=== PATIENT | male | born 1970 | race Caucasian/White ===

== ENCOUNTER → 2025-06-10 | Outpatient (CLI) | payer BC, SELFPAY ==
--- OUTSIDE RECORDS SUMMARY | 2025-06-10 07:02 | XMS RPT_ITS | CCD ---
Author Organization [facility] ion [facility] Care Team Providers Care Seeing Eye Dog Teacher Name Role Phone Haley Ulloa Attending Unavailab le Longsdorf, Haley Hernandes Primary Care Unavailab le Longsdorf, Haley A Admitting Unavailab le Longsdorf, Haley A Admitting Unavailab le Longsdorf, Haley A Attending Unavailab le Longsdorf, Haley A Primary Care Unavailab le Longsdorf, Haley A Admitting Unavailab le Longsdorf, Haley A Attending Unavailab le Longsdorf, Haley A Primary Care Unavailab le Longsdorf, Haley A Admitting Unavailab le Longsdorf, Haley A Attending Unavailab le Longsdorf, Haley A Primary Care Unavailab le Longsdorf, Haley Unavailable Unavailable Laila, Haley A Unavailable Unavailab le Haley Ulloa Primary Care Provider Haley Ulloa Primary Care Provider Haley Ulloa MD Unavailable Unavaila ble Haley Ulloa Unavailable Unavailab Haley Lira MD Primary Care Provid er Haley Ulloa Unavailable [phone] Unavailable Unavailable Haley Ulloa Primary Care Provider Haley Ulloa MD Primary Care Provid er Haley Ulloa Unavailable Dat Garcia I Unavailable Unavailable Haley Ulloa MD Primary Care Provid er [place], Mr. Dat Lisa Attending Unavailable Dr. Haley Ulloa Primary Care Un available Haley Ulloa MD Primary Care Provider DANIA PRESSLEY Referring Unavailable DANIA PRESSLEY Attending Unavailable HALEY ULLOA Primary Care Haley English MD Unavailable Haley Ulloa MD Primary Care [facility] er Lizandro Bruce OD Unavailable [phone] HALEY ULLOA Primary Care SAMANTHA De Jesus Attending Unavailable LIZANDRO BRUCE Referring Unavailable SYSTEM, PROVIDER NOT IN Attending Unavaila ble SYSTEM, PROVIDER NOT IN Referring Unavaila HALEY Brody Primary Care Zahraavai labalycia SYSTEM, PROVIDER NOT IN Referring Unavaila ble LAILA, HALEY COLEY Primary Care Unavai labalycia SYSTEM, PROVIDER NOT IN Attending Unavaila ble Janette Marino LPN Unavailable Unavailable [facility] Consulting ARTHUR Aguayo Attending Unavailable MOSES BOWEN Admitting Unavailab le HALEY ULLOA Primary Care YESSENIA Martinez Consulting Unavaila HALEY Brody Primary Care DANIA Cage Referring Unavailable DANIA PRESSLEY Attending Unavailable NONA WORTHINGTON Referring Unavailable NONA WORTHINGTON Attending Unavailable HALEY ULLOA Primary Care Haley English MD Unavailable Haley Ulloa MD Primary Care Provider Haley Ulloa MD Unavailable Haley Ulloa MD Primary Care Provider HALEY ULLOA Primary Care HALEY English Primary Care RICARDO Underwood Attending Unav ailable LONGIDORF, HALEY COLEY Primary Care Unavai robert PALOMINOEY, DANIA CARSON Referring Unavailable WENDIE, DANIA CARSON Attending Unavailable LONGSDORF, HALEY A Attending Unavailab le LONGSDORF, HALEY A Primary Care Unavailab le LONGSDORF, HALEY A Attending Unavailab le LONGSDORF, HALEY A Referring Unavailab le LONGSDORF, HALEY A Primary Care Unavailab le LONGSDORF, HALEY A Attending Unavailab le LONGSDORF, HALEY A Referring Unavailab le LONGSDORF, HALEY A Primary Care Unavailab le LONGSDORF, HALEY A Attending Unavailab le LONGSDORF, HALEY A Primary Care Unavailab le LONGSDORF, HALEY A Primary Care Unavailab DOUGLAS Lauren Attending Unavailable MARYJANE ALEXIS S Referring Unavailable LONGSDORF, HALEY A Primary Care Unavailab GINA Manuel Attending Unavailable LONGSDORF, HALEY A Referring Unavailab le LONGSDORF, HALEY A Primary Care Unavailab GINA Manuel Referring Unavailable LONGSDORF, HALEY A Primary Care Unavailab GINA Manuel Referring Unavailable LONGSDORF, HALEY A Primary Care Unavailab IRAIS Escalante Attending Unavailable LONGSDORF, HALEY A Primary Care Unavailab le LONGSDORF, HALEY A Referring Unavailab le LONGSDORF, HALEY A Primary Care Unavailab le MARYJANE ALEXIS S Attending Unavailable LONGSDORF, HALEY A Referring Unavailab le LONGSDORF, HALEY A Primary Care Unavailab le LONGSDORF, HALEY A Primary Care Unavailab DON Izaguirre Attending Unavailable LONGSDORF, HALEY A Referring Unavailab le LONGSDORF, HALEY A Primary Care Unavailab le MARJORIET, MARYJANE S Referring Unavailable LONGSDORF, HALEY A Primary Care Unavailab le MARJORIET, MARYJANE S Referring Unavailable LONGSDORF, HALEY A Primary Care Unavailab le REUBEN, MARYJANE S Referring Unavailable LONGSDORF, HALEY A Primary Care Unavailab le REUBEN, MARYJANE S Referring Unavailable LONGSDORF, HALEY A Primary Care Unavailab le LONGSDORF, HALEY A Primary Care Unavailab Maryjane Felix NP Referring Maryjane Suero NP Attending [facility] Care Physician, No Primary Primary Care Unava ilable Medications Current Medications Medication Drug Class(es) Dates Sig (Normalized) Sig (Original) acetaminophen 325 mg / oxyCODONE hydrochloride 5 mg oral tablet (1 source) Opioid Agonist Start: 01-04-2024 End: 01-07-2024 take 1 tablet by mouth four times daily oxyCODONE-acetamin ophen (Percocet) 5-325 mg tablet Indications: Pleural effusion on right , Right-sided chest pain , Pneumonitis Take 1 tablet by mouth 4 times a day for 3 days. 12 tablet 01/04/2024 01/07/2024 Active amoxicillin 875 mg oral tablet (1 source) Penicillin-class Antibacterial Start: 05-27-2024 End: 06-06-2024 take 1 tablet by mouth twice daily amoxicillin (Amoxil) 875 mg tablet Indications: Right ear pain Take 1 tablet (875 mg) by mouth 2 times a day for 10 days. 20 tablet 05/27/2024 06/06/2024 Active amoxicillin 875 mg / clavulanate 125 mg oral tablet (6 sources) Penicillin-class Antibacterial Start: 06-22-2024 End: 07-04-2024 take 1 tablet by mouth every twelve hours amoxicillin-pot clavulanate (Augmentin) 875-125 mg tablet Indications: Pain in upper jaw , Right ear pain Take 1 tablet by mouth every 12 hours for 7 days. 14 tablet 06/22/2024 07/04/2024 Discontinued (Therapy completed) Start: 01-14-2024 End: 02-04-2024 take 1 tablet by mouth twice daily amoxicillin-pot clavulanate (Augmentin) 875-125 mg tablet Take 1 tablet by mouth twice a day. 01/14/2024 02/04/2024 Active atorvastatin 40 mg oral tablet (20 sources) HMG-CoA Reductase Inhibitor Start: 11-20-2024 take 1 tablet by mouth once daily atorvastatin (Lipitor) 40 mg tablet Indications: Elevated serum cholesterol TAKE 1 TABLET BY MOUTH EVERY DAY 90 tablet 1 11/20/2024 Active Start: 05-27-2024 take 1 tablet by be once daily atorvastatin (Lipitor) 40 mg tablet Indications: Elevated serum cholesterol Take 1 tablet (40 mg) by mouth once daily. 90 tablet 1 05/27/2024 Active Start: 02-19-2024 take 1 tablet by be th once daily atorvastatin (Lipitor) 40 mg tablet Indications: Elevated serum cholesterol Take 1 tablet (40 mg) by mouth once daily. 90 tablet 1 02/19/2024 Active Start: 11-12-2023 End: 01-14-2024 take 40 mg by mouth once daily 40 mg, Oral, Nightly, F irst dose on Taylor 01/10/24 at 0030 Start: 05-08-2023 take 1 tablet by be th once daily atorvastatin (Lipitor) 40 mg tablet Indications: Elevated serum cholesterol Take 1 tablet (40 mg) by mouth once daily. 90 tablet 1 05/08/2023 Active Start: 02-02-2023 take 1 tablet by be th once daily atorvastatin (Lipitor) 40 mg tablet Indications: Elevated serum cholesterol Take 1 tablet (40 mg) by mouth once daily. 90 tablet 1 02/02/2023 Active Start: 08-08-2022 End: 02-02-2023 take 1 tablet by mouth every twenty-four hours atorvastatin (LIPITOR) 40 MG tablet Take 1 Unspecified by mouth daily . 08/08/2022 Active Comment on above: Source=[facility], Medication=ATORVASTATIN 40MG TAB, OriginatingSource=[facility], Duration=90, Date Last Modified/Filled=08-Aug-2022 Take 1 tablet by be th every afternoon. calcium chloride 0.0014 meq/ml / potassium chloride 0.004 meq/ml / sodium chloride 0.103 meq/ml / sodium lactate 0.028 meq/ml injectable solution (2 sources) Start : 10-02 lactated Ringer's infusion HYDROmorphone (1 source) Opioid Agonist Start : 10-02 HYDROmorphone (Dilaudid) injection 0.5 mg levoFLOXacin 500 mg oral tablet (3 sources) Quinolone Antimicrobial Start : 01-03 End: 01-13 take 1 tablet by mouth once daily levoFLOXacin (Levaquin) 500 mg tablet Indications: Pleural effusion on right , Right-sided chest pain , Pneumonitis Take 1 tablet (500 mg) by mouth once daily for 10 days. 10 tablet 01/04/2024 01/14/2024 Active naproxen 500 mg oral tablet (2 sources) Nonsteroidal Anti-inflammatory Drug Start : 06-22 End: 07-07 take 1 tablet by mouth twice daily naproxen (Naprosyn) 500 mg tablet Indications: Pain in upper jaw , Right ear pain Take 1 tablet (500 mg) by mouth 2 times daily (morning and late afternoon) for 15 days. 30 tablet 06/22/2024 07/07/2024 Active oxyCODONE hydrochloride 5 mg oral tablet (3 sources) Opioid Agonist Start : 10-02 take 1 tablet by mouth every four hours as needed oxyCODONE (Roxicodone) immediate release tablet 10 mg Start: 10-30-2016 End: 01-16-2022 take 5-15 mg by mouth every four hours as needed oxyCODONE immediate release (ROXICODONE) 5 mg immediate release tablet Take 1-3 tablets by mouth every 4 hours as needed for Pain. 60 tablet 0 10/30/2016 01/16/2022 Discontinued (Discontinued by another Health Care Provider) Comment on above: Take 5 mg by mouth e very 4 hours as needed. Take 1-3 tablets by mouth every 4 hours as needed for Pain. oxygen (O2) therapy (1 source) Start: 10-02-2023 oxygen (O2) therapy predniSONE 20 mg oral tablet (1 source) Start: 05-27-2024 End: 06-01-2024 take 1 tablet by mouth once daily predniSONE (Deltasone) 20 mg tablet Indications: Right ear pain Take 1 tablet (20 mg) by mouth once daily for 5 days. 5 tablet 05/27/2024 06/01/2024 Active rOPINIRole 0.5 mg oral tablet (20 sources) Nonergot Dopamine Agonist Start: 11-20-2024 take 1 tablet by mouth once daily at bedtime rOPINIRole (Requip) 0.5 mg tablet Indications: restless leg syndrome TAKE 1 TABLET (0.5 MG) BY MOUTH ONCE DAILY AT BEDTIME. TAKE WITH 2 MG FOR A TOTAL OF 2.5 MG NIGHTLY 90 tablet 1 11/20/2024 Active Start: 11-20-2024 take 1 tablet by be once daily at bedtime rOPINIRole (Requip) 2 mg tablet Indications: restless leg syndrome TAKE 1 TABLET (2 MG) BY MOUTH ONCE DAILY AT BEDTIME. 90 tablet 1 11/20/2024 Active Start: 05-27-2024 take 1 tablet by be th once daily at bedtime rOPINIRole (Requip) 0.5 mg tablet Indications: restless leg syndrome Take 1 tablet (0.5 mg) by mouth once daily at bedtime. Take with 2 mg for a total of 2.5 mg nightly 90 tablet 1 05/27/2024 Active Start: 05-27-2024 take 1 tablet by be th once daily at bedtime rOPINIRole (Requip) 2 mg tablet Indications: restless leg syndrome Take 1 tablet (2 mg) by mouth once daily at bedtime. 90 tablet 1 05/27/2024 Active Start: 02-19-2024 take 1 tablet by be once daily at bedtime rOPINIRole (Requip) 2 mg tablet Indications: Restless legs syndrome Take 1 tablet (2 mg) by mouth once daily at bedtime. 90 tablet 1 02/19/2024 Active Start: 01-10-2024 End: 01-14-2024 take 2 mg by mouth at bedtime 2 mg, Oral, At bedtime, First dose on Taylor 01/10/24 at 0030 Start: 02-20-2023 take 1 tablet by be once daily at bedtime rOPINIRole (Requip) 2 mg tablet Indications: Restless legs syndrome TAKE 1 TABLET BY MOUTH EVERYDAY AT BEDTIME 90 tablet 1 02/20/2023 Active Start: 01-30-2020 take 4 tablets by mo [facility] at bedtime, then take 1 tablet by mouth once daily at bedtime rOPINIRole (REQUIP) 0.5 MG tablet Take 4 (four) tablets (2 mg total) by mouth at bedtime TAKE 1 TABLET BY MOUTH EVERYDAY AT BEDTIME . 01/30/2020 Active Start: 10-31-2019 rOPINIRole (RE QUIP) 0.5 mg tablet Take by mouth. 0 10/31/2019 Active Start: 10-31-2019 take 1 tablet by be th at bedtime rOPINIRole HCl - 2 MG Oral Tablet TAKE 1 TABLET AT BEDTIME. Quantity: 90 Refills: 1 Ordered: 04-Aug-2022 Haley Ulloa MD Start : 31-Oct-2019 Active Start: 10-31-2019 take 1 tablet by be th at bedtime rOPINIRole HCl - 1 MG Oral Tablet TAKE 1 TABLET AT BEDTIME Quantity: 90 Refills: 1 Haley Ulloa MD Start : 31-Oct-2019 Active Comment on above: Take by mouth. Source=Surescripts, Medication=ROPINIROLE 2MG TAB, OriginatingSource=[facility], Duration=90, Date Last Modified/Filled=04-Aug-2022 sertraline 100 mg oral tablet (20 sources) Serotonin Reuptake Inhibitor Start: 01-10-2024 End: 01-14-2024 take 150 mg by mouth once daily 150 mg, Oral, Daily, First dose on [place] 01/10/24 at 0900 Start: 07-22-2018 take 1.5 tablets by mouth once daily sertraline (Zoloft) 100 mg tablet Indications: Depression, unspecified Take 1.5 tablets (150 mg) by mouth once daily. 135 tablet 1 11/20/2024 Active Start: 07-22-2018 End: 08-24-2023 sertraline (Zoloft) 100 mg t ablet Indications: Depression, unspecified TAKE 1 & 1/2 TABLET BY MOUTH EVERY DAY 135 tablet 1 02/20/2023 08/24/2023 Discontinued (Reorder) take 2 tablets by mo ndh once daily sertraline (ZOLOFT) 50 mg tablet Take 100 mg by mouth once daily. 0 Active Comment on above: Take 100 mg by mouth once daily. Completed/Discontinued Medications Medication Drug Class(es) Dates Sig (Normalized) Sig (Original) acetaminophen 325 mg oral tablet (20 sources) Start: 08-01-2024 End: 08-01-2024 take 1 tablet by mouth once as needed for pain 650 mg, oral, Once, On 08/01/24 at 1045, For 1 dose, Phase II/On Unit, Administer tablet or oral liquid per patient preference., If ordered PRN for pain, nurse is permitted to administer this medication for higher pain scores based on patient preference? Yes Start: 01-09-2024 End: 01-14-2024 take 1 tablet by mouth every four hours as needed for pain and headache 650 mg, Oral, Every 4 hours PRN, mild pain, fever 100.4 F or greater, headaches, Starting on Sun01/09/24 at 2341 Start: 10-02-2023 End: 10-02-2023 acetaminophen (Tylenol) tabl et 975 mg acetaminophen (T ylenol) 325 mg tablet Take by mouth every 6 hours if needed for mild pain (1 - 3). Active End: 01-16-2022 take 2 tablets by mouth every six hours as needed acetaminophen (TYLENOL) 325 MG tablet Take 2 (two) tablets (650 mg total) by mouth every 6 (six) hours as needed Per pt . Active Comment on above: Take 650 mg by mouth every 6 hours as needed. alteplase (INTRAPLEURAL) 10 mg/30 mL injection (4 sources) Start: 01-13-2024 End: 01-13-2024 alteplase (INTRAPLEURAL) 10 mg/30 mL injection Start: 01-12-2024 End: 01-12-2024 alteplase (INTRAPLEURAL) 10 mg/30 mL injection Start: 01-11-2024 End: 01-11-2024 alteplase (INTRAPLEURAL) 10 mg/30 mL injection Start: 01-10-2024 End: 01-10-2024 alteplase (INTRAPLEURAL) 10 mg/30 mL injection aluminum hydroxide 40 mg/ml / magnesium hydroxide 40 mg/ml / simethicone 4 mg/ml oral suspension (1 source) Start: 01-09-2024 End: 01-14-2024 take 30 mL by mouth every four hours as needed 30 mL, Oral, Every 4 hours PRN, indigestion, Starting on Sun01/09/24 at 2341 benoxinate hydrochloride 4 mg/ml / fluorescein sodium 3 mg/ml ophthalmic solution (2 sources) Diagnostic Dye Start: 01-02-2024 End: 01-02-2024 fluorescein-benoxin ate 0.3-0.4 % 1 Drop (FLURESS) Start: 01-16-2022 End: 01-17-2022 fluorescein-benoxinate 0.25- 0.4 % 1 Drop (FLURESS) bisacodyl 10 mg rectal suppository (2 sources) Stimulant Laxative Start: 01-09-2024 End: 01-14-2024 take 10 mg rectal route once daily as needed for constipation 10 mg, Rectal, Daily PRN, constipation, Starting on Sun01/09/24 at 2341, Try oral medications first for constipation. Try rectal medication if oral meds are ineffective, not tolerated, or not ordered. End: 01-16-2022 take 10 mg rectal route once daily as needed bisacodyl (DULCOLAX) 10 mg supp 10 mg by RECTAL route once daily as needed. 0 01/16/2022 Discontinued (Discontinued by another Health Care Provider) Comment on above: 10 mg by RECTAL rout e once daily as needed. ceFAZolin 2000 mg injection (1 source) Cephalosporin Antibacterial Start: End: ceFAZolin in dextrose (iso-os) (Ancef) IVPB 2 g cefTRIAXone 2000 mg injection (2 sources) Cephalosporin Antibacterial Start: End: take 2000 mg intravenously every twenty-four hours cefTRIAXone (ROCEPHIN) IVPB 2 g (premix) Start: 01-04-2024 End: 01-04-2024 2 g, intravenous, at 100 mL/ hr, Administer over 30 Minutes, Once, On Sun01/04/24 at 1935, For 1 dose, premix bag, Suspected Indication (Select all that apply): Pneumonia, Type of Therapy: Empiric celecoxib 200 mg oral capsule (1 source) Nonsteroidal Anti-inflammatory Drug Start: 10-02-2023 End: 10-02-2023 celecoxib (CeleBREX) capsule 400 mg docusate sodium 50 mg / sennosides, intermediate 8.6 mg oral tablet (1 source) Start: 01-10-2024 End: 01-14-2024 senna-docusate (SENNA-S) 8.6-50 mg per tablet 1 tablet dornase (PULMOZYME) 5 mg/30 ml intrapleural injection (4 sources) Start: 01-13-2024 End: 01-13-2024 dornase (PULMOZYME) 5 mg/30 ml intrapleural injection Start: 01-12-2024 End: 01-12-2024 dornase (PULMOZYME) 5 mg/30 ml intrapleural injection Start: 01-11-2024 End: 01-11-2024 dornase (PULMOZYME) 5 mg/30 ml intrapleural injection Start: 01-10-2024 End: 01-10-2024 dornase (PULMOZYME) 5 mg/30 ml intrapleural injection 0.4 ml enoxaparin sodium 100 mg/ml prefilled syringe (2 sources) Low Molecular Weight Heparin Start: 01-10-2024 End: 01-14-2024 inject 40 mg by subcutaneous injection once daily 40 mg, Subcutaneous, Daily, First dose on Taylor 01/10/24 at 0900, Administer in abdomen unless otherwise directed by prescriber. Notify physician if patient refuses., Indication: VTE Prophylaxis Start: 10-20-2016 End: 01-16-2022 inject 0.3 mL by subcutaneous injection every twelve hours enoxaparin (LOVENOX) 30 mg/0.3 mL injection Inject 0.3 mL subcutaneously every 12 hours. 30 Syringe 2 10/20/2016 01/16/2022 Discontinued (Discontinued by another Health Care Provider) Comment on above: Inject 0.3 mL subcut aneously every 12 hours. gabapentin 300 mg oral capsule (20 sources) Anti-epileptic Agent Start: 10-02-2023 End: 10-02-2023 gabapentin (Neurontin) capsule 600 mg Start: 06-03-2021 Gabapentin 300 MG Oral Capsule Quantity: 90 Refills: 0 Ordered: 03-Jun-2021 DO Start : 03-Jun-2021 Active Start: 05-06-2021 End: 09-26-2023 take 1 capsule by mouth once daily at bedtime gabapentin (NEURONTIN) 300 MG capsule Indications: Diabetic polyneuropathy associated with type 2 diabetes mellitus (HCC) Take 1 (one) capsule (300 mg total) by mouth at bedtime (Days supply per fill: 90) . 90 capsule 3 06/02/2022 06/02/2023 Active Comment on above: Take 300 mg by mouth once daily. Source=[place], Medication=GABAPENTIN 300 MG CAPSULE, OriginatingSource=[facility] OriginatingProvider=NIMA BURR, Duration=90, Refills=3, Date Last Modified/Filled=02-Jun-2022 gadoterate meglumine (Dotarem) 0.5 mmol/mL contrast injection 20 mL (1 source) Start: 2024 End: 2024 inject 20 mL intravenously once 20 mL, intravenous, Once in imaging, Starting on Sun02/06/25 at 0746, For 1 dose, Administer undiluted as rapid I.V. bolus injection gadoterate meglumine (Dotarem) 0.5 mmol/mL contrast injection 24 mL (1 source) Start: 2024 End: 2024 inject 24 mL intravenously once 24 mL, intravenous, Once in imaging, Starting on Sun05/08/25 at 1438, For 1 dose, Administer undiluted as rapid I.V. bolus injection glucagon (rdna) 1 mg injection (1 source) Antihypoglycemic Agent Start: 2023 End: 2023 intravenous, As needed, Starting on Sun08/01/24 at 0838, Intraprocedure ibuprofen 600 mg oral tablet (16 sources) Nonsteroidal Anti-inflammatory Drug Start: 2023 End: 2023 take 1 tablet by mouth every six hours as needed for headache and pain 600 mg, Oral, Every 6 hours PRN, fever 100.4 F or greater, headaches, mild pain, Starting on Sun01/09/24 at 2341, Give with Food Do Not Crush or Chew if administering orally due to bitter taste. May be crushed if given via tube. take 2 tablets by mo ut every six hours as needed ibuprofen (ADVIL,MOTRIN) 200 MG tablet T christina 2 (two) tablets (400 mg total) by mouth every 6 (six) hours as needed Per pt - as needed . Active iohexol (OMNIPaque) 350 mg iodine/mL solution 69 mL (1 source) Start: 01-04-2024 End: 01-04-2024 69 mL, intravenous, Once in imaging, Starting on Sun01/04/24 at 1827, For 1 dose iopamidoL (ISOVUE-370) 370 mg iodine /mL (76 %) injection 75 mL (1 source) Start: 01-09-2024 End: 01-09-2024 iopamidoL (ISOVUE-370) 370 mg iodine /mL (76 %) injection 75 mL 1 ml ketorolac tromethamine 30 mg/ml injection (1 source) Nonsteroidal Anti-inflammatory Drug, Cyclooxygenase Inhibitor Start: 01-04-2024 End: 01-04-2024 30 mg, intravenous, Once, On Sun01/04/24 at 1935, For 1 dose LORazepam 0.5 mg oral tablet (2 sources) Benzodiazepine End: 01-16-2022 LORazepam (ATIVAN) 0.5 mg tab Take by mouth three times daily as needed. 0 01/16/2022 Discontinued (Discontinued by another Health Care Provider) End: 01-16-2022 LORAZEPAM (ATIVAN ORAL) Awilda cations: Hangman's fracture, closed, initial encounter ([facility]) Take by mouth. 0 01/16/2022 Discontinued (Discontinued by another Health Care Provider) Comment on above: Take by mouth three times daily as needed. Take by mouth. magnesium hydroxide 80 mg/ml oral suspension (1 source) Start: 01-09-2024 End: 01-14-2024 2,400 mg (30 mL), Oral, Daily PRN, constipation, Starting on Sun01/09/24 at 2341, If no bowel movement in 24 hours after Sennosides (SENNA) administration. melatonin 5 mg oral tablet (1 source) Start: 01-09-2024 End: 01-14-2024 5 mg, Oral, Nightly PRN, Sleep, Starting on Sun01/09/24 at 2341, If still awake in 1 hour proceed to trazodone (Desyrel) metroNIDAZOLE 250 mg oral tablet (2 sources) Nitroimidazole Antimicrobial Start: 01-11-2024 End: 01-14-2024 metroNIDAZOLE (FLAGYL) tablet 500 mg Start: 01-10-2024 End: 01-10-2024 take 500 mg intravenously every eight hours metroNIDAZOLE (FLAGYL) IVPB 500 mg morphine sulfate 15 mg oral tablet (4 sources) Opioid Agonist Start: 01-09-2024 End: 01-14-2024 take 7.5-15 mg by mouth every four hours as needed morphine (MSIR) tablet 7.5-15 mg Start: 01-09-2024 End: 01-14-2024 take 2-4 mg intravenously every three hours as needed morphine injection 2-4 mg Start: 01-04-2024 End: 01-04-2024 4 mg, intravenous, Once, On Sun01/04/24 at 1935, For 1 dose naloxone (NARCAN) injection 0.1 mg (1 source) Start: 01-09-2024 End: 04-22-2024 naloxone (NARCAN) injection 0.1 mg 24 hr nicotine 0.583 mg/hr transdermal system (1 source) Cholinergic Nicotinic Agonist Start: 01-09-2024 End: 01-14-2024 nicotine (NICODERM CQ) 14 mg/24 hr 1 patch 2 ml ondansetron 2 mg/ml injection (2 sources) Serotonin-3 Receptor Antagonist Start: 01-04-2024 End: 01-04-2024 4 mg, intravenous, Once, On Sun01/04/24 at 1715, For 1 dose, When administering via IV Push, administer over 3-5 minutes. Start: 10-02-2023 ondansetron (Z ofran) injection 4 mg ondansetron (ZOFRAN-ODT) disintegrating tablet 4 mg (1 source) Start: 01-09-2024 End: 01-14-2024 take 1 tablet by mouth every six hours as needed for nausea and vomiting ondansetron (ZOFRAN-ODT) disintegrating tablet 4 mg perflutren lipid microspheres (DEFINFotoIN Mobile) 0.143 mg/mL solution 0-10 mL of mixture (1 source) Start: 01-10-2024 End: 01-12-2024 perflutren lipid microspheres (DEFINITY) 0.143 mg/mL solution 0-10 mL of mixture phenylephrine hydrochloride 25 mg/ml ophthalmic solution (2 sources) alpha-1 Adrenergic Agonist Start: 01-02-2024 End: 01-02-2024 PHENYLephrine 2.5 % 1 Drop (AK-DILATE, MERISSA-SYNEPHRINE) Start: 01-16-2022 End: 01-17-2022 PHENYLephrine 2.5 % 1 Drop ( AK-DILATE, MERISSA-SYNEPHRINE) proparacaine hydrochloride 5 mg/ml ophthalmic solution (2 sources) Local Anesthetic Start: 01-02-2024 End: 01-02-2024 proparacaine 0.5 % 1 Drop (ALCAINE) Start: 01-16-2022 End: 01-17-2022 proparacaine 0.5 % 1 Drop (A LCAINE) sennosides, intermediate 8.6 mg oral tablet (1 source) Start: 01-09-2024 End: 01-14-2024 take 1 tablet by mouth twice daily as needed for constipation 8.6 mg (1 tablet), Oral, 2 times daily PRN, constipation, Starting on Sun01/09/24 at 2341 Sodium Chloride (3 sources) Start: 01-09-2024 End: 01-14-2024 sodium chloride (PF) (NS) flush 5 mL Start: 01-04-2024 End: 01-04-2024 take 125 mL intravenously every hour 125 mL/hr, intravenous, Continuous, Starting on Sun01/04/24 at 1715 traZODone hydrochloride 50 mg oral tablet (1 source) Serotonin Reuptake Inhibitor Start: 01-09-2024 End: 01-14-2024 50 mg, Oral, Nightly PRN, sleep, Starting on Sun01/09/24 at 2341, To be administered 1 hour after melatonin if still awake. May repeat x 1 dose in 30 minutes if still awake. tropicamide 10 mg/ml ophthalmic solution (2 sources) Anticholinergic Start: 01-02-2024 End: 01-02-2024 tropicamide 1 % 1 Drop (MYDRIACYL) Start: 01-16-2022 End: 01-17-2022 tropicamide 1 % 1 Drop (MYDR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 [facility] [place] [address] Distributor Of Directories: Parveen Cantrell MD Hematocrit (Bld) [Volume fraction] 46.7 % Normal 38.5-50.0 [facility] Comment on above: Performed By: #### 5 363, 28109, 927, 6399, 69699, 40522, 7600 #### [facility] [place] [address] Distributor Of Directories: Parveen Cantrell MD Hemoglobin (Bld) [Mass/Vol] 15.1 g/dL Normal 13.2-17.1 [facility] Comment on above: Performed By: #### 5 363, 15151, 927, 6399, 25764, 70122, 7600 #### [facility] [place] [address] Distributor Of Directories: Parveen Cantrell MD Lymphocytes (Bld) [#/Vol] 2.996 10*3/uL Normal 850-3900 [facility] Comment on above: Performed By: #### 5 363, 28747, 927, 6399, 20320, 08265, 7600 #### [facility] [place] [address] Distributor Of Directories: Parveen Cantrell MD Lymphocytes/100 WBC (Bld) 28.0 % Normal [facility] Comment on above: Performed By: #### 5 363, 13169, 927, 6399, 93402, 01942, 7600 #### [facility] [place] [address] Distributor Of Directories: Parveen Cantrell MD MCH (RBC) [Entitic mass] 30.1 pg Normal 27.0-33.0 [facility] Comment on above: Performed By: #### 5 363, 91204, 927, 6399, 01922, 48553, 7600 #### [facility] [place] [address] Distributor Of Directories: Parveen Cantrell MD MCHC (RBC) [Mass/Vol] 32.3 g/dL Normal 32.0-36.0 [facility] Comment on above: Result Comment: For adults, a slight decrease in the calculated MCHC value (in the range of 30 to 32 g/dL) is most likely not clinically significant; however, it should be interpreted with caution in correlation with other red cell parameters and the patient's clinical condition. Performed By: #### 5 363, 45554, 927, 6399, 26883, 61790, 7600 #### [facility] [place] [address] Distributor Of Directories: Parveen Cantrell MD MCV (RBC) [Entitic vol] 93.2 fL Normal 80.0-100.0 [facility] Comment on above: Performed By: #### 5 363, 93696, 927, 6399, 15185, 34783, 7600 #### [facility] of [address], [address] [place] [address] Distributor Of Directories: Parveen Cantrell MD Monocytes (Bld) [#/Vol] 0.471 10*3/uL Normal 200-950 [facility] Comment on above: Performed By: #### 5 363, 09672, 927, 6399, 85619, 06403, 7600 #### [facility] of [address], [address] [place], [place] [address] Distributor Of Directories: Parveen Cantrell MD Monocytes/100 WBC (Bld) 4.4 % Normal [facility] Comment on above: Performed By: #### 5 363, 78326, 927, 6399, 16461, 62640, 7600 #### [facility] of [address], [address] [place] [address] Distributor Of Directories: Parveen Cantrell MD Neutrophils (Bld) [#/Vol] 6.848 10*3/uL Normal 7630-4256 [facility] Comment on above: Performed By: #### 5 363, 91778, 927, 6399, 43217, 40746, 7600 #### [facility] of [address], [address] [place] [address] Distributor Of Directories: Parveen Cantrell MD Neutrophils/100 WBC (Bld) 64 % Normal [facility] Comment on above: Performed By: #### 5 363, 73033, 927, 6399, 31426, 28488, 7600 #### [facility] of [address], [address] [place], [place] [address] Distributor Of Directories: Parveen Cantrell MD Platelet mean volume (Bld) [Entitic vol] 9.1 fL Normal 7.5-12.5 [facility] Comment on above: Performed By: #### 5 363, 89717, 927, 6399, 39817, 70622, 7600 #### [facility] of [address], [address] [place] [address] Distributor Of Directories: Parveen Cantrell MD Platelets (Bld) [#/Vol] 291 10*3/uL Normal 140-400 [facility] Comment on above: Performed By: #### 5 363, 32850, 927, 6399, 11862, 86078, 7600 #### [facility] of [address], [address] [place] [address] Distributor Of Directories: Parveen Cantrell MD RBC (Bld) [#/Vol] 5.01 10*6/uL Normal 4.20-5.80 [facility] Comment on above: Performed By: #### 5 363, 47992, 927, 6399, 72787, 20802, 7600 #### [facility] [place] [address] Distributor Of Directories: Parveen Cantrell MD WBC (Bld) [#/Vol] 10.7 10*3/uL Normal 3.8-10.8 [facility] Comment on above: Performed By: #### 5 363, 15675, 927, 6399, 59366, 82943, 7600 #### [facility] [place] [address] Distributor Of Directories: Parveen Cantrell MD COMPREHENSIVE METABOLIC PANE L W/ANION GAPon 04-28-2025 Albumin [Mass/Vol] 4.7 g/dL Normal 3.6-5.1 [facility] Comment on above: Performed By: #### 5 363, 64959, 927, 6399, 30884, 47103, 7600 #### [facility] of [address], [address] [place] [address] Distributor Of Directories: Parveen Cantrell MD ALP [Catalytic activity/Vol] 70 U/L Normal 35-144 [facility] Comment on above: Performed By: #### 5 363, 68853, 927, 6399, 36805, 41874, 7600 #### [facility] of [address], [address] [place] [address] Distributor Of Directories: Parveen Cantrell MD ALT [Catalytic activity/Vol] 26 U/L Normal 9-46 [facility] Comment on above: Performed By: #### 5 363, 55256, 927, 6399, 31004, 83005, 7600 #### [facility] of [address], [address] [place] [address] Distributor Of Directories: Parveen Cantrell MD AST [Catalytic activity/Vol] 22 U/L Normal 10-35 [facility] Comment on above: Performed By: #### 5 363, 42211, 927, 6399, 39405, 88857, 7600 #### [facility] [place] [address] Distributor Of Directories: Parveen Cantrell MD Bilirubin [Mass/Vol] 0.4 mg/dL Normal 0.2-1.2 [facility] Comment on above: Performed By: #### 5 363, 85398, 927, 6399, 71134, 03488, 7600 #### [facility] of [address], [address] [place] [address] Distributor Of Directories: Parveen Cantrell MD Calcium [Mass/Vol] 9.1 mg/dL Normal 8.6-10.3 [facility] Comment on above: Performed By: #### 5 363, 53201, 927, 6399, 82018, 58234, 7600 #### [facility] [place] [address] Distributor Of Directories: Parveen Cantrell MD Chloride [Moles/Vol] 106 mmol/L Normal 98-110 [facility] Comment on above: Performed By: #### 5 363, 59698, 927, 6399, 93216, 43869, 7600 #### [facility] [place] [address] Distributor Of Directories: Parveen Cantrell MD CO2 [Moles/Vol] 22 mmol/L Normal 20-32 [facility] Comment on above: Performed By: #### 5 363, 62605, 927, 6399, 00098, 66680, 7600 #### [facility] of [address], [address] [place] [address] Distributor Of Directories: Parveen Cantrell MD Creatinine [Mass/Vol] 0.83 mg/dL Normal 0.70-1.30 [facility] Comment on above: Performed By: #### 5 363, 39612, 927, 6399, 56167, 90770, 7600 #### [facility] [address], [address] [place] [address] Distributor Of Directories: Parveen Cantrell MD ELECTROLYTE BALANCE 10 mmol/L (calc) Normal 7-17 [facility] Comment on above: Performed By: #### 5 363, 62881, 927, 6399, 72804, 96694, 7600 #### [facility] [place] [address] Distributor Of Directories: Parveen Cantrell MD GFR/1.73 sq M.predicted among non-blacks MDRD (S/P/Bld) [Vol rate/Area] 105 mL/min/{1.73_m2} Normal > OR = 60 [facility] Comment on above: Performed By: #### 5 363, 01148, 927, 6399, 00315, 52569, 7600 #### [facility] [place] [address] Distributor Of Directories: Parveen Cantrell MD Glucose [Mass/Vol] 95 mg/dL Normal 65-99 [facility] Comment on above: Result Comment: Fasting reference interval Performed By: #### 5 363, 00009, 927, 6399, 42656, 55525, 7600 #### [facility] [place] [address] Distributor Of Directories: Parveen Cantrell MD Potassium [Moles/Vol] 4.5 mmol/L Normal 3.5-5.3 [facility] Comment on above: Performed By: #### 5 363, 05957, 927, 6399, 15786, 10706, 7600 #### [facility] [place] [address] Distributor Of Directories: Parveen Cantrell MD Protein [Mass/Vol] 7.3 g/dL Normal 6.1-8.1 [facility] Comment on above: Performed By: #### 5 363, 60289, 927, 6399, 44398, 76905, 7600 #### [facility] [address], [address] [place] [address] Distributor Of Directories: Parveen Cantrell MD Sodium [Moles/Vol] 138 mmol/L Normal 135-146 [facility] Comment on above: Performed By: #### 5 363, 00418, 927, 6399, 60190, 31553, 7600 #### [facility] [place] [address] Distributor Of Directories: Parveen Cantrell MD Urea nitrogen [Mass/Vol] 19 mg/dL Normal 7-25 [facility] Comment on above: Performed By: #### 5 363, 26332, 927, 6399, 90481, 02760, 7600 #### [facility] [address], [address] [place] [address] Distributor Of Directories: Pavreen Cantrell MD HEMOGLOBIN A1c WITH eAGon eAG (mmol/L) 6.6 mmol/L Normal [facility] Comment on above: Performed By: #### 5 363, 19445, 927, 6399, 46508, 16633, 7600 #### [facility] [place] [address] Distributor Of Directories: Parveen Cantrell MD HbA1c (Bld) [Mass fraction] 5.8 % High <5.7 [facility] Comment on above: Result Comment: For someone without known diabetes, a hemoglobin A1c value between 5.7% and 6.4% is consistent with prediabetes and should be confirmed with a follow-up test. For someone with known diabetes, a value <7% indicates that their diabetes is well controlled. A1c targets should be individualized based on duration of diabetes, age, comorbid conditions, and other considerations. This assay result is consistent with an increased risk of diabetes. Currently, no consensus exists regarding use of hemoglobin A1c for diagnosis of diabetes for children. Performed By: #### 5 363, 10746, 927, 6399, 97135, 57043, 7600 #### [facility] [address], [address] [place] [address] Distributor Of Directories: Parveen Cantrell MD Magnesium [Mass/Vol] 120 mg/dL Normal [facility] Comment on above: Performed By: #### 5 363, 95979, 927, 6399, 71036, 76571, 7600 #### [facility] [address], [address] [place] [address] Distributor Of Directories: Parveen Cantrell MD LIPID PANEL, [facility] Cholesterol [Mass/Vol] 154 mg/dL Normal <200 [facility] Comment on above: Order Comment: FASTI NG:YES FASTING: YES Performed By: #### 5 363, 28877, 927, 6399, 94118, 44384, 7600 #### [facility] [address], [address] [place] [address] Distributor Of Directories: Parveen Cantrell MD Cholesterol in HDL [Mass/Vol] 30 mg/dL Low > OR = 40 [facility] Comment on above: Order Comment: FASTI NG:YES FASTING: YES Performed By: #### 5 363, 94888, 927, 6399, 46307, 54338, 7600 #### [facility] [address], [address] [place] [address] Distributor Of Directories: Parveen Cantrell MD Cholesterol in LDL [Mass/Vol] 90 mg/dL Normal [facility] Comment on above: Order Comment: FASTI NG:YES FASTING: YES Result Comment: Refe rence range: <100 Desirable range <100 mg/dL for primary prevention; <70 mg/dL for patients with CHD or diabetic patients with > or = 2 CHD risk factors. LDL-C is now calculated using the Keisha calculation, which is a validated novel method providing better accuracy than the Friedewald equation in the estimation of LDL-C. Fermin SS et al. SANCHEZ. 2013;310(19): 4214-7529 (http://education.[facility].com/faq/XYO711) Performed By: #### 5 363, 90949, 927, 6399, 23926, 13572, 7600 #### [facility] [address], [address] [place] [address] Distributor Of Directories: Parveen Cantrell MD Cholesterol.total/Ch olesterol in HDL [Mass ratio] 5.1 {ratio} High <5.0 [facility] Comment on above: Order Comment: FASTI NG:YES FASTING: YES Performed By: #### 5 363, 90922, 927, 6399, 29290, 40929, 7600 #### [facility] [address], [address] [place] [address] Distributor Of Directories: Parveen Cantrell MD NON HDL CHOLESTEROL 124 mg/dL (calc) Normal <130 [facility] Comment on above: Order Comment: FASTI NG:YES FASTING: YES Result Comment: For patients with diabetes plus 1 major ASCVD risk factor, treating to a non-HDL-C goal of <100 mg/dL (LDL-C of <70 mg/dL) is considered a therapeutic option. Performed By: #### 5 363, 78483, 927, 6399, 66221, 57120, 7600 #### [facility] [address], [address] [place] [address] Distributor Of Directories: Parveen Cantrell MD Triglyceride [Mass/Vol] 255 mg/dL High <150 [facility] Comment on above: Order Comment: FASTI NG:YES FASTING: YES Result Comment: If a non-fasting specimen was collected, consider repeat triglyceride testing on a fasting specimen if clinically indicated. Agnes et al. J. of Clin. Lipidol. 2015;9:129-169. Performed By: #### 5 363, 09076, 927, 6399, 36745, 37159, 7600 #### [facility] [address], [address] [place] [address] Distributor Of Directories: Parveen Cantrell MD PSA, TOTALon 04-28-2025 PSA, TOTAL 0.35 ng/mL Normal < OR = 4.00 [facility] Comment on above: Result Comment: The total PSA value from this assay system is standardized against the WHO standard. The test result will be approximately 20% lower when compared to the equimolar-standardized total PSA (Arturo Rafael). Comparison of serial PSA results should be interpreted with this fact in mind. This test was performed using the Siemens chemiluminescent method. Values obtained from different assay methods cannot be used interchangeably. PSA levels, regardless of value, should not be interpreted as absolute evidence of the presence or absence of disease. Performed By: #### 5 363, 93483, 927, 6399, 22901, 54523, 7600 #### [facility] [address], [address] [place] [address] Distributor Of Directories: Parveen Cantrell MD TSH W/REFLEX TO FT4on 2024 TSH W/REFLEX TO FT4 2.58 mIU/L Normal 0.40-4.50 [facility] Comment on above: Performed By: #### 5 363, 39833, 927, 6399, 66326, 14503, 7600 #### [facility] [address], [address] [place] [address] Distributor Of Directories: Parveen Cantrell MD VITAMIN B12on 04-28-2025 Cobalamin (Vitamin B12) [Mass/Vol] 486 pg/mL Normal 200-1100 [facility] Comment on above: Performed By: #### 5 363, 53871, 927, 6399, 89632, 02517, 7600 #### [facility] [address], [address] [place] [address] Distributor Of Directories: Parveen Cantrell MD CT CHEST WITHOUT CONTRASTon 02-26-2025 CT CHEST WITHOUT CONTRAST EXAMINATION: CT CHEST WITHOUT CONTRAST, 02/26/2025 HISTORY: ORDERING SYSTEM PROVIDED HISTORY: lung cancer surv, TECHNOLOGIST PROVIDED HISTORY: Illness/Other Reason for exam: lung cancer surv, Lung nodule Encounter Type: Initial Additional signs and symptoms: lung cancer surv, Lung nodule ORDERING SYSTEM PROVIDED DIAGNOSIS CODES: R91.1 Lung nodule COMPARISON: CT chest, 03/12/2024. TECHNIQUE: CT examination of the chest was performed without IV contrast. Coronal and sagittal reformations are provided. Dose reduction techniques were achieved by using automated exposure control and/or adjustment of mA and/or kV according to patient size and/or use of iterative reconstruction technique. FINDINGS: The exam is limited by the lack of IV contrast. There is a borderline enlarged precarinal node measuring 1.5 x 1 cm on image 28 of series 301, unchanged. Borderline enlarged right hilar node on image 31 is likewise unchanged. No new or enlarging thoracic lymph nodes are seen. Cardiac size is normal. There is no coronary arterial calcification or pericardial effusion. The nonenhanced aorta and arch vessels are grossly unremarkable. Thyroid gland and esophagus appear normal. A noncalcified 6 mm nodule is seen in the medial inferior right upper lobe on image 30 of series 302, unchanged from image 39 of series 3 on the prior exam. 2 tiny 2 mm nodular lesions in the superior anterior right middle lobe on image 33 are unchanged from image 40 of the prior study. A 7 mm noncalcified nodule in the lateral left lower lobe on image 38 is unchanged from image 61 of the prior study. No new or enlarging pulmonary nodules are seen. There is linear fibrotic scarring in the right lower lobe. The imaged upper abdomen appears unremarkable. No focal bony lesions are identified. IMPRESSION: 1. Noncalcified bilateral pulmonary nodules as above, nonspecific but unchanged. Follow-up as clinically indicated. 2. Borderline enlarged precarinal and right hilar lymph nodes, nonspecific but unchanged. No new or enlarging thoracic nodes. 3. No acute findings. Workstation ID: [id number] Dictated by: ERICK MCMAHON on SunMar 03, 2025 9:40:30 PM EDT Transcribed by: ERICK MCMAHON on SunMar 03, 2025 9:40:30 PM EDT Finalized by: ERICK MCMAHON on SunMar 03, 2025 9:40:30 PM EDT Normal [facility] Comment on above: Order Comment: Injur y/Trauma or Illness?:Illness/Other How long have you had these symptoms (acute/chronic)?:Chronic Reason for exam?:lung cancer surv, Lung nodule Type of Exam?:Initial Additional signs and symptoms?:lung cancer surv, Lung nodule MR BRAIN W AND WO IV CONTRAS Ton 02-06-2025 MR BRAIN W AND WO IV CONTRAST Interpreted By: Rin Mcleod, STUDY: MR BRAIN W AND WO IV CONTRAST; 02/06/2025 7:45 am INDICATION: Signs/Symptoms:abnormal mri. ,R90.89 Other abnormal findings on diagnostic imaging of central nervous system COMPARISON: None. ACCESSION NUMBER(S): [id number] ORDERING CLINICIAN: HALEY ULLOA TECHNIQUE: Axial T2, FLAIR, DWI, gradient echo T2 and sagittal and coronal T1 weighted images of brain were acquired. Post contrast T1 weighted images were acquired after administration of 20 ML Dotarem gadolinium based intravenous contrast. FINDINGS: CSF Spaces: The ventricles, sulci and basal cisterns are within normal limits. There is no extra-axial fluid collection. Parenchyma: There is no diffusion restriction abnormality to suggest acute infarct. Mild patchy subcortical and periventricular T2 and FLAIR hyperintense signal as well as signal within the nicolas is compatible with microangiopathy. Tiny old lacunar infarct within the right cerebellum. There is no mass effect or midline shift. Cerebellar tonsils are above the foramen magnum. Pituitary and sella are not enlarged. No abnormal susceptibility artifact. No abnormal parenchymal enhancement. Paranasal Sinuses and Mastoids: Moderate mucosal thickening within the ethmoid air cells. Mild mucosal thickening within the frontal sinus and sphenoid sinus. Mastoid air cells are clear. Evidence of bilateral lens surgery. Major intracranial flow voids at the skull base are unremarkable. IMPRESSION: No evidence of acute infarct, intracranial mass effect or midline shift. Nonspecific white matter changes compatible with microangiopathy. MACRO: None Signed by: Rin Mcleod 02/09/2025 11:22 AM Dictation workstation: [id number] [facility] MR CERVICAL SPINE WO IV CONT [facility] 01-15-2025 MR CERVICAL SPINE WO IV CONTRAST Interpreted By: Jose Powell, STUDY: MR CERVICAL SPINE WO IV CONTRAST; 01/15/2025 7:01 pm INDICATION: Signs/Symptoms:neck and right arm pain and left ahnd weakness. H/o fusion. ,M54.2 Cervicalgia,M54.12 Radiculopathy, cervical region,Z98.1 Arthrodesis status ACCESSION NUMBER(S): [id number] ORDERING CLINICIAN: GINA ROGERS TECHNIQUE: Sagittal T1, T2, STIR, axial T1 and axial T2 weighted images were acquired through the cervical spine. FINDINGS: The spine is kyphotic centered at C5-6. C5-6 has minimal anterolisthesis as does C4-5. The C5-6 through C7 disc heights are decreased with patchy areas of marrow edema in the vertebral bodies adjacent to these disc levels as well. No intrinsic abnormalities of the spinal cord are noted. Craniocervical junction: No mass of the foramen magnum is noted. C2-3: No stenosis is noted. C3-4: The neural foramina and lateral recesses are moderately stenosed more so on the left by disc bulge and uncovertebral spurring with mild central left stenosis. C4-5: The neural foramina are moderately stenosed bilaterally more so on the right by disc bulge and uncovertebral spurring. C5-6: The spinal canal is moderately stenosed with moderate to severe right and moderate left lateral recess and foraminal stenoses secondary to disc protrusion and uncovertebral spurring. C6-7: Neural foramina are moderately stenosed bilaterally by disc bulge and uncovertebral spurring with mild to moderate central stenosis as well. C7-T1: The spinal canal is mildly stenosed more so on the right by disc protrusion with moderate to severe foraminal stenoses bilaterally. Disc protrusion abuts the cord on the right. T1-2: No stenosis is noted on the sagittal images. T2-3: The right lateral recess is mildly to moderately stenosed by disc protrusion on the sagittal images. No paraspinous masses or inflammatory changes are noted. The nicolas and midbrain have focal to confluent areas of FLAIR/T2 hyperintensity. IMPRESSION: 1. Multilevel degenerative changes are present most prominent at C5-6. 2. The nicolas and midbrain have focal hyperintensities which may be secondary to chronic microvascular ischemic changes among others. Formal brain MR may be helpful for further evaluation. MACRO: None Signed by: Jose Powell 01/16/2025 1:49 PM Dictation workstation: [id number] [facility] XR CERVICAL SPINE 2-3 VIEWSo n 01-08-2025 XR CERVICAL SPINE 2-3 VIEWS Interpreted By: Luis M Velez, STUDY: XR CERVICAL SPINE 2-3 VIEWS; ; 01/08/2025 3:12 pm INDICATION: Signs/Symptoms:neck and arm pain. H/O fusion. ,M54.2 Cervicalgia,M54.12 Radiculopathy, cervical region,Z98.1 Arthrodesis status COMPARISON: None. ACCESSION NUMBER(S): [id number] ORDERING CLINICIAN: GINA ROGERS FINDINGS: There is previous posterior fusion of the C1 through C3 levels with pedicle screws transfixed by rods. Intact hardware with no failure or fracture or loosening. The normal lordotic curve is somewhat strain but the sagittal alignment is otherwise maintained. The vertebra are normal in height. The prevertebral soft tissues are not thickened. There is moderate to severe degenerative narrowing of the C5-C6 and C6-C7 disc with more mild narrowing at the C7-T1 disc. There is no acute fracture or subluxation. IMPRESSION: See discussion above. No acute findings. MACRO: None Signed by: Luis M Velez 01/10/2025 12:04 PM Dictation workstation: [id number] Normal [facility] Comment on above: Order Comment: AP an d lateral cervical XR CBC W Auto Differential pane l (Bld)on 08-07-2024 Basophils (Bld) [#/Vol] 0.08 x10*3/uL Normal 0.00-0.10 [facility] Comment on above: Performed By: #### 5 7021-8 #### ORI MUNIZ ([id number]) [facility] [facility]) [address] [place] [address] 85526 Basophils/100 WBC (Bld) 0.7 % Normal 0.0-2.0 [facility] Comment on above: Performed By: #### 5 7021-8 #### ORI MUNIZ ([id number]) [facility] ([facility]) [address] [place] [address] 42918 Eosinophils (Bld) [#/Vol] 0.38 x10*3/uL Normal 0.00-0.70 [facility] Comment on above: Performed By: #### 5 7021-8 #### ORI MUNIZ ([id number]) [facility] ([facility]) [address] [place] [address] 13876 Eosinophils/100 WBC (Bld) 3.3 % Normal 0.0-6.0 [facility] Comment on above: Performed By: #### 5 7021-8 #### ORI MUNIZ ([id number]) [facility] ([facility]) [address] [place] [address] 56662 Erythrocyte distribution width (RBC) [Ratio] 13.0 % Normal 11.5-14.5 [facility] Comment on above: Performed By: #### 5 7021-8 #### ORI MUNIZ ([id number]) [facility] ([facility]) [address] [place] [address] Hematocrit (Bld) [Volume fraction] 45.2 % Normal 41.0-52.0 [facility] Comment on above: Performed By: #### 5 7021-8 #### ORI MUNIZ ([id number]) [facility] ([facility]) [address] [place] [address] Hemoglobin (Bld) [Mass/Vol] 15.0 g/dL Normal 13.5-17.5 [facility] Comment on above: Performed By: #### 5 7021-8 #### ORI MUNIZ ([id number]) [facility] ([facility]) [address] [place] [address] Immature granulocytes (Bld) [#/Vol] 0.07 x10*3/uL Normal 0.00-0.70 [facility] Comment on above: Performed By: #### 5 7021-8 #### ORI MUNIZ ([id number]) [facility] ([facility]) [address] [place] [address] Immature granulocytes/100 WBC (Bld) 0.6 % Normal 0.0-0.9 [facility] Comment on above: Result Comment: Rachel ture Granulocyte Count (IG) includes promyelocytes, myelocytes and metamyelocytes but does not include bands. Percent differential counts (%) should be interpreted in the context of the absolute cell counts (cells/UL). Performed By: #### 5 7021-8 #### ORI MUNIZ ([id number]) [facility] ([facility]) [address] [place], [place] [id number] Lymphocytes (Bld) [#/Vol] 3.39 x10*3/uL Normal 1.20-4.80 [facility] Comment on above: Performed By: #### 5 7021-8 #### ROI MUNIZ ([id number]) [facility] ([facility]) [address] [place] [address] 85320 Lymphocytes/100 WBC (Bld) 29.5 % Normal 13.0-44.0 [facility] Comment on above: Performed By: #### 5 7021-8 #### ORI MUNIZ ([id number]) [facility] ([facility]) [address] [place] [address] 53772 MCH (RBC) [Entitic mass] 29.6 pg Normal 26.0-34.0 [facility] Comment on above: Performed By: #### 5 7021-8 #### ORI MUNIZ ([id number]) [facility] ([facility]) [address] [place] [address] 94969 MCHC (RBC) [Mass/Vol] 33.2 g/dL Normal 32.0-36.0 [facility] Comment on above: Performed By: #### 5 7021-8 #### ORI MUNIZ ([id number]) [facility] ([facility]) [address] [place] [address] 39160 MCV (RBC) [Entitic vol] 89 fL Normal 80-100 [facility] Comment on above: Performed By: #### 5 7021-8 #### ORI MUNIZ ([id number]) [facility] ([facility]) [address] [place] [address] 11001 Monocytes (Bld) [#/Vol] 0.53 x10*3/uL Normal 0.10-1.00 [facility] Comment on above: Performed By: #### 5 7021-8 #### ORI MUNIZ ([id number]) [facility] ([facility]) [address] [place] [address] 42569 Monocytes/100 WBC (Bld) 4.6 % Normal 2.0-10.0 [facility] Comment on above: Performed By: #### 5 7021-8 #### ORI MUNIZ ([id number]) [facility] ([facility]) [address] [place] [address] 27207 Neutrophils (Bld) [#/Vol] 7.04 x10*3/uL Normal 1.20-7.70 [facility] Comment on above: Result Comment: Perc ent differential counts (%) should be interpreted in the context of the absolute cell counts (cells/uL). Performed By: #### 5 7021-8 #### ORI MUNIZ ([id number]) [facility] ([facility]) [address] [place] [address] 24957 Neutrophils/100 WBC (Bld) 61.3 % Normal 40.0-80.0 [facility] Comment on above: Performed By: #### 5 7021-8 #### ORI MUNIZ ([id number]) [facility] ([facility]) [address] [place] [address] 83960 Nucleated RBC/100 WBC (Bld) [Ratio] 0.0 /100 WBCs Normal 0.0-0.0 [facility] Comment on above: Performed By: #### 5 7021-8 #### ORI MUNIZ ([id number]) [facility] ([facility]) [address] [place] [address] 80209 Platelets (Bld) [#/Vol] 319 x10*3/uL Normal 150-450 [facility] Comment on above: Performed By: #### 5 7021-8 #### ORI MUNIZ ([id number]) [facility] ([facility]) [address] [place] [address] 06949 RBC (Bld) [#/Vol] 5.07 x10*6/uL Normal 4.50-5.90 [facility] Comment on above: Performed By: #### 5 7021-8 #### ORI MUNIZ ([id number]) [facility] ([facility]) [address] [place] [address] 74497 WBC (Bld) [#/Vol] 11.5 x10*3/uL High 4.4-11.3 [facility] Comment on above: Performed By: #### 5 7021-8 #### ORI MUNIZ ([id number]) [facility] ([facility]) [address] [place] [address] 45528 Cobalaminson 08-07-2024 Cobalamin (Vitamin B12) [Mass/Vol] 409 pg/mL Normal 211-911 [facility] Comment on above: Performed By: #### 2 132-9 #### HARMONY Bravo ([id number]) [facility] ([facility]) [id number] [place] [address] Comprehensive metabolic 2000 panelon 08-07-2024 Albumin BCP dye [Mass/Vol] 4.4 g/dL Normal 3.4-5.0 [facility] Comment on above: Performed By: #### 2 4323-8 #### ORI MUNIZ ([id number]) [facility] ([facility]) [address] [place] [address] 61541 ALP [Catalytic activity/Vol] 78 U/L Normal 33-120 [facility] Comment on above: Performed By: #### 2 4323-8 #### ORI MUNIZ ([id number]) [facility] ([facility]) [address] [place] [address] 23772 ALT With P-5'-P [Catalytic activity/Vol] 23 U/L Normal 10-52 [facility] Comment on above: Result Comment: [place] ents treated with Sulfasalazine may generate falsely decreased results for ALT. Performed By: #### 2 4323-8 #### ORI MUNIZ ([id number]) [facility] ([facility]) [address] [place] [address] 85935 Anion gap [Moles/Vol] 12 mmol/L Normal 10-20 [facility] Comment on above: Performed By: #### 2 4323-8 #### ORI MUNIZ ([id number]) [facility] ([facility]) [address] [place] [address] 49834 AST With P-5'-P [Catalytic activity/Vol] 18 U/L Normal 9-39 [facility] Comment on above: Performed By: #### 2 4323-8 #### ORI MUNIZ ([id number]) [facility] ([facility]) [address] [place] [address] 58009 Bilirubin [Mass/Vol] 0.4 mg/dL Normal 0.0-1.2 [facility] Comment on above: Performed By: #### 2 4323-8 #### ORI MUNIZ ([id number]) [facility] ([facility]) [facility] [place] [address] Calcium [Mass/Vol] 9.7 mg/dL Normal 8.6-10.[address] [facility] Comment on above: Performed By: #### 2 4323-8 #### ORI MUNIZ ([id number]) [facility] ([facility]) [address] [place] [address] 98641 Chloride [Moles/Vol] 103 mmol/L Normal 98-107 [facility] Comment on above: Performed By: #### 2 4323-8 #### ORI MUNIZ ([id number]) [facility] ([facility]) [address] [place] [address] 71368 CO2 [Moles/Vol] 28 mmol/L Normal 21-32 [facility] Comment on above: Performed By: #### 2 4323-8 #### ORI MUNIZ ([id number]) [facility] ([facility]) [address] [place] [address] 40934 Creatinine [Mass/Vol] 0.85 mg/dL Normal 0.50-1.30 [facility] Comment on above: Performed By: #### 2 4323-8 #### ORI MUNIZ ([id number]) [facility] ([facility]) [address] [place] [address] 23356 GFR/1.73 sq M.predicted MDRD (S/P/Bld) [Vol rate/Area] mL/min/{1.73_m2} Normal >60 [facility] Comment on above: Result Comment: Calc ulations of estimated GFR are performed using the 2020 CKD-EPI Study Refit equation without the race variable for the IDMS-Traceable creatinine methods. https://jasn.asnjournals.org/content//ASN.3573253 988 Performed By: #### 2 4323-8 #### ORI MUNIZ ([id number]) [facility] ([facility]) [address] [place] [address] 72751 Glucose [Mass/Vol] 92 mg/dL Normal 74-[address] [facility] Comment on above: Performed By: #### 2 4323-8 #### ORI MUNIZ ([id number]) [facility] ([facility]) [address] [place] [address] 05548 Potassium [Moles/Vol] 4.8 mmol/L Normal 3.5-5.3 [facility] Comment on above: Performed By: #### 2 4323-8 #### ORI MUNIZ ([id number]) [facility] ([facility]) [address] [place] [address] 04705 Protein [Mass/Vol] 6.9 g/dL Normal 6.4-8.[address] [facility] Comment on above: Performed By: #### 2 4323-8 #### ORI MUNIZ ([id number]) [facility] ([facility]) [address] [place] [address] 98761 Sodium [Moles/Vol] 138 mmol/L Normal 136-[address] [facility] Comment on above: Performed By: #### 2 4323-8 #### ORI MUNIZ ([id number]) [facility] ([facility]) [address] [place] [address] 19012 Urea nitrogen [Mass/Vol] 16 mg/dL Normal 6-23 [facility] Comment on above: Performed By: #### 2 4323-8 #### ORI MUNIZ ([id number]) [facility] ([facility]) [address] [place] [address] 55046 HbA1c (Bld) [Mass fraction]o n 08-07-2024 Average glucose Estimated from glycated hemoglobin (Bld) [Mass/Vol] 114 mg/dL Normal Not Established [facility] Comment on above: Order Comment: Diagn osis of Diabetes-Adults Non-Diabetic: < or = 5.6% Increased risk for developing diabetes: 5.7-6.4% Diagnostic of diabetes: > or = 6.5% Performed By: #### 4 548-4 #### HARMONY Bravo ([id number]) [facility] ([facility]) [address] [place] [address] Hemoglobin A1c/Hemoglobin.to hung 08-07-2024 HbA1c (Bld) [Mass fraction] 5.6 % Normal See comment [facility] Comment on above: Order Comment: Diagn osis of Diabetes-Adults Non-Diabetic: < or = 5.6% Increased risk for developing diabetes: 5.7-6.4% Diagnostic of diabetes: > or = 6.5% Performed By: #### 4 548-4 #### HARMONY Bravo ([id number]) [facility] ([facility]) [id number] [place] [address] Lipid 1996 panelon Cholesterol [Mass/Vol] 143 mg/dL Normal 0-199 [facility] Comment on above: Result Comment: Age Desirable Borderline High High 0-19 Y 0 - 169 170 - 199 >/= 200 20-24 Y 0 - 189 190 - 224 >/= 225 >24 Y 0 - 199 200 - 239 >/= 240 All ranges are based on fasting samples. Specific therapeutic targets will vary based on patient-specific cardiac risk. Pediatric guidelines reference:Pediatrics 2011, 128(S5).Adult guidelines reference: NCEP ATPIII Guidelines,SANCHEZ 2001, 258:2486-97 Venipuncture immediately after or during the administration of Metamizole may lead to falsely low results. Testing should be performed immediately prior to Metamizole dosing. Performed By: #### 2 4331-1 #### ORI MUNIZ ([id number]) [facility] ([facility]) [facility] [place] [address] Cholesterol in HDL [Mass/Vol] 32.0 mg/dL Normal [facility] Comment on above: Result Comment: Age Very Low Low Normal High 0-19 Y < 35 < 40 40-45 ---- 20-24 Y ---- < 40 >45 ---- >24 Y ---- < 40 40-60 >60 Performed By: #### 2 4331-1 #### ORI MUNIZ ([id number]) [facility] ([facility]) [facility] [place] [address] Cholesterol in LDL [Mass/Vol] 57 mg/dL Normal <=99 [facility] Comment on above: Result Comment: Near Borderline AGE Desirable Optimal High High Very High 0-19 Y 0 - 109 --- 110-129 >/= 130 ---- 20-24 Y 0 - 119 --- 120-159 >/= 160 ---- >24 Y 0 - 99 100-129 130-159 160-189 >/=190 Performed By: #### 2 4331-1 #### ORI MUNIZ ([id number]) [facility] ([facility]) [address] [place] [address] 19937 Cholesterol in VLDL [Mass/Vol] 54 mg/dL High 0-40 [facility] Comment on above: Performed By: #### 2 4331-1 #### ORI MUNIZ ([id number]) [facility] ([facility]) [address] [place] [address] 64049 CHOLESTEROL/HDL RATIO 4.5 Normal [facility] Comment on above: Result Comment: Ref Values Desirable < 3.4 High Risk > 5.0 Performed By: #### 2 4331-1 #### ORI MUNIZ ([id number]) [facility] ([facility]) [address] [place] [address] 51614 NON HDL CHOLESTEROL 111 mg/dL Normal 0-149 [facility] Comment on above: Result Comment: Age Desirable Borderline High High Very High 0-19 Y 0 - 119 120 - 144 >/= 145 >/= 160 20-24 Y 0 - 149 150 - 189 >/= 190 ---- >24 Y 30 mg/dL above LDL Cholesterol goal Performed By: #### 2 4331-1 #### ORI MUNIZ ([id number]) [facility] ([facility]) [address] [place] [address] 69244 Triglyceride [Mass/Vol] 271 mg/dL High 0-149 [facility] Comment on above: Result Comment: Age Desirable Borderline High Very High SEX:B mg/dL mg/dL mg/dL mg/dL <=14D 86-277 ---- ---- ---- 15D-365D 55-277 ---- ---- ---- 1Y-9Y 0-74 75-99 >=100 ---- 10Y-19Y 0-89 90-129 >=130 ---- 20Y-24Y 0-114 115-149 >=150 ---- >= 25Y 0-149 150-199 200-499 >=500 Venipuncture immediately after or during the administration of Metamizole may lead to falsely low results. Testing should be performed immediately prior to Metamizole dosing. Performed By: #### 2 4331-1 #### REHMAN FLAVIO ([id number]) [facility] ([facility]) [address] [place] [address] TSH WITH REFLEX TO FREE T4 I F ABNORMALon 08-07-2024 TSH Qn 2.08 m[IU]/L Normal 0.44-3.98 [facility] Comment on above: Order Comment: TSH t esting is performed using different testing methodology at [facility] than at other [facility]. Direct result comparisons should only be made within the same method. Performed By: #### T CHANCES #### HARMONY Bravo ([id number]) [facility] ([facility]) [address] [place] [address] 94031 COLONOSCOPYon 08-01-2024 Colonoscopy Table formatting fro m the original result was not included. Impression Diverticulosis in the distal ascending colon Subcentimeter polyp in the descending colon was removed with hot snare 12 mm polyp; performed hot snare removal 10 mm polyp in the distal sigmoid colon; performed hot snare removal Medium hemorrhoids Findings Few small diverticula in the distal ascending colon Sessile polyp measuring 5-9 mm in the descending colon; performed hot snare with complete en bloc removal and retrieved specimen 12 mm pedunculated polyp; performed hot snare with complete en bloc removal and retrieved specimen 10 mm pedunculated polyp in the distal sigmoid colon; performed hot snare with complete en bloc removal and retrieved specimen Internal medium hemorrhoids observed during retroflexion Recommendation Await pathology results Repeat colonoscopy in 3 years, due: 08/01/2027 Indication Screening for colon cancer Medications See Anesthesia Record. Preprocedure A history and physical has been performed, and patient medication allergies have been reviewed. The patient's tolerance of previous anesthesia has been reviewed. The risks and benefits of the procedure and the sedation options and risks were discussed with the patient. All questions were answered and informed consent obtained. Details of the Procedure The patient underwent monitored anesthesia care, which was administered by an anesthesia professional. The patient's blood pressure, ECG, ETCO2, heart rate, level of consciousness, oxygen and respirations were monitored throughout the procedure. A digital rectal exam was performed. The scope was introduced through the anus and advanced to the cecum. Retroflexion was performed in the rectum. The quality of bowel preparation was evaluated using the [place] Bowel Preparation Scale with scores of: right colon = 2, transverse colon = 2, left colon = 2. The total BBPS score was 6. Bowel prep was adequate. The patient's estimated blood loss was minimal (<5 mL). The procedure was moderately difficult due to Patient had significant motion changes with breathing. Has sleep apnea and significant snoring throughout procedure.. The patient tolerated the procedure well. There were no apparent adverse events. Events Procedure Events Event Event Time ENDO SCOPE IN TIME 08/01/2024 8:41 AM ENDO CECUM REACHED 08/01/2024 8:48 AM ENDO SCOPE OUT TIME 08/01/2024 9:13 AM Specimens ID Type Source Tests Collected by Time 1 : COLON - DISTAL DESCENDING POLYP Tissue COLON - DESCENDING POLYP SURGICAL PATHOLOGY EXAM Ratna Hussein RN 08/01/2024 0858 2 : COLON - SIGMOID POLYP Tissue COLON - SIGMOID POLYP SURGICAL PATHOLOGY EXAM Ratna Hussein RN 08/01/2024 0902 3 : COLON -DISTAL SIGMOID POLYP Tissue COLON - SIGMOID POLYP SURGICAL PATHOLOGY EXAM Ratna Hussein RN 08/01/2024 0906 Procedure Location [facility] OR [address] [place] [id number] Referring Provider Haley Ulloa MD Procedure Provider Don Stringer MD [facility] Comment on above: Order Comment: Oa needed Sunday with Anesthesia Colonoscopy studyon 08-01-20 24 Table formatting fro m the original result was not included. Impression Diverticulosis in the distal ascending colon Subcentimeter polyp in the descending colon was removed with hot snare 12 mm polyp; performed hot snare removal 10 mm polyp in the distal sigmoid colon; performed hot snare removal Medium hemorrhoids Findings Few small diverticula in the distal ascending colon Sessile polyp measuring 5-9 mm in the descending colon; performed hot snare with complete en bloc removal and retrieved specimen 12 mm pedunculated polyp; performed hot snare with complete en bloc removal and retrieved specimen 10 mm pedunculated polyp in the distal sigmoid colon; performed hot snare with complete en bloc removal and retrieved specimen Internal medium hemorrhoids observed during retroflexion Recommendation Await pathology results Repeat colonoscopy in 3 years, due: 08/01/2027 Indication Screening for colon cancer Medications See Anesthesia Record. Preprocedure A history and physical has been performed, and patient medication allergies have been reviewed. The patient's tolerance of previous anesthesia has been reviewed. The risks and benefits of the procedure and the sedation options and risks were discussed with the patient. All questions were answered and informed consent obtained. Details of the Procedure The patient underwent monitored anesthesia care, which was administered by an anesthesia professional. The patient's blood pressure, ECG, ETCO2, heart rate, level of consciousness, oxygen and respirations were monitored throughout the procedure. A digital rectal exam was performed. The scope was introduced through the anus and advanced to the cecum. Retroflexion was performed in the rectum. The quality of bowel preparation was evaluated using the [place] Bowel Preparation Scale with scores of: right colon = 2, transverse colon = 2, left colon = 2. The total BBPS score was 6. Bowel prep was adequate. The patient's estimated blood loss was minimal (<5 mL). The procedure was moderately difficult due to Patient had significant motion changes with breathing. Has sleep apnea and significant snoring throughout procedure.. The patient tolerated the procedure well. There were no apparent adverse events. Events Procedure Events Event Event Time ENDO SCOPE IN TIME 08/01/2024 8:41 AM ENDO CECUM REACHED 08/01/2024 8:48 AM ENDO SCOPE OUT TIME 08/01/2024 9:13 AM Specimens ID Type Source Tests Collected by Time 1 : COLON - DISTAL DESCENDING POLYP Tissue COLON - DESCENDING POLYP SURGICAL PATHOLOGY EXAM Ratna Hussein RN 08/01/2024 0858 2 : COLON - SIGMOID POLYP Tissue COLON - SIGMOID POLYP SURGICAL PATHOLOGY EXAM Ratna Hussein RN 08/01/2024 0902 3 : COLON -DISTAL SIGMOID POLYP Tissue COLON - SIGMOID POLYP SURGICAL PATHOLOGY EXAM Ratna Hussein RN 08/01/2024 0906 Procedure Location [facility] OR [address] [place] [phone] Referring Provider Haley Ulloa MD Procedure Provider Don Stringer MD [facility] Work Phone: [facility] Work Phone: Radiology Study observation (narrative) [facility] Work Phone: Surgical pathology studyon 1 10-01-2023 Surgical pathology study Pathology report.total SEE COMMENT Surgical Pathology Case: [id number] Authorizing Provider: Don Stringer MD Collected: 08/01/2024 0873 Ordering Location: [facility] Received: 08/01/2024 1626 [facility] [place] Pathologist: Gabino Ely MD PhD Specimens: A) - COLON - DESCENDING POLYP, COLON - DISTAL DESCENDING POLYP B) - COLON - SIGMOID POLYP C) - COLON - SIGMOID POLYP, COLON -DISTAL SIGMOID POLYP Path report.final diagnosis SEE COMMENT A. Colon, Descending, Distal, Polyp, Biopsy: -- Tubular adenoma. B. Colon, Sigmoid, Polyp, Biopsy: -- Hyperplastic polyp with prolapse associated changes. C. Colon, Sigmoid, Distal, Polyp, Biopsy: -- Tubular adenoma. Cauterized tissue edges, free of lesional tissue. Laboratory comment By the signature on this report, the individual or group listed as making the Final Interpretation/Diagnosis certifies that they have reviewed this case. Path report.relevant Hx Z12.11 - Screening for colon cancer [ICD-10-CM] Path report.gross observation SEE COMMENT A: Received in formalin, labeled with the patient's name and hospital number and colon-distal ascending polyp, is one fragment of spaulding, soft tissue measuring 0.4 x 0.4 x 0.3 cm. The specimen is submitted in toto in one cassette. BMG B: Received in formalin, labeled with the patient's name and hospital number and sigmoid polyp, is a polypoid segment of spaulding, soft tissue measuring 1.3 x 0.7 x 0.7 cm. The line of resection is inked and the polyp is trisected. The specimen is entirely submitted in two cassettes. BMG/SBS Summary of Cassettes: Specimen Label Site B 1 polyp line of resection 2 polyp sides C: Received in formalin, labeled with the patient's name and hospital number and distal sigmoid polyp, is a polypoid segment of spaulding, soft tissue measuring 1.3 x 1.1 x 0.7 cm. The line of resection is inked and the polyp is trisected. The specimen is entirely submitted in two cassettes. [facility] [place]ettes: Specimen Label Site C 1 polyp line of resection 2 polyp sides [facility] CT CHEST WITH CONTRASTon CT CHEST WITH CONTRAST EXAMINATION: CT CHEST WITH CONTRAST HISTORY: ORDERING SYSTEM PROVIDED HISTORY: hx of lung nodule, recent right pleural effusion, evaluate for resolution and monitoring of nodule, TECHNOLOGIST PROVIDED HISTORY: Illness/Other Reason for exam: hx lung nodule, recent rt pleural effusion Encounter Type: Subsequent/Follow-up Additional signs and symptoms: . ORDERING SYSTEM PROVIDED DIAGNOSIS CODES: R91.1 Lung nodule J90 Pleural effusion COMPARISON: CT chest: 01/14/2024, 01/09/2024 TECHNIQUE: Axial CT images were obtained of the chest following IV contrast. Sagittal and coronal reformatted images were also obtained. Dose reduction techniques were achieved by using automated exposure control and/or adjustment of mA and/or kV according to patient size and/or use of iterative reconstruction technique. FINDINGS: LOWER NECK AND AXILLA: A few mildly prominent left axillary lymph nodes measuring up to 9 mm in short axis are stable. There is substernal extension of the thyroid.. MEDIASTINAL/HILAR LYMPH NODES: A precarinal lymph node measures 10 mm in short axis. A right hilar node measures 11 mm in short axis. There are additional subcentimeter mediastinal and hilar nodes. The esophagus appears normal. HEART/PERICARDIUM: The heart is normal size. There is no pericardial effusion. There are no coronary artery calcifications. The thoracic aorta is well enhanced and is normal in caliber. The central pulmonary arteries enhance normally. LUNGS/AIRWAYS: Trachea and central bronchi are clear.There is a stable 4 x 6 mm noncalcified nodule in the left lower lobe. Additional scattered subpleural nodules measuring less than 5 mm are also unchanged. There is no new nodule. There is minimal scarring in the right lower hemithorax. There is no focal infiltrate. PLEURAL CAVITY: No pleural effusion or pneumothorax. There is mild right pleural thickening. The right hydropneumothorax seen previously has resolved. VISUALIZED UPPER ABDOMEN: No acute findings. CHEST WALL: No acute abnormality. IMPRESSION: 1. There has been interval resolution of the right hydropneumothorax seen on 01/14/2024. 2. A few very small scattered pulmonary nodules are stable and are likely benign. 3. A few small mediastinal and hilar lymph nodes are unchanged. 4. Otherwise, negative for acute cardiopulmonary process. Workstation ID: [id number] Dictated by: DAKOTA MOLINA on SunMar 17, 2024 9:11:11 AM EDT Transcribed by: DAKOTA MOLINA on SunMar 17, 2024 9:11:11 AM EDT Finalized by: DAKOTA MOLINA on SunMar 17, 2024 9:11:11 AM EDT Normal [facility] Comment on above: Order Comment: Injur y/Trauma or Illness?:Illness/Other How long have you had these symptoms (acute/chronic)?:Acute Reason for exam?:hx lung nodule, recent rt pleural effusion Type of Exam?:Subsequent/Follow-up Additional signs and symptoms?:. CT CHEST WITHOUT CONTRASTon 01-14-2024 CT CHEST WITHOUT CONTRAST EXAMINATION: CT CHEST WITHOUT CONTRAST HISTORY: ORDERING SYSTEM PROVIDED HISTORY: persistent right efusion, new left effusion, TECHNOLOGIST PROVIDED HISTORY: Illness/Other Reason for exam: persistent right efusion, new left effusion Encounter Type: Initial Additional signs and symptoms: chest tube ORDERING SYSTEM PROVIDED DIAGNOSIS CODES: J96.01 Acute respiratory failure with hypoxia (HCC) J90 Loculated pleural effusion COMPARISON: 01/09/2024 CT pulmonary arteries. TECHNIQUE: CT chest without contrast. Dose reduction techniques were achieved by using automated exposure control and/or adjustment of mA and/or kV according to patient size and/or use of iterative reconstruction technique. FINDINGS: MEDIASTINUM: Trachea and central airways are patent. Thoracic aorta is normal caliber. Heart is normal in size without pericardial effusion. Mildly enlarged mediastinal and hilar lymph nodes with short axis dimensions measurin mm right upper paratracheal, 7 mm right mid paratracheal, 12 mm right lower paratracheal, 11 mm subcarinal, 13 mm right rito. PLEURAL CAVITY: No pneumothorax. Elevated right hemidiaphragm. Pleural catheter terminates near the posterior right lower lung zone. Cooet-bo-uaiyfzqu right pleural effusion with small foci of gas. Pleural separation measures up to 1.3 cm. Moderate loculated fluid within the proximal aspect of the right major fissure, measures 6.2 x 3.1 cm in the sagittal plane. LUNGS: Subsegmental right basilar consolidation with air bronchograms. 3 mm right middle lobe pulmonary nodule (series 3, image 56) not seen on prior imaging. Right minor fissure subpleural nodule measures 5 mm. Likely represents intrapulmonary lymph node. Left lower lobe 6 mm pulmonary nodule, benign given stability dating back to 02/06/2020. CHEST WALL/AXILLA: No axillary lymphadenopathy. VISUALIZED UPPER ABDOMEN: No acute findings. OSSEOUS STRUCTURES: No destructive lesions. IMPRESSION: Small to moderate right hydropneumothorax with chest tube in place. Moderate loculated fluid within the right major fissure. No left pleural effusion. Subsegmental right lower lobe basilar consolidation. Mildly enlarged mediastinal and right hilar lymph nodes. Likely reactive. 3 mm right middle lobe pulmonary nodule. Not seen on prior imaging. Recommend attention on follow-up. [employer] Workstation ID: [id number] Dictated by: ALBERTO FITZGERALD on SunJan 14, 2024 3:05:25 PM EDT Transcribed by: FLAVIO TUCKER on SunJan 14, 2024 3:56:19 PM EDT Finalized by: ALBERTO FITZGERALD on SunJan 14, 2024 10:24:30 PM EDT Normal [facility] Comment on above: Order Comment: Injur y/Trauma or Illness?:Illness/Other How long have you had these symptoms (acute/chronic)?:Acute Reason for exam?:persistent right efusion, new left effusion Type of Exam?:Initial Additional signs and symptoms?:chest tube CT Chest WO contraston 01-13 Small to moderate right hydropneumothorax with chest tube in place. Moderate loculated fluid within the right major fissure. No left pleural effusion. Subsegmental right lower lobe basilar consolidation. Mildly enlarged mediastinal and right hilar lymph nodes. Likely reactive. 3 mm right middle lobe pulmonary nodule. Not seen on prior imaging. Recommend attention on follow-up. [employer] Workstation ID: [id number] [facility] EXAMINATION: CT CHEST WITHOUT CONTRAST HISTORY: ORDERING SYSTEM PROVIDED HISTORY: persistent right efusion, new left effusion, TECHNOLOGIST PROVIDED HISTORY: Illness/Other Reason for exam: persistent right efusion, new left effusion Encounter Type: Initial Additional signs and symptoms: chest tube ORDERING SYSTEM PROVIDED DIAGNOSIS CODES: J96.01 Acute respiratory failure with hypoxia (HCC) J90 Loculated pleural effusion COMPARISON: 01/09/2024 CT pulmonary arteries. TECHNIQUE: CT chest without contrast. Dose reduction techniques were achieved by using automated exposure control and/or adjustment of mA and/or kV according to patient size and/or use of iterative reconstruction technique. FINDINGS: MEDIASTINUM: Trachea and central airways are patent. Thoracic aorta is normal caliber. Heart is normal in size without pericardial effusion. Mildly enlarged mediastinal and hilar lymph nodes with short axis dimensions measurin mm right upper paratracheal, 7 mm right mid paratracheal, 12 mm right lower paratracheal, 11 mm subcarinal, 13 mm right rito. PLEURAL CAVITY: No pneumothorax. Elevated right hemidiaphragm. Pleural catheter terminates near the posterior right lower lung zone. Xdxtf-rt-lkdaexpt right pleural effusion with small foci of gas. Pleural separation measures up to 1.3 cm. Moderate loculated fluid within the proximal aspect of the right major fissure, measures 6.2 x 3.1 cm in the sagittal plane. LUNGS: Subsegmental right basilar consolidation with air bronchograms. 3 mm right middle lobe pulmonary nodule (series 3, image 56) not seen on prior imaging. Right minor fissure subpleural nodule measures 5 mm. Likely represents intrapulmonary lymph node. Left lower lobe 6 mm pulmonary nodule, benign given stability dating back to 02/06/2020. CHEST WALL/AXILLA: No axillary lymphadenopathy. VISUALIZED UPPER ABDOMEN: No acute findings. OSSEOUS STRUCTURES: No destructive lesions. Quettra Alberto Stevensonfaheem villarreal DO - 01/14/2024 EXAMINATION: CT CHEST WITHOUT CONTRAST HISTORY: ORDERING SYSTEM PROVIDED HISTORY: persistent right efusion, new left effusion, TECHNOLOGIST PROVIDED HISTORY: Illness/Other Reason for exam: persistent right efusion, new left effusion Encounter Type: Initial Additional signs and symptoms: chest tube ORDERING SYSTEM PROVIDED DIAGNOSIS CODES: J96.01 Acute respiratory failure with hypoxia (HCC) J90 Loculated pleural effusion COMPARISON: 01/09/2024 CT pulmonary arteries. TECHNIQUE: CT chest without contrast. Dose reduction techniques were achieved by using automated exposure control and/or adjustment of mA and/or kV according to patient size and/or use of iterative reconstruction technique. FINDINGS: MEDIASTINUM: Trachea and central airways are patent. Thoracic aorta is normal caliber. Heart is normal in size without pericardial effusion. Mildly enlarged mediastinal and hilar lymph nodes with short axis dimensions measurin mm right upper paratracheal, 7 mm right mid paratracheal, 12 mm right lower paratracheal, 11 mm subcarinal, 13 mm right rito. PLEURAL CAVITY: No pneumothorax. Elevated right hemidiaphragm. Pleural catheter terminates near the posterior right lower lung zone. Xqbbq-me-zjrzsrky right pleural effusion with small foci of gas. Pleural separation measures up to 1.3 cm. Moderate loculated fluid within the proximal aspect of the right major fissure, measures 6.2 x 3.1 cm in the sagittal plane. LUNGS: Subsegmental right basilar consolidation with air bronchograms. 3 mm right middle lobe pulmonary nodule (series 3, image 56) not seen on prior imaging. Right minor fissure subpleural nodule measures 5 mm. Likely represents intrapulmonary lymph node. Left lower lobe 6 mm pulmonary nodule, benign given stability dating back to 02/06/2020. CHEST WALL/AXILLA: No axillary lymphadenopathy. VISUALIZED UPPER ABDOMEN: No acute findings. OSSEOUS STRUCTURES: No destructive lesions. IMPRESSION: Small to moderate right hydropneumothorax with chest tube in place. Moderate loculated fluid within the right major fissure. No left pleural effusion. Subsegmental right lower lobe basilar consolidation. Mildly enlarged mediastinal and right hilar lymph nodes. Likely reactive. 3 mm right middle lobe pulmonary nodule. Not seen on prior imaging. Recommend attention on follow-up. ST/mjr Workstation ID: [id number] [facility] Radiology Study observation (narrative) [facility] XR CHEST PA/APon 01-14-2024 XR CHEST PA/AP EXAMINATION: XR CHEST PA/AP HISTORY: ORDERING SYSTEM PROVIDED HISTORY: post pull evaluation, TECHNOLOGIST PROVIDED HISTORY: Illness/Other Reason for exam: Post pull evaluation Cancer History: u Surgery, RadiationHistory: u Encounter Type: Initial Additional signs and symptoms: SOB ORDERING SYSTEM PROVIDED DIAGNOSIS CODES: J96.01 Acute respiratory failure with hypoxia (HCC) J90 Loculated pleural effusion COMPARISON: 01/13/2024. FINDINGS: One-view chest x-ray. Interval removal of right chest tube. No visible pneumothorax. Hmlfs-ia-wwynofpi right pleural effusion with extension into the right minor fissure. Bibasilar atelectasis, right greater than left. Chronic elevation of the right hemidiaphragm. Normal heart size. IMPRESSION: Right chest tube is been removed. No pneumothorax. Uralb-fx-ygyqhnxz right pleural effusion. [employer] Workstation ID: [id number] Dictated by: ALBERTO FITZGERALD on SunJan 14, 2024 2:49:48 PM EDT Transcribed by: FLAVIO TUCKER on SunJan 14, 2024 3:44:15 PM EDT Finalized by: ALBERTO FITZGERALD on SunJan 14, 2024 4:26:52 PM EDT [facility] Comment on above: Order Comment: Injur y/Trauma or Illness?:Illness/Other How long have you had these symptoms (acute/chronic)?:Acute Reason for exam?:Post pull evaluation History of cancer?:u Surgeries, chemotherapy, or radiation?:u Type of Exam?:Initial Additional signs and symptoms?:SOB XR Chest PA and Abdomen APon 01-14-2024 Right chest tube is been removed. No pneumothorax. Koqxw-jn-hnpgffzn right pleural effusion. [employer] Workstation ID: [id number] [facility] EXAMINATION: XR CHEST PA/AP HISTORY: ORDERING SYSTEM PROVIDED HISTORY: post pull evaluation, TECHNOLOGIST PROVIDED HISTORY: Illness/Other Reason for exam: Post pull evaluation Cancer History: u Surgery, RadiationHistory: u Encounter Type: Initial Additional signs and symptoms: SOB ORDERING SYSTEM PROVIDED DIAGNOSIS CODES: J96.01 Acute respiratory failure with hypoxia (HCC) J90 Loculated pleural effusion COMPARISON: 01/13/2024. FINDINGS: One-view chest x-ray. Interval removal of right chest tube. No visible pneumothorax. Eppvs-jh-kdlwxbux right pleural effusion with extension into the right minor fissure. Bibasilar atelectasis, right greater than left. Chronic elevation of the right hemidiaphragm. Normal heart size. Quettra RIS Alberto Fitzgerald DO - 01/14/2024 EXAMINATION: XR CHEST PA/AP HISTORY: ORDERING SYSTEM PROVIDED HISTORY: post pull evaluation, TECHNOLOGIST PROVIDED HISTORY: Illness/Other Reason for exam: Post pull evaluation Cancer History: u Surgery, RadiationHistory: u Encounter Type: Initial Additional signs and symptoms: SOB ORDERING SYSTEM PROVIDED DIAGNOSIS CODES: J96.01 Acute respiratory failure with hypoxia (HCC) J90 Loculated pleural effusion COMPARISON: 01/13/2024. FINDINGS: One-view chest x-ray. Interval removal of right chest tube. No visible pneumothorax. Xejku-sf-jfurztir right pleural effusion with extension into the right minor fissure. Bibasilar atelectasis, right greater than left. Chronic elevation of the right hemidiaphragm. Normal heart size. IMPRESSION: Right chest tube is been removed. No pneumothorax. Uogpo-rh-dzysigju right pleural effusion. ST/mjr Workstation ID: [id number] [facility] Radiology Study observation (narrative) [facility] CBC Auto Differentialon 12-24 Erythrocyte distribution width (RBC) [Entitic vol] 14.1 % 11.6 - 14.8 % [facility] Hematocrit (Bld) [Volume fraction] 37.8 % Low 41.0 - 53.0 % [facility] Hemoglobin (Bld) [Mass/Vol] 12.2 g/dL Low 13.5 - 17.5 g/dL [facility] MCH (RBC) [Entitic mass] 28.7 pg 26.0 - 34.0 pg [facility] MCHC (RBC) [Mass/Vol] 32.3 g/dL 31.0 - 37.0 g/dL [facility] MCV (RBC) [Entitic vol] 88.9 fL 80.0 - 100.0 fL [facility] Nucleated RBC (Bld) [#/Vol] 0.00 10*3/uL [facility] Nucleated RBC/100 WBC (Bld) [Ratio] 0.0 % [facility] Platelet mean volume (Bld) [Entitic vol] 8.3 fL Low 9.4 - 12.4 fL [facility] Platelets (Bld) [#/Vol] 617 10*3/uL High [facility] RBC (Bld) [#/Vol] 4.25 10*6/uL Low [facility] ealt WBC (Bld) [#/Vol] 15.64 10*3/uL [facility] CBC and Diff Morphologyon RBC morphology finding Nom (Bld) Normal [facility] Comment on above: RBC Indices confirme d with manual peripheral smear review. CRP [Mass/Vol]on 01-13-2024 Interpretation and review of laboratory results Abnormal [facility] CRP, Inflammationon 01-13-20 CRP [Mass/Vol] 66.0 mg/L High 0.0 - 10.0 mg/L [facility] Comprehensive metabolic 2000 panelOrdered By: Jose Carlos Pascual on 01-13-2024 Albumin [Mass/Vol] 2.7 g/dL Low 3.2 - 5.2 g/dL [facility] ALP [Catalytic activity/Vol] 123 U/L 40 - 150 U/L [facility] ALT [Catalytic activity/Vol] 62 U/L High 0-50 U/L [facility] Anion gap [Moles/Vol] 13 mmol/L 10 - 20 mmol/L [facility] AST [Catalytic activity/Vol] 65 U/L High 0-50 U/L [facility] Bilirubin [Mass/Vol] mg/dL 0.0 - 1 .3 mg/dL [facility] Calcium [Mass/Vol] 8.0 mg/dL Low 8.4 - 10. 2 mg/dL [facility] Chloride [Moles/Vol] 104 mmol/L 98 - 10 8 mmol/L [facility] Creatinine [Mass/Vol] 0.60 mg/dL 0.50 - 1.30 mg/dL [facility] GFR/1.73 sq M.predicted CKD-EPI (S/P/Bld) [Vol rate/Area] 117 - PINF [facility] Comment on above: Estimated GFR was ca lculated using the 2020 CKD-EPI creatinine equation. Glucose [Mass/Vol] 111 mg/dL High 65 - 99 mg/dL [facility] HCO3 [Moles/Vol] 23 mmol/L 21 - 32 mmol/L [facility] Interpretation and review of laboratory results Abnormal [facility] Potassium [Moles/Vol] 4.3 mmol/L 3.5 - 5.1 mmol/L [facility] Protein [Mass/Vol] 6.2 g/dL 6.0 - 8.0 g/dL [facility] Sodium [Moles/Vol] 136 mmol/L 135 - 145 mmol/L [facility] Urea nitrogen [Mass/Vol] 13 mg/dL 8 - 25 mg/dL [facility] Urea nitrogen/Creatinine [Mass ratio] 21.7 mg/mg High 10.0 - 20.0 [facility] has implemented the eGFR calculation approach that does not have a coefficient for race that conforms to the NKF-ASN Task Force Recommendations. [facility] Manual Differential panel (B ld)on 01-13-2024 Basophils (Bld) [#/Vol] 0.41 10*3/uL High [facility] Basophils/100 WBC (Bld) 2.6 % [facility] Eosinophils (Bld) [#/Vol] 0.00 10*3/uL [facility] Eosinophils/100 WBC (Bld) 0.0 % [facility] Lymphocytes (Bld) [#/Vol] 2.16 10*3/uL [facility] Lymphocytes/100 WBC (Bld) 9.5 % [facility] Metamyelocytes/100 WBC (Bld) 2.6 % [facility] Monocytes (Bld) [#/Vol] 0.27 10*3/uL Low [facility] Monocytes/100 WBC (Bld) 1.7 % [facility] Myelocytes/100 WBC (Bld) 0.9 % [facility] Neutrophils (Bld) [#/Vol] 12.81 10*3/uL High [facility] Neutrophils/100 WBC (Bld) 78.4 % [facility] Variant lymphocytes/100 WBC (Bld) 4.3 % [facility] No Panel Informationon 01-12 Interpretation and review of laboratory results Abnormal [facility] XR CHEST PA/APon 01-13-2024 XR CHEST PA/AP EXAMINATION: XR CHEST PA/AP 01/13/2024 HISTORY: ORDERING SYSTEM PROVIDED HISTORY: Follow-up empyema, TECHNOLOGIST PROVIDED HISTORY: Illness/Other Reason for exam: F/U empyema Cancer History: u Surgery, RadiationHistory: u Encounter Type: Subsequent/Follow-up Additional signs and symptoms: / ORDERING SYSTEM PROVIDED DIAGNOSIS CODES: J96.01 Acute respiratory failure with hypoxia (HCC) J90 Loculated pleural effusion COMPARISON: Chest x-ray from 01/12/2024, chest CT from 01/09/2024 TECHNIQUE: Portable AP upright view of the thorax is provided for interpretation. FINDINGS: There is a small to moderate right pleural effusion which appears stable. There is a scant left pleural effusion which is new in the interval. There is airspace opacity in the lung bases which likely represents atelectasis although small infiltrates cannot be excluded. Additionally, there is ground-glass opacity in the right perihilar region which was present on the prior study and corresponds to an area of loculated effusion on CT. There is no pneumothorax. The cardiomediastinal configuration is within normal limits. No acute bony abnormalities. IMPRESSION: Persistent right-sided pleural effusion that appears stable in the interval. Interval development of a scant left effusion. Airspace opacity in the lung bases likely representing atelectasis secondary to the effusions. Small infiltrates cannot be excluded. Overall aeration of the lungs is unchanged. Workstation ID: [id number] Dictated by: AMINA CERRATO on SunJan 13, 2024 9:13:33 AM EDT Transcribed by: AMINA CERRATO on SunJan 13, 2024 9:13:33 AM EDT Finalized by: AMINA CERRATO on SunJan 13, 2024 9:13:33 AM EDT [facility] Comment on above: Order Comment: Injur y/Trauma or Illness?:Illness/Other How long have you had these symptoms (acute/chronic)?:Acute Reason for exam?:F/U empyema History of cancer?:u Surgeries, chemotherapy, or radiation?:u Type of Exam?:Subsequent/Follow-up Additional signs and symptoms?:/ XR Chest PA and Abdomen APon 01-13-2024 Persistent right-sided pleural effusion that appears stable in the interval. Interval development of a scant left effusion. Airspace opacity in the lung bases likely representing atelectasis secondary to the effusions. Small infiltrates cannot be excluded. Overall aeration of the lungs is unchanged. Workstation ID: [id number] [facility] EXAMINATION: XR CHEST PA/AP 01/13/2024 HISTORY: ORDERING SYSTEM PROVIDED HISTORY: Follow-up empyema, TECHNOLOGIST PROVIDED HISTORY: Illness/Other Reason for exam: F/U empyema Cancer History: u Surgery, RadiationHistory: u Encounter Type: Subsequent/Follow-up Additional signs and symptoms: / ORDERING SYSTEM PROVIDED DIAGNOSIS CODES: J96.01 Acute respiratory failure with hypoxia (HCC) J90 Loculated pleural effusion COMPARISON: Chest x-ray from 01/12/2024, chest CT from 01/09/2024 TECHNIQUE: Portable AP upright view of the thorax is provided for interpretation. FINDINGS: There is a small to moderate right pleural effusion which appears stable. There is a scant left pleural effusion which is new in the interval. There is airspace opacity in the lung bases which likely represents atelectasis although small infiltrates cannot be excluded. Additionally, there is ground-glass opacity in the right perihilar region which was present on the prior study and corresponds to an area of loculated effusion on CT. There is no pneumothorax. The cardiomediastinal configuration is within normal limits. No acute bony abnormalities. Amina Finch MD - 01/13/2024 EXAMINATION: XR CHEST PA/AP 01/13/2024 HISTORY: ORDERING SYSTEM PROVIDED HISTORY: Follow-up empyema, TECHNOLOGIST PROVIDED HISTORY: Illness/Other Reason for exam: F/U empyema Cancer History: u Surgery, RadiationHistory: u Encounter Type: Subsequent/Follow-up Additional signs and symptoms: / ORDERING SYSTEM PROVIDED DIAGNOSIS CODES: J96.01 Acute respiratory failure with hypoxia (HCC) J90 Loculated pleural effusion COMPARISON: Chest x-ray from 01/12/2024, chest CT from 01/09/2024 TECHNIQUE: Portable AP upright view of the thorax is provided for interpretation. FINDINGS: There is a small to moderate right pleural effusion which appears stable. There is a scant left pleural effusion which is new in the interval. There is airspace opacity in the lung bases which likely represents atelectasis although small infiltrates cannot be excluded. Additionally, there is ground-glass opacity in the right perihilar region which was present on the prior study and corresponds to an area of loculated effusion on CT. There is no pneumothorax. The cardiomediastinal configuration is within normal limits. No acute bony abnormalities. IMPRESSION: Persistent right-sided pleural effusion that appears stable in the interval. Interval development of a scant left effusion. Airspace opacity in the lung bases likely representing atelectasis secondary to the effusions. Small infiltrates cannot be excluded. Overall aeration of the lungs is unchanged. Workstation ID: [id number] [facility] Radiology Study observation (narrative) [facility] XR CHEST PA/APon 01-12-2024 XR CHEST PA/AP EXAMINATION: XR CHEST PA/AP 01/12/2024 6:30 pm HISTORY: ORDERING SYSTEM PROVIDED HISTORY: fu empyema, TECHNOLOGIST PROVIDED HISTORY: Illness/Other Reason for exam: fu empyema Cancer History: u Surgery, RadiationHistory: u Encounter Type: Initial Additional signs and symptoms: . ORDERING SYSTEM PROVIDED DIAGNOSIS CODES: J96.01 Acute respiratory failure with hypoxia (HCC) J90 Loculated pleural effusion COMPARISON: PA chest from 01/12/2024. FINDINGS: Trachea is midline. Mediastinum is not widened. Heart size, diaphragm and bony elements are intact. There is a moderate effusion in the right lung base which fluid depth partially travels up the right lateral chest wall. There is a moderate amount of consolidation off the right hilar region again noted. IMPRESSION: 1. Moderate effusion in the right lung base slightly increased from the prior study. 2. Moderate ill-defined stable consolidation off the right hilar region. Workstation ID: [id number] Dictated by: ENDER QUINONES on [facility] Jan 12, 2024 10:44:24 PM EDT Transcribed by: ENDER QUINONES on [facility] Jan 12, 2024 10:44:24 PM EDT Finalized by: ENDER QUINONES on [facility] Jan 12, 2024 10:44:24 PM EDT [facility] Comment on above: Order Comment: Injur y/Trauma or Illness?:Illness/OtherHow long have you had these symptoms (acute/chronic)?:AcuteReason for exam?:fu empyemaHistory of cancer?:uSurgeries, chemotherapy, or radiation?:uType of Exam?:InitialAdditional signs and symptoms?:. XR CHEST PA/AP EXAMINATION: XR CHEST PA/AP 01/12/2024 1:51 pm HISTORY: ORDERING SYSTEM PROVIDED HISTORY: loculated efussion s/p lytics, TECHNOLOGIST PROVIDED HISTORY: Illness/Other Reason for exam: loculated efussion s/p lytics Cancer History: u Surgery, RadiationHistory: u Encounter Type: Initial Additional signs and symptoms: . ORDERING SYSTEM PROVIDED DIAGNOSIS CODES: J96.01 Acute respiratory failure with hypoxia (HCC) J90 Loculated pleural effusion COMPARISON: PA chest from 01/11/2024. FINDINGS: Trachea, mediastinum and heart size are unremarkable. No pneumothorax is noted. The left lung is clear with slight left basilar atelectasis. Yadv-pr-yehuyjhw ill-defined fluid and atelectasis or infiltrate is noted in the middle lower right lung field decreased from the prior study. IMPRESSION: 1. Moderate improvement on the right. 2. Trace amount of atelectasis in the left lung base. Workstation ID: [id number] Dictated by: ENDER QUINONES on [facility] Jan 12, 2024 10:05:36 PM EDT Transcribed by: ENDER QUINONES on [facility] Jan 12, 2024 10:05:36 PM EDT Finalized by: ENDER QUINONES on [facility] Jan 12, 2024 10:05:36 PM EDT Normal [facility] Comment on above: Order Comment: Injur y/Trauma or Illness?:Illness/Other How long have you had these symptoms (acute/chronic)?:Acute Reason for exam?:loculated efussion s/p lytics History of cancer?:u Surgeries, chemotherapy, or radiation?:u Type of Exam?:Initial Additional signs and symptoms?:. XR Chest PA and Abdomen APon 01-12-2024 1. Moderate effusion in the right lung base slightly increased from the prior study. 2. Moderate ill-defined stable consolidation off the right hilar region. Workstation ID: [id number] [id number] EXAMINATION: XR CHEST PA/AP 01/12/2024 6:30 pm HISTORY: ORDERING SYSTEM PROVIDED HISTORY: fu empyema, TECHNOLOGIST PROVIDED HISTORY: Illness/Other Reason for exam: fu empyema Cancer History: u Surgery, RadiationHistory: u Encounter Type: Initial Additional signs and symptoms: . ORDERING SYSTEM PROVIDED DIAGNOSIS CODES: J96.01 Acute respiratory failure with hypoxia (HCC) J90 Loculated pleural effusion COMPARISON: PA chest from 01/12/2024. FINDINGS: Trachea is midline. Mediastinum is not widened. Heart size, diaphragm and bony elements are intact. There is a moderate effusion in the right lung base which fluid depth partially travels up the right lateral chest wall. There is a moderate amount of consolidation off the right hilar region again noted. Quettra RIS Ender Quinones, DO - 01/12/2024 EXAMINATION: XR CHEST PA/AP 01/12/2024 6:30 pm HISTORY: ORDERING SYSTEM PROVIDED HISTORY: fu empyema, TECHNOLOGIST PROVIDED HISTORY: Illness/Other Reason for exam: fu empyema Cancer History: u Surgery, RadiationHistory: u Encounter Type: Initial Additional signs and symptoms: . ORDERING SYSTEM PROVIDED DIAGNOSIS CODES: J96.01 Acute respiratory failure with hypoxia (HCC) J90 Loculated pleural effusion COMPARISON: PA chest from 01/12/2024. FINDINGS: Trachea is midline. Mediastinum is not widened. Heart size, diaphragm and bony elements are intact. There is a moderate effusion in the right lung base which fluid depth partially travels up the right lateral chest wall. There is a moderate amount of consolidation off the right hilar region again noted. IMPRESSION: 1. Moderate effusion in the right lung base slightly increased from the prior study. 2. Moderate ill-defined stable consolidation off the right hilar region. Workstation ID: [id number] [facility] 1. Moderate improvement on the right. 2. Trace amount of atelectasis in the left lung base. Workstation ID: [id number] GE RIS EXAMINATION: XR CHEST PA/AP 01/12/2024 1:51 pm HISTORY: ORDERING SYSTEM PROVIDED HISTORY: loculated efussion s/p lytics, TECHNOLOGIST PROVIDED HISTORY: Illness/Other Reason for exam: loculated efussion s/p lytics Cancer History: u Surgery, RadiationHistory: u Encounter Type: Initial Additional signs and symptoms: . ORDERING SYSTEM PROVIDED DIAGNOSIS CODES: J96.01 Acute respiratory failure with hypoxia (HCC) J90 Loculated pleural effusion COMPARISON: PA chest from 01/11/2024. FINDINGS: Trachea, mediastinum and heart size are unremarkable. No pneumothorax is noted. The left lung is clear with slight left basilar atelectasis. Uzjs-nz-rmbvalze ill-defined fluid and atelectasis or infiltrate is noted in the middle lower right lung field decreased from the prior study. RIS Ender Quinones, DO - 01/12/2024 EXAMINATION: XR CHEST PA/AP 01/12/2024 1:51 pm HISTORY: ORDERING SYSTEM PROVIDED HISTORY: loculated efussion s/p lytics, TECHNOLOGIST PROVIDED HISTORY: Illness/Other Reason for exam: loculated efussion s/p lytics Cancer History: u Surgery, RadiationHistory: u Encounter Type: Initial Additional signs and symptoms: . ORDERING SYSTEM PROVIDED DIAGNOSIS CODES: J96.01 Acute respiratory failure with hypoxia (HCC) J90 Loculated pleural effusion COMPARISON: PA chest from 01/11/2024. FINDINGS: Trachea, mediastinum and heart size are unremarkable. No pneumothorax is noted. The left lung is clear with slight left basilar atelectasis. Lrpf-xy-ixdkgabf ill-defined fluid and atelectasis or infiltrate is noted in the middle lower right lung field decreased from the prior study. IMPRESSION: 1. Moderate improvement on the right. 2. Trace amount of atelectasis in the left lung base. Workstation ID: [id number] [facility] Radiology Study observation (narrative) [facility] Radiology Study observation (narrative) [facility] MRSA DNA Amplified ProbeOrde red By: Jenny Gifford on 01-11-2024 MRSA DNA NELSY+probe Ql (Unsp spec) Negative Not Detected, MRSA NEGATIVE [facility] MRSA DNA NELSY+probe Ql (Unsp spec)Ordered By: Jenny Gifford on 01-11-2024 Interpretation and review of laboratory results Normal [facility] Nongyn CytologyOrdered By: Mary Ross on 01-11-2024 Case Report Medical Cytology Rep ort Case: [id number] Authorizing Provider: Moses Bowen MD Collected: 01/10/2024 11:44 AM Ordering Location: [facility] Received: 01/10/2024 12:54 PM Interventional Radiology Pathologist: Reji Ross IV, MD Specimen: Pleural, Right [facility] Work Phone: Clinical information [id number] mbGFu RoNvClFbVsRiGzb1GEAdzwE0 Qir4QQOeKVaduY5vGEBtOOmq M7gdxgRjcUFnWULqCCz7tL6i cJsoiO1dDrXlWuIrCZAxbCJ7 poXyKZTpNeBwzR7gJPAbcoC2 [facility] Work Phone: Interpretation Specimen A Negative for malignant cells Acute inflammation [facility] Work Phone: Pathology report gross observation Narrative n4mwdVFoIPBmbBZaRICqNRft aiVsASXkvDHeZ5ZxmesrVWfd BH9mPF9orYknpOBanVXuDPFf HlSju3zff361fKBwa5olJNZX njywiAb6tZpcV03pp2Y8Nxmo H83dzGHgZVT4JIJbWGAfvEDp EKApBJW0LJDkcBEcX1pvAQLt ZT7tkqqgWOggBDugSTAgrQE5 HDTlgJUaA6XtTYOeWDxeLMCu zxy7ReKuJf3azPZxjMykYBfr YXJkXHBsYWluXGZzMjBccHJv hXHoiFmrTtiosOG8MAqgQibo tB8grDYQTXIMZuvVMtagglLe BW4HXKGXClAXPJ86QCjhZlH7 MXwxfXtcZmxkcnNsdCBcJzFj aP4Uu0obqBMiESjiPmuzmNBi wfY3KYxVTDRXAEgDSoBqIX4j VRoAG9IJIwA6FVeqGtV8IWbj kBuyPmfavsGanTUnMxLifK0y jOepoR6gTsDnCVRtQPAxS5Pz bxWlYRolqy55TOR9s7yoiMSw RTtmBojrzIZfayQ0ZRcUSJRF NPuKOxCyTR8cVAkQJ5LQCMiX QemeTEX6YBbrhOM0f4qynCUc l6l3NMuiCHY8hXVcFBNmj9bw qDSgCMztHiipqENafyK5ZZpE JITFJUpIMhJbUG1cGKfLB8SS ImP3IiSnWNR3DjgyfCjbXbhw muKslUEwKpAfvG3onVncbW3j EfQeJNBaLREee7jvowG9OEAw ZhCjZRKrFSgrAg9Mx5J0YFHn qNhpLlluHOHbFLXitLjus7Na uAIhkE35DHDjcYecBTJwv0Re Y5I7UNLtDYqci5liYZUsAShq m0LsJDrBSPLMQG6GXR2adTD2 ZOzJVOLXQ8wRaRJ8BCA1dTU0 K905UDLvRPFtcJHnVUpmB847 JydwUuqqlRP9OOtjDsamoW8x wZVYWOVGUmfBMmlipzJdWE3B XTVIDR3YgUC3OIP7zAH1Y417 VHCyOKClaFTjVEtdC239WKQa YWluXGZzMjAgICBccHJvdGVj lOiuKbqllFX5DCooUlzxkE0s oXHFWUKNPlyHSuaanyInZI8Z TLHAOlAWJW22KqX8GMT5IFp4 oUnqEdhjkbSsgFBsNuQmxD0w ORChM6VFEBLmALerju33BMB5 FErlSphvrPU7FWjiUpuyrZ9l fZXHWLKWMnoSNfvtscImPO9X MJgNMhNSBO56KW42FLJlRAMr tMKvZGzcF281YNvcFcrqlTE3 JZlcAyyijE9spLTJOXVWXioR GykthbZdBA4FVPpCJX9OqJU9 m0aaoPDvv4o7SDgrPSN4oDfj gMAiboeesx28CSA9YUWhGaOa MMOogw5ylmcbIDSFjBPzl9Pj biBzbGlkZShzKSBEaWZmLVF1 kXzgy9ZajV8oUIbrFIZor2Wt P0Bea2gwkFMsPRtfIlzsjWIj sxG7AXhNCYODUXrOOtKjDX5a WFeZTDQLFHaGSzc3tZgqXlnf fcSzzBOaIgBnyQ8hv3sznCVd XEksCxwdfQEzlbV9MYmMMIBG FYhLDiUsBO3cNUoRIEVZMrW7 Sp45BCTxRRCmwUQbLWgpW740 MDIkKWshNCUme1MkZ5JlMnTr KWMvJHwfXGZofAYlGUV1pF7v cGluIHNsaWRlKHMpIFBhcCBz dGFpbmVkLCBccHJvdGVjdDB7 HSTxTJevm0nkAZEvMBvpk9Ko KPwSUMXPSK7FCV1wwJC8A5kU QXTRQ9aWwXb3w6zbiRAzp4o1 BAcuJJL1sHJ3AELiQWjij8pu EJYbIRzej9UcKAvZEFLBUY4Q DV4iwST7A1kFHMAPELx4bNlo LqrdvfGhaLAtMaPvbR9zkGlz lT1csHUtrSCtsCtzhgSnALKn YBikUIAbp6ItZWOfj4ircHRu FKiwLwyjsDNfzaR7LTkYMIOJ HNiTWkGvQI6oKNkDH4VWIgX3 KgC8MLW1RPs1tWktVnymxfIp sESnWgGymD5ogPapqG1uLiAn MCAgcHJlcGFyZWQuXHBhclxw XCKgXRRoKGYfilr0aIPvV2Rj O6unFI6pY06zgQFscBdgzuH5 tW3gFbHvUHE5KnCaKZCev8Tx G4V3PYUeLFars9sgYUYuOCnb e7IeXZkSUMWWQK8HUA9caPT5 CIiIMPYZO8tRbAV0DUEytXv7 AB68UXVfSDYzfISzKEljY633 KE66AZIjAPyqn0ffQUIhQHpy o8MhBHsFOXNQCE3CQG4mvXZ9 XVhBXDWTGDygCOOiT3s9dTd3 i9fbiRZxw9l2ARmuFKG8nTvu tLRvfvrnikSmVXvdAQ0tKX9k ZDD3IOZsjbXUxA9tCQVbpUvf ZzlbK4jjaWdkR8DlTHvuPJYz IFSnNZO9yjNpPDR5GwZjfoYz YAZngr8ifHcyFqMkLMc3LFHb kHRpjOUtsUqnZwttyKT9TNip UydqcD0hcTIYHJBRRkzAWzfj uzKkCM0RPXGUUuHFDU23WyOw KeX3VKx6kRehNpxscdRbqCGa HgGewM8yhRdoGnfriZR5WOxn CxnqwC0pjZXUBNPWJaqDAiau ogApNZ4AVGSSML5KkTT5UGTw rZa9CR76AWWyZXQzpJXuZMdf W768FSLgZXrgRSQgWdNaFKM8 SaJ2MqUrMxNhgAItKNYfnQNq G6WghTJqwQ1gkoRlPW3bqcBk DXHdl87nCx6hePDjfH28BGIj eXNbqVGneBjhMponfEV5BQab AmctlG7llMZIHIOXTubQFdce mhXtHU8JJAQLXlNFMC33POT9 ISG4AMS7CRQ9c4pbkOUmb7f7 HDnxWJE5dRE7YoKlPGZtAKan c17gOHG1jqy1XOWsJQpvt9tk CUCtZNvsn4NiAQtQSRNUWA0H ME9lbYE6TLlRIGFFCOt5KWC4 GMcaLNylOV19HJTeKNVllEHd GRfnL025CJXbRDfyWFWmBaNi XQJ7JbD7BiXgRjPwaNLcJUXo cmRccGFyIENXXHBhciBDeXRv eU3yxUGizcAhRTGggLsgjdOo iRXmD4Vau6GrFDY4HcUMSE1g KsetpLXcPS8kzCw6CQjwVHVg RiWnW1eps5ReEODzIFTsykXy SV1aghJwnIWeWSjbQ3npBHD0 NRYrXZFlubb2VZJMAZOMVMrH NS4TKBAZUHSPNH7YMSxPTfU0 TIUiIjmlTHHoYxGcWQH5Ln4w HrC6DMV9gPO3WR1yNIM2MIb9 RAZ8RhTjPeb8Wa26Yao1RrG0 IYObnTw3GP0hEPPcB6b5ZZHy HYB3HZX7BUC0YEVUJCOCITbB M9VfSOFCBULWJVZpTA6WGWrZ ZHZHVSDEV26LRRPVZQNIO2FN G9zDJMDkpkWlbMKxasMzpBys qcVPBVbUE5JJTN8ZDQRKTMGR XX9CIuTqNGvOD2JYS0oABNHj IZRBUTOZOADtHaVALY7vXEn3 HIHoaHs0OXXoNzh9Ywi0IBYo vSJrhqFlFBt8VUX7XiIzFISg qNBjd4EII8m3g2IfQSZmvne3 OQFpCVg5DNr1TTVmsPWepAKc WsxjJFL8ZHh4ONm0PR2wj4Da sH93SaOjEgStuGihf3CtYT2b MJZgRuW4SJDbZS1aXRh6TlLb DIO1gZuqNII5LFK6HHGspXVW LSKQUKjHJKACXh9EWPHWEHTN HR1CHyGtS6UVLN0BIm3BUECY VWVIXL9SVUaCSmXmH1UMRL2P Ke7IKXCOEPHURA1QFvIbOXSY Z3BXWpNUH3trVWPYCNYOQWTk WfLLXY0mYFKMQA4YSSDWJMSH P16HXQKXLOZXE3LAVG0= [facility] Work Phone: [facility] Work Phone: XR CHEST PA/APon 01-11-2024 XR CHEST PA/AP EXAMINATION: XR CHEST PA/AP HISTORY: ORDERING SYSTEM PROVIDED HISTORY: empyema evaluation, TECHNOLOGIST PROVIDED HISTORY: Illness/Other Reason for exam: empyema evaluation Cancer History: u Surgery, RadiationHistory: u Encounter Type: Unknown Additional signs and symptoms: n ORDERING SYSTEM PROVIDED DIAGNOSIS CODES: J96.01 Acute respiratory failure with hypoxia (HCC) J90 Loculated pleural effusion COMPARISON: 01/09/2024. FINDINGS: One-view chest x-ray. Right basilar chest tube in place. Moderate loculated right pleural effusion with extension into the right minor fissure. No pneumothorax. Right basilar consolidation/atelectasi s. Chronic elevation of the right hemidiaphragm. Normal heart size. IMPRESSION: Interval right basilar chest tube placement. Moderate loculated right pleural effusion, mildly improved compared to 01/09/2024. No pneumothorax. [employer]Mar Workstation ID: [id number] Dictated by: ALBERTO FITZGERALD on SunJan 11, 2024 10:19:49 AM EDT Transcribed by: STEVEN OHARA on SunJan 11, 2024 10:23:20 AM EDT Finalized by: ALBERTO FITZGERALD on SunJan 11, 2024 5:05:52 PM EDT Normal [facility] Comment on above: Order Comment: Injur y/Trauma or Illness?:Illness/OtherHow long have you had these symptoms (acute/chronic)?:AcuteReason for exam?:empyema evaluationHistory of cancer?:uSurgeries, chemotherapy, or radiation?:uType of Exam?:UnknownAdditional signs and symptoms?:n XR Chest PA and Abdomen APon 01-11-2024 Interval right basilar chest tube placement. Moderate loculated right pleural effusion, mildly improved compared to 01/09/2024. No pneumothorax. [employer]Mar Workstation ID: [id number] Quettra RIS EXAMINATION: XR CHEST PA/AP HISTORY: ORDERING SYSTEM PROVIDED HISTORY: empyema evaluation, TECHNOLOGIST PROVIDED HISTORY: Illness/Other Reason for exam: empyema evaluation Cancer History: u Surgery, RadiationHistory: u Encounter Type: Unknown Additional signs and symptoms: n ORDERING SYSTEM PROVIDED DIAGNOSIS CODES: J96.01 Acute respiratory failure with hypoxia (HCC) J90 Loculated pleural effusion COMPARISON: 01/09/2024. FINDINGS: One-view chest x-ray. Right basilar chest tube in place. Moderate loculated right pleural effusion with extension into the right minor fissure. No pneumothorax. Right basilar consolidation/atelectasi s. Chronic elevation of the right hemidiaphragm. Normal heart size. Quettra RIS Alberto Fitzgerald DO - 01/11/2024 EXAMINATION: XR CHEST PA/AP HISTORY: ORDERING SYSTEM PROVIDED HISTORY: empyema evaluation, TECHNOLOGIST PROVIDED HISTORY: Illness/Other Reason for exam: empyema evaluation Cancer History: u Surgery, RadiationHistory: u Encounter Type: Unknown Additional signs and symptoms: n ORDERING SYSTEM PROVIDED DIAGNOSIS CODES: J96.01 Acute respiratory failure with hypoxia (HCC) J90 Loculated pleural effusion COMPARISON: 01/09/2024. FINDINGS: One-view chest x-ray. Right basilar chest tube in place. Moderate loculated right pleural effusion with extension into the right minor fissure. No pneumothorax. Right basilar consolidation/atelectasi s. Chronic elevation of the right hemidiaphragm. Normal heart size. IMPRESSION: Interval right basilar chest tube placement. Moderate loculated right pleural effusion, mildly improved compared to 01/09/2024. No pneumothorax. ST/f Workstation ID: [id number] [facility] Radiology Study observation (narrative) [facility] XR Chest PA and Abdomen APOr dered By: Alberto Fitzgerald on 01-11-2024 [facility] Work Phone: Basic metabolic 2000 panelon 01-10-2024 Anion gap [Moles/Vol] 17 mmol/L 10 - 20 mmol/L [facility] Calcium [Mass/Vol] 8.5 mg/dL 8.4 - 10. 2 mg/dL [facility] Chloride [Moles/Vol] 99 mmol/L 98 - 10 8 mmol/L [facility] Creatinine [Mass/Vol] 0.68 mg/dL 0.50 - 1.30 mg/dL [facility] GFR/1.73 sq M.predicted CKD-EPI (S/P/Bld) [Vol rate/Area] 113 - PINF [facility] Comment on above: Estimated GFR was ca lculated using the 2020 CKD-EPI creatinine equation. Glucose [Mass/Vol] 109 mg/dL High 65 - 99 mg/dL [facility] HCO3 [Moles/Vol] 21 mmol/L 21 - 32 mmol/L [facility] Potassium [Moles/Vol] 3.5 mmol/L 3.5 - 5.1 mmol/L [facility] Sodium [Moles/Vol] 133 mmol/L Low 135 - 145 mmol/L [facility] Urea nitrogen [Mass/Vol] 13 mg/dL 8 - 25 mg/dL [facility] Urea nitrogen/Creatinine [Mass ratio] 19.1 mg/mg 10.0 - 20.0 [facility] has implemented the eGFR calculation approach that does not have a coefficient for race that conforms to the NKF-ASN Task Force Recommendations. [facility] Body Fluid Cell Count with D ifferentialOrdered By: Matty Casanova on 01-10-2024 Appearance (Body fld) Cloudy [facility] Color (Body fld) Yellow [facility] Interpretation and review of laboratory results Abnormal [facility] Lymphocytes/100 WBC (Body fld) 1 % High 0 - 0 % [facility] Monocytes/100 WBC (Body fld) 1 % High 0 - 0 % [facility] Neutrophils/100 WBC (Body fld) 98 % High 0 - 25 % [facility] Nucleated cells Auto (Body fld) [#/Vol] 5904 [facility] Comment on above: WBC/Nuc cell count i ncludes mesothelial and other non-WBC nucleated cells as reflected in the differential. RBC Auto (Body fld) [#/Vol] 206 [facility] CBC Auto Differentialon 12-23 Erythrocyte distribution width (RBC) [Entitic vol] 14.0 % 11.6 - 14.8 % [facility] Hematocrit (Bld) [Volume fraction] 33.4 % Low 41.0 - 53.0 % [facility] Hemoglobin (Bld) [Mass/Vol] 11.2 g/dL Low 13.5 - 17.5 g/dL [facility] Interpretation and review of laboratory results Abnormal [facility] MCH (RBC) [Entitic mass] 29.0 pg 26.0 - 34.0 pg [facility] MCHC (RBC) [Mass/Vol] 33.5 g/dL 31.0 - 37.0 g/dL [facility] MCV (RBC) [Entitic vol] 86.5 fL 80.0 - 100.0 fL [facility] Nucleated RBC (Bld) [#/Vol] 0.00 10*3/uL [facility] Nucleated RBC/100 WBC (Bld) [Ratio] 0.0 % [facility] Platelet mean volume (Bld) [Entitic vol] 8.3 fL Low 9.4 - 12.4 fL [facility] Platelets (Bld) [#/Vol] 445 10*3/uL [facility] RBC (Bld) [#/Vol] 3.86 10*6/uL Low [facility] ealth WBC (Bld) [#/Vol] 21.49 10*3/uL [facility] CBC and Diff Morphologyon RBC morphology finding Nom (Bld) See Comment [facility] Comment on above: RBC Indices confirme d with manual peripheral smear review. ECHOCARDIOGRAM COMPLETE W CO NTRASTon 01-10-2024 ECHOCARDIOGRAM COMPLETE W CONTRAST Patient Info Name: LALITHA CARTWRIGHT Age: 53 years : 1970 Gender: Male Ht: 183 cm Wt: 115 kg BSA: 2.45 m2 HR: 102 bpm BP: 114 / 73 mmHg Heart Rhythm: Sinus Rhythm Technical Quality: Technically difficult Exam Date: 01/10/2024 9:36 AM Patient Status: Inpatient Evaporator Helper: Babs Gee [facility] [[email or web address] Exam Type: ECHOCARDIOGRAM COMPLETE W CONTRAST Study Info Indications I50.20 - Unspecified systolic (congestive) heart failure Referring Physician: ARTHUR HOWE; [id number] BMI: 34.31 kg/m2 Summary 1. Left ventricular chamber dimension is normal. 2. Left ventricular systolic function is normal with an ejection fraction by Biplane Method of Discs of 60 %. 3. The left ventricular diastolic function is normal. 4. Right ventricular size and systolic function are normal. 5. Mobile atrial septum, positive agitated saline contrast study for interatrial shunt with normal breathing and Valsalva maneuver, likely patent foramen ovale... History/Risk Factors Dyslipidemia: Yes Tobacco Use: Current - Every Day Family History: Coronary Artery Disease History/Risk Factors Acute hypoxemic respiratory failure, Pleural effusion. Procedure(s): Complete two-dimensional, color flow and Doppler transthoracic echocardiogram is performed with contrast. Definity explained to patient. Patient verbalizes understanding and agrees to proceed. Definity 1.3ml/8.7ml normal sterile saline 2 ml total given IV over 30-60 seconds. Saline contrast injection was performed. Left Ventricle Left ventricular chamber dimension is normal. Left ventricular systolic function is normal with an ejection fraction by Biplane Method of Discs of 60 %. Normal left ventricular mass. Left ventricular segmental wall motion is normal. The left ventricular diastolic function is normal. Right Ventricle Right ventricular size and systolic function are normal. Left Atria Left atrial chamber is normal with a left atrial volume index of 17 ml/m2 by BP MOD. Right Atria Right atrial chamber dimension is normal. Atrial Septum Mobile atrial septum, positive agitated saline contrast study for interatrial shunt with normal breathing and Valsalva maneuver, likely patent foramen ovale... Aortic Valve The aortic valve is trileaflet. There is no aortic valve sclerosis. There is no aortic valve stenosis. There is no aortic valve regurgitation. Pulmonic Valve The pulmonic valve is normal. There is no pulmonic valve stenosis. There is trace pulmonic regurgitation. Mitral Valve The mitral valve has normal leaflets. There is no mitral valve stenosis. There is trace mitral valve regurgitation. Normal systolic pulmonary venous forward flow. Tricuspid Valve The tricuspid valve leaflets are normal. There is no significant tricuspid valve stenosis. There is trace tricuspid valve regurgitation. There is no pulmonary hypertension, estimated right ventricle systolic pressure is 28 mmHg. Pericardium/Pleural There is a trivial pericardial effusion. Pericardial fat. Inferior Vena Cava Normal inferior vena cava with <50% collapse upon inspiration consistent with elevated right atrial pressure. Aorta The aortic measurements are indexed to age and body surface area. The aortic root is dilated measuring 3.8 cm with an index of 1.5 cm/m2. The proximal ascending aorta is normal measuring 3.8 cm with an index of 1.6 cm/m2. Left Ventricular Outflow Tract Name Value Normal LVOT 2D LVOT Diameter 2.4 cm LVOT Doppler LVOT Peak Velocity 1.5 m/s LVOT Peak Gradient 9 mmHg LVOT Mean Gradient 6 mmHg LVOT VTI 25 cm LVOT VTI/AV VTI Ratio 0.9 LVOT Stroke Volume 115 ml LVOT Stroke Index 46.77 ml/m2 Pulmonic Valve Name Value Normal RVOT Doppler RVOT Peak Velocity 115 cm/s RVOT Peak Gradient 5 mmHg RVOT Mean Gradient 4 mmHg RVOT VTI 20 cm PV Doppler PV Peak Velocity 1.23 m/s PV Peak Gradient 6 mmHg PV Mean Gradient 4 mmHg PV VTI 21 cm Mitral Valve Name Value Normal MV Doppler MV Peak Velocity 0.94 m/s MV Peak Gradient 4 mmHg MV Mean Gradient 2 mmH (more content not included)... Normal [facility] EKGon 01-10-2024 [facility] Echocardiogram complete w co ntrastOrdered By: Dania Sepulveda on 01-10-2024 Aortic valve area 3.9998 cm [facility] Work Phone: AV mean gradient 7.88665 mmHg [facility] Work Phone: AV peak gradient 12.2947 mmHg [facility] Work Phone: EF 59.677 % [facility] Work Phone: [facility] Work Phone: Echocardiogram complete w co ntraston 01-10-2024 Patient Info Name: LALITHA CARTWRIGHT Age: 53 years : 1970 Gender: Male Ht: 183 cm Wt: 115 kg BSA: 2.45 m2 HR: 102 bpm BP: 114 / 73 mmHg Heart Rhythm: Sinus Rhythm Technical Quality: Technically difficult Exam Date: 01/10/2024 9:36 AM Patient Status: Inpatient Evaporator Helper: Babs Gee [facility] [[email or web address] Exam Type: ECHOCARDIOGRAM COMPLETE W CONTRAST Study Info Indications I50.20 - Unspecified systolic (congestive) heart failure Referring Physician: ARTHUR HOWE; [id number] BMI: 34.31 kg/m2 Summary 1. Left ventricular chamber dimension is normal. 2. Left ventricular systolic function is normal with an ejection fraction by Biplane Method of Discs of 60 %. 3. The left ventricular diastolic function is normal. 4. Right ventricular size and systolic function are normal. 5. Mobile atrial septum, positive agitated saline contrast study for interatrial shunt with normal breathing and Valsalva maneuver, likely patent foramen ovale... History/Risk Factors Dyslipidemia: Yes Tobacco Use: Current - Every Day Family History: Coronary Artery Disease History/Risk Factors Acute hypoxemic respiratory failure, Pleural effusion. Procedure(s): Complete two-dimensional, color flow and Doppler transthoracic echocardiogram is performed with contrast. Definity explained to patient. Patient verbalizes understanding and agrees to proceed. Definity 1.3ml/8.7ml normal sterile saline 2 ml total given IV over 30-60 seconds. Saline contrast injection was performed. Left Ventricle Left ventricular chamber dimension is normal. Left ventricular systolic function is normal with an ejection fraction by Biplane Method of Discs of 60 %. Normal left ventricular mass. Left ventricular segmental wall motion is normal. The left ventricular diastolic function is normal. Right Ventricle Right ventricular size and systolic function are normal. Left Atria Left atrial chamber is normal with a left atrial volume index of 17 ml/m2 by BP MOD. Right Atria Right atrial chamber dimension is normal. Atrial Septum Mobile atrial septum, positive agitated saline contrast study for interatrial shunt with normal breathing and Valsalva maneuver, likely patent foramen ovale... Aortic Valve The aortic valve is trileaflet. There is no aortic valve sclerosis. There is no aortic valve stenosis. There is no aortic valve regurgitation. Pulmonic Valve The pulmonic valve is normal. There is no pulmonic valve stenosis. There is trace pulmonic regurgitation. Mitral Valve The mitral valve has normal leaflets. There is no mitral valve stenosis. There is trace mitral valve regurgitation. Normal systolic pulmonary venous forward flow. Tricuspid Valve The tricuspid valve leaflets are normal. There is no significant tricuspid valve stenosis. There is trace tricuspid valve regurgitation. There is no pulmonary hypertension, estimated right ventricle systolic pressure is 28 mmHg. Pericardium/Pleural There is a trivial pericardial effusion. Pericardial fat. Inferior Vena Cava Normal inferior vena cava with <50% collapse upon inspiration consistent with elevated right atrial pressure. Aorta The aortic measurements are indexed to age and body surface area. The aortic root is dilated measuring 3.8 cm with an index of 1.5 cm/m2. The proximal ascending aorta is normal measuring 3.8 cm with an index of 1.6 cm/m2. Left Ventricular Outflow Tract Name Value Normal LVOT 2D LVOT Diameter 2.4 cm LVOT Doppler LVOT Peak Velocity 1.5 m/s LVOT Peak Gradient 9 mmHg LVOT Mean Gradient 6 mmHg LVOT VTI 25 cm LVOT VTI/AV VTI Ratio 0.9 LVOT Stroke Volume 115 ml LVOT Stroke Index 46.77 ml/m2 Pulmonic Valve Name Value Normal RVOT Doppler RVOT Peak Velocity 115 cm/s RVOT Peak Gradient 5 mmHg RVOT Mean Gradient (more content not included)... FUJI SYNAPSE CV Dania Sepulveda MD - 01/10/2024 Patient Info Name: LALITHA CARTWRIGHT Age: 53 years : 1970 Gender: Male Ht: 183 cm Wt: 115 kg BSA: 2.45 m2 HR: 102 bpm BP: 114 / 73 mmHg Heart Rhythm: Sinus Rhythm Technical Quality: Technically difficult Exam Date: 01/10/2024 9:36 AM Patient Status: Inpatient Evaporator Helper: Babs Gee RDCs Exam Type: ECHOCARDIOGRAM COMPLETE W CONTRAST Study Info Indications I50.20 - Unspecified systolic (congestive) heart failure Referring Physician: ARTHUR HOWE; [id number] BMI: 34.31 kg/m2 Summary 1. Left ventricular chamber dimension is normal. 2. Left ventricular systolic function is normal with an ejection fraction by Biplane Method of Discs of 60 %. 3. The left ventricular diastolic function is normal. 4. Right ventricular size and systolic function are normal. 5. Mobile atrial septum, positive agitated saline contrast study for interatrial shunt with normal breathing and Valsalva maneuver, likely patent foramen ovale... History/Risk Factors Dyslipidemia: Yes Tobacco Use: Current - Every Day Family History: Coronary Artery Disease History/Risk Factors Acute hypoxemic respiratory failure, Pleural effusion. Procedure(s): Complete two-dimensional, color flow and Doppler transthoracic echocardiogram is performed with contrast. Definity explained to patient. Patient verbalizes understanding and agrees to proceed. Definity 1.3ml/8.7ml normal sterile saline 2 ml total given IV over 30-60 seconds. Saline contrast injection was performed. Left Ventricle Left ventricular chamber dimension is normal. Left ventricular systolic function is normal with an ejection fraction by Biplane Method of Discs of 60 %. Normal left ventricular mass. Left ventricular segmental wall motion is normal. The left ventricular diastolic function is normal. Right Ventricle Right ventricular size and systolic function are normal. Left Atria Left atrial chamber is normal with a left atrial volume index of 17 ml/m2 by BP MOD. Right Atria Right atrial chamber dimension is normal. Atrial Septum Mobile atrial septum, positive agitated saline contrast study for interatrial shunt with normal breathing and Valsalva maneuver, likely patent foramen ovale... Aortic Valve The aortic valve is trileaflet. There is no aortic valve sclerosis. There is no aortic valve stenosis. There is no aortic valve regurgitation. Pulmonic Valve The pulmonic valve is normal. There is no pulmonic valve stenosis. There is trace pulmonic regurgitation. Mitral Valve The mitral valve has normal leaflets. There is no mitral valve stenosis. There is trace mitral valve regurgitation. Normal systolic pulmonary venous forward flow. Tricuspid Valve The tricuspid valve leaflets are normal. There is no significant tricuspid valve stenosis. There is trace tricuspid valve regurgitation. There is no pulmonary hypertension, estimated right ventricle systolic pressure is 28 mmHg. Pericardium/Pleural There is a trivial pericardial effusion. Pericardial fat. Inferior Vena Cava Normal inferior vena cava with <50% collapse upon inspiration consistent with elevated right atrial pressure. Aorta The aortic measurements are indexed to age and body surface area. The aortic root is dilated measuring 3.8 cm with an index of 1.5 cm/m2. The proximal ascending aorta is normal measuring 3.8 cm with an index of 1.6 cm/m2. Left Ventricular Outflow Tract Name Value Normal LVOT 2D LVOT Diameter 2.4 cm LVOT Doppler LVOT Peak Velocity 1.5 m/s LVOT Peak Gradient 9 mmHg LVOT Mean Gradient 6 mmHg LVOT VTI 25 cm LVOT VTI/AV VTI Ratio 0.9 LVOT Stroke Volume 115 ml LVOT Stroke Index 46.77 ml/m2 Pulmonic Valve Name Value Normal RVOT Doppler RVOT Peak Velocity 115 cm/s RVOT Peak Gradient 5 mmHg RVOT Mean Gradient 4 mmHg RVOT VTI 20 cm PV Doppler PV Peak Velocity 1.23 m/s PV Peak Gradient 6 mmHg PV Mean Gradient 4 mmHg PV VTI 21 cm Mitral Valve Name Value Normal MV Doppler --------- (more content not included)... [facility] HbA1c (Bld) [Mass fraction]o n 01-10-2024 Average glucose Estimated from glycated hemoglobin (Bld) [Mass/Vol] 128 mg/dL High 74 - 114 mg/dL [facility] Interpretation and review of laboratory results Abnormal [facility] Hemoglobin A1con 01-10-2024 HbA1c (Bld) [Mass fraction] 6.1 % High 4.2 - 5.6 % [facility] Hepatic function 2000 panelo n 01-10-2024 Albumin [Mass/Vol] 2.9 g/dL Low 3.2 - 5.2 g/dL [facility] ALP [Catalytic activity/Vol] 131 U/L 40 - 150 U/L [facility] ALT [Catalytic activity/Vol] 61 U/L High 0-50 U/L [facility] AST [Catalytic activity/Vol] 69 U/L High 0-50 U/L [facility] Bilirubin [Mass/Vol] 0.5 mg/dL 0.0 - 1 .3 mg/dL [facility] Bilirubin.conjugated [Mass/Vol] 0.2 mg/dL 0.0 - 0.4 mg/dL [facility] Protein [Mass/Vol] 6.2 g/dL 6.0 - 8.0 g/dL [facility] LDHon 01-10-2024 LDH Lactate to pyruvate reaction [Catalytic activity/Vol] 207 U/L 100 - 250 U/L [facility] LDH Body FluidOrdered By: Nargis Fernández on 01-10-2024 LDH Pyruvate to lactate reaction (Pleur fld) [Catalytic activity/Vol] 1982 U/L [facility] LDH Pyruvate to lactate reac tion (Pleur fld) [Catalytic activity/Vol]Ordered By: Luzmaria Fernández on 01-10-2024 No established refer ence range. [facility] Lactic Acid, Plasmaon 2023 Lactate [Moles/Vol] 0.8 mmol/L 0.6 - 2. 0 mmol/L [facility] Manual Differential panel (B ld)on 01-10-2024 Basophils (Bld) [#/Vol] 0.00 10*3/uL [facility] Basophils/100 WBC (Bld) 0.0 % [facility] Eosinophils (Bld) [#/Vol] 0.37 10*3/uL [facility] Eosinophils/100 WBC (Bld) 1.7 % [facility] Interpretation and review of laboratory results Abnormal [facility] Lymphocytes (Bld) [#/Vol] 1.63 10*3/uL [facility] Lymphocytes/100 WBC (Bld) 5.9 % [facility] Monocytes (Bld) [#/Vol] 1.27 10*3/uL High [facility] Monocytes/100 WBC (Bld) 5.9 % [facility] Neutrophils (Bld) [#/Vol] 18.22 10*3/uL High [facility] Neutrophils/100 WBC (Bld) 84.8 % [facility] Variant lymphocytes/100 WBC (Bld) 1.7 % [facility] No Panel Informationon 01-09 [facility] Interpretation and review of laboratory results Normal [facility] Interpretation and review of laboratory results Abnormal [facility] Obtain venous blood gases an d performon 01-10-2024 [facility] POC Venous Blood Gas Panel-P ulmon 01-10-2024 Base excess Calc (BldV) [Moles/Vol] 0.4 mmol/L -2.0 - 2.0 [facility] CO2 (BldV) [Partial pressure] 37.0 mm[Hg] Low [facility] HCO3 (Bld) [Moles/Vol] 24.5 mmol/L 24.0 - 28.0 mmol/L [facility] Hematocrit (BldA) [Volume fraction] 36.8 % Low 41.0 - 53.0 % [facility] Hemoglobin (Bld) [Mass/Vol] 12.0 g/dL Low 13.5 - 17.5 g/dL [facility] Inhaled oxygen concentration 21 % [facility] Interpretation and review of laboratory results Abnormal [facility] Oxygen (BldV) [Partial pressure] 44 mm[Hg] High [facility] Oxygen saturation in Venous blood 78.6 % High 40.0 - 70.0 % [facility] pH (BldV) 7.43 [pH] High 7.32 - 7.42 [facility] Specimen source Nom (Unsp spec) Not specified [facility] Protein (Body fld) [Mass/Vol ]on 01-10-2024 No established refer ence range. [facility] Protein, Body Fluidon 2023 Protein (Body fld) [Mass/Vol] 4.7 g/dL [facility] VR Chest Tube Righton 2023 Successful ultrasound-guided placement of a right sided 14 Fr. chest tube. Workstation ID: [id number] Amina Finch MD - 01/10/2024 PROCEDURE: 1. ULTRASOUND-GUIDED right SIDED CHEST TUBE PLACEMENT. 2. MODERATE SEDATION. HISTORY: Loculated pleural effusion ROD POINTER(S): Yanet Jackson PA-C and Amina Cerrato M.D. MEDICATIONS: Intravenous moderate sedation with continuous cardiorespiratory monitoring for 0 minutes utilizing 0 mg of Versed IV and 75 mcg fentanyl IV was provided general supervision by the interventional radiologist. TECHNICAL REPORT: The procedure with its recognized benefits and risks were explained to the patient and/or family and written consent was obtained. The patient was brought to the Interventional Radiology suite and placed in the supine position. A time-out/pause and confirm was performed. The right lateral thorax was prepped and draped in a sterile fashion. Following cutaneous anesthesia with 1% Lidocaine and with ultrasound guidance, the pleural fluid was accessed with an 18 gauge Chiba needle. Fluid was aspirated. A wire was then advanced into the pleural space and following fascial dilatation, a 14 Russian 41 cm chest tube Thal-Quick was placed. The catheter was secured to the skin with 2 -0 Ethilon suture. A sample of fluid was submitted for microbiology and other requested analysis. The drain was connected to a pleural vac drainage. The patient tolerated the procedure well without evidence of any complications. Hand hygiene was performed and all elements of maximal sterile barrier technique were followed, including the sterile ultrasound probe cover and sterile ultrasound gel, when utilized. FINDINGS: Ultrasound confirms the presence of a 14 sided pleural effusion. IMPRESSION: Successful ultrasound-guided placement of a right sided 14 Fr. chest tube. Workstation ID: [id number] [facility] Radiology Study observation (narrative) [facility] VR Chest Tube RightOrdered B y: Amina Cerrato on 01-10-2024 [facility] Work Phone: Basic metabolic 2000 panelOr dered By: Sneha Wayne on 01-09-2024 Anion gap [Moles/Vol] 19 mmol/L 10 - 20 mmol/L [facility] Calcium [Mass/Vol] 9.0 mg/dL 8.4 - 10. 2 mg/dL [facility] Chloride [Moles/Vol] 96 mmol/L Low 98 - 10 8 mmol/L [facility] Creatinine [Mass/Vol] 0.75 mg/dL 0.50 - 1.30 mg/dL [facility] GFR/1.73 sq M.predicted CKD-EPI (S/P/Bld) [Vol rate/Area] 109 - PINF [facility] Comment on above: Estimated GFR was ca lculated using the 2020 CKD-EPI creatinine equation. Glucose [Mass/Vol] 128 mg/dL High 65 - 99 mg/dL [facility] HCO3 [Moles/Vol] 20 mmol/L Low 21 - 32 mmol/L [facility] Interpretation and review of laboratory results Abnormal [facility] Potassium [Moles/Vol] 3.8 mmol/L 3.5 - 5.1 mmol/L [facility] Comment on above: Slightly Hemolyzed Sodium [Moles/Vol] 131 mmol/L Low 135 - 145 mmol/L [facility] Urea nitrogen [Mass/Vol] 16 mg/dL 8 - 25 mg/dL [facility] Urea nitrogen/Creatinine [Mass ratio] 21.3 mg/mg High 10.0 - 20.0 [facility] has implemented the eGFR calculation approach that does not have a coefficient for race that conforms to the NKF-ASN Task Force Recommendations. [facility] CBC Auto Differentialon 12-23 Basophils (Bld) [#/Vol] 0.12 10*3/uL [facility] Basophils/100 WBC (Bld) 0.4 % [facility] Eosinophils (Bld) [#/Vol] 0.23 10*3/uL [facility] Eosinophils/100 WBC (Bld) 0.8 % [facility] Erythrocyte distribution width (RBC) [Entitic vol] 13.9 % 11.6 - 14.8 % [facility] Hematocrit (Bld) [Volume fraction] 35.5 % Low 41.0 - 53.0 % [facility] Hemoglobin (Bld) [Mass/Vol] 12.0 g/dL Low 13.5 - 17.5 g/dL [facility] Immature granulocytes (Bld) [#/Vol] 1.07 10*3/uL High [facility] Immature granulocytes/100 WBC (Bld) 3.90 % [facility] Comment on above: The IG parameter is the percentage of metamyelocytes, myelocytes and promyelocytes. An immature granulocyte count (IG) of 1% or more suggests the possibility of infection, an IG count of 3% is very likely related to an infection. Interpretation and review of laboratory results Abnormal [facility] Lymphocytes (Bld) [#/Vol] 1.99 10*3/uL [facility] Lymphocytes/100 WBC (Bld) 7.3 % [facility] MCH (RBC) [Entitic mass] 29.1 pg 26.0 - 34.0 pg [facility] MCHC (RBC) [Mass/Vol] 33.8 g/dL 31.0 - 37.0 g/dL [facility] MCV (RBC) [Entitic vol] 86.0 fL 80.0 - 100.0 fL [facility] Monocytes (Bld) [#/Vol] 1.13 10*3/uL High [facility] Monocytes/100 WBC (Bld) 4.2 % [facility] Neutrophils (Bld) [#/Vol] 22.56 10*3/uL High [facility] Neutrophils/100 WBC (Bld) 83.4 % [facility] Nucleated RBC (Bld) [#/Vol] 0.00 10*3/uL [facility] Nucleated RBC/100 WBC (Bld) [Ratio] 0.0 % [facility] Platelet mean volume (Bld) [Entitic vol] 8.4 fL Low 9.4 - 12.4 fL [facility] Platelets (Bld) [#/Vol] 514 10*3/uL High [facility] RBC (Bld) [#/Vol] 4.13 10*6/uL Low [facility] WBC (Bld) [#/Vol] 27.10 10*3/uL [facility] COVID-19/INFLUENZA A,B MOLEC Sarah 01-09-2024 SARS-CoV-2 (COVID-19) Ab IA Ql SARS-COV-2 (IMTIAZ): Not Detected INFLUENZA A (IMTIAZ): Not Detected INFLUENZA B (IMTIAZ): Not Detected Normal Not Detected [facility] Comment on above: Performed By: #### L [id number] #### [facility] [address] [place], [place] [address] Braulio Skelton M.D. [id number] CT PULMONARY ARTERIESon 12-23 CT PULMONARY ARTERIES EXAMINATION: CT PULMONARY ARTERIES HISTORY: ORDERING SYSTEM PROVIDED HISTORY: Pulmonary embolism (PE) suspected, low to intermediate prob, positive D-dimer, TECHNOLOGIST PROVIDED HISTORY: Illness/Other Reason for exam: sob, elevated d-dimer Encounter Type: Initial Additional signs and symptoms: Patient inhaled a larger breath on the helical scan than compared to the cardiac cath lab manager images. Additional images were obtained to include the bottom portion of the costrophrenic angles of the lungs. ORDERING SYSTEM PROVIDED DIAGNOSIS CODES: COMPARISON: CT chest from 10/26/2023 and two-view chest from 01/09/2024. CT chest from an outside source with however report from 01/04/2024. TECHNIQUE: CT angiography of the pulmonary arteries following the administration of intravenous contrast. Coronal and sagittal MIP images were performed. Dose reduction techniques were achieved by using automated exposure control and/or adjustment of mA and/or kV according to patient size and/or use of iterative reconstruction technique. CONTRAST: IOPAMIDOL 370 MG IODINE/ML (76 %) INTRAVENOUS SOLUTION - 75 mL, FINDINGS: The left lung is clear of infiltrate or effusion. There is a small but stable nodule in the lateral aspect of the left lower lobe measuring roughly 5-6 mm. No pneumothorax is noted bilaterally. Prominent effusion is noted on the right with moderate atelectasis. Fluid travels along the major fissure and along the lateral aspect of the chest progressing anteriorly with mild sparing at the middle and superior aspects. Soft tissues at the base of the neck and supraclavicular regions are unremarkable. Limited views of the thyroid gland are unremarkable. Trachea and esophagus are unremarkable. The gastroesophageal junction and limited views of the upper abdomen are unremarkable. The liver shows mild enlargement. Heart size is not enlarged. No pericardial effusion is noted. The great vessels are unremarkable. No obvious filling defect is noted to suggest pulmonary embolism bilaterally. No axillary lymphadenopathy is noted. No obvious left hilar enlarged lymph node is noted. There [id number] prominent lymph nodes throughout the right hilar region and throughout the right paratracheal region and subcarinal region. Subcutaneous tissues are unremarkable. No bony lesions are noted. IMPRESSION: 1. No obvious acute mediastinal process or pulmonary embolism. 2. Mild mediastinal and right hilar lymphadenopathy. 3. Moderate to prominent effusion on the right with areas of loculation along the lateral aspect and major fissure. 4. Small stable nodule in the lateral aspect of the left lower lobe. Workstation ID: [id number] Dictated by: ENDER QUINONES on SunJan 09, 2024 10:35:37 PM EDT Transcribed by: ENDER QUINONES on SunJan 09, 2024 10:35:37 PM EDT Finalized by: ENDER QUINONES on SunJan 09, 2024 10:35:37 PM EDT [facility] Comment on above: Order Comment: Injur y/Trauma or Illness?:Illness/Other How long have you had these symptoms (acute/chronic)?:Acute Reason for exam?:sob, elevated d-dimer Type of Exam?:Initial Additional signs and symptoms?:Patient inhaled a larger breath on the helical scan than compared to the cardiac cath lab manager images. Additional images were obtained to include the bottom portion of the costrophrenic angles of the lungs. CT Pulmonary arteries for pu lmonary emboluson 01-09-2024 1. No obvious acute mediastinal process or pulmonary embolism. 2. Mild mediastinal and right hilar lymphadenopathy. 3. Moderate to prominent effusion on the right with areas of loculation along the lateral aspect and major fissure. 4. Small stable nodule in the lateral aspect of the left lower lobe. Workstation ID: [id number] [facility] EXAMINATION: CT PULMONARY ARTERIES HISTORY: ORDERING SYSTEM PROVIDED HISTORY: Pulmonary embolism (PE) suspected, low to intermediate prob, positive D-dimer, TECHNOLOGIST PROVIDED HISTORY: Illness/Other Reason for exam: sob, elevated d-dimer Encounter Type: Initial Additional signs and symptoms: Patient inhaled a larger breath on the helical scan than compared to the cardiac cath lab manager images. Additional images were obtained to include the bottom portion of the costrophrenic angles of the lungs. ORDERING SYSTEM PROVIDED DIAGNOSIS CODES: COMPARISON: CT chest from 10/26/2023 and two-view chest from 01/09/2024. CT chest from an outside source with however report from 01/04/2024. TECHNIQUE: CT angiography of the pulmonary arteries following the administration of intravenous contrast. Coronal and sagittal MIP images were performed. Dose reduction techniques were achieved by using automated exposure control and/or adjustment of mA and/or kV according to patient size and/or use of iterative reconstruction technique. CONTRAST: IOPAMIDOL 370 MG IODINE/ML (76 %) INTRAVENOUS SOLUTION - 75 mL, FINDINGS: The left lung is clear of infiltrate or effusion. There is a small but stable nodule in the lateral aspect of the left lower lobe measuring roughly 5-6 mm. No pneumothorax is noted bilaterally. Prominent effusion is noted on the right with moderate atelectasis. Fluid travels along the major fissure and along the lateral aspect of the chest progressing anteriorly with mild sparing at the middle and superior aspects. Soft tissues at the base of the neck and supraclavicular regions are unremarkable. Limited views of the thyroid gland are unremarkable. Trachea and esophagus are unremarkable. The gastroesophageal junction and limited views of the upper abdomen are unremarkable. The liver shows mild enlargement. Heart size is not enlarged. No pericardial effusion is noted. The great vessels are unremarkable. No obvious filling defect is noted to suggest pulmonary embolism bilaterally. No axillary lymphadenopathy is noted. No obvious left hilar enlarged lymph node is noted. There [id number] prominent lymph nodes throughout the right hilar region and throughout the right paratracheal region and subcarinal region. Subcutaneous tissues are unremarkable. No bony lesions are noted. Quettra Ender Kwon DO - 01/09/2024 EXAMINATION: CT PULMONARY ARTERIES HISTORY: ORDERING SYSTEM PROVIDED HISTORY: Pulmonary embolism (PE) suspected, low to intermediate prob, positive D-dimer, TECHNOLOGIST PROVIDED HISTORY: Illness/Other Reason for exam: sob, elevated d-dimer Encounter Type: Initial Additional signs and symptoms: Patient inhaled a larger breath on the helical scan than compared to the cardiac cath lab manager images. Additional images were obtained to include the bottom portion of the costrophrenic angles of the lungs. ORDERING SYSTEM PROVIDED DIAGNOSIS CODES: COMPARISON: CT chest from 10/26/2023 and two-view chest from 01/09/2024. CT chest from an outside source with however report from 01/04/2024. TECHNIQUE: CT angiography of the pulmonary arteries following the administration of intravenous contrast. Coronal and sagittal MIP images were performed. Dose reduction techniques were achieved by using automated exposure control and/or adjustment of mA and/or kV according to patient size and/or use of iterative reconstruction technique. CONTRAST: IOPAMIDOL 370 MG IODINE/ML (76 %) INTRAVENOUS SOLUTION - 75 mL, FINDINGS: The left lung is clear of infiltrate or effusion. There is a small but stable nodule in the lateral aspect of the left lower lobe measuring roughly 5-6 mm. No pneumothorax is noted bilaterally. Prominent effusion is noted on the right with moderate atelectasis. Fluid travels along the major fissure and along the lateral aspect of the chest progressing anteriorly with mild sparing at the middle and superior aspects. Soft tissues at the base of the neck and supraclavicular regions are unremarkable. Limited views of the thyroid gland are unremarkable. Trachea and esophagus are unremarkable. The gastroesophageal junction and limited views of the upper abdomen are unremarkable. The liver shows mild enlargement. Heart size is not enlarged. No pericardial effusion is noted. The great vessels are unremarkable. No obvious filling defect is noted to suggest pulmonary embolism bilaterally. No axillary lymphadenopathy is noted. No obvious left hilar enlarged lymph node is noted. There [id number] prominent lymph nodes throughout the right hilar region and throughout the right paratracheal region and subcarinal region. Subcutaneous tissues are unremarkable. No bony lesions are noted. IMPRESSION: 1. No obvious acute mediastinal process or pulmonary embolism. 2. Mild mediastinal and right hilar lymphadenopathy. 3. Moderate to prominent effusion on the right with areas of loculation along the lateral aspect and major fissure. 4. Small stable nodule in the lateral aspect of the left lower lobe. Workstation ID: [id number] [facility] Radiology Study observation (narrative) [facility] Critical Careon 01-09-2024 Renato Carlos MD 01/09/2024 11:35 PM Critical Care Performed by: Renato Carlos MD Authorized by: Renato Carlos MD Total critical care time: 35 minutes Critical care time was exclusive of separately billable procedures and treating other patients. Critical care was necessary to treat or prevent imminent or life-threatening deterioration of the following conditions: respiratory failure. Critical care was time spent personally by me on the following activities: development of treatment plan with patient or surrogate, discussions with consultants, evaluation of patient's response to treatment, examination of patient, obtaining history from patient or surrogate, ordering and performing treatments and interventions, ordering and review of laboratory studies, ordering and review of radiographic studies, pulse oximetry, re-evaluation of patient's condition and review of old charts. [facility] D-Dimer, Quantitativeon 12-23 Fibrin D-dimer FEU (PPP) [Mass/Vol] 8.66 [facility] Interpretation and review of laboratory results Abnormal [facility] A D-dimer concentrat ion of <0.5 micrograms per milliliter FEU is considered a low probability for pulmonary embolus (PE) and deep venous thrombosis (DVT). Results of this test should always be interpreted in conjunction with the patient's medical history,clinical presentation, and other findings. Clinical diagnosis should not be based on the results of the D-dimer alone. [facility] ECG 12 Leadon 01-09-2024 Atrial Rate 112 BPM [facility] Interpretation and review of laboratory results Abnormal [facility] P [place] 19 degrees [facility] P-R Interval 134 ms [facility] Q-T Interval 306 ms [facility] QRS Duration 74 ms [facility] QTC Calculation (Bezet) 417 ms [facility] R [place] 49 degrees [facility] T [place] 50 degrees [facility] Ventricular Rate 112 BPM [facility] Renato Carlos MD 01/09/2024 11:35 PM ECG 12 Lead Date/Time: 01/09/2024 7:47 PM Performed by: Renato Carlos MD Authorized by: Renato Carlos MD Interpreted by ED attending physician Rhythm: sinus rhythm and sinus tachycardia BPM: 112 ST Segments: ST segments normal Clinical impression: abnormal ECG and sinus tachycardia MUSE [facility] INR Coag (PPP) [Relative dat e]Ordered By: Leatha Espinoza on 01-09-2024 Interpretation and review of laboratory results Abnormal [facility] PT Coag (PPP) [Time] 14.6 s [facility] During the induction phase of oral anticoagulation, the INR may not reflect the anticoagulation status of the patient. Therapeutic ranges for INR's are: Most clinical situations: INR 2.0-3.0 Mechanical Prosthetic Valve: INR 2.5-3.5 Critical: INR >5.0 [facility] Influenza virus A and B RNA and SARS-CoV-2 (COVID-19) N gene panel NELSY+probe (Resp)Ordered By: Hazel Cobb on 01-09-2024 FLUAV RNA NELSY+probe Ql (Unsp spec) Not detected Not Detected [facility] FLUBV RNA NELSY+probe Ql (Unsp spec) Not detected Not Detected [facility] Interpretation and review of laboratory results Normal [facility] SARS-CoV-2 (COVID-19) RNA NELSY+probe Ql (Resp) Not detected Not Detected [facility] Light Blue Topon 01-09-2024 Extra Tube Hold for add-ons. [facility] Comment on above: Auto resulted. [facility] NT Pro BNPon 01-09-2024 Natriuretic peptide.B prohormone N-Terminal [Mass/Vol] 107 pg/mL 0 - 300 pg/mL [facility] Natriuretic peptide.B prohor dali N-Terminal [Mass/Vol]on 01-09-2024 Interpretation and review of laboratory results Normal [facility] Pride Study Cut-offs Rule In: < /= 50 Years >450 pg/mL 51 Years - 75 Years >900 pg/mL 76 Years - 99 Years >1800 pg/mL Rule Out: All patients <300 pg/mL [facility] No Panel Informationon 01-08 [facility] PT/INROrdered By: Leatha Simmons ed on 01-09-2024 INR Coag (PPP) [Relative time] 1.1 {INR} 0.8 - 1.1 [facility] Troponin x 2 (Now and Repeat in 3 hours)on 01-09-2024 Delta Difference Troponin T 0 ng/L < = -/+ 7 change [facility] Interp Troponin T Delta Change No biomarker evidence of cardiac injury. [facility] Troponin T 8 ng/L NINF - 22 ng/L [facility] Troponin T 8 ng/L NINF - 22 ng/L [facility] Troponin T Interpretation Normal [facility] XR CHEST AP/PA AND LATon XR CHEST AP/PA AND LAT EXAMINATION: XR CHEST AP/PA AND LAT 01/09/2024 7:46 pm HISTORY: ORDERING SYSTEM PROVIDED HISTORY: SOB x few weeks, TECHNOLOGIST PROVIDED HISTORY: Illness/Other Reason for exam: sob x 2 weeks Cancer History: u Surgery, RadiationHistory: u Encounter Type: Initial Additional signs and symptoms: hx smoking ORDERING SYSTEM PROVIDED DIAGNOSIS CODES: COMPARISON: CT chest from 01/04/2024. FINDINGS: There is a large effusion throughout the majority of the right lung field with what may be loculated fluid along the major fissure. No pneumothorax is noted. The left lung is clear. Trachea, mediastinum and heart size are unremarkable. IMPRESSION: 1. Prominent effusion as discussed on the right. Recommend follow-up to resolution. 2. The left lung is clear. Workstation ID: [id number] Dictated by: ENDER QUINONES on SunJan 09, 2024 8:22:18 PM EDT Transcribed by: ENDER QUINONES on SunJan 09, 2024 8:22:18 PM EDT Finalized by: ENDER QUINONES on SunJan 09, 2024 8:22:18 PM EDT Normal [facility] Comment on above: Order Comment: Injur y/Trauma or Illness?:Illness/OtherHow long have you had these symptoms (acute/chronic)?:AcuteReason for exam?:sob x 2 weeksHistory of cancer?:uSurgeries, chemotherapy, or radiation?:uType of Exam?:InitialAdditional signs and symptoms?:hx smoking XR Chest PA and Lateral and AP lateral-decubituson 01-09-2024 1. Prominent effusion as discussed on the right. Recommend follow-up to resolution. 2. The left lung is clear. Workstation ID: [id number] [employer] EXAMINATION: XR CHEST AP/PA AND LAT 01/09/2024 7:46 pm HISTORY: ORDERING SYSTEM PROVIDED HISTORY: SOB x few weeks, TECHNOLOGIST PROVIDED HISTORY: Illness/Other Reason for exam: sob x 2 weeks Cancer History: u Surgery, RadiationHistory: u Encounter Type: Initial Additional signs and symptoms: hx smoking ORDERING SYSTEM PROVIDED DIAGNOSIS CODES: COMPARISON: CT chest from 01/04/2024. FINDINGS: There is a large effusion throughout the majority of the right lung field with what may be loculated fluid along the major fissure. No pneumothorax is noted. The left lung is clear. Trachea, mediastinum and heart size are unremarkable. [employer] Ender Quinones, DO - 01/09/2024 EXAMINATION: XR CHEST AP/PA AND LAT 01/09/2024 7:46 pm HISTORY: ORDERING SYSTEM PROVIDED HISTORY: SOB x few weeks, TECHNOLOGIST PROVIDED HISTORY: Illness/Other Reason for exam: sob x 2 weeks Cancer History: u Surgery, RadiationHistory: u Encounter Type: Initial Additional signs and symptoms: hx smoking ORDERING SYSTEM PROVIDED DIAGNOSIS CODES: COMPARISON: CT chest from 01/04/2024. FINDINGS: There is a large effusion throughout the majority of the right lung field with what may be loculated fluid along the major fissure. No pneumothorax is noted. The left lung is clear. Trachea, mediastinum and heart size are unremarkable. IMPRESSION: 1. Prominent effusion as discussed on the right. Recommend follow-up to resolution. 2. The left lung is clear. Workstation ID: [id number] [facility] Radiology Study observation (narrative) [facility] XR Chest PA and Lateral and AP lateral-decubitusOrdered By: Ender Quinones on 01-09-2024 [facility] Work Phone: No Panel InformationOrdered By: Haley Alejandro on 01-07-2024 Atrial Rate 114 BPM [facility] Work Phone: P [place] 5 degrees [facility] Work Phone: P Offset 208 [facility] Work Phone: P Onset 154 [facility] Work Phone: [place] Interval 148 [facility] Work Phone: Q Onset 228 [facility] Work Phone: QRS Count 19 beats [facility] Work Phone: QRS Duration 70 ms [facility] Work Phone: QT Interval 292 ms [facility] Work Phone: QTC Calculation(Bazett) 402 [facility] Work Phone: QTC Fredericia 361 [facility] Work Phone: R [place] 25 degrees [facility] Work Phone: T [place] 41 degrees [facility] Work Phone: T Offset 374 [facility] Work Phone: Ventricular Rate 114 BPM [facility] Work Phone: [facility] Work Phone: No Panel Informationon 01-06 Sinus tachycardia Otherwise normal ECG No previous ECGs available See ED provider note for full interpretation and clinical correlation Confirmed by Haley Alejandro ([id number]) on 01/07/2024 3:03:52 PM Haley Seay PA-C - 01/07/2024 Sinus tachycardia Otherwise normal ECG No previous ECGs available See ED provider note for full interpretation and clinical correlation Confirmed by Haley Alejandro ([id number]) on 01/07/2024 3:03:52 PM [facility] Work Phone: APTTon 01-04-2024 aPTT Coag (PPP) [Time] 31 s [facility] Basic metabolic 2000 panelon 01-04-2024 Anion gap [Moles/Vol] 15 mmol/L 10 - 20 mmol/L [facility] Calcium [Mass/Vol] 8.8 mg/dL 8.6 - 10. 3 mg/dL [facility] Chloride [Moles/Vol] 101 mmol/L 98 - 10 7 mmol/L [facility] CO2 [Moles/Vol] 22 mmol/L 21 - 32 mmol/L [facility] Creatinine [Mass/Vol] 0.76 mg/dL 0.50 - 1.30 mg/dL [facility] eGFR - PINF [facility] Comment on above: Calculations of tucker mated GFR are performed using the 2020 CKD-EPI Study Refit equation without the race variable for the IDMS-Traceable creatinine methods. https://jasn.asnjournals.org/content///ASN.1648086 988 Glucose [Mass/Vol] 139 mg/dL High 74 - 99 mg/dL [facility] Interpretation and review of laboratory results Abnormal [facility] Potassium [Moles/Vol] 3.9 mmol/L 3.5 - 5.3 mmol/L [facility] Sodium [Moles/Vol] 134 mmol/L Low 136 - 145 mmol/L [facility] Urea nitrogen [Mass/Vol] 19 mg/dL 6 - 23 mg/dL [facility] CBC W Auto Differential pane l (Bld)on 01-04-2024 Basophils (Bld) [#/Vol] 0.06 10*3/uL [facility] Basophils/100 WBC (Bld) 0.4 % 0.0 - 2.0 % [facility] Eosinophils (Bld) [#/Vol] 0.30 10*3/uL [facility] Eosinophils/100 WBC (Bld) 1.8 % 0.0 - 6.0 % [facility] Erythrocyte distribution width (RBC) [Ratio] 13.5 % 11.5 - 14.5 % [facility] Hematocrit (Bld) [Volume fraction] 38.9 % Low 41.0 - 52.0 % [facility] Hemoglobin (Bld) [Mass/Vol] 13.0 g/dL Low 13.5 - 17.5 g/dL [facility] Immature granulocytes (Bld) [#/Vol] 0.12 10*3/uL [facility] Immature granulocytes/100 WBC (Bld) 0.7 % 0.0 - 0.9 % [facility] Comment on above: Immature Granulocyte Count (IG) includes promyelocytes, myelocytes and metamyelocytes but does not include bands. Percent differential counts (%) should be interpreted in the context of the absolute cell counts (cells/UL). Interpretation and review of laboratory results Abnormal [facility] Lymphocytes (Bld) [#/Vol] 1.56 10*3/uL [facility] Lymphocytes/100 WBC (Bld) 9.3 % 13.0 - 44.0 % [facility] MCH (RBC) [Entitic mass] 29.4 pg 26.0 - 34.0 pg [facility] MCHC (RBC) [Mass/Vol] 33.4 g/dL 32.0 - 36.0 g/dL [facility] MCV (RBC) [Entitic vol] 88 fL 80 - 100 fL [facility] Monocytes (Bld) [#/Vol] 1.09 10*3/uL High [facility] Monocytes/100 WBC (Bld) 6.5 % 2.0 - 10.0 % [facility] Neutrophils (Bld) [#/Vol] 13.61 10*3/uL High [facility] Comment on above: Percent differential counts (%) should be interpreted in the context of the absolute cell counts (cells/uL). Neutrophils/100 WBC (Bld) 81.3 % 40.0 - 80.0 % [facility] Nucleated RBC/100 WBC (Bld) [Ratio] 0.0 % [facility] Platelets (Bld) [#/Vol] 358 10*3/uL [facility] RBC (Bld) [#/Vol] 4.42 10*6/uL Low Unive [facility] WBC (Bld) [#/Vol] 16.7 10*3/uL [facility] CT Chest W contrast IV and C T angiogram Pulmonary arteries for pulmonary embolus W contrast Celio 01-04-2024 1. Small to moderate right pleural effusion, with suggestion of subtle right pleural thickening. 2. Adjacent focal atelectasis in the right lower lobe. 3. Mediastinal lymphadenopathy, including at the right hilum. 4. No detectable pulmonary emboli. 5. Consider diagnostic thoracentesis, and advis follow-up to exclude underlying malignancy. Signed by Bruno France MD TELERADIOLOGY STUDY: CT Angiogram of the Chest; 01/04/2024 at 6:26 PM INDICATION: Right-sided chest pain. Positive D-dimer. Evaluate for pulmonary embolism. COMPARISON: CT chest 02/13/20. ACCESSION NUMBER(S): [id number] ORDERING CLINICIAN: ISIS ONEILL TECHNIQUE: CTA of the chest was performed with intravenous contrast. Images are reviewed and processed at a workstation according to the CT angiogram protocol with 3-D and/or MIP post processing imaging generated. Omnipaque-350 69 mL was administered intravenously. Automated mA/kV exposure control was utilized and patient examination was performed in strict accordance with principles of ALARA. FINDINGS: There is a small to moderate layering right pleural effusion. There is suggestion of subtle right pleural thickening. Adjacent focal atelectasis is seen in the right lower lobe. The left lung demonstrates minimal focal atelectasis in the left lower lobe. A small 5 mm nodule in the mid left lower lobe is similar to 2020. Within the mediastinum, there is abnormal lymphadenopathy especially at the right hilum, where several adjacent enlarged lymph nodes are present with largest individual at 1.5 to 2.0 cm. Additional minimally enlarged lymph nodes are seen in the paratracheal region and anterior mediastinum, largest here at 1.5 cm. The pulmonary arteries are normal caliber. There are no detectable pulmonary emboli. The heart is normal size with no appreciable coronary artery calcifications. Thoracic aorta is normal caliber without aneurysm or dissection. There is no pericardial effusion. Bony thorax is intact. Upper abdomen is unremarkable. TELERADIOLOGY Bruno France MD - 01/04/2024 STUDY: CT Angiogram of the Chest; 01/04/2024 at 6:26 PM INDICATION: Right-sided chest pain. Positive D-dimer. Evaluate for pulmonary embolism. COMPARISON: CT chest 02/13/20. ACCESSION NUMBER(S): [id number] ORDERING CLINICIAN: ISSI ONEILL TECHNIQUE: CTA of the chest was performed with intravenous contrast. Images are reviewed and processed at a workstation according to the CT angiogram protocol with 3-D and/or MIP post processing imaging generated. Omnipaque-350 69 mL was administered intravenously. Automated mA/kV exposure control was utilized and patient examination was performed in strict accordance with principles of ALARA. FINDINGS: There is a small to moderate layering right pleural effusion. There is suggestion of subtle right pleural thickening. Adjacent focal atelectasis is seen in the right lower lobe. The left lung demonstrates minimal focal atelectasis in the left lower lobe. A small 5 mm nodule in the mid left lower lobe is similar to 2020. Within the mediastinum, there is abnormal lymphadenopathy especially at the right hilum, where several adjacent enlarged lymph nodes are present with largest individual at 1.5 to 2.0 cm. Additional minimally enlarged lymph nodes are seen in the paratracheal region and anterior mediastinum, largest here at 1.5 cm. The pulmonary arteries are normal caliber. There are no detectable pulmonary emboli. The heart is normal size with no appreciable coronary artery calcifications. Thoracic aorta is normal caliber without aneurysm or dissection. There is no pericardial effusion. Bony thorax is intact. Upper abdomen is unremarkable. IMPRESSION: 1. Small to moderate right pleural effusion, with suggestion of subtle right pleural thickening. 2. Adjacent focal atelectasis in the right lower lobe. 3. Mediastinal lymphadenopathy, including at the right hilum. 4. No detectable pulmonary emboli. 5. Consider diagnostic thoracentesis, and advis follow-up to exclude underlying malignancy. Signed by Bruno France MD [facility] Work Phone: Radiology Study observation (narrative) [facility] Work Phone: CT Chest W contrast IV and C T angiogram Pulmonary arteries for pulmonary embolus W contrast IVOrdered By: Bruno France on 01-04-2024 [facility] Work Phone: D-Dimer, VTE Exclusionon Fibrin D-dimer FEU (PPP) [Mass/Vol] [facility] 01-04-2024 ECG 12-LEAD Ventricular Rate 114 Atrial Rate 114 P-R Interval 148 QRS Duration 70 Q-T Interval 292 QTC Calculation(Bazett) 402 P [place] 5 R [place] 25 T [place] 41 QRS Count 19 Q Onset 228 P Onset 154 P Offset 208 T Offset 374 QTC Fredericia 361 Diagnosis Sinus tachycardia Otherwise normal ECG No previous ECGs available See ED provider note for full interpretation and clinical correlation Confirmed by Haley Alejandro ([id number]) on 01/07/2024 3:03:52 PM Normal [facility] Fibrin D-dimer FEU (PPP) [Ma ss/Vol]on 01-04-2024 The VTE Exclusion D-Dimer assay is reported in ng/mL Fibrinogen Equivalent Units (FEU). Per model maker plastic's instructions for use, a value of less than 500 ng/mL (FEU) may help to exclude DVT or PE in outpatients when the assay is used with a clinical pretest probability assessment.([facility]EM[facility] must utilize and document eCalc 'Wells Score Deep Vein Thrombosis Risk' for DVT exclusion only. Emergency Department should utilize Guidelines for Emergency Department Use of the VTE Exclusion D-Dimer and Clinical Pretest probability assessment model for DVT or PE exclusion.) [facility] Hepatic function 2000 panelo n 01-04-2024 Albumin BCP dye [Mass/Vol] 3.8 g/dL 3.4 - 5.0 g/dL [facility] ALP [Catalytic activity/Vol] 77 U/L 33 - 120 U/L [facility] ALT With P-5'-P [Catalytic activity/Vol] 40 U/L 10 - 52 U/L [facility] Comment on above: Patients treated wit h Sulfasalazine may generate falsely decreased results for ALT. AST With P-5'-P [Catalytic activity/Vol] 26 U/L 9 - 39 U/L [facility] Bilirubin [Mass/Vol] 0.8 mg/dL 0.0 - 1 .2 mg/dL [facility] Bilirubin.direct [Mass/Vol] 0.3 mg/dL 0.0 - 0.3 mg/dL [facility] Protein [Mass/Vol] 7.0 g/dL 6.4 - 8.2 g/dL [facility] Lipaseon 01-04-2024 Lipase [Catalytic activity/Vol] 12 U/L 9 - 82 U/L [facility] Lipase [Catalytic activity/V ol]on 01-04-2024 Venipuncture immedia tely after or during the administration of Metamizole may lead to falsely low results. Testing should be performed immediately prior to Metamizole dosing. [facility] Natriuretic peptide B [Mass/ Vol]on 01-04-2024 Interpretation and review of laboratory results Normal [facility] Natriuretic peptide B (Bld) [Mass/Vol] 12 pg/mL 0 - 99 pg/mL [facility] <100 pg/mL - Heart failure unlikely 100-299 pg/mL - Intermediate probability of acute heart failure exacerbation. Correlate with clinical context and patient history. >=300 pg/mL - Heart Failure likely. Correlate with clinical context and patient history. BNP testing is performed using different testing methodology at [facility] than at other [facility]. Direct result comparisons should only be made within the same method. [facility] No Panel Informationon 01-03 Interpretation and review of laboratory results Normal [facility] Interpretation and review of laboratory results Abnormal [facility] PT Coag (PPP) [Time]on 01-03 INR Coag (PPP) [Relative time] 1.3 {INR} High 0.9 - 1.1 [facility] Protime-INRon 01-04-2024 PT Coag (PPP) [Time] 14.5 s [facility] Tropinin I.cardiac panel Hig h sensitivity methodon 01-04-2024 Interpretation and review of laboratory results Normal [facility] Less than 99th percentile of normal range cutoff- Female and children under 18 years old <14 ng/L; Male <21 ng/L: Negative Repeat testing should be performed if clinically indicated. Female and children under 18 years old 14-50 ng/L; Male 21-50 ng/L: Consistent with possible cardiac damage and possible increased clinical risk. Serial measurements may help to assess extent of myocardial damage. >50 ng/L: Consistent with cardiac damage, increased clinical risk and myocardial infarction. Serial measurements may help assess extent of myocardial damage. NOTE: Children less than 1 year old may have higher baseline troponin levels and results should be interpreted in conjunction with the overall clinical context. NOTE: Troponin I testing is performed using a different testing methodology at [facility] than at other [facility]. Direct result comparisons should only be made within the same method. [facility] Troponin I, High Sensitivity on 01-04-2024 Tropinin I.cardiac panel High sensitivity method 3 ng/L 0 - 20 ng/L [facility] XR Ribs - right 2 Viewson Small right pleural effusion and right basilar atelectasis. No detectable acute abnormality of the right ribs. Signed by Nicola Brizuela MD TELERADIOLOGY STUDY: Right Rib and Chest Radiographs; 01/04/2024 5:32PM INDICATION: Right rib pain. COMPARISON: None Available. ACCESSION NUMBER(S): [id number] ORDERING CLINICIAN: ISIS ONEILL TECHNIQUE: Frontal chest and two view(s) (four images) of the right ribs. FINDINGS: CARDIOMEDIASTINAL SILHOUETTE: Cardiomediastinal silhouette is normal in size and configuration. LUNGS: Small right pleural effusion and mild right basilar atelectasis. ABDOMEN: No remarkable upper abdominal findings. RIGHT RIBS: There is no acute rib fracture. OTHER VISUALIZED BONES: No acute osseous changes. TELERADIOLOGY Nicola Birzuela MD - 01/04/2024 STUDY: Right Rib and Chest Radiographs; 01/04/2024 5:32PM INDICATION: Right rib pain. COMPARISON: None Available. ACCESSION NUMBER(S): [id number] ORDERING CLINICIAN: ISIS ONEILL TECHNIQUE: Frontal chest and two view(s) (four images) of the right ribs. FINDINGS: CARDIOMEDIASTINAL SILHOUETTE: Cardiomediastinal silhouette is normal in size and configuration. LUNGS: Small right pleural effusion and mild right basilar atelectasis. ABDOMEN: No remarkable upper abdominal findings. RIGHT RIBS: There is no acute rib fracture. OTHER VISUALIZED BONES: No acute osseous changes. IMPRESSION: Small right pleural effusion and right basilar atelectasis. No detectable acute abnormality of the right ribs. Signed by Nicola Brizuela MD [facility] Work Phone: Radiology Study observation (narrative) [facility] Work Phone: XR Ribs - right 2 ViewsOrder ed By: Nicola Brizuela on 01-04-2024 [facility] Work Phone: aPTT Coag (PPP) [Time]on Interpretation and review of laboratory results Normal [facility] The APTT is no longe r used for monitoring Unfractionated Heparin Therapy. For monitoring Heparin Therapy, use the Heparin Assay. [facility] CT CHEST WITHOUT CONTRASTon 10-26-2023 CT CHEST WITHOUT CONTRAST EXAMINATION: CT CHEST WITHOUT CONTRAST HISTORY: ORDERING SYSTEM PROVIDED HISTORY: Lung nodules, multiple; lung nodule surveillance, TECHNOLOGIST PROVIDED HISTORY: Illness/Other Reason for exam: multiple lung nodule surveillance Encounter Type: Ongoing Additional signs and symptoms: . ORDERING SYSTEM PROVIDED DIAGNOSIS CODES: R91.1 Lung nodule COMPARISON: CT chest without intravenous contrast dated 03/30/2023. TECHNIQUE: Routine CT chest without intravenous contrast. Dose reduction techniques were achieved by using automated exposure control and/or adjustment of mA and/or kV according to patient size and/or use of iterative reconstruction technique. FINDINGS: Cardiovascular: Unremarkable. Lungs: Mild linear atelectasis or parenchymal scar right posterior costophrenic angle. Nodules: Stable 0.6 cm noncalcified nodule anteromedial right mid chest (series 301, image 36). Stable 0.3 cm noncalcified nodule anterior right mid chest (series 301, image 42). Stable 0.5 cm noncalcified nodule posterolateral left mid chest (series 301, image 43). Lymphadenopathy: There are no pathologically enlarged axillary, mediastinal or hilar lymph nodes. Other: The trachea, esophagus and thyroid gland are unremarkable. Upper abdomen: Stable mild bilateral adrenal hypertrophy and stable 1.1 cm left adrenal nodule measuring -3 Hounsfield units consistent with an adrenal adenoma. Musculoskeletal: No acute findings. IMPRESSION: Stable noncalcified nodules within the chest ranging in size from 0.3 cm to 0.6 cm. There are no pathologically enlarged lymph nodes. Based on the Fleischner Society criteria, a low-dose CT examination of the chest in 12 months is recommended. Stable mild bilateral adrenal hypertrophy and stable 1.1 cm left adrenal adenoma. Workstation ID: [id number] Addended: SunMar 18, 2024 3:19 PM by Jennifer Trevizo MD ADDENDUM: Clinical content is unchanged. Coronary Arteries: Coronary calcifications are absent. Workstation ID: [id number] Dictated by: JENNIFER TREVIZO on SunOct 26, 2023 8:11:19 AM EST Transcribed by: JENNIFER TREVIZO on SunOct 26, 2023 8:11:19 AM EST Finalized by: JENNIFER TREVIZO on SunOct 26, 2023 8:11:19 AM EST Normal [facility] Comment on above: Order Comment: Injur y/Trauma or Illness?:Illness/Other How long have you had these symptoms (acute/chronic)?:Chronic Reason for exam?:multiple lung nodule surveillance Type of Exam?:Ongoing Additional signs and symptoms?:. CT CHEST WITHOUT CONTRASTon 03-30-2023 CT CHEST WITHOUT CONTRAST EXAMINATION: CT CHEST WITHOUT CONTRAST HISTORY: ORDERING SYSTEM PROVIDED HISTORY: Surveillance RUL nodule, TECHNOLOGIST PROVIDED HISTORY: Illness/Other Reason for exam: FU lung nodule Encounter Type: Initial Additional signs and symptoms: na ORDERING SYSTEM PROVIDED DIAGNOSIS CODES: R91.1 Lung nodule COMPARISON: CT of the chest September 29, 2022. CT of chest Feb 13 2020 TECHNIQUE: CT of the chest without intravenous contrast. Multiplanar reformats were generated at a separate workstation and submitted for review.. Dose reduction techniques were achieved by using automated exposure control and/or adjustment of mA and/or kV according to patient size and/or use of iterative reconstruction technique. FINDINGS: Soft tissue window: Thyroid: The visualized gland is of normal size and density on limited CT evaluation. Mediastinum: Midline in position. Lymph nodes: Stable mild prominence of axillary lymph nodes measuring up to 0.9 cm in the left axilla and 0.7 cm in the right axilla. Precarinal lymph node has is stable in size short axis diameter of 1.1 cm compared to the most recent prior. Thoracic aorta: Normal caliber. Pulmonary Artery: Main pulmonary artery is of normal caliber. Heart: Normal size and shape without evidence of pericardial effusion. Pleura: No evidence of pleural effusion. Esophagus: Unremarkable. Upper abdomen: Hepatic steatosis. Stable left adrenal nodule measuring 0.9 cm. Right adrenal gland and upper abdomen is unchanged. Chest wall: Soft tissues of the chest wall are unremarkable. Lung windows: Trachea: Trachea and bilateral major pulmonary bronchi are patent without evidence of endobronchial lesions. Lungs: Stable linear opacity of the right lung base favoring scarring or subsegmental atelectasis. Stable pulmonary nodule in the right upper lobe image 35 series 4 measuring 0.7 cm. Stable nodule of the right minor fissure image 40 series 4 measuring 0.4 cm favors an intrapulmonary lymph node. Stable left lower lobe nodule image 44 series 4 measuring 0.[address] in 2020 favors benign etiology. No new pulmonary nodules. No evidence of pneumothorax. Bone windows: No evidence of acute fracture or suspicious osseous lesions. IMPRESSION: 1. Stable 0.7 cm pulmonary nodule of the right upper lobe. Consider follow-up in 6 months. 2. Additional stable pulmonary nodules. Stable prominence of mediastinal and axillary lymph nodes. Workstation ID: [id number] Dictated by: DESTINY PANDA on SunMar 30, 2023 3:43:45 PM EDT Transcribed by: DESTINY PANDA on SunMar 30, 2023 3:43:45 PM EDT Finalized by: DESTINY PANDA on SunMar 30, 2023 3:43:45 PM EDT [facility] Comment on above: Order Comment: Injur y/Trauma or Illness?:Illness/Other How long have you had these symptoms (acute/chronic)?:Acute Reason for exam?:FU lung nodule Type of Exam?:Initial Additional signs and symptoms?:na CBC AND DIFFERENTIALon 02-02 % AUTOMATED IMMATURE GRAN 0.4 % Normal 0.0 - 0.9 [facility] Comment on above: Result Comment: Rachel ture Granulocyte Count (IG) includes promyelocytes, myelocytes and metamyelocytes but does not include bands. Percent differential counts (%) should be interpreted in the context of the absolute cell counts (cells/L). Performed By: #### C BCDF #### [address] [address] Basophils (Bld) [#/Vol] 0.09 10*3/uL Normal 0.00 - 0.10 [facility] Comment on above: Performed By: #### C BCDF #### [address] [address] Basophils/100 WBC (Bld) 0.7 % Normal 0.0 - 2.0 [facility] Comment on above: Performed By: #### C BCDF #### [address] [address] Eosinophils (Bld) [#/Vol] 0.36 10*3/uL Normal 0.00 - 0.70 [facility] Comment on above: Performed By: #### C BCDF #### [address] [address] Eosinophils/100 WBC (Bld) 2.9 % Normal 0.0 - 6.0 [facility] Comment on above: Performed By: #### C BCDF #### [address] [address] Erythrocyte distribution width (RBC) [Ratio] 13.3 % Normal 11.5 - 14.5 [facility] Comment on above: Performed By: #### C BCDF #### [address] [address] Hematocrit (Bld) [Volume fraction] 47.2 % Normal 41.0 - 52.0 [facility] Comment on above: Performed By: #### C BCDF #### [address] [address] Hemoglobin (Bld) [Mass/Vol] 15.1 g/dL Normal 13.5 - 17.5 [facility] Comment on above: Performed By: #### C BCDF #### [address] [address] Lymphocytes (Bld) [#/Vol] 3.52 10*3/uL Normal 1.20 - 4.80 [facility] Comment on above: Performed By: #### C BCDF #### [address] [address] Lymphocytes/100 WBC (Bld) 28.3 % Normal 13.0 - 44.0 [facility] Comment on above: Performed By: #### C BCDF #### [address] [address] MCHC (RBC) [Mass/Vol] 32.0 g/dL Normal 32.0 - 36.0 [facility] Comment on above: Performed By: #### C BCDF #### [address] [address] MCV (RBC) [Entitic vol] 92 fL Normal 80 - 100 [facility] Comment on above: Performed By: #### C BCDF #### [address] [address] Monocytes (Bld) [#/Vol] 0.60 10*3/uL Normal 0.10 - 1.00 [facility] Comment on above: Performed By: #### C BCDF #### [address] [address] Monocytes/100 WBC (Bld) 4.8 % Normal 2.0 - 10.0 [facility] Comment on above: Performed By: #### C BCDF #### [address] [address] Neutrophils (Bld) [#/Vol] 7.82 10*3/uL High 1.20 - 7.70 [facility] Comment on above: Result Comment: Perc ent differential counts (%) should be interpreted in the context of the absolute cell counts (cells/L). Performed By: #### C BCDF #### [address] [address] Neutrophils/100 WBC (Bld) 62.9 % Normal 40.0 - 80.0 [facility] Comment on above: Performed By: #### C BCDF #### [address] [address] Platelets (Bld) [#/Vol] 354 10*3/uL Normal 150 - 450 [facility] Comment on above: Performed By: #### C BCDF #### [address] [address] RBC 5.14 x10E12/L Normal 4.50 - 5.90 [facility] [place] Comment on above: Performed By: #### C BCDF #### [address] [address] WBC (Bld) [#/Vol] 12.4 10*3/uL High 4.4 - 11.3 [facility] Comment on above: Performed By: #### C BCDF #### [address] [address] COMPREHENSIVE PANELon 2022 Albumin [Mass/Vol] 4.4 g/dL Normal 3.4 - 5.0 [facility] Comment on above: Performed By: #### C MP #### [address] [address] ALP [Catalytic activity/Vol] 79 U/L Normal 33 - 120 [facility] Comment on above: Performed By: #### C MP #### [address] [address] ALT [Catalytic activity/Vol] 26 U/L Normal 10 - 52 [facility] Comment on above: Result Comment: [place] ents treated with Sulfasalazine may generate falsely decreased results for ALT. Performed By: #### C MP #### [address] [address] Anion gap [Moles/Vol] 12 mmol/L Normal 10 - 20 [facility] Comment on above: Performed By: #### C MP #### [address] [address] AST [Catalytic activity/Vol] 21 U/L Normal 9 - 39 [facility] Comment on above: Performed By: #### C MP #### [address] [address] Bilirubin [Mass/Vol] 0.4 mg/dL Normal 0.0 - 1.2 [facility] Comment on above: Performed By: #### C MP #### [address] [address] Calcium [Mass/Vol] 9.7 mg/dL Normal 8.6 - 10.3 [facility] Comment on above: Performed By: #### C MP #### [address] [address] Chloride [Moles/Vol] 104 mmol/L Normal 98 - 107 [facility] Comment on above: Performed By: #### C MP #### [address] [address] Creatinine [Mass/Vol] 0.87 mg/dL Normal 0.50 - 1.30 [facility] Comment on above: Performed By: #### C MP #### [address] [address] eGFR MALE >90 Normal >90 [facility] Comment on above: Result Comment: CALC ULATIONS OF ESTIMATED GFR ARE PERFORMED USING THE 2020 CKD-EPI STUDY REFIT EQUATION WITHOUT THE RACE VARIABLE FOR THE IDMS-TRACEABLE CREATININE METHODS. https://jasn.asnjournals.org/content/early/ASN.7982351 988 Performed By: #### C MP #### [address] [address] Glucose [Mass/Vol] 100 mg/dL High 74 - 99 [facility] Comment on above: Performed By: #### C MP #### [address] [address] HCO3 (Bld) [Moles/Vol] 26 mmol/L Normal 21 - 32 [facility] Comment on above: Performed By: #### C MP #### [address] [address] Potassium [Moles/Vol] 4.9 mmol/L Normal 3.5 - 5.3 [facility] Comment on above: Performed By: #### C MP #### [address] [address] Protein [Mass/Vol] 7.4 g/dL Normal 6.4 - 8.2 [facility] Comment on above: Performed By: #### C MP #### [address] [address] Sodium [Moles/Vol] 137 mmol/L Normal 136 - 145 [facility] Comment on above: Performed By: #### C MP #### [address] [address] Urea nitrogen [Mass/Vol] 19 mg/dL Normal 6 - 23 [facility] Comment on above: Performed By: #### C MP #### [address] [address] HEMOGLOBIN A1Con 02-02-2023 Glucose [Mass/Vol] 126 mg/dL Normal [facility] Comment on above: Performed By: #### H BA1E #### [address] [address] HbA1c (Bld) [Mass fraction] 6.0 % Abnormal [facility] Comment on above: Result Comment: Diag nosis of Diabetes-Adults Non-Diabetic: < or = 5.6% Increased risk for developing diabetes: 5.7-6.4% Diagnostic of diabetes: > or = 6.5% . Monitoring of Diabetes Age (y) Therapeutic Goal (%) Adults: >18 <7.0 Pediatrics: 13-18 <7.5 7-12 <8.0 0- 6 7.5-8.5 [place] [employer]. Diabetes Care 33(S1), Sep 2009. Performed By: #### H BA1E #### [address] [address] LIPID PANEL (CORONARY RISK 2 )on 02-02-2023 Cholesterol [Mass/Vol] 151 mg/dL Normal 0 - 199 [facility] Comment on above: Result Comment: . AGE DESIRABLE BORDERLINE HIGH HIGH 0-19 Y 0 - 169 170 - 199 >/= 200 20-24 Y 0 - 189 190 - 224 >/= 225 >24 Y 0 - 199 200 - 239 >/= 240 All ranges are based on fasting samples. Specific therapeutic targets will vary based on patient-specific cardiac risk. . Pediatric guidelines reference:Pediatrics 2011, 128(S5). Adult guidelines reference: NCEP ATPIII Guidelines, SANCHEZ 2001, 258:2486-97 . Venipuncture immediately after or during the administration of Metamizole may lead to falsely low results. Testing should be performed immediately prior to Metamizole dosing. Performed By: #### L IPID #### [address] [address] Cholesterol in HDL [Mass/Vol] 36.0 mg/dL Abnormal [facility] Comment on above: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 nodules, TECHNOLOGIST PROVIDED HISTORY: Illness/Other Reason for exam: follow up for lung nodule Encounter Type: Subsequent/Follow-up Additional signs and symptoms: . ORDERING SYSTEM PROVIDED DIAGNOSIS CODES: R91.1 Lung nodule COMPARISON: Outside exam labeled [place] [address] dated 02/13/2020 TECHNIQUE: Multiplanar CT images were created without IV contrast. Dose reduction techniques were achieved by using automated exposure control and/or adjustment of mA and/or kV according to patient size and/or use of iterative reconstruction technique. FINDINGS: LUNGS: Scattered punctate subcentimeter pulmonary nodules in both lungs, the largest lesion is in the left lower lobe measuring 6.7 x 4.3 mm on axial image 61. No new parenchymal nodule or mass. Minimal opacity identified in the basilar segments of the right lower lobe, stable, scar favored PLEURA: No mass, effusion, or pneumothorax. RITO: No mass or adenopathy. MEDIASTINUM: Stable prevascular pretracheal lymph nodes, borderline size CARDIAC: No enlargement, pericardial thickening, or significant calcification. AORTA: No aneurysm or dissection. CHEST WALL: No mass or axillary adenopathy. BONES: No bone lesion or fracture. LIMITED ABDOMEN: No suspicious findings. Limited images of the upper abdomen. OTHER: Negative. IMPRESSION: Stable scattered punctate pulmonary nodules. Consider 1 year follow-up to document stability Workstation ID: [id number] [facility] Auto Diffon 08-30-2018 Basophils #/vol (Bld) 0.1 E3/mcL Normal 0.0-0.2 [facility] Comment on above: Order Comment: Order Added by Discern Expert. Performed By: #### 2 [id number] #### LENY RemHemo [address] [place] [address] Basophils/100 WBC (Bld) 0.8 % Normal 0.0-2.0 [facility] Comment on above: Order Comment: Order Added by Discern Expert. Performed By: #### 2 [id number] #### LENY RemHemo [address] [place] [address] Eos Absolute 0.4 E3/mcL Normal 0.0-0.7 [facility] Comment on above: Order Comment: Order Added by Discern Expert. Performed By: #### 2 [id number] #### LENY RemHemo [address] [place] [address] Eosinophils/100 WBC (Bld) 4.4 % Normal 0.0-11.0 [facility] Comment on above: Order Comment: Order Added by Discern Expert. Performed By: #### 2 [id number] #### LENY RemHemo [address] [place] [address] Lymphocytes #/vol (Bld) 2.7 E3/mcL Normal 1.2-3.4 [facility] Comment on above: Order Comment: Order Added by Discern Expert. Performed By: #### 2 [id number] #### LENY RemHemo [address] [place] [address] Lymphocytes/100 WBC (Bld) 28.8 % Normal 20.0-55.0 [facility] Comment on above: Order Comment: Order Added by Discern Expert. Performed By: #### 2 [id number] #### LENY RemHemo [address] [place] [address] Pine Absolute 0.4 E3/mcL Normal 0.0-0.7 [facility] Comment on above: Order Comment: Order Added by Discern Expert. Performed By: #### 2 [id number] #### LENY RemHemo [address] [place] [address] Monocytes/100 WBC (Bld) 4.7 % Normal 0.0-10.0 [facility] Comment on above: Order Comment: Order Added by Discern Expert. Performed By: #### 2 [id number] #### LENY RemHemo [address] [place] [address] Neutro Absolute 5.7 E3/mcL Normal 1.4-6.5 [facility] Comment on above: Order Comment: Order Added by Discern Expert. Performed By: #### 2 [id number] #### LENY RemHemo [address] [place] [address] Neutro Auto 61.3 % Normal 37.0-75.0 [facility] Comment on above: Order Comment: Order Added by Discern Expert. Performed By: #### 2 [id number] #### LENY RemHemo [address] [place] [address] CBC w/ Auto Diffon 8 Erythrocyte distribution width Ratio (RBC) 13.9 % Normal 11.5-14.5 [facility] Comment on above: Performed By: #### 2 [id number] #### LENY RemHemo [address] [place] [address] Hematocrit Volume Fraction (Bld) 42.8 % Normal 42.0-52.0 [facility] Comment on above: Performed By: #### 2 [id number] #### LENY RemHemo [address] [place] [address] Hemoglobin mass conc (Bld) 14.5 g/dL Normal 13.5-18.0 [facility] Comment on above: Performed By: #### 2 [id number] #### LENY RemHemo [address] [place] [address] MCH Entitic mass (RBC) 30.4 pg Normal 27.0-31.0 [facility] Comment on above: Performed By: #### 2 [id number] #### LENY RemHemo [address] [place] [address] MCHC mass conc (RBC) 34.0 g/dL Normal 33.0-37.0 [facility] Comment on above: Performed By: #### 2 [id number] #### LENY VegaHemo [address] [place] [address] MCV Entitic volume (RBC) 89.4 fL Normal 78.0-100.0 [facility] Comment on above: Performed By: #### 2 [id number] #### LENY VegaHemo [address] [place] [address] Platelet mean volume Entitic volume (Bld) 6.9 fL Low 7.4-11.0 [facility] Comment on above: Performed By: #### 2 [id number] #### LENY VegaHemo [address] [place] [address] Platelets #/vol (Bld) 350 E3/mcL Normal 130-400 [facility] Comment on above: Performed By: #### 2 [id number] #### LENY RemHemo [facility] [place] [address] RBC #/vol (Bld) 4.78 E6/mcL Normal 3.90-6.10 [facility] Comment on above: Performed By: #### 2 [id number] #### LENY VegaHemo [address] [place] [address] WBC #/vol (Bld) 9.3 E3/mcL Normal 3.6-11.0 [facility] Comment on above: Performed By: #### 2 [id number] #### LENY RemHemo [address] [place] [address] CMPon 08-30-2018 Albumin mass conc 4.3 g/dL Normal 3.4-5.0 [facility] Comment on above: Performed By: #### 2 [id number] #### LENY RemHemo [address] [place] [address] Albumin/Globulin mass ratio 1.5 {ratio} Normal 1.1-1.9 [facility] Comment on above: Performed By: #### 2 [id number] #### LENY VegaHemo [address] [place] [address] Alk Phos 70 Int._Unit/L Normal 33-120 [facility] Comment on above: Performed By: #### 2 [id number] #### LENYGreta VegaHemo [address] [place] [address] ALT enzyme act/vol 23 Int._Unit/L Normal 10-52 [facility] Comment on above: Performed By: #### 2 [id number] #### LENY VegaHemo [address] [place] [address] Anion gap molar conc 10 mmol/L Normal 10-20 [facility] Comment on above: Performed By: #### 2 [id number] #### LENYGreta VegaHemo [address] [place] [address] AST enzyme act/vol 23 Int._Unit/L Normal 9-39 [facility] Comment on above: Performed By: #### 2 035354 #### LENYGreta VegaHemo [address] [place] [address] Bili Total 0.42 mg/dL Normal 0.00-1.20 [facility] Comment on above: Performed By: #### 2 995882 #### LENYGreta VegaHemo [address] [place] [address] Calcium mass conc 9.3 mg/dL Normal 8.6-10.3 [facility] Comment on above: Performed By: #### 2 [id number] #### LENY VegaHemo [address] [place] [address] Chloride molar conc 104 mmol/L Normal 98-107 [facility] Comment on above: Performed By: #### 2 926664 #### LENY VegaHemo [address] [place] [address] CO2 molar conc 26.0 mmol/L Normal 21.0-32.0 [facility] Comment on above: Performed By: #### 2 512784 #### LENYGreta VegaHemo [address] [place] [address] Creatinine mass conc 0.8 mg/dL Normal 0.5-1.3 [facility] Comment on above: Performed By: #### 2 898370 #### LENY RemHemo [address] [place] [address] Globulin mass conc (S) 3.0 g/dL Normal 2.0-4.0 [facility] Comment on above: Performed By: #### 2 [id number] #### LENY Heardo [address] [place] [address] Glucose mass conc 109 mg/dL High 70-99 [facility] Comment on above: Performed By: #### 2 356033 #### LENY VegaHemo [address] [place] [address] Potassium molar conc 4.5 mmol/L Normal 3.5-5.3 [facility] Comment on above: Performed By: #### 2 724780 #### LENY Heardo [address] [place] [address] Protein mass conc 7.2 g/dL Normal 6.4-8.2 [facility] Comment on above: Performed By: #### 2 384617 #### LENY VegaHemo [address] [place] [address] Sodium molar conc 136 mmol/L Normal 136-145 [facility] Comment on above: Performed By: #### 2 169138 #### LENY VegaHemo [address] [place] [address] Urea nitrogen mass conc 15 mg/dL Normal 6-23 [facility] Comment on above: Performed By: #### 2 793098 #### LENY VegaHemo [address] [place] [address] Urea nitrogen/Creatinine mass ratio 18.8 ratio Normal 5.4-30.0 [facility] Comment on above: Performed By: #### 2 469919 #### LENY VegaHemo [address] [place] [address] [id number] 08-30-2018 Hemoglobin A1c/Hemoglobin.total mass fraction (Bld) 5.7 % Normal 4.0-6.3 [facility] Comment on above: Performed By: #### 2 978295 #### LENY VegaHemo [address] [place] [address] Lipid Profileon 08-30-2018 Cholesterol in HDL mass conc 30 mg/dL Low 40-60 [facility] Comment on above: Performed By: #### 2 423092 #### LENY RemHemo [address] [place] [address] Cholesterol in LDL mass conc 150 mg/dL High 0-130 [facility] Comment on above: Performed By: #### 2 [id number] #### LENY RemHemo [address] [place] [address] Cholesterol in VLDL mass conc 32 mg/dL Normal 0-40 [facility] Comment on above: Performed By: #### 2 774006 #### LENY RemHemo [address] [place] [address] Cholesterol mass conc 212 mg/dL High 0-199 [facility] Comment on above: Performed By: #### 2 376054 #### LENY RemHemo [address] [place] [address] Triglyceride mass conc 162 mg/dL High 0-149 [facility] Comment on above: Result Comment: AGE DESIRABLE BORDERLINE HIGH 91 D - 9 Y 0 - 74 75 - 99 > 100 10 - 19 Y 0 - 89 90 - 129 > 130 20 - 24 Y 0 - 114 115 - 149 > 150 > 25 0 - 149 150 - 199 200 - 499 Performed By: #### 2 [id number] #### LENY RemHemo [facility] [place] [address] TSHon 08-30-2018 Thyrotropin Qn 2.40 mcIU/mL Normal 0.30-5.60 [facility] Comment on above: Performed By: #### 2 468503 #### LENY [employer] [address] [place] [address] Vit B12on 08-30-2018 Cobalamin (Vitamin B12) mass conc 605 pg/mL Normal 180-914 [facility] Comment on above: Performed By: #### 2 056136 #### LENY [employer] [address] [place] [address] eGFRon 08-30-2018 GFR/1.73 sq M predicted among non-blacks MDRD vol rate/area (S/P/Bld) mL/min/{1.73_m2} Normal [facility] Comment on above: Order Comment: Order Added by Discern Expert. Performed By: #### 2 [id number] #### LENY Nicole [address] [place] [address] CNOVon 07-01-2018 CNOV Office Visit (AGPOB1 ) -------- LALITHA CARTWRIGHT ([id number]) 1970 M [facility] Date Time Provider Department 07/01/18 9:15 AM DAKOTA DAVID AGPOB1 During your visit today, we recorded the following information about you: Respiration Weight Height 16/minute 104.3 kg 1.829 m Liset Neal CMA 07/01/2018 9:30 AM Signed REVIEW OF SYSTEMS: GENERAL: Well developed, well nourished. No acute distress PAIN: Negative for pain, history of chronic pain or current treatment for chronic pain conditions CARDIOVASCULAR: Negative for chest pain, leg swelling and palpations. MSK: Negative for joint pain, swelling, back pain, muscle pain. SKIN: Negative for lesions, rash, itching, metal sensitivity NEURO: Negative for seizure, trauma, numbness/tingling of extremities. ENDOCRINE: Negative for Diabetes Type 1 and Type 2 HEMATOLOGY: Negative for excessive bleeding, clots, bleeding disorders. Dakota David MD 07/01/2018 9:30 AM Signed 07/01/2018 RE: Lalitha Bravo Jose Antoniocecile DATE OF : 1970 Vitals: Resp 16 Ht 6' 0 (1.83m) Wt 230 lb (104.3kg) BMI 31.19 kg/(m2). FOLLOW UP VISIT: Post fracture right distal tibia and fibula HPI: he noted an area of redness over the posterior aspect of his right ankle this past week. The redness began spontaneously. A subsequent since resolved. He is not having any discomfort. 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 Disp: Rfl: acetaminophen (TYLENOL) 325 mg tablet Take 650 mg by mouth every 6 hours as needed. Disp: Rfl: LORAZEPAM (ATIVAN ORAL) Take by mouth. Disp: Rfl: oxyCODONE immediate release (ROXICODONE) 5 mg immediate release tablet Take 1-3 tablets by mouth every 4 hours as needed for Pain. Disp: 60 tablet Rfl: 0 gabapentin (NEURONTIN) 300 mg capsule Take 300 mg by mouth three times daily. Disp: Rfl: enoxaparin (LOVENOX) 30 mg/0.3 mL injection Inject 0.3 mL subcutaneously every 12 hours. Disp: 30 Syringe Rfl: 2 LORazepam (ATIVAN) 0.5 mg tab Take by mouth three times daily as needed. Disp: Rfl: bisacodyl (DULCOLAX) 10 mg supp 10 mg by RECTAL route once daily as needed. Disp: Rfl: oxyCODONE immediate release (PERCOLONE) 5 mg immediate release tablet Take 5 mg by mouth every 4 hours as needed. Disp: Rfl: No current facility-administered medications for this visit. PHYSICAL EXAMINATION: he has good range of motion of his right ankle. There is no redness today. Is no instability on anterior posterior varus valgus stress. RADIOGRAPHIC EXAMINATION: see note IMPRESSION: post fracture right distal tibia and fibula PLAN: he should continue with normal activities as tolerated. I'm leaving her return open to his discretion. Dakota David MD Referring Provider: SELF [200] Allergies As of Date: 07/01/2018 (No Known Allergies) Date Reviewed: 07/01/2018 Reviewed by: Dakota David - Fully Assessed Reason for Visit: Follow Up [171] Cmt: Rt leg Primary Visit Diagnosis:Fracture of distal end of right tibia and fibula with routine healing [S82.301D, S82.831D] Order(s):XR ANKLE 2V AP/LAT RT [[id number]] Order #: [id number] Prescriptions as of 07/01/2018 Sig: SERTRALINE 50 MG TABLET Take 100 mg by mouth once cirilo* ACETAMINOPHEN 325 MG TABLET Take 650 mg by mouth every 6 * ATIVAN ORAL Take by mouth. OXYCODONE 5 MG TABLET Take 1-3 tablets by mouth ekta* GABAPENTIN 300 MG CAPSULE Take 300 mg by mouth three ti* ENOXAPARIN 30 MG/0.3 ML SUBCU* Inject 0.3 mL subcutaneously * LORAZEPAM 0.5 MG TABLET Take by mouth three times da* BISACODYL 10 MG RECTAL SUPPOS* 10 mg by RECTAL route once da* OXYCODONE 5 MG TABLET Take 5 mg by mouth every 4 ho* Problem List As Of Date 07/01/2018 Noted Resolved Deprivation amblyopia - Right Eye [H53.019] INVALID FOR* Growth of eyelid - Right Eye [D49.2] INVALID FOR* Other vitreous opacities - Both Eyes [H43.399] INVALID FOR* PSC (posterior subcapsular cataract), right [IM*INVALID FOR* Astigmatism of both eyes [H52.203] INVALID FOR* Hangman's fracture (HCC) [S12.100A] INVALID FOR* Fracture of distal end of right tibia and fibul*INVALID FOR* Level of Service: EST PATIENT VISIT LEVEL 2 [06632] Disposition: Return if symptoms worsen or fail to improve. Follow-up and Disposition History Recorded Encounter Status:Closed by DAKOTA DAVID MD on 07/01/18 [facility] PROGRESSon 07-01-2018 PROGRESS HNO ID: [id number] Author: Dakota David Service: (none) Author Type: Physician Type: Progress Notes Filed: 07/01/2018 9:30 AM Note Text: 07/01/2018 RE: Lalitha Cartwright DATE OF : 1970 Vitals: Resp 16 Ht 6' 0 (1.83m) Wt 230 lb (104.3kg) BMI 31.19 kg/(m2). FOLLOW UP VISIT: Post fracture right distal tibia and fibula HPI: he noted an area of redness over the posterior aspect of his right ankle this past week. The redness began spontaneously. A subsequent since resolved. He is not having any discomfort. 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 Disp: Rfl: acetaminophen (TYLENOL) 325 mg tablet Take 650 mg by mouth every 6 hours as needed. Disp: Rfl: LORAZEPAM (ATIVAN ORAL) Take by mouth. Disp: Rfl: oxyCODONE immediate release (ROXICODONE) 5 mg immediate release tablet Take 1-3 tablets by mouth every 4 hours as needed for Pain. Disp: 60 tablet Rfl: 0 gabapentin (NEURONTIN) 300 mg capsule Take 300 mg by mouth three times daily. Disp: Rfl: enoxaparin (LOVENOX) 30 mg/0.3 mL injection Inject 0.3 mL subcutaneously every 12 hours. Disp: 30 Syringe Rfl: 2 LORazepam (ATIVAN) 0.5 mg tab Take by mouth three times daily as needed. Disp: Rfl: bisacodyl (DULCOLAX) 10 mg supp 10 mg by RECTAL route once daily as needed. Disp: Rfl: oxyCODONE immediate release (PERCOLONE) 5 mg immediate release tablet Take 5 mg by mouth every 4 hours as needed. Disp: Rfl: No current facility-administered medications for this visit. PHYSICAL EXAMINATION: he has good range of motion of his right ankle. There is no redness today. Is no instability on anterior posterior varus valgus stress. RADIOGRAPHIC EXAMINATION: see note IMPRESSION: post fracture right distal tibia and fibula PLAN: he should continue with normal activities as tolerated. I'm leaving her return open to his discretion. Dakota David MD [facility] PROGRESS HNO ID: [id number] Author: Liset Neal Service: (none) Author Type: [employer] Type: Progress Notes Filed: 07/01/2018 9:30 AM Note Text: REVIEW OF SYSTEMS: GENERAL: Well developed, well nourished. No acute distress PAIN: Negative for pain, history of chronic pain or current treatment for chronic pain conditions CARDIOVASCULAR: Negative for chest pain, leg swelling and palpations. MSK: Negative for joint pain, swelling, back pain, muscle pain. SKIN: Negative for lesions, rash, itching, metal sensitivity NEURO: Negative for seizure, trauma, numbness/tingling of extremities. ENDOCRINE: Negative for Diabetes Type 1 and Type 2 HEMATOLOGY: Negative for excessive bleeding, clots, bleeding disorders. Normal [facility] Auto Diffon 02-15-2018 Basophils #/vol (Bld) 0.1 E3/mcL Normal 0.0-0.2 [facility] Comment on above: Order Comment: Order Added by Discern Expert. Performed By: #### 2 [id number] #### LENY RemHemo [address] [place] [address] Basophils/100 WBC (Bld) 1.0 % Normal 0.0-2.0 [facility] Comment on above: Order Comment: Order Added by Discern Expert. Performed By: #### 2 [id number] #### LENY RemHemo [address] [place] [address] Eos Absolute 0.5 E3/mcL Normal 0.0-0.7 [facility] Comment on above: Order Comment: Order Added by Discern Expert. Performed By: #### 2 700184 #### LENY RemHemo [address] [place] [address] Eosinophils/100 WBC (Bld) 4.4 % Normal 0.0-11.0 [facility] Comment on above: Order Comment: Order Added by Discern Expert. Performed By: #### 2 681482 #### LENY RemHemo [address] [place] [address] Lymphocytes #/vol (Bld) 3.3 E3/mcL Normal 1.2-3.4 [facility] Comment on above: Order Comment: Order Added by Discern Expert. Performed By: #### 2 [id number] #### LENY VegaHemo [address] [place] [address] Lymphocytes/100 WBC (Bld) 29.0 % Normal 20.0-55.0 [facility] Comment on above: Order Comment: Order Added by Discern Expert. Performed By: #### 2 230555 #### LENY VegaHemo [address] [place], [place] [address] Pine Absolute 0.5 E3/mcL Normal 0.0-0.7 [facility] Comment on above: Order Comment: Order Added by Anton Expert. Performed By: #### 2 876968 #### LENY VegaHemo [address] [place] [address] Monocytes/100 WBC (Bld) 4.7 % Normal 0.0-10.0 [facility] Comment on above: Order Comment: Order Added by Discern Expert. Performed By: #### 2 217846 #### LENY VegaHemo [address] [place], [place] [address] Neutro Absolute 6.9 E3/mcL High 1.4-6.5 [facility] Comment on above: Order Comment: Order Added by Anton Expert. Performed By: #### 2 067665 #### LENY Herado [address] [place], [place] [address] Neutro Auto 60.9 % Normal 37.0-75.0 [facility] Comment on above: Order Comment: Order Added by Anton Expert. Performed By: #### 2 171492 #### LENY VegaHemo [address] [place] [address] CBC w/ Auto Diffon 8 Erythrocyte distribution width Ratio (RBC) 14.0 % Normal 11.5-14.5 [facility] Comment on above: Performed By: #### 2 820720 #### LENY Heardo [address] [place], [place] [address] Hematocrit Volume Fraction (Bld) 42.3 % Normal 42.0-52.0 [facility] Comment on above: Performed By: #### 2 729094 #### LENY SilviaHemo [address] [place] [address] Hemoglobin mass conc (Bld) 14.6 g/dL Normal 13.5-18.0 [facility] Comment on above: Performed By: #### 2 944930 #### LENY Heardo [facility] [place] [id number] MCH Entitic mass (RBC) 30.5 pg Normal 27.0-31.0 [facility] Comment on above: Performed By: #### 2 [id number] #### LENY VegaHemo [address] [place] [address] MCHC mass conc (RBC) 34.5 g/dL Normal 33.0-37.0 [facility] Comment on above: Performed By: #### 2 149418 #### LENYGreta VegaHemo [address] [place], [place] [address] MCV Entitic volume (RBC) 88.3 fL Normal 78.0-100.0 [facility] Comment on above: Performed By: #### 2 521790 #### LENYGreta VegaHemo [address] [place] [address] Platelet mean volume Entitic volume (Bld) 7.0 fL Low 7.4-11.0 [facility] Comment on above: Performed By: #### 2 665258 #### LENYGreta VegaHemo [address] [place] [address] Platelets #/vol (Bld) 375 E3/mcL Normal 130-400 [facility] Comment on above: Performed By: #### 2 447903 #### LENYGreta VegaHemo [address] [place] [address] RBC #/vol (Bld) 4.79 E6/mcL Normal 3.90-6.10 [facility] Comment on above: Performed By: #### 2 979329 #### LENYGreta VegaHemo [facility] [place] [id number] WBC #/vol (Bld) 11.3 E3/mcL High 3.6-11.0 [facility] Comment on above: Performed By: #### 2 175629 #### LENYGreta VegaHemo [address] [place] [id number] CMPon 02-15-2018 Albumin mass conc 4.3 g/dL Normal 3.2-5.0 [facility] Comment on above: Performed By: #### 2 [id number] #### [facility] [address] [place] [address] Albumin/Globulin mass ratio 1.4 {ratio} Normal 1.1-1.9 [facility] Comment on above: Performed By: #### 2 [id number] #### LENY [employer] [address] [place] [address] Alk Phos 74 Int._Unit/L Normal 42-121 [facility] Comment on above: Performed By: #### 2 154658 #### LENYGreta [employer] [address] [place] [address] ALT enzyme act/vol 28 Int._Unit/L Normal 10-40 [facility] Comment on above: Performed By: #### 2 [id number] #### [facility] [address] [place] [address] AST enzyme act/vol 27 Int._Unit/L Normal 10-42 [facility] Comment on above: Performed By: #### 2 548371 #### LENY [employer] [address] [place] [address] Bili Total 0.7 mg/dL Normal 0.2-1.0 [facility] Comment on above: Performed By: #### 2 288219 #### LENY [employer] [address] [place] [address] Creatinine mass conc 0.8 mg/dL Normal 0.6-1.3 [facility] Comment on above: Performed By: #### 2 [id number] #### LENY [employer] [address] [place] [address] Globulin mass conc (S) 3.1 g/dL Normal 2.0-4.0 [facility] Comment on above: Performed By: #### 2 650613 #### LENY [employer] [address] [place] [address] Protein mass conc 7.4 g/dL Normal 6.4-8.3 [facility] Comment on above: Performed By: #### 2 659535 #### LENY [employer] [address] [place] [address] Urea nitrogen mass conc 16 mg/dL Normal 7-18 [facility] Comment on above: Performed By: #### 2 852677 #### LENY [employer] [address] [place] [address] Urea nitrogen/Creatinine mass ratio 20.0 ratio Normal 5.4-30.0 [facility] Comment on above: Performed By: #### 2 317448 #### LENY [employer] [address] [place] [address] Calcium mass conc 9.2 mg/dL Normal 8.4-10.2 [facility] Comment on above: Performed By: #### 2 454688 #### LENY [employer] [address] [place] [address] Chloride molar conc 102 mmol/L Normal 98-107 [facility] Comment on above: Performed By: #### 2 798561 #### LENY [employer] [address] [place] [address] CO2 molar conc 22.0 mmol/L Low 24.0-30.0 [facility] Comment on above: Performed By: #### 2 681070 #### LENY [employer] [address] [place] [address] Glucose mass conc 104 mg/dL High 70-99 [facility] Comment on above: Performed By: #### 2 311125 #### LENY [employer] [address] [place] [address] Potassium molar conc 4.3 mmol/L Normal 3.5-5.1 [facility] Comment on above: Performed By: #### 2 774910 #### LENY [employer] [address] [place] [address] Sodium molar conc 135 mmol/L Low 136-145 [facility] Comment on above: Performed By: #### 2 827164 #### LENY [employer] [address] [place] [address] Lipid Profileon 02-15-2018 Cholesterol in HDL mass conc 33 mg/dL Low >=41 [facility] Comment on above: Performed By: #### 3 [id number] #### LENY [employer] [address] [place] [address] Cholesterol in LDL mass conc 168 mg/dL High 0-130 [facility] Comment on above: Result Comment: <100 OPTIMAL 100-129 NEAR / ABOVE OPTIMAL 130-159 BORDERLINE HIGH 160-189 HIGH >190 VERY HIGH CALC LDL NOT VALID WHEN TRIGLYCERIDE IS >400 MG/DL Performed By: #### 3 [id number] #### LENY [employer] [address] [place] [address] Cholesterol in VLDL mass conc 43 mg/dL Normal [facility] Comment on above: Performed By: #### 3 [id number] #### LENY [employer] [address] [place] [address] Cholesterol mass conc 244 mg/dL High 50-200 [facility] Comment on above: Result Comment: TOTA L CHOLEESTEROL: <200 NORMAL 200 - 239 BORDERLINE HIGH >240 HIGH Performed By: #### 3 [id number] #### LENY [employer] [address] [place] [address] Triglyceride mass conc 213 mg/dL High 35-150 [facility] Comment on above: Result Comment: <150 NORMAL 150-199 BORDERLINE HIGH 200-499 HIGH >500 VERY HIGH Performed By: #### 3 [id number] #### LENY [employer] [address] [place] [address] TSHon 02-15-2018 Thyrotropin Qn 2.26 mIU/m Normal 0.30-5.60 [facility] Comment on above: Performed By: #### 2 [id number] #### LENY [employer] [address] [place] [address] eGFRon 02-15-2018 GFR/1.73 sq M predicted among non-blacks MDRD vol rate/area (S/P/Bld) mL/min/{1.73_m2} Normal [facility] Comment on above: Order Comment: Order added by Discern Expert. Performed By: #### 1 [id number] #### LENY [employer] [address] [place] [address] No Panel Information [facility] Vital Signs Date Time Vital Sign Value Performing Clinician Facility 04-27-2025 07:34-0400 Body height 182.9 cm Maryjane Alexis APRN-SOLUTION ENGINEER Work Phone: [facility] 04-27-2025 07:34-0400 Body mass index (BMI) [Ratio] 35.83 kg/m2 Maryjane Plummert GERIATRICIAN-SOLUTION ENGINEER Work Phone: [facility] 04-27-2025 07:34-0400 Body temperature 97.7 [degF] Maryjane Dottieandt GERIATRICIAN-SOLUTION ENGINEER Work Phone: [facility] 04-27-2025 07:34-0400 Body weight 119.84 kg Maryjane Dottieandt GERIATRICIAN-SOLUTION ENGINEER Work Phone: [facility] 04-27-2025 07:34-0400 Diastolic blood pressure 75 mm[Hg] Maryjane Kwabenaygandt GERIATRICIAN-SOLUTION ENGINEER Work Phone: [facility] 04-27-2025 07:34-0400 Heart rate 76 /min Maryjane Kwabenaygandt GERIATRICIAN-SOLUTION ENGINEER Work Phone: [facility] 04-27-2025 07:34-0400 Respiratory rate 16 /min Maryjane Sinclairandt GERIATRICIAN-SOLUTION ENGINEER Work Phone: [facility] 04-27-2025 07:34-0400 Systolic blood pressure 119 mm[Hg] Maryjane Sinclairandt GERIATRICIAN-SOLUTION ENGINEER Work Phone: [facility] 02-27-2025 10:10-0400 Body height 182.9 cm Ryan Ladow PA-C Work Phone: [facility] 02-27-2025 10:10-0400 Body mass index (BMI) [Ratio] 35.15 kg/m2 Ryan Ladow PA-C Work Phone: [facility] 02-27-2025 10:10-0400 Body temperature 98.29 [degF] Ryan Ladow PA-C Work Phone: [facility] 02-27-2025 10:10-0400 Body weight 117.57 kg Ryan Ladow PA-C Work Phone: [facility] 02-27-2025 10:10-0400 Diastolic blood pressure 71 mm[Hg] Ryan Ladow PA-C Work Phone: [facility] 02-27-2025 10:10-0400 Heart rate 92 /min Ryan Ladow PA-C Work Phone: [facility] 02-27-2025 10:10-0400 SaO2% (BldA) [Mass fraction] 95 % Ryan Ladow PA-C Work Phone: [facility] 02-27-2025 10:10-0400 Systolic blood pressure 106 mm[Hg] Ryan Ladow PA-C Work Phone: [facility] 01-26-2025 13:30-0400 Body mass index (BMI) [Ratio] 34.86 kg/m2 Iraiscaitlin Arrietaley GERIATRICIAN-SOLUTION ENGINEER Work Phone: [facility] 01-26-2025 13:30-0400 Body weight 116.57 kg Iraiscaitlin Arrietaley GERIATRICIAN-SOLUTION ENGINEER Work Phone: [facility] 01-26-2025 13:30-0400 Diastolic blood pressure 81 mm[Hg] Iraiscaitlin Arrietaley GERIATRICIAN-SOLUTION ENGINEER Work Phone: [facility] 01-26-2025 13:30-0400 Heart rate 98 /min Iraiscaitlin Arrietaley GERIATRICIAN-SOLUTION ENGINEER Work Phone: [facility] 01-26-2025 13:30-0400 Respiratory rate 16 /min Iraiscaitlin Arrietaley GERIATRICIAN-SOLUTION ENGINEER Work Phone: [facility] 01-26-2025 13:30-0400 Systolic blood pressure 145 mm[Hg] Irais Del Castillo GERIATRICIAN-SOLUTION ENGINEER Work Phone: [facility] 01-08-2025 14:34-0400 Body height 182.9 cm [email or web address] [email or web address] PA-C Work Phone: [facility] 01-08-2025 14:34-0400 Body mass index (BMI) [Ratio] 34.99 kg/m2 Gina Rogers PA-C Work Phone: [facility] 01-08-2025 14:34-0400 Body weight 117.03 kg Gina Rogers PA-C Work Phone: [facility] 01-08-2025 14:34-0400 Diastolic blood pressure 73 mm[Hg] Gina Rogers PA-C Work Phone: [facility] 01-08-2025 14:34-0400 Heart rate 102 /min Gina Rogers PA-C Work Phone: [facility] 01-08-2025 14:34-0400 Respiratory rate 16 /min Gina Rogers PA-C Work Phone: [facility] 01-08-2025 14:34-0400 Systolic blood pressure 113 mm[Hg] Gina Rogers PA-C Work Phone: [facility] 01-02-2025 08:15-0400 Body height 182.9 cm Haley Ulloa MD Work Phone: [facility] 01-02-2025 08:15-0400 Body mass index (BMI) [Ratio] 34.31 kg/m2 Haley Ulloa MD Work Phone: [facility] 01-02-2025 08:15-0400 Body weight 114.76 kg Haley Ulloa MD Work Phone: [facility] 01-02-2025 08:15-0400 Diastolic blood pressure 82 mm[Hg] Haley Ulloa MD Work Phone: [facility] 01-02-2025 08:15-0400 Heart rate 86 /min Haley Ulloa MD Work Phone: [facility] 01-02-2025 08:15-0400 SaO2% (BldA) [Mass fraction] 94 % Haley Ulloa MD Work Phone: [facility] 01-02-2025 08:15-0400 Systolic blood pressure 128 mm[Hg] Haley Ulloa MD Work Phone: [facility] 08-01-2024 10:23-0500 Diastolic blood pressure 87 mm[Hg] [address] 08-01-2024 10:23-0500 Heart rate 77 /min [address] 08-01-2024 10:23-0500 Respiratory rate 16 /min [address] 08-01-2024 10:23-0500 SaO2% (BldA) [Mass fraction] 99 % [address] 08-01-2024 10:23-0500 Systolic blood pressure 127 mm[Hg] [address] 08-01-2024 09:22-0500 Body temperature 97 [degF] [address] 08-01-2024 08:10-0500 Body height [address] 08-01-2024 08:10-0500 Body mass index (BMI) [Ratio] 34.36 kg/m2 [address] 08-01-2024 08:10-0500 Body weight 113.[address] 07-04-2024 08:53-0400 Body height 182.9 cm Haley Ulloa MD Work Phone: [facility] 07-04-2024 08:53-0400 Body mass index (BMI) [Ratio] 35.22 kg/m2 Haley Ulloa MD Work Phone: [facility] 07-04-2024 08:53-0400 Body weight 117.8 kg Haley Ulloa MD Work Phone: [facility] 07-04-2024 08:53-0400 Diastolic blood pressure 74 mm[Hg] Haley Ulloa MD Work Phone: [facility] 07-04-2024 08:53-0400 Heart rate 77 /min Haley Ulloa MD Work Phone: [facility] 07-04-2024 08:53-0400 SaO2% (BldA) [Mass fraction] 97 % Haley Ulloa MD Work Phone: [facility] 07-04-2024 08:53-0400 Systolic blood pressure 136 mm[Hg] Haley Ulloa MD Work Phone: [facility] 06-22-2024 09:47-0400 Body height 182.9 cm Haley Ulloa MD Work Phone: [facility] 06-22-2024 09:47-0400 Body mass index (BMI) [Ratio] 33.23 kg/m2 Haley Ulloa MD Work Phone: [facility] 06-22-2024 09:47-0400 Body temperature 98.4 [degF] Haley Ulloa MD Work Phone: [facility] 06-22-2024 09:47-0400 Body weight 111.13 kg Haley Ulloa MD Work Phone: [facility] 06-22-2024 09:47-0400 Diastolic blood pressure 77 mm[Hg] Haley Ulloa MD Work Phone: [facility] 06-22-2024 09:47-0400 Heart rate 91 /min Haley Ulloa MD Work Phone: [facility] 06-22-2024 09:47-0400 Respiratory rate 18 /min Haley Ulloa MD Work Phone: [facility] 06-22-2024 09:47-0400 SaO2% (BldA) [Mass fraction] 95 % Haley Ulloa MD Work Phone: [facility] 06-22-2024 09:47-0400 Systolic blood pressure 108 mm[Hg] Haley Ulloa MD Work Phone: [facility] 05-27-2024 16:30-0400 Body height 182.9 cm Haley Ulloa MD Work Phone: [facility] 05-27-2024 16:30-0400 Body mass index (BMI) [Ratio] 35.31 kg/m2 Haley Ulloa MD Work Phone: [facility] 05-27-2024 16:30-0400 Body weight 118.11 kg Haley Ulloa MD Work Phone: [facility] 05-27-2024 16:30-0400 Diastolic blood pressure 80 mm[Hg] Haley Ulloa MD Work Phone: [facility] 05-27-2024 16:30-0400 Heart rate 80 /min Haley Ulloa MD Work Phone: [facility] 05-27-2024 16:30-0400 Systolic blood pressure 130 mm[Hg] Haley Ulloa MD Work Phone: [facility] 03-19-2024 13:16-0400 Body height 182.9 cm Ricardo Bone MD Work Phone: [facility] 03-19-2024 13:16-0400 Body mass index (BMI) [Ratio] 34.9 kg/m2 Ricardo Bone MD Work Phone: [facility] 03-19-2024 13:16-0400 Body temperature 97.9 [degF] Ricardo Bone MD Work Phone: [facility] 03-19-2024 13:16-0400 Body weight 116.71 kg Ricardo Bone MD Work Phone: [facility] 03-19-2024 13:16-0400 Diastolic blood pressure 75 mm[Hg] Ricardo Bone MD Work Phone: [facility] 03-19-2024 13:16-0400 Heart rate 82 /min Ricardo Bone MD Work Phone: [facility] 03-19-2024 13:16-0400 SaO2% (BldA) [Mass fraction] 95 % Ricardo Bone MD Work Phone: [facility] 03-19-2024 13:16-0400 Systolic blood pressure 123 mm[Hg] Ricardo Bone MD Work Phone: [facility] 02-29-2024 08:16-0400 Body height 182.9 cm Haley Ulloa MD Work Phone: [facility] 02-29-2024 08:16-0400 Body mass index (BMI) [Ratio] 34.29 kg/m2 Haley Ulloa MD Work Phone: [facility] 02-29-2024 08:16-0400 Body weight 114.67 kg Haley Ulloa MD Work Phone: [facility] 02-29-2024 08:16-0400 Diastolic blood pressure 80 mm[Hg] Haley Ulloa MD Work Phone: [facility] 02-29-2024 08:16-0400 Heart rate 68 /min Haley Ulloa MD Work Phone: [facility] 02-29-2024 08:16-0400 SaO2% (BldA) [Mass fraction] 96 % Haley Ulloa MD Work Phone: [facility] 02-29-2024 08:16-0400 Systolic blood pressure 126 mm[Hg] Haley Ulloa MD Work Phone: [facility] 01-25-2024 10:58-0400 Body height 182.9 cm Haley Ulloa MD Work Phone: [facility] 01-25-2024 10:58-0400 Body mass index (BMI) [Ratio] 33.07 kg/m2 Haley Ulloa MD Work Phone: [facility] 01-25-2024 10:58-0400 Body weight 110.59 kg Haley Ulloa MD Work Phone: [facility] 01-25-2024 10:58-0400 Diastolic blood pressure 68 mm[Hg] Haley Ulloa MD Work Phone: [facility] 01-25-2024 10:58-0400 Heart rate 95 /min Haley Ulloa MD Work Phone: [facility] 01-25-2024 10:58-0400 SaO2% (BldA) [Mass fraction] 96 % Haley Ulloa MD Work Phone: [facility] 01-25-2024 10:58-0400 Systolic blood pressure 112 mm[Hg] Haley Ulloa MD Work Phone: [facility] 01-14-2024 14:38-0400 Body temperature 97.5 [degF] Arthur Howe MD Work Phone: [facility] 01-14-2024 14:38-0400 Diastolic blood pressure 68 mm[Hg] Arthur Howe MD Work Phone: [facility] 01-14-2024 14:38-0400 Heart rate 76 /min Arthur Howe MD Work Phone: [facility] 01-14-2024 14:38-0400 Respiratory rate 16 /min Arthur Howe MD Work Phone: [facility] 01-14-2024 14:38-0400 SaO2% (BldA) [Mass fraction] 94 % Arthur Howe MD Work Phone: [facility] 01-14-2024 14:38-0400 Systolic blood pressure 110 mm[Hg] Arthur Howe MD Work Phone: [facility] 01-10-2024 00:52-0400 Body height 182.9 cm Arthur Howe MD Work Phone: [facility] 01-10-2024 00:52-0400 Body mass index (BMI) [Ratio] 34.31 kg/m2 Arthur Howe MD Work Phone: [facility] 01-10-2024 00:52-0400 Body weight 114.76 kg Arthur Howe MD Work Phone: [facility] 01-04-2024 20:30-0400 Diastolic blood pressure 61 mm[Hg] Isis Oneill MD Work Phone: [facility] 01-04-2024 20:30-0400 Heart rate 102 /min Isis Oneill MD Work Phone: [facility] 01-04-2024 20:30-0400 Respiratory rate 24 /min Isis Oneill MD Work Phone: [facility] 01-04-2024 20:30-0400 SaO2% (BldA) [Mass fraction] 93 % Isis Oneill MD Work Phone: [facility] 01-04-2024 20:30-0400 Systolic blood pressure 115 mm[Hg] Isis Oneill MD Work Phone: [facility] 01-04-2024 16:25-0400 Body height 182.9 cm Isis Oneill MD Work Phone: [facility] 01-04-2024 16:25-0400 Body mass index (BMI) [Ratio] 35.94 kg/m2 Isis Oneill MD Work Phone: [facility] 01-04-2024 16:25-0400 Body temperature 99.9 [degF] Isis Oneill MD Work Phone: [facility] 01-04-2024 16:25-0400 Body weight 120.2 kg Isis Oneill MD Work Phone: [facility] 11-07-2023 13:22-0500 Body mass index (BMI) [Ratio] 34.67 kg/m2 Ricardo Bone MD Work Phone: [facility] 11-07-2023 13:22-0500 Body temperature 98.1 [degF] Ricardo Bone MD Work Phone: [facility] 11-07-2023 13:22-0500 Body weight 115.94 kg Ricardo Bone MD Work Phone: [facility] 11-07-2023 13:22-0500 Diastolic blood pressure 73 mm[Hg] Ricardo Bone MD Work Phone: [facility] 11-07-2023 13:22-0500 Heart rate 109 /min Ricardo Bone MD Work Phone: [facility] 11-07-2023 13:22-0500 SaO2% (BldA) [Mass fraction] 92 % Ricardo Bone MD Work Phone: [facility] 11-07-2023 13:22-0500 Systolic blood pressure 110 mm[Hg] Ricardo Bone MD Work Phone: [facility] 10-02-2023 12:48-0500 Diastolic blood pressure 50 mm[Hg] Don Stringer MD Work Phone: [facility] 10-02-2023 12:48-0500 Heart rate 84 /min Don Stringer MD Work Phone: [facility] 10-02-2023 12:48-0500 Respiratory rate 16 /min Don Stringer MD Work Phone: [facility] 10-02-2023 12:48-0500 SaO2% (BldA) [Mass fraction] 95 % Don Stringer MD Work Phone: [facility] 10-02-2023 12:48-0500 Systolic blood pressure 102 mm[Hg] Don Stringer MD Work Phone: [facility] 10-02-2023 12:02-0500 Body temperature 96.69 [degF] Don Stringer MD Work Phone: [facility] 10-02-2023 09:56-0500 Body height 182.9 cm Don Stringer MD Work Phone: [facility] 10-02-2023 09:56-0500 Body mass index (BMI) [Ratio] 34.21 kg/m2 Don Stringre MD Work Phone: [facility] 10-02-2023 09:56-0500 Body weight 114.4 kg Don Stringer MD Work Phone: [facility] 08-30-2023 12:56-0500 Body height 182.9 cm Don Stringer MD Work Phone: [facility] 08-30-2023 12:56-0500 Body mass index (BMI) [Ratio] 35.91 kg/m2 Don Stringer MD Work Phone: [facility] 08-30-2023 12:56-0500 Body weight 120.11 kg Don Stringer MD Work Phone: [facility] 08-30-2023 12:56-0500 Diastolic blood pressure 80 mm[Hg] Don Stringer MD Work Phone: [facility] 08-30-2023 12:56-0500 Heart rate 84 /min Don Stringer MD Work Phone: [facility] 08-30-2023 12:56-0500 Systolic blood pressure 126 mm[Hg] Don Stringer MD Work Phone: [facility] 08-24-2023 10:30-0500 Body height 182.9 cm Haley Ulloa MD Work Phone: [facility] 08-24-2023 10:30-0500 Body mass index (BMI) [Ratio] 35.87 kg/m2 Haley Ulloa MD Work Phone: [facility] 08-24-2023 10:30-0500 Body weight 119.98 kg Haley Ulloa MD Work Phone: [facility] 08-24-2023 10:30-0500 Diastolic blood pressure 86 mm[Hg] Haley Ulloa MD Work Phone: [facility] 08-24-2023 10:30-0500 Heart rate 102 /min Haley Ulloa MD Work Phone: [facility] 08-24-2023 10:30-0500 SaO2% (BldA) [Mass fraction] 95 % Haley Ulloa MD Work Phone: [facility] 08-24-2023 10:30-0500 Systolic blood pressure 112 mm[Hg] Haley Ulloa MD Work Phone: [facility] 08-10-2023 08:41-0500 Body height 182.9 cm Don Stringer MD Work Phone: [facility] 08-10-2023 08:41-0500 Body mass index (BMI) [Ratio] 35.8 kg/m2 Don Stringer MD Work Phone: [facility] 08-10-2023 08:41-0500 Body weight 119.75 kg Don Stringer MD Work Phone: [facility] 08-10-2023 08:41-0500 Diastolic blood pressure 88 mm[Hg] Don Stringer MD Work Phone: [facility] 08-10-2023 08:41-0500 Heart rate 98 /min Don Stringer MD Work Phone: [facility] 08-10-2023 08:41-0500 Systolic blood pressure 116 mm[Hg] Don Stringer MD Work Phone: [facility] 02-02-2023 07:56-0400 Body height 182.9 cm Haley Ulloa MD Work Phone: [facility] 02-02-2023 07:56-0400 Body mass index (BMI) [Ratio] 34.69 kg/m2 Haley lUloa MD Work Phone: [facility] 02-02-2023 07:56-0400 Body weight 116.03 kg Haley Ulloa MD Work Phone: [facility] 02-02-2023 07:56-0400 Diastolic blood pressure 86 mm[Hg] Haely Ulloa MD Work Phone: [facility] 02-02-2023 07:56-0400 Heart rate 72 /min Haley Ulloa MD Work Phone: [facility] 02-02-2023 07:56-0400 SaO2% (BldA) [Mass fraction] 98 % Haley Ulloa MD Work Phone: [facility] 02-02-2023 07:56-0400 Systolic blood pressure 124 mm[Hg] Haley Ulloa MD Work Phone: [facility] 10-18-2022 14:29-0500 Body height 182.9 cm Ricardo Bone MD Work Phone: [facility] 10-18-2022 14:29-0500 Body mass index (BMI) [Ratio] 34.44 kg/m2 Ricardo Bone MD Work Phone: [facility] 10-18-2022 14:29-0500 Body temperature 98.01 [degF] Ricardo Bone MD Work Phone: [facility] 10-18-2022 14:29-0500 Body weight 115.17 kg Ricardo Bone MD Work Phone: [facility] 10-18-2022 14:29-0500 Diastolic blood pressure 71 mm[Hg] Ricardo Bone MD Work Phone: [facility] 10-18-2022 14:29-0500 Heart rate 87 /min Ricardo Bone MD Work Phone: [facility] 10-18-2022 14:29-0500 SaO2% (BldA) [Mass fraction] 93 % Ricardo Bone MD Work Phone: [facility] 10-18-2022 14:29-0500 Systolic blood pressure 108 mm[Hg] Ricardo Bone MD Work Phone: [facility] 09-01-2022 19:45-0500 Diastolic blood pressure 82 mm[Hg] Haley Ulloa Other Phone: [facility] 09-01-2022 19:45-0500 Heart rate 88 /min Haley Ulloa Other Phone: [facility] 09-01-2022 19:45-0500 Respiratory rate 19 /min Haley Ulloa Other Phone: [facility] 09-01-2022 19:45-0500 SaO2% (BldA) [Mass fraction] 100 % Haley Ulloa Other Phone: [facility] 09-01-2022 19:45-0500 Systolic blood pressure 137 mm[Hg] Haley Ulloa Other Phone: [facility] 09-01-2022 18:41-0500 Body temperature 96.8 [degF] Haley Ulloa Other Phone: [facility] 08-04-2022 08:08-0500 Body height 182.88 cm Haley Ulloa Work Phone: [facility] 205 DO Work Phone: 08-04-2022 08:08-0500 Body mass index (BMI) [Ratio] 34.62 kg/m2 Haley Ulloa Work Phone: [facility] 205 DO Work Phone: 08-04-2022 08:08-0500 Body surface area Derived from formula 2.36 m2 Haley Ulloa Work Phone: [facility] 205 DO Work Phone: 08-04-2022 08:08-0500 Body weight 115.78 kg Haley Ulloa Work Phone: [facility] 205 DO Work Phone: 08-04-2022 08:08-0500 Diastolic blood pressure 70 mm[Hg] Haley Hernandes Laila Work Phone: [facility] 205 DO Work Phone: 08-04-2022 08:08-0500 Heart rate 84 /min Haley Hernandes Laila Work Phone: [facility] 205 DO Work Phone: 08-04-2022 08:08-0500 Systolic blood pressure 104 mm[Hg] Haley Hernandes Laila Work Phone: [facility] 205 DO Work Phone: 06-02-2022 07:58-0400 Body temperature 98.49 [degF] Nima Burr Jr., DPM Work Phone: [facility] 06-02-2022 07:58-0400 Diastolic blood pressure 74 mm[Hg] Nima Burr Jr., DPM Work Phone: [facility] 06-02-2022 07:58-0400 Heart rate 87 /min Nima Burr Jr., DPM Work Phone: [facility] 06-02-2022 07:58-0400 Systolic blood pressure 123 mm[Hg] Nima Burr Jr., DPM Work Phone: [facility] 02-03-2022 10:05-0400 Body height 182.88 cm Haley Hernandes Laila Work Phone: [facility] 205 DO Work Phone: 02-03-2022 10:05-0400 Body mass index (BMI) [Ratio] 35.45 kg/m2 Haley Greta Laila Work Phone: [facility] 205 DO Work Phone: 02-03-2022 10:05-0400 Body surface area Derived from formula 2.39 m2 Haley Ulloa Work Phone: [facility] 205 DO Work Phone: 02-03-2022 10:05-0400 Body weight 118.56 kg Haley Ulloa Work Phone: [facility] 205 DO Work Phone: 02-03-2022 10:05-0400 Diastolic blood pressure 58 mm[Hg] Haley Ulloa Work Phone: [facility] 205 DO Work Phone: 02-03-2022 10:05-0400 Heart rate 98 /min Haley Ulloa Work Phone: [facility] 205 DO Work Phone: 02-03-2022 10:05-0400 SaO2% (BldA) [Mass fraction] 95 % Haley Ulloa Work Phone: [facility] 205 DO Work Phone: 02-03-2022 10:05-0400 Systolic blood pressure 118 mm[Hg] Haley Ulloa Work Phone: [facility] 205 DO Work Phone: 10-19-2021 13:47-0500 Body height 182.9 cm Ricardo Bone MD Work Phone: [facility] 10-19-2021 13:47-0500 Body mass index (BMI) [Ratio] 32.7 kg/m2 Ricardo Bone MD Work Phone: [facility] 10-19-2021 13:47-0500 Body temperature 97.81 [degF] Ricardo Bone MD Work Phone: [facility] 10-19-2021 13:47-0500 Body weight 109.36 kg Ricardo Bone MD Work Phone: [facility] 10-19-2021 13:47-0500 Diastolic blood pressure 85 mm[Hg] Ricardo Bone MD Work Phone: [facility] 10-19-2021 13:47-0500 Heart rate 90 /min Ricardo Bone MD Work Phone: [facility] 10-19-2021 13:47-0500 SaO2% (BldA) [Mass fraction] 95 % Ricardo Bone MD Work Phone: [facility] 10-19-2021 13:47-0500 Systolic blood pressure 131 mm[Hg] Ricardo Bone MD Work Phone: [facility] 09-02-2021 08:04-0500 Body temperature 97.7 [degF] Nima Burr Jr., DPM Work Phone: [facility] 09-02-2021 08:04-0500 Diastolic blood pressure 82 mm[Hg] Nima Burr Jr., DPM Work Phone: [facility] 09-02-2021 08:04-0500 Heart rate 90 /min Nima Burr Jr., DPM Work Phone: [facility] 09-02-2021 08:04-0500 Systolic blood pressure 136 mm[Hg] Nmia Burr Jr., DPM Work Phone: [facility] 08-05-2021 10:30-0500 Diastolic blood pressure 82 mm[Hg] Haley Ulloa Work Phone: [facility] Work Phone: 08-05-2021 10:30-0500 Systolic blood pressure 132 mm[Hg] Haley Ulloa Work Phone: [facility] [employer] [facility] Work Phone: 08-05-2021 09:59-0500 Body height 182.88 cm Haley Ulloa Work Phone: [facility] Work Phone: 08-05-2021 09:59-0500 Body mass index (BMI) [Ratio] 34.92 kg/m2 Haley Ulloa Work Phone: [facility] Work Phone: 08-05-2021 09:59-0500 Body surface area Derived from formula 2.37 m2 Haley Ulloa Work Phone: [facility] Work Phone: 08-05-2021 09:59-0500 Body temperature 97.5 [degF] Haley Ulloa Work Phone: [facility] Work Phone: 08-05-2021 09:59-0500 Body weight 116.8 kg Haley Ulloa Work Phone: [facility] Work Phone: 08-05-2021 09:59-0500 Diastolic blood pressure 82 mm[Hg] Haley Ulloa Work Phone: [facility] [employer] [facility] Work Phone: 08-05-2021 09:59-0500 Heart rate 112 /min Haley Ulloa Work Phone: [facility] Work Phone: 08-05-2021 09:59-0500 SaO2% (BldA) [Mass fraction] 98 % Haley Ulloa Work Phone: [facility] Work Phone: 08-05-2021 09:59-0500 Systolic blood pressure 140 mm[Hg] Haley Ulloa Work Phone: [facility] Work Phone: 06-03-2021 08:03-0400 Body height 182.9 cm Nima Burr Jr., DPM Work Phone: [facility] 06-03-2021 08:03-0400 Body mass index (BMI) [Ratio] 33.91 kg/m2 Nima Burr Jr., DPM Work Phone: [facility] 06-03-2021 08:03-0400 Body temperature 98.2 [degF] Nima Burr Jr., DPM Work Phone: [facility] 06-03-2021 08:03-0400 Body weight 113.4 kg Nima Burr Jr., DPM Work Phone: [facility] 06-03-2021 08:03-0400 Diastolic blood pressure 82 mm[Hg] Niam Merrill Jr., DPM Work Phone: [facility] 06-03-2021 08:03-0400 Heart rate 87 /min Nima Burr Jr., DPM Work Phone: [facility] 06-03-2021 08:03-0400 Systolic blood pressure 124 mm[Hg] Nima Merrill Jr., DPM Work Phone: [facility] 05-06-2021 08:56-0400 Body temperature 97.7 [degF] Nima Merrill Jr., DPM Work Phone: [facility] 05-06-2021 08:56-0400 Diastolic blood pressure 75 mm[Hg] Nima Merrill ., DPM Work Phone: [facility] 05-06-2021 08:56-0400 Heart rate 96 /min Nima Merrill Breen, DPM Work Phone: [facility] 05-06-2021 08:56-0400 Systolic blood pressure 133 mm[Hg] Nima Burr ., DPM Work Phone: [facility] 02-04-2021 12:06-0400 Body height 182.88 cm Haley Ulloa MD [facility] 205 DO Work Phone: 02-04-2021 12:06-0400 Body mass index (BMI) [Ratio] 35.69 kg/m2 Haley Ulloa MD [facility] 205 DO Work Phone: 02-04-2021 12:06-0400 Body surface area Derived from formula 2.39 m2 Haley Ulloa MD [facility] 205 DO Work Phone: 02-04-2021 12:06-0400 Body temperature 97.1 [degF] Haley Ulloa MD [facility] 205 DO Work Phone: 02-04-2021 12:06-0400 Body weight 119.35 kg Haley Ulloa MD [facility] 205 DO Work Phone: 02-04-2021 12:06-0400 Diastolic blood pressure 84 mm[Hg] Haley Ulloa MD [facility] 205 DO Work Phone: 02-04-2021 12:06-0400 Heart rate 90 /min Haley Ulloa MD [facility] 205 DO Work Phone: 02-04-2021 12:06-0400 Systolic blood pressure 142 mm[Hg] Haley Ulloa MD [facility] 205 DO Work Phone: 01-07-2021 12:24-0400 Body height 182.88 cm Haley Ulloa MD [facility] [employer] Phone: 01-07-2021 12:24-0400 Body mass index (BMI) [Ratio] 35.18 kg/m2 Haley Ulloa MD [facility] Work Phone: 01-07-2021 12:24-0400 Body surface area Derived from formula 2.38 m2 Haley Ulloa MD [facility] Work Phone: 01-07-2021 12:24-0400 Body weight 117.65 kg Haley Ulloa MD [facility] [employer] Phone: 01-07-2021 12:24-0400 Diastolic blood pressure 82 mm[Hg] Haley Ulloa MD [facility] Work Phone: 01-07-2021 12:24-0400 Heart rate 87 /min Haley Ulloa MD [facility] [employer] Phone: 01-07-2021 12:24-0400 Systolic blood pressure 138 mm[Hg] Haley Ulloa MD [facility] [employer] Phone: 10-06-2020 15:11-0500 BMI (Body Mass Index) 34.01 kg/m2 Ricardo Bone [facility] 10-06-2020 15:11-0500 Body Temperature 98.29 [degF] Ricardo Boen [facility] 10-06-2020 15:11-0500 Body weight 113.76 kg Ricardo Bone [facility] 10-06-2020 15:11-0500 BP Diastolic 74 mm[Hg] Ricardo Bone [facility] 10-06-2020 15:11-0500 BP Systolic 110 mm[Hg] Ricardo Bone [facility] 10-06-2020 15:11-0500 Height 182.9 cm Ricardo Bone [facility] 10-06-2020 15:11-0500 Pulse (Heart Rate) 85 /min Ricardo Bone [facility] 10-06-2020 15:11-0500 Pulse Oximetry 95 % Ricardo Bone [facility] 03-31-2020 13:01-0400 BMI (Body Mass Index) 33.46 kg/m2 Ricardo Bone [facility] 03-31-2020 13:01-0400 Body Temperature 98.2 [degF] Ricardo Bone [facility] 03-31-2020 13:01-0400 Body weight 111.9 kg Ricardo Bone [facility] 03-31-2020 13:01-0400 BP Diastolic 75 mm[Hg] Ricardo Bone [facility] 03-31-2020 13:01-0400 BP Systolic 121 mm[Hg] Ricardo Bone [facility] 03-31-2020 13:01-0400 Height 182.9 cm Ricardo Bone [facility] 03-31-2020 13:01-0400 Pulse (Heart Rate) 89 /min Ricardo Bone [facility] 03-31-2020 13:01-0400 Pulse Oximetry 95 % Ricardo Bone [facility] 01-30-2020 10:54-0400 BMI (Body Mass Index) 34.25 kg/m2 Haley Ulloa [facility] Work Phone: 01-30-2020 10:54-0400 Body weight 114.53 kg Haley Ulloa [facility] Work Phone: 01-30-2020 10:54-0400 BP Diastolic 80 mm[Hg] Haley Ulloa [facility] Work Phone: 01-30-2020 10:54-0400 BP Systolic 128 mm[Hg] Haley Ulloa [facility] Work Phone: 01-30-2020 10:54-0400 BSA (Body Surface Area) 2.35 m2 Haley Ulloa [facility] Work Phone: 01-30-2020 10:54-0400 Height 182.88 cm Haley Ulloa [facility] Work Phone: 01-30-2020 10:54-0400 Pulse (Heart Rate) 64 /min [facility] Work Phone: Encounters Encounter Date Encounter Type Care Provider Facility Start: 06-10-2025 ambulatory Maryjane Alexis CASE HARDENER F acility:[facility] Start: 05-22-2025 End: 05-22-2025 ambulatory HALEY ULLOA [facility] Start: 05-18-2025 End: 05-18-2025 Office consultation new/estab patient 40 min Douglas Flores MD Work Phone: [facility] Comment on above: Neck pain (Primary D x); Cervical radiculitis Start: 05-18-2025 End: 05-18-2025 ambulatory DOUGLAS FLORES [facility] Start: 05-08-2025 End: 05-08-2025 Subsequent hospital visit by physician Jon Castillo 1 [facility] Comment on above: Lacunar infarction ( Multi) Lacunar infarction ( Multi); Atrial fibrillation, unspecified type (Multi) Start: 05-08-2025 End: 05-08-2025 [facility] Start: 04-27-2025 End: 04-27-2025 Office outpatient new 60 minutes Maryjane Alexis GERIATRICIAN-SOLUTION ENGINEER Work Phone: [facility] Comment on above: Lacunar infarction ( Multi) (Primary Dx); CAM (obstructive sleep apnea); Atrial fibrillation, unspecified type (Multi); Neuropathy; Paresthesia; Cervical stenosis of spine Start: 04-27-2025 End: 04-27-20[facility] Start: 02-27-2025 End: 02-27-2025 Office outpatient visit 15 minutes Ryan Sy PA-C Work Phone: [facility] Comment on above: Lung nodule (Primary Dx); Screening for lung cancer Start: 02-27-2025 End: 02-27-2025 ambulatory HALEY ULLOA [facility] Start: 02-26-2025 End: 02-26-[address] [facility] Start: 02-13-2025 End: 02-13-2025 ambulatory HAELY Hernandes [facility] Ambulatory Start: 02-06-2025 End: 02-06-2025 Subsequent hospital visit by physician Jon Arteaga [facility] Comment on above: Abnormal finding on MRI of brain Start: 02-06-2025 End: 02-06-2025 ambulatory HALEY Hernandes [facility] Start: 01-26-2025 End: 01-26-2025 Office outpatient visit 25 minutes Irais Del Castillo APRN-SOLUTION ENGINEER Work Phone: [facility] Comment on above: Cervical radiculitis (Primary Dx) Start: 01-26-2025 End: 01-26-2025 ambulatory IRAIS DEL CASTILLO [facility] Start: 01-15-2025 End: 01-15-2025 Subsequent hospital visit by physician Jon Arteaga [facility] Comment on above: Neck pain; Cervical radiculitis; Arthrodesis status Start: 01-15-2025 End: 01-15-2025 ambulatory GINA ROGERS [facility] Start: 01-08-2025 End: 01-08-2025 Subsequent hospital visit by physician Jon Randle-Tone Fluoro 1 [facility] Comment on above: Neck pain; Cervical radiculitis; Arthrodesis status Start: 01-08-2025 End: 01-08-2025 Office outpatient new 30 minutes Gina Rogers PA-C Work Phone: [facility] Comment on above: Cervical radiculitis (Primary Dx); Neck pain; Arthrodesis status Start: 01-08-2025 End: 01-08-2025 ambulatory GINA ROGERS [facility] Start: 01-02-2025 End: 01-02-2025 Office outpatient visit 25 minutes Haley Ulloa MD Work Phone: [facility] Comment on above: Screening PSA (prost ate specific antigen) (Primary Dx); Prediabetes; Hyperlipidemia, unspecified hyperlipidemia type; Obstructive sleep apnea; Persistent depressive disorder; Neck pain Start: 01-02-2025 End: 01-02-2025 ambulatory HALEY Hernandes [facility] Ambulatory Start: 08-07-2024 End: 08-07-2024 ambulatory HALEY Greta [facility] Start: 08-01-2024 End: 08-01-2024 Subsequent hospital visit by physician Don Stringer MD Work Phone: [facility] [place] Comment on above: Screening for colon cancer Start: 08-01-2024 End: 08-01-2024 ambulatory DON STRINGER [facility] Start: 07-04-2024 End: 07-04-2024 Office outpatient visit 25 minutes Haley Ulloa MD Work Phone: [facility] Comment on above: Screening for colon cancer (Primary Dx); Obstructive sleep apnea; Prediabetes; Hyperlipidemia, unspecified hyperlipidemia type; Class 1 obesity with serious comorbidity and body mass index (BMI) of 34.0 to 34.9 in adult, unspecified obesity type; Restless leg syndrome; Persistent depressive disorder; Immunization due Start: 07-04-2024 End: 07-04-2024 ambulatory HALEY Greta [facility] Ambulatory Start: 06-22-2024 End: 06-22-2024 Emergency department patient visit HALEY Hernandes [facility] Comment on above: Pain in upper jaw (P rimary Dx); Right ear pain Start: 05-27-2024 End: 05-27-2024 Office outpatient visit 15 minutes Haley Ulloa MD Work Phone: [facility] Comment on above: Right ear pain (Prim juju Dx) Start: 05-27-2024 End: 05-27-2024 ambulatory HALEY Hernandes [facility] Ambulatory Start: 03-19-2024 End: 03-19-2024 Office outpatient visit 10 minutes Ricardo Bone MD Work Phone: [facility] Comment on above: Lung nodule (Primary Dx) Start: 03-19-2024 End: 03-19-2024 ambulatory HALEY ULLOA [facility] Ambulatory Start: 03-12-2024 End: 03-12-2024 ambulatory NONA WORTHINGTON [facility] Start: 02-29-2024 End: 02-29-2024 Office outpatient visit 25 minutes Haley Ulloa MD Work Phone: [facility] Comment on above: Hyperlipidemia, unsp ecified hyperlipidemia type (Primary Dx); Elevated serum cholesterol; Obstructive sleep apnea; Prediabetes; Class 1 obesity with serious comorbidity and body mass index (BMI) of 34.0 to 34.9 in adult, unspecified obesity type; Restless leg syndrome; Persistent depressive disorder Start: 01-25-2024 End: 01-25-2024 Transitional care manage srvc 14 day discharge Haley Ulloa MD Work Phone: [facility] Comment on above: Pleural effusion (Pr imary Dx); Lung nodule Start: 01-14-2024 Orders Only Ender Manning CASE HARDENER Work Phone: [facility] Comment on above: Empyema lung (HCC) ( Primary Dx) Start: 01-09-2024 Critical care ill/injured patient init 30-74 min Renato Carlos MD Work Phone: [facility] Start: 01-09-2024 End: 01-14-2024 Evaluation and management of inpatient Renato Carlos MD Work Phone: [facility] Med Surg Start: 01-07-2024 End: 01-08-2024 ambulatory PROVIDER NOT IN SYSTEM [facility] Start: 01-04-2024 End: 01-04-2024 Subsequent hospital visit by physician Jon Nevarezv1 [employer] [facility] Comment on above: Arrived Start: 01-04-2024 End: 01-04-2024 Emergency department patient visit Isis Oneill MD Work Phone: [facility] Emergency Medicine Comment on above: Pleural effusion on right (Primary Dx); Right-sided chest pain; Pneumonitis Start: 01-02-2024 End: 01-02-2024 ambulatory HALEY ULLOA Facility:[facility] Start: 01-02-2024 End: 01-02-2024 Patient encounter procedure Samantha Aguilar MD Work Phone: Ophthalmology Comment on above: After-cataract obscu ring vision, left (Primary Dx); Pseudophakia of both eyes; Anxiety; Hypercholesteremia Start: 11-07-2023 End: 11-07-2023 Office outpatient visit 10 minutes Ricardo Bone MD Work Phone: [facility] Comment on above: Lung nodule (Primary Dx) Start: 10-26-2023 End: 10-26-2023 ambulatory HALEY VARELAIDSHAHRAM [facility] Start: 10-02-2023 End: 10-02-2023 Subsequent hospital visit by physician Don Stringer MD Work Phone: [facility] [place] Comment on above: Soft tissue mass Start: 08-30-2023 End: 08-30-2023 Office outpatient visit 15 minutes Don Stringer MD Work Phone: [facility] Comment on above: Soft tissue mass [M7 9.89] (Primary Dx) Start: 08-24-2023 End: 08-24-2023 Office outpatient visit 25 minutes Haley Ulloa MD Work Phone: [facility] Comment on above: Elevated serum dayron sterol; Persistent depressive disorder; Obstructive sleep apnea; Prediabetes; Restless leg syndrome; Lung nodule; Depression, unspecified Start: 08-10-2023 End: 08-10-2023 Office outpatient visit 10 minutes Don Stringer MD Work Phone: [facility] Comment on above: Soft tissue mass (Pr imary Dx) Start: 03-30-2023 End: 03-31-[address] [facility] Start: 02-02-2023 End: 02-02-2023 Office outpatient visit 25 minutes Haley Ulloa MD Work Phone: [facility] Comment on above: Elevated serum dayron sterol (Primary Dx); Persistent depressive disorder; Obstructive sleep apnea; Prediabetes; Restless leg syndrome; Lung nodule; Screening for colon cancer Start: 10-18-2022 End: 10-18-2022 Office outpatient visit 10 minutes Ricardo Bone MD Work Phone: [facility] Comment on above: Lung nodule (Primary Dx) Start: 09-01-2022 End: 09-01-2022 Emergency department patient visit Dat Garcia [facility] Emergency 07 Start: 08-08-2022 [address] Haley [address] Work Phone: [facility] Work Phone: Start: 08-04-2022 Office outpatient vi sit 25 minutes Haley Ulloa Work Phone: 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 205 DO Work Phone: Start: 01-16-2022 End: 01-16-2022 Patient encounter procedure Samantha Aguilar MD Work Phone: Ophthalmology Comment on above: After-cataract obscu ring vision, right (Primary Dx); Pseudophakia of both eyes Start: 10-19-2021 End: 10-19-2021 Office outpatient visit 10 minutes Ricardo Bone MD Work Phone: [facility] Comment on above: Lung nodule (Primary Dx) Start: 09-02-2021 End: 09-02-2021 Office outpatient visit 15 minutes Nima Merrill DPM Work Phone: [facility] Comment on above: Diabetic polyneuropa thy associated with type 2 diabetes mellitus (HCC) (Primary Dx) Start: 08-05-2021 Office outpatient vi sit 25 minutes Haley Ulloa Work Phone: [facility] Work Phone: Start: 06-03-2021 End: 06-03-2021 Office outpatient visit 15 minutes Nima Merrill DPM Work Phone: [facility] Comment on above: Diabetic polyneuropa thy associated with type 2 diabetes mellitus (HCC) (Primary Dx) Start: 05-06-2021 End: 05-06-2021 Office outpatient new 30 minutes Nima Merrill DPM Work Phone: [facility] Comment on above: Diabetic polyneuropa thy associated with type 2 diabetes mellitus (HCC) (Primary Dx) Start: 02-04-2021 Patient encounter procedure Haley Ulloa MD [facility] 205 DO Work Phone: Start: 01-07-2021 Patient encounter procedure Haley Ulloa MD [facility] Work Phone: Start: 10-06-2020 End: 10-06-2020 Office outpatient visit 10 minutes Ricardo Bone Work Phone: [facility] Comment on above: Lung nodule (Primary Dx) Start: 10-01-2020 End: 10-01-2020 Subsequent hospital visit by physician Ryan Sy Work Phone: [facility] CT Scan Comment on above: Lung nodule Start: 06-11-2020 Patient encounter procedure Haley Ulloa MD [facility] Work Phone: Start: 03-31-2020 End: 03-31-2020 Office outpatient new 45 minutes Ricardo Bone Work Phone: [facility] Comment on above: Lung nodule Start: 01-30-2020 Patient encounter procedure Haley Ulloa -[facility] Work Phone: Start: 10-31-2019 Patient encounter procedure Haley Ulloa -[facility] Work Phone: Start: 08-01-2019 Patient encounter procedure Haley Ulloa -[facility] Work Phone: Start: 01-24-2019 End: 01-25-2019 Patient encounter procedure Haley Ulloa Facility:[facility] Start: 10-03-2018 Patient encounter procedure Haley Ulloa [facility] Work Phone: Start: 08-30-2018 End: 08-31-2018 Patient encounter procedure Haley Ulloa Facility:[facility] Start: 07-26-2018 End: 07-27-2018 Patient encounter procedure Haley Ulloa Facility:[facility] Start: 07-25-2018 Patient encounter procedure Haley Ulloa [facility] Work Phone: Start: 02-15-2018 End: 02-16-2018 Patient encounter procedure Haley Ulloa Facility:[facility] Procedures Date Procedure Procedure Detail Performing Clinician Start: 04-27-2025 Lipid 1996 panel - S kiley or Plasma Jon 1 Start: 08-07-2024 Lipid 1996 panel - S kiley or Plasma Haley Ulloa MD Work Phone: Start: 08-01-2024 Colsc flx w/rmvl of tumor polyp lesion snare tq Don Stringer MD Work Phone: Start: 08-01-2024 Colonoscopy Jon 04 Start: 01-14-2024 Radiologic exam ches t single view Ender Cramer CNP Work Phone: Start: 01-14-2024 Ct thorax w/o contra st scott Howe MD Work Phone: Start: 01-13-2024 Red blood cell morphology Francisco Vega MD Work Phone: Start: 01-13-2024 C-reactive protein Francisco Vega MD Work Phone: Start: 01-13-2024 End: 01-13-2024 Comprehensive metabolic panel Francisco Vega MD Work Phone: Start: 01-13-2024 Radiologic exam ches t single view Francisco Vega MD Work Phone: Start: 01-12-2024 Radiologic exam ches t single view Francisco Vega MD Work Phone: Start: 01-12-2024 Radiologic exam ches t single view Arthur Howe MD Work Phone: Start: 01-11-2024 Radiologic exam ches t single view Ender Cramer SOLUTION ENGINEER Work Phone: Start: 01-11-2024 Iadna s aureus methi cillin resist amp probe tq Moses Bowen MD Work Phone: Start: 01-10-2024 Level iv surg pathol ogy gross&microscopic exam Moses Bowen MD Work Phone: Start: 01-10-2024 Cell count misc body fluids w/differential count Moses Bowen MD Work Phone: Start: 01-10-2024 Cul bact xcpt urine blood/stool aerobic isol Moses Bowen MD Work Phone: Start: 01-10-2024 Lactate dehydrogenase ldh Moses Bowen MD Work Phone: Start: 01-10-2024 Tube thoracostomy in cludes water seal Yanet RAMIREZC Work Phone: Start: 01-10-2024 TTE w or wo fol wcon,Doppler Arthur Triplettel MD Work Phone: Start: 01-10-2024 Electrocardiogram Juan Carlos MD Work Phone: Start: 01-10-2024 End: 01-10-2024 Comprehensive metabolic panel Moses Bowen MD Work Phone: Start: 01-10-2024 Culture bacterial bl ood aerobic w/id isolates Moses Bowen MD Work Phone: Start: 01-10-2024 Hepatic function panel Moses Bowen MD Work Phone: Start: 01-10-2024 OBTAIN VENOUS BLOOD GASES AND PERFORM Moses Bowen MD Work Phone: Start: 01-10-2024 Red blood cell morphology Moses Bowen MD Work Phone: Start: 01-09-2024 Assay of troponin quantitative Renato Carlos MD Work Phone: Start: 01-09-2024 Ct angiography chest w/contrast/noncontrast Renato Carlos MD Work Phone: Start: 01-09-2024 Radiologic exam chest 2 views Renato Carlos MD Work Phone: Start: 01-09-2024 Influenza virus A an d B RNA and SARS-CoV-2 (COVID-19) N gene panel - Respiratory specimen by NELSY with probe detection Renato Carlos MD Work Phone: Start: 01-09-2024 Ecg routine ecg w/le ast 12 lds w/i&r Renato Carlos MD Work Phone: Start: 01-09-2024 Basic metabolic pane l calcium total Renato Carlos MD Work Phone: Start: 01-09-2024 LIGHT BLUE TOP Renato Carlos MD Work Phone: Start: 01-09-2024 RAINBOW DRAW Renato Carlos MD Work Phone: Start: 01-04-2024 Ct angiography chest w/contrast/noncontrast Isis Oneill MD Work Phone: Start: 01-04-2024 Radex ribs uni w/pos teroant ch minimum 3 views Isis Oneill MD Work Phone: Start: 01-04-2024 Comprehensive metabolic panel Isis Oneill MD Work Phone: Start: 01-04-2024 Ecg routine ecg w/le ast 12 lds trcg only w/o i&r Isis Oneill MD Work Phone: Start: 01-02-2024 Post-cataract laser surgery Samantha Aguilar MD Work Phone: Start: 10-02-2023 PULSE OXIMETRY, SPOT Me bienvenido Stringer MD Work Phone: Start: 08-24-2023 Lipid 1995 panel - S kiley or Plasma Haley Ulloa MD Work Phone: Start: 02-02-2023 Lipid 1996 panel - S kiley or Plasma Don Stringer MD Work Phone: Start: 08-04-2022 Lipid 1996 panel - S kiley or Plasma Haley Ulloa MD Work Phone: Start: 01-16-2022 Post-cataract laser surgery Samantha Aguilar MD Work Phone: Start: 01-16-2022 Computerized ophthal juan manuel imaging retina Samantha Aguilar MD Work Phone: Start: 01-16-2022 Ophthalmic examinati on and evaluation Nima Burr Jr., DPM Work Phone: Start: 11-27-2020 Ophthalmic examinati on and evaluation Nima Burr Jr., DPM Work Phone: Start: 10-01-2020 CT of chest without contrast Ryanluis angel Sy Work Phone: Start: 01-30-2020 Blood count complete auto&auto difrntl wbc Haley Ulloa Start: 01-30-2020 Comprehensive metabo lic 2000 panel Haley Ulloa Start: 01-30-2020 CT Cardiac Scoring Tamica lela Ulloa Start: 01-30-2020 Cyanocobalamin vitamin b-12 Haley Ulloa Start: 01-30-2020 Hemoglobin glycosylated a1c Haley Ulloa Start: 01-30-2020 Lipid panel Haley Ulloa Start: 01-30-2020 TSH WITH REFLEX TO F REE T4 IF ABNORMAL Haley Varelaalcira History of ENT Surgi william Result - Neck Haley Varelaalcira History of Treatment Of The Right Leg Haleymarc Ulloa Laser assisted in si tu keratomileusis Haley Ulloa Work Phone: Plan of Treatment Date Care Activity Detail Author Start: 08-01-2034 Screening for malign ant neoplasm of colon [facility] Start: 2032 RSV patient s and/or patients aged 60+ years (1 - 1-dose 60+ series) RSV patients and/or patients aged 60+ years (1 - 1-dose 60+ series) [facility] Start: 09-01-2032 DTaP/Tdap/Td Vaccine s (2 - Td or Tdap) DTaP/Tdap/Td Vaccines (2 - Td or Tdap) [facility] Start: 09-01-2032 Tetanus vaccination Tetanus: Every 1 0yrs [facility] Start: 09-01-2032 Urine microalbumin profile DTaP,Tdap,Td Vaccine (2 - Td or Tdap) [facility] Start: 04-27-2030 Lipid panel Lipid Panel [facility] Start: 08-07-2029 Lipid panel Lipid Panel [facility] Start: 08-24-2028 Lipid panel [facility] Start: 04-27-2028 Diabetes mellitus screening Diabetes Screening [facility] Start: 02-03-2028 Lipid panel Lipid Panel [facility] Start: 08-07-2027 Diabetes mellitus screening Diabetes Screening [facility] Start: 08-04-2027 Lipid panel Lipid Panel [facility] Start: 08-01-2027 Screening for malign ant neoplasm of colon [facility] Start: 01-08-2027 Diabetes mellitus screening Diabetes Screening [facility] Start: 08-24-2026 Diabetes mellitus screening Diabetes Screening [facility] Start: 08-24-2026 [facility] Start: 04-27-2026 Hemoglobin A1c measurement Diabetes: Hemoglobin A1C [facility] Start: 04-27-2026 Prostate specific antigen measurement PSA Prostate Cancer Screening [facility] Start: 02-02-2026 Diabetes mellitus screening Diabetes Screening [facility] Start: 08-07-2025 Hemoglobin A1c measurement Diabetes: Hemoglobin A1C [facility] Start: 07-24-2025 End: 07-24-2025 Patient encounter procedure 07/24/2025 10:15 AM EDT Appointment [facility] [address] [place] [address] [facility] Start: 07-10-2025 End: 07-10-2025 Patient encounter procedure 07/10/2025 9:40 AM EDT Office Visit [place] [id number] [facility] [address] [place] [address] Haley Ulloa MD [address] [facility] [address] [place] [address] [facility] Start: 06-23-2025 End: 06-23-2025 Patient encounter procedure 06/23/2025 8:00 AM EDT Office Visit [facility] Medical Office Building [address] [place] [address] Maryjane Alexis, GERIATRICIAN-SOLUTION ENGINEER [address] [facility] [address] [place] [address] [facility] Start: 05-27-2025 End: 05-27-2025 Clinical Support 05/27/2025 8:00 PM EDT Clinical Support [facility] [address] [facility] [address] [place] [id number] [facility] Start: 05-25-2025 Influenza vaccination [facility] Start: 05-18-2025 End: 05-18-2025 Patient encounter procedure 05/18/2025 10:45 AM EDT Office Visit [facility] [address] [place] [phone] [place] [address] [address]ado [place] [address] [facility] Start: 05-08-2025 End: 05-08-2025 Patient encounter procedure [facility] Start: 05-08-2025 End: 05-08-2025 Patient encounter procedure 05/08/2025 11:30 AM EDT Appointment [facility] [address] [phone] [facility] Start: 04-27-2025 End: 04-27-2026 C reactive protein [Mass/volume] in Serum or Plasma C-Reactive Protein Lab Routine Neuropathy Expected: 04/27/2025 (Approximate), Expires: 04/27/2026 [facility] Work Phone: Comment on above: Expected: 04/27/2025 (Approximate), Expires: 04/27/2026 Start: 04-27-2025 End: 04-27-2026 EMG & nerve conduction EMG & nerve conduction Neurology Routine Neuropathy Expected: 04/27/2025 (Approximate), Expires: 04/27/2026 [facility] Work Phone: Comment on above: Expected: 04/27/2025 (Approximate), Expires: 04/27/2026 Start: 04-27-2025 End: 04-27-2026 Erythrocyte sedimentation rate Sedimentation Rate Lab Routine Neuropathy Expected: 04/27/2025 (Approximate), Expires: 04/27/2026 [facility] Work Phone: Comment on above: Expected: 04/27/2025 (Approximate), Expires: 04/27/2026 Start: 04-27-2025 End: 04-27-2026 Heavy Metals, Whole Blood Heavy Metals, Whole Blood Lab Routine Neuropathy Expected: 04/27/2025 (Approximate), Expires: 04/27/2026 [facility] Work Phone: Comment on above: Expected: 04/27/2025 (Approximate), Expires: 04/27/2026 Start: 04-27-2025 End: 04-27-2026 Holter monitor study Holter or Event [employer] [facility] Routine Lacunar infarction (Multi) Atrial fibrillation, unspecified type (Multi) Expected: 04/27/2025, Expires: 04/27/2026 [facility] Work Phone: Comment on above: Expected: 04/27/2025 , Expires: 04/27/2026 Start: 04-27-2025 End: 04-27-2026 In-Center Sleep Study In-Center Sleep Study Sleep Center Routine Lacunar infarction (Multi) CAM (obstructive sleep apnea) Expected: 04/27/2025 (Approximate), Expires: 04/27/2026 [facility] Work Phone: Comment on above: Expected: 04/27/2025 (Approximate), Expires: 04/27/2026 Start: 04-27-2025 End: 04-27-2026 MRA Head vessels WO contrast MR angio head wo IV contrast Imaging Routine Lacunar infarction (Multi) Expected: 04/27/2025, Expires: 04/27/2026 [facility] Work Phone: Comment on above: Expected: 04/27/2025 , Expires: 04/27/2026 Start: 04-27-2025 End: 04-27-2026 MRA Neck vessels WO and W contrast IV MR angio neck w and wo IV contrast Imaging Routine Lacunar infarction (Multi) Expected: 04/27/2025, Expires: 04/27/2026 [facility] Work Phone: Comment on above: Expected: 04/27/2025 , Expires: 04/27/2026 Start: 04-27-2025 End: 04-27-2026 Serum Protein Electrophoresis + Immunofixation Serum Protein Electrophoresis + Immunofixation Lab Routine Neuropathy Expected: 04/27/2025 (Approximate), Expires: 04/27/2026 [facility] Work Phone: Comment on above: Expected: 04/27/2025 (Approximate), Expires: 04/27/2026 Start: 04-27-2025 End: 04-27-2027 US Heart Transthoracic Transthoracic Echo Complete Echocardiography Routine Lacunar infarction (Multi) Expected: 04/27/2025 (Approximate), Expires: 04/27/2027 [facility] Service Area Work Phone: Comment on above: Expected: 04/27/2025 (Approximate), Expires: 04/27/2027 Start: 03-12-2025 Screening for malign ant neoplasm of lung Low-dose CT Lung Cancer Screen [facility] Start: 02-13-2025 End: 02-13-2025 Patient encounter procedure 02/13/2025 3:00 PM EDT Office Visit [address] [phone] Haley Ulloa MD [address] [place] [address] [facility] Start: 01-13-2025 Screening for malign ant neoplasm of lung Low-dose CT Lung Cancer Screen [facility] Start: 01-08-2025 Hemoglobin A1c measurement Diabetes: Hemoglobin A1C [facility] Start: 01-08-2025 End: 01-08-2026 MR Cervical spine WO contrast MR cervical spine wo IV contrast Imaging Routine Neck pain Cervical radiculitis Arthrodesis status Expected: 01/08/2025, Expires: 01/08/2026 [facility] Work Phone: Comment on above: Expected: 01/08/2025 , Expires: 01/08/2026 Start: 01-08-2025 End: 01-08-2026 XR Cervical spine [address] [facility] Work Phone: Comment on above: Expected: 01/08/2025 (Approximate), Expires: 01/08/2026 Once for 1 Occurrenc es starting 01/08/2025 until 01/08/2025 Start: 01-02-2025 End: 01-02-2026 CBC W Auto Differential panel - Blood CBC and Auto Differential Lab Routine Prediabetes Hyperlipidemia, unspecified hyperlipidemia type Obstructive sleep apnea Expected: 01/02/2025 (Approximate), Expires: 01/02/2026 [facility] Service Area Work Phone: Comment on above: Expected: 01/02/2025 (Approximate), Expires: 01/02/2026 Start: 01-02-2025 End: 01-02-2026 Cobalamin (Vitamin B12) [Mass/volume] in Serum or Plasma Vitamin B12 Lab Routine Prediabetes Hyperlipidemia, unspecified hyperlipidemia type Obstructive sleep apnea Expected: 01/02/2025 (Approximate), Expires: 01/02/2026 [facility] Work Phone: Comment on above: Expected: 01/02/2025 (Approximate), Expires: 01/02/2026 Start: 01-02-2025 End: 01-02-2026 Comprehensive metabolic 2000 panel - Serum or Plasma Comprehensive Metabolic Panel Lab Routine Prediabetes Hyperlipidemia, unspecified hyperlipidemia type Obstructive sleep apnea Expected: 01/02/2025 (Approximate), Expires: 01/02/2026 [facility] Work Phone: Comment on above: Expected: 01/02/2025 (Approximate), Expires: 01/02/2026 Start: 01-02-2025 End: 01-02-2026 Hemoglobin A1c/Hemoglobin.total in Blood Hemoglobin A1C Lab Routine Prediabetes Hyperlipidemia, unspecified hyperlipidemia type Obstructive sleep apnea Expected: 01/02/2025 (Approximate), Expires: 01/02/2026 [facility] Work Phone: Comment on above: Expected: 01/02/2025 (Approximate), Expires: 01/02/2026 Start: 01-02-2025 End: 01-02-2026 Lipid 1996 panel - Serum or Plasma Lipid Panel Lab Routine Prediabetes Hyperlipidemia, unspecified hyperlipidemia type Obstructive sleep apnea Expected: 01/02/2025 (Approximate), Expires: 01/02/2026 [facility] Work Phone: Comment on above: Expected: 01/02/2025 (Approximate), Expires: 01/02/2026 Start: 01-02-2025 End: 01-02-2026 Prostate specific Ag [Mass/volume] in Serum or Plasma Prostate Specific Antigen Lab Routine Screening PSA (prostate specific antigen) Prediabetes Hyperlipidemia, unspecified hyperlipidemia type Obstructive sleep apnea Expected: 01/02/2025 (Approximate), Expires: 01/02/2026 [facility] Work Phone: Comment on above: Expected: 01/02/2025 (Approximate), Expires: 01/02/2026 Start: 01-02-2025 End: 01-02-2026 TSH with reflex to Free T4 if abnormal TSH with reflex to Free T4 if abnormal Lab Routine Prediabetes Hyperlipidemia, unspecified hyperlipidemia type Obstructive sleep apnea Expected: 01/02/2025 (Approximate), Expires: 01/02/2026 [facility] Work Phone: Comment on above: Expected: 01/02/2025 (Approximate), Expires: 01/02/2026 Start: 01-02-2025 End: 01-02-2025 Patient encounter procedure 01/02/2025 8:20 AM EDT Office Visit [address] [phone] Haley Ulloa MD [address] [place] [address] [facility] Start: 10-26-2024 Screening for malign ant neoplasm of lung [facility] Start: 08-24-2024 Hemoglobin A1c measurement Diabetes: Hemoglobin A1C [facility] Start: 07-04-2024 End: 07-04-2025 Colonoscopy study Colonoscopy Screening; Average Risk Patient Endoscopy Routine Screening for colon cancer Expected: 07/04/2024, Expires: 07/04/2025 [facility] Service Area Work Phone: Comment on above: Expected: 07/04/2024 , Expires: 07/04/2025 Start: 07-04-2024 End: 07-04-2024 Patient encounter procedure [facility] Start: 05-25-2024 COVID-19 Vaccine ( season) COVID-19 Vaccine ( season) [facility] Start: 05-25-2024 COVID-19 Vaccine ( season) COVID-19 Vaccine ( season) [facility] Start: 05-25-2024 Influenza vaccination [facility] Start: 02-29-2024 End: 02-29-2024 Patient encounter procedure 02/29/2024 8:20 AM EDT Office Visit [facility] [address] [place] [phone] Haley Ulloa MD [address] [facility] [place] [address] [facility] Start: 02-23-2024 End: 08-24-2024 CBC W Auto Differential panel - Blood CBC and Auto Differential Lab Routine Elevated serum cholesterol Persistent depressive disorder Prediabetes Restless leg syndrome Expected: 02/23/2024 (Approximate), Expires: 08/24/2024 [facility] Service Area Work Phone: Comment on above: Expected: 02/23/2024 (Approximate), Expires: 08/24/2024 Start: 02-23-2024 End: 08-24-2024 Cobalamin (Vitamin B12) [Mass/volume] in Serum or Plasma Vitamin B12 Lab Routine Elevated serum cholesterol Persistent depressive disorder Prediabetes Restless leg syndrome Expected: 02/23/2024 (Approximate), Expires: 08/24/2024 [facility] Work Phone: Comment on above: Expected: 02/23/2024 (Approximate), Expires: 08/24/2024 Start: 02-23-2024 End: 08-24-2024 Comprehensive metabolic 2000 panel - Serum or Plasma Comprehensive Metabolic Panel Lab Routine Elevated serum cholesterol Persistent depressive disorder Prediabetes Restless leg syndrome Expected: 02/23/2024 (Approximate), Expires: 08/24/2024 [facility] Work Phone: Comment on above: Expected: 02/23/2024 (Approximate), Expires: 08/24/2024 Start: 02-23-2024 End: 08-24-2024 Hemoglobin A1c/Hemoglobin.total in Blood Hemoglobin A1C Lab Routine Elevated serum cholesterol Persistent depressive disorder Prediabetes Restless leg syndrome Expected: 02/23/2024 (Approximate), Expires: 08/24/2024 [facility] Work Phone: Comment on above: Expected: 02/23/2024 (Approximate), Expires: 08/24/2024 Start: 02-23-2024 End: 08-24-2024 Lipid 1996 panel - Serum or Plasma Lipid Panel Lab Routine Elevated serum cholesterol Persistent depressive disorder Prediabetes Restless leg syndrome Expected: 02/23/2024 (Approximate), Expires: 08/24/2024 [facility] Work Phone: Comment on above: Expected: 02/23/2024 (Approximate), Expires: 08/24/2024 Start: 02-23-2024 End: 08-24-2024 TSH with reflex to Free T4 if abnormal TSH with reflex to Free T4 if abnormal Lab Routine Elevated serum cholesterol Persistent depressive disorder Prediabetes Restless leg syndrome Expected: 02/23/2024 (Approximate), Expires: 08/24/2024 [facility] Work Phone: Comment on above: Expected: 02/23/2024 (Approximate), Expires: 08/24/2024 Start: 02-13-2024 End: 07-15-2024 XR Chest PA and Lateral and AP lateral-decubitus XR Chest AP/PA and LAT Imaging Routine Empyema lung (HCC) Expected: 02/13/2024, Expires: 07/15/2024 [facility] Work Phone: Comment on above: Expected: 02/13/2024 , Expires: 07/15/2024 Start: 02-03-2024 Hemoglobin A1c measurement Diabetes: Hemoglobin A1C [facility] Start: 10-18-2023 End: 10-18-2023 Patient encounter procedure 10/18/2023 8:45 AM EST Office Visit [facility] [address] [phone] Don Stringer MD [address] [facility] [place] [phone] [facility] Start: 10-02-2023 Subsequent hospital visit by physician 10/02/2023 Hospital Encounter [facility] [place] [address] [place] [address] Don Stringer MD [address] [facility] [address] [place] [phone] [facility] [place] Start: 09-24-2023 Behavioral Health Screening Behavioral Health Screening [facility] Start: 08-30-2023 End: 08-30-2023 Patient encounter procedure 08/30/2023 1:00 PM EST Office Visit [facility] [address] [phone] [facility] [address] [facility] [facility] [place] [phone] [facility] Start: 08-24-2023 End: 08-24-2023 Patient encounter procedure 08/24/2023 10:40 AM EST Office Visit [facility] [address] [place] [address] Haley Ulloa MD [address] [facility] [address] [facility] Start: 08-10-2023 End: 08-10-2023 Patient encounter procedure 08/10/2023 8:00 AM EST Office Visit [facility] [address] [place] [address] Haley Ulloa MD [address] [facility] [place] [address] [facility] Start: 08-04-2023 Hemoglobin A1c measurement Diabetes: Hemoglobin A1C [facility] Start: 05-25-2023 COVID-19 Vaccine ( season) COVID-19 Vaccine ( season) [facility] Start: 05-25-2023 Influenza vaccination [facility] Start: 02-02-2023 End: 08-05-2024 Colonoscopy Colonoscopy Endoscopy Routine Screening for colon cancer Expected: 02/02/2023, Expires: 08/05/2024 [facility] Service Area Work Phone: Comment on above: Expected: 02/02/2023 , Expires: 08/05/2024 Start: 02-02-2023 EPV, Provider: Haley Ulloa, Status: Pen, Time: 8:00 AM EPV, Provider: Haley Ulloa, Status: Pen, Time: 8:[address] [facility] 205 DO Work Phone: Start: 02-02-2023 Patient encounter procedure [facility] [place] Start: 01-29-2023 DIABETES SCREEN DIABETES SCREEN [facility] Start: 01-16-2023 Glaucoma screening Ophthalmology Exa m [facility] Start: 2022 Administration of herpes zoster vaccine Zoster Vaccines (1 of 2) [facility] Start: 2022 Prostate specific antigen measurement PSA Prostate Cancer Screening [facility] Start: 2022 Screening for malign ant neoplasm of colon Flexible sigmoidoscopy [facility] Start: 2022 Screening for malign ant neoplasm of lung Lung Cancer Screening [facility] Start: 2022 Shingrix Vaccine (1 of 2) Shingrix Vaccine (1 of 2) [facility] Start: 2022 Zoster Vaccines (1 o f 2) Zoster Vaccines (1 of 2) [facility] Start: 08-04-2022 EPV, Provider: Haley Ulloa, Status: Pen, Time: 8:00 AM EPV, Provider: Haley Ulloa, Status: Pen, Time: 8:00 AM [facility] 205 DO Work Phone: Start: 06-02-2022 End: 06-02-2022 Patient encounter procedure 06/02/2022 Office Visit Podiatry Nima Burr Jr., DPM [address] [place] [address] [facility] Start: 05-25-2022 Influenza vaccination C [facility] Start: 02-03-2022 EPV, Provider: Haley Ulloa, Status: Pen, Time: 10:00 AM EPV, Provider: Haley Ulloa, Status: Pen, Time: 10:00 AM [facility] Work Phone: Start: 11-27-2021 Ophthalmic examinati on and evaluation Ophthalmology Exam [facility] Start: 10-05-2021 End: 10-05-2021 Patient encounter procedure 10/05/2021 Office Visit Cardiothoracic Surgery Ricardo Bone MD [address] [address] [facility] Start: 10-03-2021 End: 10-03-2021 Patient encounter procedure 10/03/2021 Appointment Radiology Haley Wiley PA-C [address] [address] [facility] CT Scan Start: 09-02-2021 End: 09-02-2021 Patient encounter procedure 09/02/2021 Office Visit PodiatrNima Perkins Jr., DPM [address] [place] [address] [facility] Start: 08-07-2021 Blood count complete auto&auto difrntl wbc Complete Blood Count + Differential [place] [address] DO Work Phone: Start: 08-07-2021 Comprehensive metabo lic 2000 panel - Serum or Plasma [place] [address] DO Work Phone: Start: 08-07-2021 Cyanocobalamin vitam in b-12 Vitamin B12, Serum [place] [address] DO Work Phone: Start: 08-07-2021 Hemoglobin glycosyla jess a1c Hemoglobin A1C [place] [address] DO Work Phone: Start: 08-07-2021 Lipid panel Lipid Panel [place] [address] DO Work Phone: Start: 06-03-2021 End: 06-03-2021 Patient encounter procedure 06/03/2021 Office Visit Podiatry Nima Burr Jr., DPMejia [address] [place] [address] [phone] [facility] Start: 05-25-2021 Influenza vaccination Sequenti al Influenza Vaccine (#1) [facility] Start: 02-04-2021 Blood count complete auto&auto difrntl wbc Complete Blood Count + Differential [place] [address] DO Work Phone: Start: 02-04-2021 Comprehensive metabo lic 2000 panel - Serum or Plasma Comprehensive Metabolic Panel [place] [address] DO Work Phone: Start: 02-04-2021 Cyanocobalamin vitam in b-12 Vitamin B12, Serum [place] [address] DO Work Phone: Start: 02-04-2021 Hemoglobin glycosyla jess a1c Hemoglobin A1C [place] [address] DO Work Phone: Start: 02-04-2021 Lipid panel Lipid Panel [facility] DO Work Phone: Start: 02-04-2021 TSH WITH REFLEX TO F REE T4 IF ABNORMAL TSH WITH REFLEX TO FREE T4 IF ABNORMAL [facility] 205 DO Work Phone: Start: 01-07-2021 Testosterone [Mass/volume] in Serum or Plasma Testosterone Free + Total [facility] Work Phone: Start: 12-09-2020 H/O: L cataract extraction History of cataract surgery, left Date: 09-Dec-2020 [facility] Start: 10-06-2020 End: 10-06-2020 Office Visit 10/06/2020 Office Visit Cardiothoracic Surgery Ricardo Bone MD [address] [place] [address] [phone] [facility] Start: 08-01-2020 Hemoglobin A1c measurement A1C [facility] Start: 05-25-2020 Influenza vaccinatio n given Sequential Influenza Vaccine (#1) [facility] Start: 2017 COLOGUARD (FIT-DNA) COLOGUARD (FIT-D NA) [facility] Start: 2017 Colonoscopy COLONOSCOPY [facility] Start: 2017 COLORECTAL CANCER SCREENING COLORECTAL CANCER SCREENING [facility] Start: [address] COLONOGRAPHY [facility] Start: 2017 FECAL OCCULT BLOOD FECAL OCCULT BLOO D [facility] Start: 2017 Screening for malign ant neoplasm of colon [facility] Start: 2017 SIGMOIDOSCOPY SIGMOIDOSCOPY [facility] Start: 12-07-2007 LIPID SCREEN LIPID SCREEN [facility] Start: 12-07-1991 Hepatitis B Vaccine (1 of 3 - 19+ 3-dose series) Hepatitis B Vaccine (1 of 3 - 19+ 3-dose series) [facility] Start: 12-07-1991 Hepatitis B Vaccines (1 of 3 - 19+ 3-dose series) Hepatitis B Vaccines (1 of 3 - 19+ 3-dose series) [facility] Start: 12-07-1991 Urine microalbumin profile DTAP,TDAP,TD (1 - Tdap) [facility] Start: 1990 Hepatitis C antibody , confirmatory test Hepatitis C Screening [facility] Start: 1990 Hepatitis C screening Hepatitis C Sc [facility] Start: 1990 HEPATITIS C SCREENING HEPATITIS C SC [facility] Start: 1990 HIV SCREENING HIV SCREENING [facility] Start: 1990 HIV screening HIV Screening [facility] Start: 12-07-1987 HIV screening HIV Screening [facility] Start: 1984 Adolescent depressio n screening assessment [facility] Start: 1984 COVID-19 Vaccine (1) COVID-19 Vaccin e (1) [facility] Start: 1984 Depression screening using PHQ-9 (Patient Health Questionnaire 9) score [facility] Start: 1982 Diabetic foot examination Foot Exam [facility] Start: 1982 Microalbumin measurement, urine, quantitative Urine Microalbumin [facility] Start: 1982 Ophthalmic examinati on and evaluation Ophthalmology Exam [facility] Start: 1982 Urine screening for protein Urine Microalbumin [facility] Start: 1978 Pneumococcal vaccination Pneumococcal Vaccine (1 of 2 - PCV) [facility] Start: 1978 Pneumococcal Vaccine : Ped or At-Risk (1 - PCV) Pneumococcal Vaccine: Ped or At-Risk (1 - PCV) [facility] Start: 1978 Pneumococcal Vaccine : Ped or At-Risk (1 of 2 - PCV) Pneumococcal Vaccine: Ped or At-Risk (1 of 2 - PCV) [facility] Start: 1978 Pneumococcal Vaccine : Ped or At-Risk (1 of 2 - PPSV23) Pneumococcal Vaccine: Ped or At-Risk (1 of 2 - PPSV23) [facility] Start: 1978 Pneumococcal Vaccine : Pediatrics (0 to 5 Years) and At-Risk Patients (6 to 64 Years) (1 - PCV) Pneumococcal Vaccine: Pediatrics (0 to 5 Years) and At-Risk Patients (6 to 64 Years) (1 - PCV) [facility] Start: 1978 Pneumococcal Vaccine : Pediatrics (0 to 5 Years) and At-Risk Patients (6 to 64 Years) (1 of 2 - PCV) Pneumococcal Vaccine: Pediatrics (0 to 5 Years) and At-Risk Patients (6 to 64 Years) (1 of 2 - PCV) [facility] Start: 1977 COVID-19 Vaccine (1) COVID-19 Vaccin e (1) [facility] Start: 12-07-1975 History and physical examination, annual for health maintenance Wellness Visit [facility] Start: 1973 MMR Vaccines (1 of 1 - Standard series) MMR Vaccines (1 of 1 - Standard series) [facility] Start: 06-08-1973 COVID-19 Vaccine (#1) COVID-19 Vacci ne (#1) [facility] Start: 1972 Hemoglobin A1c measurement A1C [facility] Start: 1972 Hepatitis B Vaccines (1 of 3 - 3-dose series) Hepatitis B Vaccines (1 of 3 - 3-dose series) [facility] Start: 1972 HIV screening HIV Screening [facility] Start: 1972 Prostate specific antigen measurement [facility] Start: 1972 Screening for malign ant neoplasm of colon [facility] Start: 1972 Tetanus vaccination Tetanus: Every 1 0yrs [facility] Start: 1972 Yearly Adult Physical Yearly Adult P hysical [facility] Bacteria identified in Blood by Culture [facility] Work Phone: Body Fluid Anaerobic Culture Body Fluid Anaerobic Culture Microbiology Routine 01/10/2024 11:39 AM EDT [facility] End: 10-02-2023 Continuous Pulse oximetry, In Phase 1 [facility] Work Phone: Comment on above: Continuous until dis continued starting 10/02/2023 End: 02-27-2026 CT Chest for screening WO contrast CT Lung Cancer Screening Imaging Routine Lung nodule Screening for lung cancer 1 Occurrences starting 02/27/2025 until 02/27/2026 [facility] Work Phone: Comment on above: 1 Occurrences starti ng 02/27/2025 until 02/27/2026 End: 11-07-2024 CT Chest WO contrast CT Chest Without Contrast Imaging Routine Lung nodule 1 Occurrences starting 11/07/2023 until 11/07/2024 [facility] Work Phone: Comment on above: 1 Occurrences starti ng 11/07/2023 until 11/07/2024 End: 03-20-2025 CT Chest WO contrast CT Chest Without Contrast Imaging Routine Lung nodule 1 Occurrences starting 03/20/2024 until 03/20/2025 [facility] Work Phone: Comment on above: 1 Occurrences starti ng 03/20/2024 until 03/20/2025 End: 10-07-2021 CT of chest without contrast CT Chest Without Contrast Imaging Routine Lung nodule 1 Occurrences starting 10/07/2020 until 10/07/2021 [facility] Comment on above: 1 Occurrences starti ng 10/07/2020 until 10/07/2021 End: 10-20-2022 CT of chest without contrast CT Chest Without Contrast Imaging Routine Lung nodule 1 Occurrences starting 10/20/2021 until 10/20/2022 [facility] Work Phone: Comment on above: 1 Occurrences starti ng 10/20/2021 until 10/20/2022 End: 10-18-2023 CT of chest without contrast CT Chest Without Contrast Imaging Routine Lung nodule 1 Occurrences starting 10/18/2022 until 10/18/2023 [facility] [facility] Work Phone: Comment on above: 1 Occurrences starti ng 10/18/2022 until 10/18/2023 End: 01-04-2024 ECG 12 lead ECG 12 lead ECG STAT Once for 1 Occurrences starting 01/04/2024 until 01/04/2024 [facility] Service Area Work Phone: Comment on above: Once for 1 Occurrenc es starting 01/04/2024 until 01/04/2024 Excison tumor soft tissue thigh/knee subq 3 cm/> Excision Lesion Lower Extremity Soft tissue mass Virtual JON OR End: 01-04-2024 Extra Urine Myers Tube Extra Urine Myers Tube Lab Timed Once for 1 Occurrences starting 01/04/2024 until 01/04/2024 [facility] Work Phone: Comment on above: Once for 1 Occurrenc es starting 01/04/2024 until 01/04/2024 Glucose [Mass/volume ] in Serum or Plasma POCT Glucose Point of Care Testing - Docked Device Routine As needed (Lab) until discontinued starting 10/02/2023 [facility] Service Area Work Phone: Comment on above: As needed (Lab) unti l discontinued starting 10/02/2023 History of cataract extraction History of cataract extraction [facility] End: 05-08-2025 Holter monitor study [facility] Service Area Work Phone: Comment on above: Once for 1 Occurrenc es starting 05/08/2025 until 05/08/2025 Leg fracture Leg fracture [facility] Microbial culture, b malvin fluid Body Fluid Aerobic Culture Microbiology Routine 01/10/2024 11:39 AM EDT [facility] End: 02-06-2025 MR Brain WO and W contrast IV [facility] Service Area Work Phone: Comment on above: Once for 1 Occurrenc es starting 02/06/2025 until 02/06/2025 End: 01-15-2025 MR Cervical spine WO contrast [facility] Service Area Work Phone: Comment on above: Once for 1 Occurrenc es starting 01/15/2025 until 01/15/2025 End: 05-08-2025 MRA Head vessels WO contrast [facility] Service Area Work Phone: Comment on above: Once for 1 Occurrenc es starting 05/08/2025 until 05/08/2025 End: 05-08-2025 MRA Neck vessels WO and W contrast IV [facility] Service Area Work Phone: Comment on above: Once for 1 Occurrenc es starting 05/08/2025 until 05/08/2025 Neck fracture Neck fracture Co mments: limited ROM [facility] Comment on above: limited ROM Surgical pathology study Surgical Pathology Exam Pathology and Cytology Routine Soft tissue mass 08/10/2023 9:09 AM EST [facility] Service Area Work Phone: Surgical pathology study Surgical Pathology Exam Pathology and Cytology Routine Soft tissue mass Release Upon Ordering for 1 Occurrences starting 10/02/2023 [facility] Service Area Work Phone: Comment on above: Release Upon Orderin g for 1 Occurrences starting 10/02/2023 Surgical pathology study [facility] Service Area Work Phone: Comment on above: Release Upon Orderin g for 1 Occurrences starting 08/01/2024 End: 01-04-2024 Urinalysis complete W Reflex Culture panel - Urine [facility] Work Phone: Comment on above: Once (Lab) for 1 Occ urrences starting 01/04/2024 until 01/04/2024 Once for 1 Occurrenc es starting 01/04/2024 until 01/04/2024 End: 05-08-2025 US Heart Transthoracic [facility] Service Area Work Phone: Comment on above: Once for 1 Occurrenc es starting 05/08/2025 until 05/08/2025 NEGATED: Highlighted row has been ruled out! Planned Goals not documented -[facility] 205 DO Work Phone: Immunizations Immunization Date Immunization Notes Care Provider [facility] 07-04-2024 Pneumococcal conjuga te vaccine, 20-valent (PREVNAR 20) Haley Ulloa MD Work Phone: [facility] 09-01-2022 tetanus toxoid, reduced diphtheria toxoid, and acellular pertussis vaccine, adsorbed Haley Ulloa Other Phone: [facility] Payers Date Payer Category Payer Self-pay 2022 Mike MITCHELL UE/PREF/HMO/PPO [id number] 2022 Mike sawyer Man[employer] [id number] 2022 Unknown [id number] 2022 Unknown [id number] 2018 Unknown 2016 Unknown O MED MUTUAL S UPERMED PPO xxxxxxxxxxxx 2016-Present [id number]. [id number] 2013 Unknown [id number] 1.2.840.485261.1.13.385.2. 7.3.831801.315 1972 Unknown [id number] 2.16.840.1.354076.3.579.2. 717 1972 Unknown [id number] 2.16.840.1.100661.3.579.2. 717 1972 Unknown [id number] 2.16.840.1.335452.3.579.2. 1069 1972 Unknown [id number] 2.16.840.1.258331.3.579.2. 902 1972 Unknown [id number] 2.16.840.1.479857.3.579.2. 900 1972 Unknown [id number] 2.16.840.1.176206.3.579.2. 900 1972 Unknown [id number] 2.16.840.1.783464.3.579.2. 903 1972 Unknown [id number] 2.16.840.1.787379.3.579.2. 903 1972 Unknown [id number] 2.16.840.1.610650.3.579.2. 903 1972 Unknown [id number] 2.16.840.1.313829.3.579.2. 903 1972 Unknown [id number] 2.16.840.1.812380.3.579.2. 903 1972 Unknown [id number] 2.16.840.1.625787.3.579.2. 903 1972 Unknown [id number] 2.16.840.1.771653.3.579.2. 1243 1972 Unknown [id number] 2.16.840.1.244059.3.579.2. 1243 1972 Unknown [id number] 2.16.840.1.871699.3.579.2. 1243 1972 Unknown [id number] 2.16.840.1.610390.3.579.2. 1243 1972 Unknown [id number] 2.16.840.1.224841.3.579.2. 1244 1972 Unknown [id number] 2.16840.1.330264.3.579.2. 1244 1972 Unknown [id number] 2.16.840.1.073794.3.579.2. 1242 1972 Unknown [id number] 2.16.840.1.348608.3.579.2. 1242 1972 Unknown [id number] 2.16.840.1.615779.3.579.2. 1242 1972 Unknown [id number] 2.16.840.1.652210.3.579.2. 1242 1972 Unknown [id number] 2.16.840.1.475363.3.579.2. 1242 1972 Unknown [id number] 2.16.840.1.863006.3.579.2. 1242 1972 Unknown [id number] 2.16.840.1.690361.3.579.2. 1242 1972 Unknown [id number] 2.16.840.1.888431.3.579.2. 1242 1972 Unknown [id number] 2.16.840.1.711307.3.579.2. 1243 1972 Unknown [id number] 2.16.840.1.351590.3.579.2. 1243 1972 Unknown [id number] 2.16.840.1.878263.3.579.2. 1243 1972 Unknown [id number] 2.16.840.1.376899.3.579.2. 1243 1972 Unknown [id number] 2.16.840.1.772246.3.579.2. 1243 Unknown [id number] Unknown [id number] 2.16.840.1.239033.3.579.2. 462 Social History Date Type Detail Facility Start: 03-31-2020 End: 01-25-2024 Tobacco smoking status NEIS Current every day smoker [facility] Start: 03-31-2020 End: 04-27-2025 Cigarettes smoked current (pack per day) - Reported [facility] History of tobacco use Chews Tobacco [facility] Start: 03-31-2020 End: 05-18-2025 Alcohol intake Ex-drinker (finding) [facility] Start: 1970 Sex Assigned At Not on file O [facility] Start: 01-06-2022 End: 02-06-2025 Exposure to SARS-CoV-2 (event) Not sure [facility] Start: 03-31-2020 End: 01-25-2024 Tobacco use and exposure Current user [facility] History of tobacco use Cigarette Smoker [facility] History of tobacco use Snuff User [facility] Start: 01-16-2022 End: 01-02-2024 Alcohol intake Current non-drinker of alcohol (finding) [facility] Start: 10-20-2016 Tobacco Comment hasn't used in Sun [facility] Start: 1970 Sex Assigned At Male C [facility] Tobacco smoking consumption unknown [facility] Start: 07-23-2023 End: 04-27-2025 Gender identity Not on file [facility] Start: 03-31-2020 Gender identity Identifies as male gender (finding) [facility] Work Phone: Start: 03-31-2020 Sexual orientation Heterosexual (hansa teresa) [facility] Work Phone: Start: 08-18-2022 PHQ2 Score 0 [facility] Has the electric, gas, oil, or water company threatened to shut off services in your home in past 12Mo No [facility] (I/We) worried whether (my/our) food would run out before (I/we) got money to buy more. 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 [facility] Work Phone: NEGATED: Highlighted row - - [facility] [employer] Work Phone: Medical Equipment Procedure Code Equipment Code Equipment Original Text Equipment Identifier Dates Lens, Intraocular, [id number] 19.5 Deng Case [id number] Start: 12-09-2020 Comment on above: Description: Convert ed from [facility]. Please see archived information for full log information. Functional Status Date Assessment Result Facility 04-27-2025 Generalized anxiety disorder 7 item (LATASHA-7) [facility] Work Phone: 04-27-2025 Patient Health Questionnaire 2 item (PHQ-2) [Reported] [facility] Work Phone: 04-27-2025 [place] - suicide severity rating scale screener - recent [C-SSRS] [facility] Work Phone: 01-08-2025 Patient Health Questionnaire 2 item (PHQ-2) [Reported] [facility] Work Phone: 01-08-2025 [place] - suicide severity rating scale screener - recent [C-SSRS] [facility] Work Phone: NEGATED: Highlighted row Functional performance Functional status health issues are not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 Cardiovascular: Rate and Rhythm: Normal rate and regular rhythm. Heart sounds: No murmur heard. Pulmonary: Effort: Pulmonary effort is normal. No respiratory distress. Breath sounds: Normal breath sounds. Skin: General: Skin is warm and dry. Neurological: General: No focal deficit present. Mental Status: He is alert. Mental status is at baseline. Assessment/Plan Problem List Items Addressed This Visit Depression Obstructive sleep apnea Prediabetes Restless leg syndrome Class 1 obesity with body mass index (BMI) of 34.0 to 34.9 in adult Hyperlipidemia Haley Ulloa MD documented in this encounter [facility] Work Phone: 07-04-2024 Instructions Haley Ulloa MD - 07/04/2024 9:00 AM EDT Continue current medications. Follow up with specialists as scheduled. Follow up in 6 months, sooner if needed. documented in this encounter [facility] Work Phone: 05-27-2024 History of Present illness Narrative Ear pain, and jaw pain started this weekend Subjective Lalitha Cartwright is a 53 y.o. male who presents for Earache and Jaw Pain. Here c/o ear ache, jaw pain. He states that he knows he has some bad teeth - has a dentist appointment on Sunday. Over the weekend he developed throbbing in the right ear. Objective Visit Vitals BP 130/80 Pulse 80 Physical Exam Vitals reviewed. Constitutional: General: He is not in acute distress. HENT: Right Ear: Tympanic membrane normal. Left Ear: Tympanic membrane normal. Mouth/Throat: Mouth: Mucous membranes are dry. Cardiovascular: Rate and Rhythm: Normal rate and regular rhythm. Heart sounds: No murmur heard. Pulmonary: Effort: Pulmonary effort is normal. No respiratory distress. Breath sounds: Normal breath sounds. Skin: General: Skin is warm and dry. Neurological: General: No focal deficit present. Mental Status: He is alert. Mental status is at baseline. Assessment/Plan Problem List Items Addressed This Visit None Visit Diagnoses Right ear pain - Primary Relevant Medications amoxicillin (Amoxil) 875 mg tablet predniSONE (Deltasone) 20 mg tablet Haley Ulloa MD documented in this encounter [facility] Work Phone: 05-27-2024 Instructions Haley Ulloa MD - 05/27/2024 4:40 PM EDT Will treat as sinus infection with antibiotics and low dose prednisone. Follow up if no improvement or if he worsens. documented in this encounter [facility] Work Phone: 03-20-2024 Note PROGRESS NOTE Assessment and Plan: Lalitha Cartwright is a 53yo male who presents for a 6 month follow-up of a previously monitored left lower lobe lung lesion, as well as a right upper lobe lesion that was noted on most recent scans. Mr Cartwright presents today for evaluation. Imaging reviewed, which shows stable nodules. Plan is to continue surveillance. We will see him in one year with imaging for review. Mr Cartwright verbalized understanding and is in agreement with plan. Dania Pressley Subjective: Lalitha Cartwright is a 53 yo male with a left lower lobe lung lesion, as well as a right upper lobe lesion undergoing surveillance. He states he continues to smoke 1ppd. Mr Cartwright was recently hospitalized for a right pleural loculated effusion requiring chest tube placement and lytic therapy. Cultures were negative, but did complete a course of Augmentin. He states he feels well. He denies cough or congestion. Does endorse SOB with exertion. No chest pain or palpitations. He does continue to smoke 1 PPD. Past Medical History: Diagnosis Date Lung nodule 2019 Past Surgical History: Procedure Laterality Date CATARACT EXTRACTION W/ INTRAOCULAR LENS IMPLANT Bilateral CV IR INTERVENTIONAL RADIOLOGY Right 01/10/2024 Procedure: VR Chest Tube Right; Surgeon: Yanet Jackson PA-C; Location: IR LAB; Service: Interventional Radiology LEG SURGERY 10/03/2016 [facility] 09/2016 Allergies: Patient has no known allergies. Review of Systems Constitutional: Negative for fever, chills, weight loss, and malaise/fatigue. Cardiovascular: Negative for chest pain, palpitations, orthopnea and claudication. Respiratory: Positive for cough, morning sputum production, shortness of breath with exertion. Denies hemoptysis Gastrointestinal: Negative for constipation or blood in stool, nausea, or vomiting, or loss of appetite. Neurological: Negative for dizziness, tingling, focal weakness, loss of consciousness, or headaches. Physical Exam PACU Vitals 03/19/24 1316 BP: 123/75 Pulse: 82 Temp: 97.9 degrees F (36.6 degrees C) SpO2: 95% PainSc: 0-No pain GENERAL: Alert. Appropriate. HEART: regular rate and rhythm. No murmurs, rubs or gallops. LUNGS: Breathing non-labored. Lungs CTA LYMPH NODES: No cervical or supraclavicular lymphadenopathy is noted. Imagin03/12/24 CT Chest 1. There has been interval resolution of the right hydropneumothorax seen on 01/14/2024. 2. A few very small scattered pulmonary nodules are stable and are likely benign. 3. A few small mediastinal and hilar lymph nodes are unchanged. 4. Otherwise, negative for acute cardiopulmonary process. AUTHENTICATED BY DANIA PRESSLEY, ON 03/23/2024 11:47:27 [facility] 03-20-2024 History of Present illness Narrative PROGRESS NOTE Assessment and Plan: Lalitha Cartwright is a 53yo male who presents for a 6 month follow-up of a previously monitored left lower lobe lung lesion, as well as a right upper lobe lesion that was noted on most recent scans. Mr Cartwright presents today for evaluation. Imaging reviewed, which shows stable nodules. Plan is to continue surveillance. We will see him in one year with imaging for review. Mr Cartwright verbalized understanding and is in agreement with plan. Dania Pressley Subjective: Lalitha Cartwright is a 53 yo male with a left lower lobe lung lesion, as well as a right upper lobe lesion undergoing surveillance. He states he continues to smoke 1ppd. Mr Cartwright was recently hospitalized for a right pleural loculated effusion requiring chest tube placement and lytic therapy. Cultures were negative, but did complete a course of Augmentin. He states he feels well. He denies cough or congestion. Does endorse SOB with exertion. No chest pain or palpitations. He does continue to smoke 1 PPD. Past Medical History: Diagnosis Date Lung nodule 2019 Past Surgical History: Procedure Laterality Date CATARACT EXTRACTION W/ INTRAOCULAR LENS IMPLANT Bilateral CV IR INTERVENTIONAL RADIOLOGY Right 01/10/2024 Procedure: VR Chest Tube Right; Surgeon: Yanet Jackson PA-C; Location: IR LAB; Service: Interventional Radiology LEG SURGERY 10/03/2016 [facility] 09/2016 Allergies: Patient has no known allergies. Review of Systems Constitutional: Negative for fever, chills, weight loss, and malaise/fatigue. Cardiovascular: Negative for chest pain, palpitations, orthopnea and claudication. Respiratory: Positive for cough, morning sputum production, shortness of breath with exertion. Denies hemoptysis Gastrointestinal: Negative for constipation or blood in stool, nausea, or vomiting, or loss of appetite. Neurological: Negative for dizziness, tingling, focal weakness, loss of consciousness, or headaches. Physical Exam PACU Vitals 03/19/24 1316 BP: 123/75 Pulse: 82 Temp: 97.9 F (36.6 C) SpO2: 95% PainSc: 0-No pain GENERAL: Alert. Appropriate. HEART: regular rate and rhythm. No murmurs, rubs or gallops. LUNGS: Breathing non-labored. Lungs CTA LYMPH NODES: No cervical or supraclavicular lymphadenopathy is noted. Imagin03/12/24 CT Chest 1. There has been interval resolution of the right hydropneumothorax seen on 01/14/2024. 2. A few very small scattered pulmonary nodules are stable and are likely benign. 3. A few small mediastinal and hilar lymph nodes are unchanged. 4. Otherwise, negative for acute cardiopulmonary process. PROGRESS NOTE Assessment and Plan: Mr. Cartwright is a 53-year-old gentleman who has been under radiographic surveillance for several stable lung lesions. Earlier this year, he developed increasing shortness of breath, prompting a visit to the emergency department. He was found to have a fairly large right-sided loculated pleural effusion. This almost certainly was in the background of a pneumonia, although he denies having any symptoms he attributes directly to this. Regardless he was appropriately treated and has largely recovered. He returns for a follow-up of radiographic imaging. As I reviewed with him, his chest CT scan has completely returned to normal. There is almost no evidence of the previous right hydropneumothorax and associated lung consolidation. Everything looks clear with otherwise stable pulmonary nodules present. I believe at this point we can return to yearly ongoing surveillance. He was in agreement with this. We did discuss smoking cessation as well. I will see him back in the office in 1 years time. Subjective: Lalitha Cartwright is a 53 y.o. male with history of a left lower lobe lung lesion, as well as a right upper lobe lesion undergoing surveillance. He states he continues to smoke 1ppd. Mr Cartwright was recently hospitalized for a right pleural loculated effusion requiring chest tube placement and lytic therapy. Cultures were negative, but did complete a course of Augmentin. He states he feels well. He denies cough or congestion. Does endorse SOB with exertion. No chest pain or palpitations. He does continue to smoke 1 PPD. Past Medical History: Diagnosis Date Lung nodule 2019 Past Surgical History: Procedure Laterality Date CATARACT EXTRACTION W/ INTRAOCULAR LENS IMPLANT Bilateral CV IR INTERVENTIONAL RADIOLOGY Right 01/10/2024 Procedure: VR Chest Tube Right; Surgeon: Yanet Jackson PA-C; Location: IR LAB; Service: Interventional Radiology LEG SURGERY 10/03/2016 [facility] 09/2016 Allergies: Patient has no known allergies. Review of Systems Constitutional: Negative for fever, chills, weight loss, and malaise/fatigue. Cardiovascular: Negative for chest pain, palpitations, orthopnea and claudication. Respiratory: Negative for cough, sputum production, shortness of breath, or hemoptysis Gastrointestinal: Negative for constipation or blood in stool, nausea, or vomiting, or loss of appetite. Neurological: Negative for dizziness, tingling, focal weakness, loss of consciousness, or headaches. Physical Exam PACU Vitals 03/19/24 1316 BP: 123/75 Pulse: 82 Temp: 97.9 F (36.6 C) SpO2: 95% PainSc: 0-No pain GENERAL: Alert. Oriented x3 and appropriate. Pleasant. HEART: regular rate and rhythm. No murmurs, rubs or gallops. LUNGS: Breathing non-labored. Lungs: Clear to auscultation bilaterally with good air movement noted. LYMPH NODES: No cervical or supraclavicular lymphadenopathy is noted. Imaging: IMPRESSION (CT Chest): 1. There has been interval resolution of the right hydropneumothorax seen on 01/14/2024. 2. A few very small scattered pulmonary nodules are stable and are likely benign. 3. A few small mediastinal and hilar lymph nodes are unchanged. 4. Otherwise, negative for acute cardiopulmonary process. Ricardo Bone MD [facility] [address] [place] [address], [address] [place] [address] [email or web address] documented in this encounter [facility] 03-19-2024 Note PROGRESS NOTE Assessment and Plan: Mr. Cartwright is a 53-year-old gentleman who has been under radiographic surveillance for several stable lung lesions. Earlier this year, he developed increasing shortness of breath, prompting a visit to the emergency department. He was found to have a fairly large right-sided loculated pleural effusion. This almost certainly was in the background of a pneumonia, although he denies having any symptoms he attributes directly to this. Regardless he was appropriately treated and has largely recovered. He returns for a follow-up of radiographic imaging. As I reviewed with him, his chest CT scan has completely returned to normal. There is almost no evidence of the previous right hydropneumothorax and associated lung consolidation. Everything looks clear with otherwise stable pulmonary nodules present. I believe at this point we can return to yearly ongoing surveillance. He was in agreement with this. We did discuss smoking cessation as well. I will see him back in the office in 1 years time. Subjective: Lalitha Cartwright is a 53 y.o. male with history of a left lower lobe lung lesion, as well as a right upper lobe lesion undergoing surveillance. He states he continues to smoke 1ppd. Mr Cartwright was recently hospitalized for a right pleural loculated effusion requiring chest tube placement and lytic therapy. Cultures were negative, but did complete a course of Augmentin. He states he feels well. He denies cough or congestion. Does endorse SOB with exertion. No chest pain or palpitations. He does continue to smoke 1 PPD. Past Medical History: Diagnosis Date Lung nodule 2019 Past Surgical History: Procedure Laterality Date CATARACT EXTRACTION W/ INTRAOCULAR LENS IMPLANT Bilateral CV IR INTERVENTIONAL RADIOLOGY Right 01/10/2024 Procedure: VR Chest Tube Right; Surgeon: Yanet Jackson PA-C; Location: IR LAB; Service: Interventional Radiology LEG SURGERY 10/03/2016 [facility] 09/2016 Allergies: Patient has no known allergies. Review of Systems Constitutional: Negative for fever, chills, weight loss, and malaise/fatigue. Cardiovascular: Negative for chest pain, palpitations, orthopnea and claudication. Respiratory: Negative for cough, sputum production, shortness of breath, or hemoptysis Gastrointestinal: Negative for constipation or blood in stool, nausea, or vomiting, or loss of appetite. Neurological: Negative for dizziness, tingling, focal weakness, loss of consciousness, or headaches. Physical Exam PACU Vitals 03/19/24 1316 BP: 123/75 Pulse: 82 Temp: 97.9 degrees F (36.6 degrees C) SpO2: 95% PainSc: 0-No pain GENERAL: Alert. Oriented x3 and appropriate. Pleasant. HEART: regular rate and rhythm. No murmurs, rubs or gallops. LUNGS: Breathing non-labored. Lungs: Clear to auscultation bilaterally with good air movement noted. LYMPH NODES: No cervical or supraclavicular lymphadenopathy is noted. Imaging: IMPRESSION (CT Chest): 1. There has been interval resolution of the right hydropneumothorax seen on 01/14/2024. 2. A few very small scattered pulmonary nodules are stable and are likely benign. 3. A few small mediastinal and hilar lymph nodes are unchanged. 4. Otherwise, negative for acute cardiopulmonary process. Ricardo Bone MD [facility] [address], [address] [place] [id number] [email or web address] AUTHENTICATED BY RICARDO BONE, ON 03/23/2024 11:47:27 [facility] [facility] 02-29-2024 History of Present illness Narrative Subjective Patient ID: Lalitha Cartwright is a 53 y.o. male who presents for 6 month check up. Labs not done. HPI Review of Systems Objective There were no vitals taken for this visit. Physical Exam Assessment/Plan Subjective Lalitha Cartwright is a 53 y.o. male who presents for No chief complaint on file.. Here for routine f/u depression, prediabetes, CAM (on CPAP - not using consistently), RLS, high chol, lung nodule/ recent pleural effusion/empyema (Dr Bone). He states that he is doing better. He will be having a follow up scan soon. Objective Visit Vitals BP 126/80 (BP Location: Left arm, Patient Position: Sitting, BP Cuff Size: Adult) Pulse 68 Physical Exam Vitals reviewed. Constitutional: General: He is not in acute distress. Cardiovascular: Rate and Rhythm: Normal rate and regular rhythm. Heart sounds: No murmur heard. Pulmonary: Effort: Pulmonary effort is normal. No respiratory distress. Breath sounds: Normal breath sounds. Skin: General: Skin is warm and dry. Neurological: General: No focal deficit present. Mental Status: He is alert. Mental status is at baseline. Assessment/Plan Problem List Items Addressed This Visit Depression Relevant Orders Follow Up In Primary Care - Established Obstructive sleep apnea Relevant Orders Follow Up In Primary Care - Established Prediabetes Relevant Orders Follow Up In Primary Care - Established Restless leg syndrome Relevant Orders Follow Up In Primary Care - Established Class 1 obesity with body mass index (BMI) of 34.0 to 34.9 in adult Relevant Orders Follow Up In Primary Care - Established Hyperlipidemia - Primary Relevant Orders Follow Up In Primary Care - Established Other Visit Diagnoses Elevated serum cholesterol Haley Ulloa MD documented in this encounter [facility] Work Phone: 02-29-2024 Instructions Haley Ulloa MD - 02/29/2024 8:20 AM EDT Continue current medications, follow up with specialists as scheduled. Follow up in 4 months, sooner if needed. documented in this encounter [facility] Work Phone: 01-25-2024 History of Present illness Narrative Subjective Patient ID: Lalitha Cartwright is a 53 y.o. male who presents for follow up from Hospital x5 days for pneumonia HPI Review of Systems Objective There were no vitals taken for this visit. Physical Exam Assessment/Plan Patient: Lalitha Cartwright : 1970 PCP: Haley Ulloa MD Program: Transitional Care Management Status: Enrolled Effective Dates: 01/15/2024 - present Responsible Staff: Janette Marino LPN Social Determinants to be Addressed: Alcohol Use, Depression, Financial Resource Strain, Physical Activity, Social Connections, Stress, Tobacco Use, Transportation Needs Lalitha Cartwright is a 53 y.o. male presenting today for follow-up after being discharged from the hospital 11 days ago. The main problem requiring admission was pleural effusion, respiratory failure, pneumonia/empyema. The discharge summary and/or Transitional Care Management documentation was reviewed. Medication reconciliation was performed as indicated via the Freddy as Reviewed timestamp. Lalitha Cartwrgiht was contacted by Transitional Care Management services two days after his discharge. This encounter and supporting documentation was reviewed. Here for follow up recent hospitalization for pneumonia/empyema, pleural effusion. He had over 4 L of fluid drained. He will be following up with Dr Bone and getting another CT of the chest in February. BP 112/68 (BP Location: Left arm, Patient Position: Sitting, BP Cuff Size: Adult) Pulse 95 Ht 1.829 m (6') Wt 111 kg (243 lb 12.8 oz) SpO2 96% BMI 33.07 kg/m Physical Exam Vitals reviewed. Constitutional: General: He is not in acute distress. Cardiovascular: Rate and Rhythm: Normal rate and regular rhythm. Heart sounds: No murmur heard. Pulmonary: Effort: Pulmonary effort is normal. No respiratory distress. Breath sounds: Normal breath sounds. Skin: General: Skin is warm and dry. Neurological: General: No focal deficit present. Mental Status: He is alert. Mental status is at baseline. The complexity of medical decision making for this patient's transitional care is moderate. Assessment/Plan Problem List Items Addressed This Visit ICD-10-CM Lung nodule R91.1 Other Visit Diagnoses Codes Pleural effusion - Primary J90 documented in this encounter [facility] Work Phone: 01-25-2024 Instructions Haley Ulloa MD - 01/25/2024 11:00 AM EDT Continue current medications, follow up with specialists as scheduled. Follow up here as scheduled. documented in this encounter [facility] Work Phone: 01-14-2024 Note Formatting of this n ote might be different from the original. POC completed, Discharged to home. Problem: Actual or potential alteration in health Goal: Absence of healthcare acquired conditions 01/14/2024 1615 by Leonor Isaac RN Outcome: Completed 01/14/2024 1107 by Leonor Isaac, RN Outcome: Partially Met Goal: Knowledge of Interdisciplinary Plan of Care 01/14/2024 1615 by Leonor Isaac, RN Outcome: Completed 01/14/2024 1107 by Leonor Isaac, RN Outcome: Partially Met Goal: Knowledge of Enviroment 01/14/2024 1615 by Leonor Isaac RN Outcome: Completed 01/14/2024 1107 by Leonor Isaac RN Outcome: Partially Met Problem: Pain Goal: Reduced pain sensation 01/14/2024 1615 by Leonor Isaac RN Outcome: Completed 01/14/2024 1107 by Leonor Isaac RN Outcome: Partially Met Goal: Control of acute pain to acceptable level 01/14/2024 1615 by Leonor Isaac RN Outcome: Completed 01/14/2024 1107 by Leonor Isaac RN Outcome: Partially Met Goal: Able to cope with pain 01/14/2024 1615 by Leonor Isaac RN Outcome: Completed 01/14/2024 110 by Leonor Isaac RN Outcome: Partially Met Goal: Able to achieve maximum level of physical functioning 01/14/2024 1615 by Leonor Isaac RN Outcome: Completed 01/14/2024 1107 by Leonor Isaac RN Outcome: Partially Met Goal: Able to achieve maximum level of psychosocial functioning 01/14/2024 1615 by Leonor Isaac RN Outcome: Completed 01/14/2024 1107 by Leonor Isaac RN Outcome: Partially Met [facility] 01-14-2024 Miscellaneous Notes POC completed, Discharged to home. Problem: Actual or potential alteration in health Goal: Absence of healthcare acquired conditions 01/14/2024 1615 by Leonor Isaac RN Outcome: Completed 01/14/2024 1107 by Leonor Isaac RN Outcome: Partially Met Goal: Knowledge of Interdisciplinary Plan of Care 01/14/2024 1615 by Leonor Isaac RN Outcome: Completed 01/14/2024 1107 by Leonor Isaac RN Outcome: Partially Met Goal: Knowledge of Enviroment 01/14/2024 1615 by Leonor Isaac, MIKEL Outcome: Completed 01/14/2024 1107 by Leonor Isaac RN Outcome: Partially Met Problem: Pain Goal: Reduced pain sensation 01/14/2024 1615 by Leonor Isaac RN Outcome: Completed 01/14/2024 1107 by Leonor Isaac RN Outcome: Partially Met Goal: Control of acute pain to acceptable level 01/14/2024 1615 by Leonor Isaac RN Outcome: Completed 01/14/2024 1107 by Leonor Isaac RN Outcome: Partially Met Goal: Able to cope with pain 01/14/2024 1615 by Leonor Isaac RN Outcome: Completed 01/14/2024 1107 by Leonor Isaac RN Outcome: Partially Met Goal: Able to achieve maximum level of physical functioning 01/14/2024 1615 by Leonor Isaac RN Outcome: Completed 01/14/2024 110 by Leonor Isaac RN Outcome: Partially Met Goal: Able to achieve maximum level of psychosocial functioning 01/14/2024 1615 by Leonor Isaac RN Outcome: Completed 01/14/2024 110 by Leonor Isaac RN Outcome: Partially Met Dressing to chest tube removal site clean/intact. No shortness of breath noted lungs clear with diminished bases. Remains on room air. CT chest imaging reviewed with improved empyema with remaining small loculations. Chest tube with 40ml OP overnight. Patient on RA without complaint Chest tube removed. Site covered with vaseline gauze, sterile 4X4 and secured with silk tape. Patient tolerated well. Will follow up with post pull CXR in 2H. POC reviewed. Problem: Actual or potential alteration in health Goal: Absence of healthcare acquired conditions Outcome: Partially Met Goal: Knowledge of Interdisciplinary Plan of Care Outcome: Partially Met Goal: Knowledge of Enviroment Outcome: Partially Met Problem: Pain Goal: Reduced pain sensation Outcome: Partially Met Goal: Control of acute pain to acceptable level Outcome: Partially Met Goal: Able to cope with pain Outcome: Partially Met Goal: Able to achieve maximum level of physical functioning Outcome: Partially Met Goal: Able to achieve maximum level of psychosocial functioning Outcome: Partially Met Dressing to right posterior lower lung field clean /intact. No new drainage noted. No respiratory distress . Hopeful to go home today. Dr. Vega in room Dr Vega called. Message left that requested medication is ready. POC reviews and continues. Problem: Actual or potential alteration in health Goal: Absence of healthcare acquired conditions Outcome: Partially Met Goal: Knowledge of Interdisciplinary Plan of Care Outcome: Partially Met Goal: Knowledge of Enviroment Outcome: Partially Met Problem: Pain Goal: Reduced pain sensation Outcome: Partially Met Goal: Control of acute pain to acceptable level Outcome: Partially Met Goal: Able to cope with pain Outcome: Partially Met Goal: Able to achieve maximum level of physical functioning Outcome: Partially Met Goal: Able to achieve maximum level of psychosocial functioning Outcome: Partially Met Images from the original note were not included. [facility] Utilization Review Notes EMERGENCY TEMPLATE HISTORY OF PRESENT ILLNESS: Chief Complaint Chest pain History of Present Illness Lalitha Cartwright is a 53 [facility] of lung nodule, HLD, pleural effusion, who presented to [facility] on 01/09/2024 with chest pain. Right sided. Moderate severity. Worse with movement or deep breaths. Present for the past 10 days or so. Went to [facility] ED on 01/03 and found to have a pleural effusion. Sent home with Percocet and Levaquin prescriptions. No fever, chills, leg swelling, calf pain. PROCEDURE: 1. ULTRASOUND-GUIDED right SIDED CHEST TUBE PLACEMENT. 2. MODERATE SEDATION. VITAL SIGNS: 01/10/24 1045 -- 104 Abnormal 19 Abnormal 122/75 95 Nasal cannula 5 01/10/24 07:26:28 98 (36.7) 108 Abnormal 18 114/73 95 -- -- 01/10/24 07:09:17 98.4 (36.9) 109 Abnormal 18 118/70 92 -- -- 01/10/24 05:51:11 98.9 (37.2) 105 Abnormal 17 112/68 96 -- -- 01/10/24 0055 -- -- 17 -- -- -- -- 01/10/24 00:39:12 99.1 (37.3) 103 Abnormal -- 117/65 97 -- -- 01/10/24 0025 -- -- -- -- -- -- -- Comment rows: OBSERV: REPORT GIVEN TO FLOOR, RUNNER PAGED FOR TRANSPORT. at 01/10/24 0025 01/09/24 2330 -- 102 Abnormal 37 Abnormal 127/74 94 -- -- 01/09/240 -- 104 Abnormal 32 Abnormal 142/86 Abnormal 93 -- -- 01/09/242035 -- -- -- -- 94 Nasal cannula 3 01/09/242029 -- 108 Abnormal 31 Abnormal 125/78 95 -- -- 01/09/241946 -- -- -- -- -- Nasal cannula 5 01/09/241944 -- 109 Abnormal 23 Abnormal 103/73 93 -- -- 01/09/241921 99 (37.2) 122 Abnormal 15 118/58 Abnormal 91 None (Room air) -- EKG: Rhythm: sinus rhythm and sinus tachycardia BPM: 112 ST Segments: ST segments normal WEIGHT: 114.8 kg LABS: (Abnormal / Relevant): 01/08 700 - 01/09 0659 01/09 700 - 01/10 0659 Time: 1926 1939 1942 2013 2223 2302 0014 0015 0021 1022 1123 1139 1144 BLOOD GAS QUESTIONS ARTSITE Not sp... ARTSITE FIO2 21 FIO2 BLOOD GAS, ARTERIAL Hemoglobin, Blood Gas 12.0 Hemoglobin, Blood Gas Hematocrit, Calculated 36.8 Hematocrit, Calculated FIO2 21 FIO2 VENOUS BG pH, Venous 7.43 pH, Venous pCO2, [place] 37.0 pCO2, [place] pO2, [place] 44 pO2, [place] HCO3, [place] 24.5 HCO3, [place] Base Excess, [place] 0.4 Base Excess, [place] O2 Sat, [place] 78.6 O2 Sat, [place] MISC HEMOGLOBINS Hematocrit, Calculated 36.8 Hematocrit, Calculated Hemoglobin, Blood Gas 12.0 Hemoglobin, Blood Gas CHEM PROFILE Sodium 131 133 Sodium Potassium 3.8 3.5 Potassium Chloride 96 99 Chloride Bicarbonate 20 21 Bicarbonate Anion Gap 19 17 Anion Gap Glucose 128 109 Glucose BUN 16 13 BUN Creatinine 0.75 0.68 Creatinine eGFR 109 113 eGFR BUN/Creatinine Ratio 21.3 19.1 BUN/Creatinine Ratio Total Protein 6.2 Total Protein Albumin 2.9 Albumin Calcium 9.0 8.5 Calcium Bilirubin, Direct 0.2 Bilirubin, Direct ALK PHOS 131 ALK PHOS AST 69 AST ALT 61 ALT Total Bilirubin 0.5 Total Bilirubin LDH 207 LDH CARDIAC PROFILE Troponin T 8 8 Troponin T Delta Difference Troponin T 0 Delta Difference Troponin T Troponin T Interpretation Normal Troponin T Interpretation Interp Troponin T Delta Change No bio... Interp Troponin T Delta Change NT-Pro BNP 107 NT-Pro BNP OTHER CHEM Lactic Acid 0.8 Lactic Acid CBC WBC 27.10 21.49 WBC RBCs 4.13 3.86 RBCs Hemoglobin 12.0 11.2 Hemoglobin Hematocrit 35.5 33.4 Hematocrit MCV 86.0 86.5 MCV MCH 29.1 29.0 MCH MCHC 33.8 33.5 MCHC RDW 13.9 14.0 RDW Platelets 514 445 Platelets MPV 8.4 8.3 MPV DIFFERENTIAL Neutrophils 83.4 84.8 Neutrophils Lymphocytes 7.3 5.9 Lymphocytes Monocytes 4.2 5.9 Monocytes Eosinophils 0.8 1.7 Eosinophils Basophils 0.4 0.0 Basophils IG Percent 3.90 IG Percent Lymph Atypical 1.7 Lymph Atypical Neutrophils Abs 22.56 18.22 Neutrophils Abs Lymphocytes Abs 1.99 1.63 Lymphocytes Abs Monocytes Abs 1.13 1.27 Monocytes Abs Eosinophils Abs 0.23 0.37 Eosinophils Abs Basophils Abs 0.12 0.00 Basophils Abs IG Absolute 1.07 IG Absolute Nucleated RBC 0.0 0.0 Nucleated RBC Nucleated RBC Abs 0.00 0.00 Nucleated RBC Abs RBC Morphology See Co... RBC Morphology PROTIME W/ INR Protime 14.6 Protime INR 1.1 INR D-DIMER D-Dimer 8.66 D-Dimer DIABETES Hemoglobin A1C 6.1 Hemoglobin A1C Estimated Average Glucose 128 Estimated Average Glucose PROTEIN ELP Total Protein 6.2 Total Protein COVID-19 MOLECULAR COVID-19/INFLUENZA A,B MOLECULAR COVID-19/INFLUENZA A,B MOLECULAR SARS-CoV-2 Not De... SARS-CoV-2 CHEMISTRY, FLUID LDH BODY FLUID LDH BODY FLUID PROTEIN, BODY FLUID PROTEIN, BODY FLUID HEMATOLOGY/CELLS, FLUID Color, Fluid Yellow Color, Fluid Appearance, Fluid Cloudy Appearance, Fluid RBCs, Fluid 2,066 RBCs, Fluid WBC/Nuc Cells, Fluid 5,904 WBC/Nuc Cells, Fluid Neutrophils, Fluid 98 Neutrophils, Fluid Lymphocytes, Fluid 1 Lymphocytes, Fluid Monocytes, Fluid 1 Monocytes, Fluid IMAGING: (Abnormal / Relevant): XR CHEST AP/PA AND LAT 01/09/2024 7:46 pm 1. Prominent effusion as discussed on the right. Recommend follow-up to resolution. 2. The left lung is clear. CT PULMONARY ARTERIES 1. No obvious acute mediastinal process or pulmonary embolism. 2. Mild mediastinal and right hilar lymphadenopathy. 3. Moderate to prominent effusion on the right with areas of loculation along the lateral aspect and major fissure. 4. Small stable nodule in the lateral aspect of the left lower lobe. ECHOCARDIOGRAM COMPLETE W CONTRAST Summary 1. Left ventricular chamber dimension is normal. 2. Left ventricular systolic function is normal with an ejection fraction by Biplane Method of Discs of 60 %. 3. The left ventricular diastolic function is normal. 4. Right ventricular size and systolic function are normal. 5. Mobile atrial septum, positive agitated saline contrast study for interatrial shunt with normal breathing and Valsalva maneuver, likely patent foramen ovale... ED TX: 01/09/20242214 EDT sodium chloride (PF) (NS) 0.9 % contrast line flush 10 mL 10 mL Intravenous Given Prabhjot Casarez TECHNOLOGIST -- 01/09/20242214 EDT sodium chloride (PF) (NS) 0.9 % contrast line flush 80 mL 80 mL Intravenous Given Prabhjot Casarez TECHNOLOGIST -- 01/09/20242213 EDT iopamidoL (ISOVUE-370) 370 mg iodine /mL (76 %) injection 75 mL 75 mL Intravenous Contrast Administered Casarez, Prabhjot, TECHNOLOGIST Lot Number: [id number] Exp 01/09/2024 2345 EDT sodium chloride 0.9% (NS) -- Intravenous Canceled Entry Sweetie Huerta RN do not run per Dr. Bowen. 01/09/2024 2300 EDT sodium chloride 0.9% (NS) 0 mL/hr Intravenous Stopped Karol Lama RN -- 01/09/2024 2345 EDT sodium chloride 0.9% (NS) bolus 1,000 mL -- Intravenous Canceled Entry Sweetie Huerta RN Do not run per Dr. Camarena 01/10/2024 0030 EDT senna-docusate (SENNA-S) 8.6-50 mg per tablet 1 tablet 1 tablet Oral Not Given Sweetie Huerta RN -- DX: Loculated pleural effusion, right: Sepsis Acute hypoxemic respiratory failure Hyponatremia Metabolic Acidosis ASSESSMENT / PLAN: Lalitha Cartwright is a 53 y.o. male patient of [facility], Haley Coley MD with history of lung nodule, HLD, pleural effusion, who presented to [facility] on 01/09/2024 with chest pain. Loculated pleural effusion, right: Sepsis Present on admission: yes Etiology: Suspected empyema SIRS criteria: Heart rate greater than 90, Respiratory rate greater than 20 or PACO2 less than 32mmHg, WBC greater than 12,000, less than 4,000, or greater than 10% bands Evidence of end organ damage: none Initial lactic acid: Ordered Repeat lactic acid: Necessity dependent upon initial value Current antibiotic regimen: CTX and metronidazole Culture data: Blood cultures Vasopressors/steroids: none Initial sepsis checklist: Lactate ordered [x] Blood cultures obtained [x] Antibiotics initiated [x] IV fluids per sepsis protocol [] IR consult Acute hypoxemic respiratory failure: CTA pulmonary arteries: No obvious acute mediastinal process or pulmonary embolism. Mild mediastinal and right hilar lymphadenopathy. Moderate to prominent effusion on the right with areas of loculation along the lateral aspect and major fissure. Small stable nodule in the lateral aspect of the left lower lobe. Low flow oxygen protocols; wean as tolerated Hyponatremia: NS bolus and infusion Recheck in AM Metabolic Acidosis: Bicarb 20 by BMP on admission Check VBG and lactic acid HLD: Atorvastatin Cigarette nicotine dependence: Nicotine patch PRN Residence prior to admission: house or apartment Was patient transferred from outlying hospital or ED no Quality Measures DVT Prophylaxis: lovenox [place] Catheter: absent Medication Reconciliation: Verified Admitted with these risk variables:Acute Respiratory Failure, Electrolyte Disturbance: Hyponatremia, and Acidosis. Please see assessment and plan for further details. MEDS / ORDERS: Current Scheduled Medications Expand Hide (From admission, onward) Start Ordered Stop 01/11/24 0800 metroNIDAZOLE (FLAGYL) tablet 500 mg 500 mg, Oral, 3 times daily with meals 01/10/24 1850 -- 01/10/24 09 sertraline (ZOLOFT) tablet 150 mg 150 mg, Oral, Daily 01/09/24 234 -- 01/10/24 0900 enoxaparin (LOVENOX) syringe 40 mg 40 mg, Subcutaneous, Daily 01/09/24 234 -- 01/10/24 0100 cefTRIAXone (ROCEPHIN) IVPB 2 g (premix) 2,000 mg, Intravenous, 100 mL/hr, Every 24 hours 01/09/24 2344 -- 01/10/24 0030 rOPINIRole (REQUIP) tablet 2 mg 2 mg, Oral, At bedtime 01/09/24 234 -- 01/10/24 0030 atorvastatin (LIPITOR) tablet 40 mg 40 mg, Oral, Nightly 01/09/24 234 -- 01/10/24 0030 senna-docusate (SENNA-S) 8.6-50 mg per tablet 1 tablet 1 tablet, Oral, 2 times daily 01/09/242341 Regular diet Chest tube to continuous suction Ambulate patient 2 times daily with assistance Vital signs q 4 hours for 24 hours then q 8 hours Activity as tolerated Baseline oxygen trial q shift Saline lock iv Consult to pulmonology Consult to iv team O2 per protocol DISPO: TBD documented in this encounter [facility] 01-14-2024 Hospital course Narrative [facility] DISCHARGE SUMMARY -- [facility] Lalitha Cartwright Admitted: 01/09/2024 Discharge Date: 01/14/24 PCP Handoff Recommended Outpatient Testing Follow up with ct surgery Results Pending At Discharge none Clinical Summary Please follow up with ct surgery and continue with augmentin Assessment and Plan Lalitha Cartwright is a 53 y.o. male patient of [facility], Haley Coley MD with history of lung nodule, HLD, pleural effusion, who presented to [facility] on 01/09/2024 with chest pain. Loculated pleural effusion, right: empyma Sepsis Present on admission: yes Etiology: Suspected empyema IR consult - s/p chest tube with significanat output s/p lytics Pulmonary following - s/p lytic therapy on 01/09 [place] flagyl Pelural cultures pending Repeat cxr post first tpa dornase still showing effuision Pulmonary repeated lytics on 01/10 Plan for third dose on 01/12 Discussed - plan to dc with close outpatient follow up and augmentin. No growth on cultures Acute hypoxemic respiratory failure: improved CTA pulmonary arteries: No obvious acute mediastinal process or pulmonary embolism. Mild mediastinal and right hilar lymphadenopathy. Moderate to prominent effusion on the right with areas of loculation along the lateral aspect and major fissure. Small stable nodule in the lateral aspect of the left lower lobe. Low flow oxygen protocols; wean as tolerated Hyponatremia: resolved Metabolic Acidosis: Bicarb 20 by BMP on admission HLD: Atorvastatin Cigarette nicotine dependence: Nicotine patch PRN Discharge Medications Discharge Medications New Medications Details amoxicillin-clavulanate 875-125 mg per tablet Commonly known as: AUGMENTIN Take 1 (one) tablet by mouth 2 (two) times a day for 21 days . Quantity: 42 tablet Medications To Continue Details acetaminophen 325 MG tablet Commonly known as: TYLENOL Take 2 (two) tablets (650 mg total) by mouth every 6 (six) hours as needed Per pt . atorvastatin 40 MG tablet Commonly known as: LIPITOR Take 1 Unspecified by mouth daily . ibuprofen 200 MG tablet Commonly known as: ADVIL,MOTRIN Take 2 (two) tablets (400 mg total) by mouth every 6 (six) hours as needed Per pt - as needed . rOPINIRole 0.5 MG tablet Commonly known as: REQUIP Take 4 (four) tablets (2 mg total) by mouth at bedtime TAKE 1 TABLET BY MOUTH EVERYDAY AT BEDTIME . sertraline 100 MG tablet Commonly known as: ZOLOFT Take 1.5 (one and a half) tablets (150 mg total) by mouth daily TAKE 1.5 TABLETS DAILY . Physician(s) Follow Up: Ricardo Bone MD [address] [place] [address] Follow up Condition at Discharge: Stable Disposition: Home I reviewed discharge recommendations with the patient in person. Patient instructions, including activity, were given to the patient/family at discharge. On day of discharge I saw Lalitha Cartwright and spent: > 30 minutes on discharge. Completed by: Arthur Howe MD on 01/14/24, 12:02 PM documented in this encounter [facility] 01-14-2024 Hospital Discharge instructions Arthur Howe MD - 01/14/2024 12:00 PM EDT Please take augmentin as prescribed Please follow up with ct surgery. The following attachments cannot be sent through Care Everywhere.Chest Tube Removal: Post-op (Guinean)documented in this encounter [facility] 01-14-2024 Note Formatting of this n ote might be different from the original. Dressing to chest tube removal site clean/intact. No shortness of breath noted lungs clear with diminished bases. Remains on room air. [facility] 01-14-2024 Note Formatting of this n ote might be different from the original. CT chest imaging reviewed with improved empyema with remaining small loculations. Chest tube with 40ml OP overnight. Patient on RA without complaint Chest tube removed. Site covered with vaseline gauze, sterile 4X4 and secured with silk tape. Patient tolerated well. Will follow up with post pull CXR in 2H. [facility] 01-14-2024 History of Present illness Narrative PULMONOLOGY PROGRESS 01/14/2024 Patient: Lalitha Cartwright Date of : 1970 Site: [facility] Provider: Ender Cramer CNP ASSESSMENT/PLAN: Lalitha Cartwright 53 y.o. male with history of of smoking 30 pack years, hypercholesterolemia and obesity with a BMI of 34 who presents to the hospital with 2-week history of shortness of breath and cough . CT imaging reviewed indicating a R loculated empyema requiring chest tube placement and 4 days of intrapleural lytic therapy. Repeat CT imaging obtained 01/13 shows interval improvement of empyema with small residual loculations. CT with minimal output overnight. Leukocytosis improving. Plan to pull chest tube. Patient will need 21 days of antibiotic therapy with repeat imaging and follow up out patient with Dr. Eleazar Ashton. Strongly recommend smoking cessation. No new Assessment & Plan notes have been filed under this hospital service since the last note was generated. Service: Pulmonology SUBJECTIVE: History Since Last Visit: Chest tube output minimal overnight. Repeat CT reviewed. Plan to pull chest tube with imaging and pulmonary follow up. Pending Lab and Radiology Results Order Current Status CT Chest Without Contrast In process Blood Culture #1 Preliminary result Blood Culture #2 Preliminary result Body Fluid Aerobic Culture Preliminary result Body Fluid Anaerobic Culture Preliminary result Interpretation of Testing: I personally reviewed the Chest X-ray and CT chest and agree with the interpretation(s) with the following comments. Review of Systems: Constitutional:No fever, no weight loss Eyes:No diplopia ENT:No sinus drainage CV:No chest pain. No ankle swelling GI:No abdominal pain.No abdominal distention :No dysuria Neuro:No headache Integumentary:No skin rash All other systems reviewed and negative other than HPI OBJECTIVE: Physical Examination: BP 122/76 (BP Location: Left arm, Patient Position: Lying) Pulse 85 Temp 98.2 F (36.8 C) (Oral) Resp 16 Ht 6' Wt 114.8 kg (253 lb) SpO2 94% BMI 34.31 kg/m Temp: [97.7 F (36.5 C)-98.2 F (36.8 C)] 98.2 F (36.8 C) Heart Rate: [80-85] 85 Resp: [14-17] 16 BP: (107-122)/(65-76) 122/76 SpO2 Readings from Last 1 Encounters: 01/14/24 94% Intake/Output Summary (Last 24 hours) at 01/14/2024 1117 Last data filed at 01/14/2024 0721 Gross per 24 hour Intake 71.88 ml Output 230 ml Net -158.12 ml Vital Signs Reviewed. Gen: Alert and oriented x 3, In no apparent distress HEENT: Head: Normocephalic, no lesions, without obvious abnormality. Pharynx: Dental Hygiene adequate. Normal buccal mucosa. Normal pharynx. Neck: nontender, full range of motion, no mass, no focal lymphadenopathy Cardio: regular rate and rhythm, no murmur, brisk capillary refill Resp: clear to auscultation bilaterally, no wheezes or crackles, no tachypnea or accessory muscle use Abd: soft, nontender, nondistended, no hepatosplenomegaly, no mass, normal bowel sounds MSK: Moves all four extremities spontaneously. Neuro: Grossly normal without focal findings Skin: no rashes, no jaundice Laboratory and Additional Data Reviewed: [x] Medications reviewed. [x] Labs reviewed. Pertinent findings noted: WBC 15.64 [x] Radiology reviewed. Pertinent findings noted: CT chest [] Pathology reviewed. Pertinent findings noted: Family Update/ Code Status: Full Reviewed 01/14/24 11:17 AM: Laboratory, Microbiology, Cardiology, Medications, and Transcriptions Associated attestation - Yessenia Mac MD - 01/14/2024 2:54 PM EDT I have independently seen and examined the patient. I have reviewed the pertinent lab and diagnostic data (both new and old if applicable). I agree with the VESNA history, physical exam, and assessment and plan, with any modifications noted below. If present, please see my separate consult or progress note for additional details. 53yo with hx of tobacco abuse who presented with 2 weeks of shortness of breath and cough found to have a complex R loculated pleural effusion consistent with empyema, s/p chest tube placement. Right sided empyema - cx negative - improved after 4 doses of lytics but not completely resolved. Now on RA. Continue antibiotics x 3 weeks with repeat imaging at that time. Pending resolution may need evaluation for VATS decortication. Tobacco use - continues to use - counseled on importance of cessation. Possible COPD - recommend OP PFTs CRITICAL CARE PROGRESS 01/13/2024 Patient: Lalitha Cartwright Date of : 1970 Site: [facility] Provider: Francisco Vega MD ASSESSMENT/PLAN: Lalitha Cartwright 53 y.o. male with history of cigarette smoking being treated by the pulmonary consult service for an empyema with tPA dornase Patient received a third dose of the lytics last night drained approximately 1.2 L x-ray looks slightly better no side effects or complications This morning I increased the negative pressure and flushed the tube with no improvement therefore a fourth dose of lytics was administered at 3:30 PM The physical exam has improved significantly patient has no pulse in the right hemithorax there is a still the breath sounds remain diminished however Data review CRP 66 white count is 15.6 improved from 27 on admission Hemoglobin 12.2 no significant The patient was assessed approximately a 540 and now he has only drained about 200 mL. Therefore I flushed the tube with no improvement in the output. Will order a chest x-ray in the morning Pulmonary will continue to follow event I am not here tomorrow Mr. Cramer will follow in the morning and discussed with attending physician Francisco Vega MD PhD Board certified in pulmonary critical care Please note that this note was generated using a voice recognition system which may at times change words leading to an incomprehensible statement. Therefore, [place] [phone] Pending Lab and Radiology Results Order Current Status Blood Culture #1 Preliminary result Blood Culture #2 Preliminary result Body Fluid Aerobic Culture Preliminary result Body Fluid Anaerobic Culture Preliminary result OBJECTIVE: Physical Examination: BP 109/71 Pulse 82 Temp 98 F (36.7 C) (Oral) Resp 16 Ht 6' Wt 114.8 kg (253 lb) SpO2 97% BMI 34.31 kg/m Temp: [97.3 F (36.3 C)-98 F (36.7 C)] 98 F (36.7 C) Heart Rate: [79-87] 82 Resp: [14-20] 16 BP: (104-109)/(65-74) 109/71 SpO2 Readings from Last 1 Encounters: 01/13/24 97% Intake/Output Summary (Last 24 hours) at 01/13/2024 1258 Last data filed at 01/13/2024 0539 Gross per 24 hour Intake 157.63 ml Output 695 ml Net -537.37 ml Vital Signs Reviewed. MEDICATIONS: Current Facility-Administered Medications Medication Dose Route Frequency Provider Last Rate Last Admin acetaminophen (TYLENOL) tablet 650 mg 650 mg Oral Q4H PRN Moses Bowen MD 650 mg at 01/10/24 1753 alteplase (INTRAPLEURAL) 10 mg/30 mL injection 10 mg Intrapleural Once Francisco Vega MD aluminum-magnesium hydroxide-simethicone (MAALOX PLUS) 200-200-20 mg/5 mL suspension 30 mL 30 mL Oral Q4H PRN Moses Bowen MD atorvastatin (LIPITOR) tablet 40 mg 40 mg Oral Nightly Moses Bowen MD 40 mg at 01/12/242009 bisacodyL (DULCOLAX) suppository 10 mg 10 mg Rectal Daily PRN Moses Bowen MD cefTRIAXone (ROCEPHIN) IVPB 2 g (premix) 2,000 mg Intravenous Q24H Moses Bowen MD Stopped at 01/13/24 0216 dornase (PULMOZYME) 5 mg/30 ml intrapleural injection 5 mg Intrapleural Once Francisco Vega MD enoxaparin (LOVENOX) syringe 40 mg 40 mg Subcutaneous Daily Moses Bowen MD 40 mg at 01/13/24 0819 ibuprofen (ADVIL,MOTRIN) tablet 600 mg 600 mg Oral Q6H PRN Moses Bowen MD magnesium hydroxide (MOM) 400 mg/5 mL suspension 2,400 mg 30 mL Oral Daily PRN Moses Bowen MD melatonin Tab 5 mg 5 mg Oral Nightly PRN Moses Bowen MD metroNIDAZOLE (FLAGYL) tablet 500 mg 500 mg Oral TID with meals Francisco Vega MD 500 mg at 01/13/24 1237 morphine (MSIR) tablet 7.5-15 mg 7.5-15 mg Oral Q4H PRN Moses Bowen MD 15 mg at 01/12/24 0004 morphine injection 2-4 mg 2-4 mg Intravenous Q3H PRN Moses Bowen MD 2 mg at 01/10/24 1830 naloxone (NARCAN) injection 0.1 mg 0.1 mg Intravenous PRN Moses Bowen MD And naloxone (NARCAN) injection 0.4 mg 0.4 mg Intravenous PRN Moses Bowen MD nicotine (NICODERM CQ) 14 mg/24 hr 1 patch 1 patch Transdermal Daily PRN Moses Bowen MD ondansetron (ZOFRAN-ODT) disintegrating tablet 4 mg 4 mg Oral Q6H PRN Moses Bowen MD Or ondansetron (ZOFRAN) injection 4 mg 4 mg Intravenous Q6H PRN Moses Bowen MD rOPINIRole (REQUIP) tablet 2 mg 2 mg Oral at bedtime Moses Bowen MD 2 mg at 01/12/242009 senna (SENOKOT) tablet 8.6 mg 1 tablet Oral BID PRN Moses Bowen MD senna-docusate (SENNA-S) 8.6-50 mg per tablet 1 tablet 1 tablet Oral BID Moses Bowen MD 1 tablet at 01/13/24 0819 sertraline (ZOLOFT) tablet 150 mg 150 mg Oral Daily Moses Bowen MD 150 mg at 01/13/24 0819 sodium chloride (PF) (NS) flush 5 mL 5 mL Intravenous PRN Renato Carlos MD And sodium chloride 0.9% (NS) 0-150 mL/hr Intravenous PRN Renato Carlos MD traZODone (DESYREL) tablet 50 mg 50 mg Oral Nightly PRN Moses Bowen MD Reviewed 01/13/24 12:58 PM: Review of systems was performed no additional symptoms. 90 phytotoxin further discussion Physical exam was concerning a note portion of the chart Imaging review. Laboratory data also independently reviewed by me [facility] PROGRESS NOTE Assessment and Plan Lalitha Cartwright is a 53 y.o. male patient of [facility], Haley Coley MD with history of lung nodule, HLD, pleural effusion, who presented to [facility] on 01/09/2024 with chest pain. Loculated pleural effusion, right: empyma Sepsis Present on admission: yes Etiology: Suspected empyema IR consult - s/p chest tube with significanat output s/p lytics Pulmonary following - s/p lytic therapy on 01/09 [place] flagyl Pelural cultures pending Repeat cxr post first tpa dornase still showing effuision Pulmonary repeated lytics on 01/10 Plan for third dose on 01/12 Continue to follow Acute hypoxemic respiratory failure: improved CTA pulmonary arteries: No obvious acute mediastinal process or pulmonary embolism. Mild mediastinal and right hilar lymphadenopathy. Moderate to prominent effusion on the right with areas of loculation along the lateral aspect and major fissure. Small stable nodule in the lateral aspect of the left lower lobe. Low flow oxygen protocols; wean as tolerated Hyponatremia: resolved Metabolic Acidosis: Bicarb 20 by BMP on admission HLD: Atorvastatin Cigarette nicotine dependence: Nicotine patch PRN Discharge Planning Medically Stable for Discharge Date: -2 Patient requires continued hospitalization due to: pulmonary eval Discharge Location: home Quality Measures DVT Prophylaxis: lovenox Grayson Catheter: absent Code Status full code Primary Contact Information Subjective Feels good, seen walking around the room. Was evaluated by pulmonary and plan for a third dose of lytic therapy today. Patient is upset that he has to continue to be here . Seen with at bedside who is in agreement with plan Objective BP 109/71 Pulse 82 Temp 98 F (36.7 C) (Oral) Resp 16 Ht 6' Wt 114.8 kg (253 lb) SpO2 97% BMI 34.31 kg/m Physical Examination General Appearance: alert; well appearing; in no acute distress HEENT: Head- normocephalic; Eyes- EOMI, sclera anicteric; Throat- mucous membranes moist Cardiovascular: regular rate and rhythm; normal S1, S2; no murmurs, rubs, clicks or gallops; peripheral edema absent Respiratory: lungs clear to auscultation; without wheezes, rales or rhonchi; on nasal cannula Abdomen: soft, non-tender, non-distended Neurological: oriented x 3; normal speech; no focal findings or movement disorder noted Musculoskeletal: no significant deformity or tenderness to palpation Skin: normal coloration Psych: normal mood and affect Chest tube in place CRITICAL CARE PROGRESS 01/12/2024 Patient: Lalitha Cartwright Date of : 1970 Site: [facility] Provider: Francisco Vega MD ASSESSMENT/PLAN: Lalitha Cartwright 53 y.o. male with history of cigarette smoking being treated by pulmonary with tPA dornase for empyema Chest x-ray was reviewed fortunately there is still a lot of fluid left in the chest On physical exam no significant changes The chest tube was examined with the patient's nurse Clement Who explained that the tube has not drained daily nonetheless comparison to the amount of fluid left when the last dose was administered patient drained approximately 700 mL which in the present context is considered a success since less than 250 mL is considered a failure Therefore will administer a single additional dose tPA not This dose was administered at approximately 11 PM Pulm will currently unclamp the tube at approximately 1 AM Incidentally found that the patient also had Lopez severe sleep apnea and upon further interview he acknowledge that he has been diagnosed with this condition and has a CPAP machine at home Therefore we will also implement CPAP while in the hospital Continue antibiotics Will review the data tomorrow and consider third dose Francisco Vega MD PhD Board certified in pulmonary critical care Please note that this note was generated using a voice recognition system which may at times change words leading to an incomprehensible statement. Therefore, [place] [phone] Pending Lab and Radiology Results Order Current Status Blood Culture #1 Preliminary result Blood Culture #2 Preliminary result Body Fluid Aerobic Culture Preliminary result Body Fluid Anaerobic Culture Preliminary result OBJECTIVE: Physical Examination: BP 109/74 Pulse 86 Temp 97.3 F (36.3 C) (Oral) Resp (!) 20 Ht 6' Wt 114.8 kg (253 lb) SpO2 94% BMI 34.31 kg/m Temp: [97.3 F (36.3 C)-97.8 F (36.6 C)] 97.3 F (36.3 C) Heart Rate: [82-87] 86 Resp: [10-20] 20 BP: (106-113)/(70-75) 109/74 SpO2 Readings from Last 1 Encounters: 01/12/24 94% Intake/Output Summary (Last 24 hours) at 01/12/2024 2312 Last data filed at 01/12/2024 1952 Gross per 24 hour Intake 107.63 ml Output 810 ml Net -702.37 ml Vital Signs Reviewed. Physical exam was significantly different Current Facility-Administered Medications Medication Dose Route Frequency Provider Last Rate Last Admin acetaminophen (TYLENOL) tablet 650 mg 650 mg Oral Q4H PRN Moses Bowen MD 650 mg at 01/10/24 1753 alteplase (INTRAPLEURAL) 10 mg/30 mL injection 10 mg Intrapleural Once Francisco Vega MD aluminum-magnesium hydroxide-simethicone (MAALOX PLUS) 200-200-20 mg/5 mL suspension 30 mL 30 mL Oral Q4H PRN Moses Bowen MD atorvastatin (LIPITOR) tablet 40 mg 40 mg Oral Nightly Moses Bowen MD 40 mg at 01/12/242009 bisacodyL (DULCOLAX) suppository 10 mg 10 mg Rectal Daily PRN Moses Bowen MD cefTRIAXone (ROCEPHIN) IVPB 2 g (premix) 2,000 mg Intravenous Q24H Moses Bowen MD Stopped at 01/12/24 0032 dornase (PULMOZYME) 5 mg/30 ml intrapleural injection 5 mg Intrapleural Once Francisco Vega MD enoxaparin (LOVENOX) syringe 40 mg 40 mg Subcutaneous Daily Moses Bowen MD 40 mg at 01/12/24 0847 ibuprofen (ADVIL,MOTRIN) tablet 600 mg 600 mg Oral Q6H PRN Moses Bowen MD magnesium hydroxide (MOM) 400 mg/5 mL suspension 2,400 mg 30 mL Oral Daily PRN Moses Bowen MD melatonin Tab 5 mg 5 mg Oral Nightly PRN Moses Bowen MD metroNIDAZOLE (FLAGYL) tablet 500 mg 500 mg Oral TID with meals Francisco Vega MD 500 mg at 01/12/24 1746 morphine (MSIR) tablet 7.5-15 mg 7.5-15 mg Oral Q4H PRN Moses Bowen MD 15 mg at 01/12/24 0004 morphine injection 2-4 mg 2-4 mg Intravenous Q3H PRN Moses Bowen MD 2 mg at 01/10/24 1830 naloxone (NARCAN) injection 0.1 mg 0.1 mg Intravenous PRN Moses Bowen MD And naloxone (NARCAN) injection 0.4 mg 0.4 mg Intravenous PRN Moses Bowen MD nicotine (NICODERM CQ) 14 mg/24 hr 1 patch 1 patch Transdermal Daily PRN Moses Bowen MD ondansetron (ZOFRAN-ODT) disintegrating tablet 4 mg 4 mg Oral Q6H PRN Moses Bowen MD Or ondansetron (ZOFRAN) injection 4 mg 4 mg Intravenous Q6H PRN Moses Bowen MD rOPINIRole (REQUIP) tablet 2 mg 2 mg Oral at bedtime Moses Bowen MD 2 mg at 01/12/242009 senna (SENOKOT) tablet 8.6 mg 1 tablet Oral BID PRN Moses Bowen MD senna-docusate (SENNA-S) 8.6-50 mg per tablet 1 tablet 1 tablet Oral BID Moses Bowen MD 1 tablet at 01/12/242009 sertraline (ZOLOFT) tablet 150 mg 150 mg Oral Daily Moses Bowen MD 150 mg at 01/12/24 0847 sodium chloride (PF) (NS) flush 5 mL 5 mL Intravenous PRN Renato Carlos MD And sodium chloride 0.9% (NS) 0-150 mL/hr Intravenous PRN Renato Carlos MD traZODone (DESYREL) tablet 50 mg 50 mg Oral Nightly PRN Creasapoli, Moses Davis MD occasions and available testing were reviewed [facility] PROGRESS NOTE Assessment and Plan Lalitha Cartwright is a 53 y.o. male patient of [facility], Haley Coley MD with history of lung nodule, HLD, pleural effusion, who presented to [facility] on 01/09/2024 with chest pain. Loculated pleural effusion, right: empyma Sepsis Present on admission: yes Etiology: Suspected empyema IR consult - s/p chest tube with significanat output s/p lytics Pulmonary following - s/p lytic therapy on 01/09 [place] flagyl Pelural cultures pending Repeat cxr post first tpa dornase still showing effuision Pulmonary repeated lytics on 01/10 Continue to follow Acute hypoxemic respiratory failure: improved CTA pulmonary arteries: No obvious acute mediastinal process or pulmonary embolism. Mild mediastinal and right hilar lymphadenopathy. Moderate to prominent effusion on the right with areas of loculation along the lateral aspect and major fissure. Small stable nodule in the lateral aspect of the left lower lobe. Low flow oxygen protocols; wean as tolerated Hyponatremia: resolved Metabolic Acidosis: Bicarb 20 by BMP on admission HLD: Atorvastatin Cigarette nicotine dependence: Nicotine patch PRN Discharge Planning Medically Stable for Discharge Date: 09-25 Patient requires continued hospitalization due to: pulmonary eval Discharge Location: home Quality Measures DVT Prophylaxis: lovenox Gr[place] Catheter: absent Code Status full code Primary Contact Information Subjective Feels good, did get additional tpa dornase overnight , discussed plan of care with at bedside Objective BP 107/75 (BP Location: Left arm, Patient Position: Lying) Pulse 87 Temp 97.5 F (36.4 C) (Oral) Resp 16 Ht 6' Wt 114.8 kg (253 lb) SpO2 96% BMI 34.31 kg/m Physical Examination General Appearance: alert; well appearing; in no acute distress HEENT: Head- normocephalic; Eyes- EOMI, sclera anicteric; Throat- mucous membranes moist Cardiovascular: regular rate and rhythm; normal S1, S2; no murmurs, rubs, clicks or gallops; peripheral edema absent Respiratory: lungs clear to auscultation; without wheezes, rales or rhonchi; on nasal cannula Abdomen: soft, non-tender, non-distended Neurological: oriented x 3; normal speech; no focal findings or movement disorder noted Musculoskeletal: no significant deformity or tenderness to palpation Skin: normal coloration Psych: normal mood and affect CRITICAL CARE PROGRESS 01/11/2024 Patient: Lalitha Cartwright Date of : 1970 Site: [facility] Provider: Francisco Vega MD ASSESSMENT/PLAN: Lalitha Cartwright 53 y.o. male with history of cigarette smoking being treated by pulmonary with tPA dornase for an empyema Patient drained approximately 3 L of purulent material overnight and felt better Chest x-ray shows persistent moderate-sized pleural effusion for which reason an additional dose tPA dornase will be administered at the moment The physical exam has improved although the breath sounds remain diminished on the right base Therefore continue tPA dornase reassess via a chest x-ray since this provides good assessment of the empyema in particular the collection in the middle fissure major fissure Continue antibiotics Pulmonary will continue to follow Francisco Vega MD PhD Board certified in pulmonary critical care Please note that this note was generated using a voice recognition system which may at times change words leading to an incomprehensible statement. Therefore, [place] [phone] Pending Lab and Radiology Results Order Current Status Body Fluid Anaerobic Culture In process Blood Culture #1 Preliminary result Blood Culture #2 Preliminary result Body Fluid Aerobic Culture Preliminary result XR Chest 1 View Preliminary result OBJECTIVE: Physical Examination: BP 102/66 Pulse 91 Temp 98.6 F (37 C) (Oral) Resp 18 Ht 6' Wt 114.8 kg (253 lb) SpO2 94% BMI 34.31 kg/m Temp: [97.8 F (36.6 C)-102.2 F (39 C)] 98.6 F (37 C) Heart Rate: [84-107] 91 Resp: [16-18] 18 BP: (102-119)/(66-74) 102/66 SpO2 Readings from Last 1 Encounters: 01/11/24 94% Intake/Output Summary (Last 24 hours) at 01/11/2024 1525 Last data filed at 01/11/2024 1000 Gross per 24 hour Intake 720 ml Output 2516 ml Net -1796 ml Vital Signs Reviewed. MEDICATIONS: Current Facility-Administered Medications Medication Dose Route Frequency Provider Last Rate Last Admin acetaminophen (TYLENOL) tablet 650 mg 650 mg Oral Q4H PRN Moses Bowen MD 650 mg at 01/10/24 1753 alteplase (INTRAPLEURAL) 10 mg/30 mL injection 10 mg Intrapleural Once Ender Cramer CNP aluminum-magnesium hydroxide-simethicone (MAALOX PLUS) 200-200-20 mg/5 mL suspension 30 mL 30 mL Oral Q4H PRN Moses Bowen MD atorvastatin (LIPITOR) tablet 40 mg 40 mg Oral Nightly Moses Bowen MD 40 mg at 01/10/24 213 bisacodyL (DULCOLAX) suppository 10 mg 10 mg Rectal Daily PRN Moses Bowen MD cefTRIAXone (ROCEPHIN) IVPB 2 g (premix) 2,000 mg Intravenous Q24H Moses Bowen MD 100 mL/hr at 01/11/24 0227 2,000 mg at 01/11/24 0227 dornase (PULMOZYME) 5 mg/30 ml intrapleural injection 5 mg Intrapleural Once Ender Cramer CNP enoxaparin (LOVENOX) syringe 40 mg 40 mg Subcutaneous Daily Moses Bowen MD 40 mg at 01/11/24 0805 ibuprofen (ADVIL,MOTRIN) tablet 600 mg 600 mg Oral Q6H PRN Moses Bowen MD magnesium hydroxide (MOM) 400 mg/5 mL suspension 2,400 mg 30 mL Oral Daily PRN Moses Bowen MD melatonin Tab 5 mg 5 mg Oral Nightly PRN Moses Bowen MD metroNIDAZOLE (FLAGYL) tablet 500 mg 500 mg Oral TID with meals Francisco Vega MD 500 mg at 01/11/24 1215 morphine (MSIR) tablet 7.5-15 mg 7.5-15 mg Oral Q4H PRN Moses Bowen MD morphine injection 2-4 mg 2-4 mg Intravenous Q3H PRN Moses Bowen MD 2 mg at 01/10/24 1830 naloxone (NARCAN) injection 0.1 mg 0.1 mg Intravenous PRN Moses Bowen MD And naloxone (NARCAN) injection 0.4 mg 0.4 mg Intravenous PRN Moses Bowen MD nicotine (NICODERM CQ) 14 mg/24 hr 1 patch 1 patch Transdermal Daily PRN Moses Bowen MD ondansetron (ZOFRAN-ODT) disintegrating tablet 4 mg 4 mg Oral Q6H PRN Moses Bowen MD Or ondansetron (ZOFRAN) injection 4 mg 4 mg Intravenous Q6H PRN Moses Bowen MD perflutren lipid microspheres (DEFINITY) 0.143 mg/mL solution 0-10 mL of mixture 0-10 mL of mixture Intravenous Once in imaging Arthur Howe MD 2 mL of mixture at 01/10/24 1005 rOPINIRole (REQUIP) tablet 2 mg 2 mg Oral at bedtime Moses Bowen MD 2 mg at 01/10/24 2132 senna (SENOKOT) tablet 8.6 mg 1 tablet Oral BID PRN Moses Bowen MD senna-docusate (SENNA-S) 8.6-50 mg per tablet 1 tablet 1 tablet Oral BID Moses Bowen MD 1 tablet at 01/10/24 2133 sertraline (ZOLOFT) tablet 150 mg 150 mg Oral Daily Moses Bowen MD 150 mg at 01/11/24 0804 sodium chloride (PF) (NS) flush 5 mL 5 mL Intravenous PRN Renato Carlos MD And sodium chloride 0.9% (NS) 0-150 mL/hr Intravenous PRN Renato Carlos MD traZODone (DESYREL) tablet 50 mg 50 mg Oral Nightly PRN Moses Bowen MD Spiritual Care Progress Note Completed by: Svetlana Carlos Person(s) Present During this Visit: Patient/Family Together Time Spent in Direct Patient Care: 15 Narrative: While rounding on 2 SW charge master specialist introduced self and role as a part of ongoing emotional and spiritual support. Information regarding pastoral care services and how to contact was provided. Pt expressed deep gratitude for being able to breathe better today. His spouse was at bedside. They both feel blessed for the relief Lalitha is feeling compared to when he came in. No further spiritual issues expressed. Chaplains will remain available to support patient as needed/requested. Patients Response to Pastoral Care: Appeared to be well-engaged, Expressed Gratitude for Visit Planning for Future Visits: Pt aware to contact Teletypesetter Monitor as needed Svetlana Carlos MDiv Staff Teletypesetter Monitor Pastoral Care Department [facility] [phone] on-call [phone] office 01/11/24 1345 Visit Background Visit With Patient/Family Together Visit By Staff Teletypesetter Monitor Visit Progression Introduction Visit Requested By Teletypesetter Monitor Initiated Visit Source Teletypesetter Monitor Initiated Visit Type Inpatient;Rounding Visit Circumstances and Events Routine Visit;Family Support Visit Length (minutes) 15 Patient's Response to Pastoral Care Appeared to be well-engaged;Expressed Gratitude for Visit Visit Planning Pt aware to contact Teletypesetter Monitor as needed Spiritual Assessment Not assessed during visit Yazidism Assessment Not assessed during this visit Family assessment provided? Not assessed during this visit [facility] PROGRESS NOTE Assessment and Plan Lalitha Cartwright is a 53 y.o. male patient of Haley Ulloa MD with history of lung nodule, HLD, pleural effusion, who presented to [facility] on 01/09/2024 with chest pain. Loculated pleural effusion, right: empyma Sepsis Present on admission: yes Etiology: Suspected empyema IR consult - s/p chest tube with significanat output s/p lytics Pulmonary following - s/p lytic therapy on 01/09 [place] f flagyl Pelural cultures pending Will need follow up imaging per pulmonary Acute hypoxemic respiratory failure: CTA pulmonary arteries: No obvious acute mediastinal process or pulmonary embolism. Mild mediastinal and right hilar lymphadenopathy. Moderate to prominent effusion on the right with areas of loculation along the lateral aspect and major fissure. Small stable nodule in the lateral aspect of the left lower lobe. Low flow oxygen protocols; wean as tolerated Hyponatremia: resolved Metabolic Acidosis: Bicarb 20 by BMP on admission HLD: Atorvastatin Cigarette nicotine dependence: Nicotine patch PRN Discharge Planning Medically Stable for Discharge Date: 09-25 Patient requires continued hospitalization due to: pulmonary eval Discharge Location: home Quality Measures DVT Prophylaxis: lovenox Gr[place] Catheter: absent Code Status full code Primary Contact Information Subjective Feels really good, breathing is much better Objective BP 102/66 Pulse 91 Temp 98.6 F (37 C) (Oral) Resp 18 Ht 6' Wt 114.8 kg (253 lb) SpO2 94% BMI 34.31 kg/m Physical Examination General Appearance: alert; well appearing; in no acute distress HEENT: Head- normocephalic; Eyes- EOMI, sclera anicteric; Throat- mucous membranes moist Cardiovascular: regular rate and rhythm; normal S1, S2; no murmurs, rubs, clicks or gallops; peripheral edema absent Respiratory: lungs clear to auscultation; without wheezes, rales or rhonchi; on nasal cannula Abdomen: soft, non-tender, non-distended Neurological: oriented x 3; normal speech; no focal findings or movement disorder noted Musculoskeletal: no significant deformity or tenderness to palpation Skin: normal coloration Psych: normal mood and affect [facility] PROGRESS NOTE Assessment and Plan Lalitha Cartwright is a 53 y.o. [facility] with [facility] of lung nodule, HLD, pleural effusion, who presented to [facility] on 01/09/2024 with chest pain. Loculated pleural effusion, right: Sepsis Present on admission: yes Etiology: Suspected empyema IR consult - s/p chest tube Consult pulmonary for management and possible lytic therapy [place] flagyl Acute hypoxemic respiratory failure: CTA pulmonary arteries: No obvious acute mediastinal process or pulmonary embolism. Mild mediastinal and right hilar lymphadenopathy. Moderate to prominent effusion on the right with areas of loculation along the lateral aspect and major fissure. Small stable nodule in the lateral aspect of the left lower lobe. Low flow oxygen protocols; wean as tolerated Hyponatremia: resolved Metabolic Acidosis: Bicarb 20 by BMP on admission HLD: Atorvastatin Cigarette nicotine dependence: Nicotine patch PRN Discharge Planning Medically Stable for Discharge Date: 2-3 days Patient requires continued hospitalization due to: pulmonary eval Discharge Location: home Quality Measures DVT Prophylaxis: lovenox Grayson Catheter: absent Code Status full code Primary Contact Information Subjective Feels better then arrival. No acute complaints Patient has been having symptoms for 2 weeks Objective BP 107/74 (BP Location: Left arm, Patient Position: Lying) Pulse 99 Temp 98.4 F (36.9 C) (Oral) Resp 17 Ht 6' Wt 114.8 kg (253 lb) SpO2 93% BMI 34.31 kg/m Physical Examination General Appearance: alert; well appearing; in no acute distress HEENT: Head- normocephalic; Eyes- EOMI, sclera anicteric; Throat- mucous membranes moist Cardiovascular: regular rate and rhythm; normal S1, S2; no murmurs, rubs, clicks or gallops; peripheral edema absent Respiratory: lungs clear to auscultation; without wheezes, rales or rhonchi; on nasal cannula Abdomen: soft, non-tender, non-distended Neurological: oriented x 3; normal speech; no focal findings or movement disorder noted Musculoskeletal: no significant deformity or tenderness to palpation Skin: normal coloration Psych: normal mood and affect documented in this encounter [facility] 01-14-2024 Note Formatting of this n ote might be different from the original. POC reviewed. Problem: Actual or potential alteration in health Goal: Absence of healthcare acquired conditions Outcome: Partially Met Goal: Knowledge of Interdisciplinary Plan of Care Outcome: Partially Met Goal: Knowledge of Enviroment Outcome: Partially Met Problem: Pain Goal: Reduced pain sensation Outcome: Partially Met Goal: Control of acute pain to acceptable level Outcome: Partially Met Goal: Able to cope with pain Outcome: Partially Met Goal: Able to achieve maximum level of physical functioning Outcome: Partially Met Goal: Able to achieve maximum level of psychosocial functioning Outcome: Partially Met [facility] 01-14-2024 Note Formatting of this n ote might be different from the original. Dressing to right posterior lower lung field clean /intact. No new drainage noted. No respiratory distress . Hopeful to go home today. [facility] 01-12-2024 Note Formatting of this n ote might be different from the original. Dr. Vega in room T [facility] 01-12-2024 Note Formatting of this n ote might be different from the original. Dr Vega called. Message left that requested medication is ready. [facility] 01-12-2024 Note Formatting of this n ote might be different from the original. POC reviews and continues. Problem: Actual or potential alteration in health Goal: Absence of healthcare acquired conditions Outcome: Partially Met Goal: Knowledge of Interdisciplinary Plan of Care Outcome: Partially Met Goal: Knowledge of Enviroment Outcome: Partially Met Problem: Pain Goal: Reduced pain sensation Outcome: Partially Met Goal: Control of acute pain to acceptable level Outcome: Partially Met Goal: Able to cope with pain Outcome: Partially Met Goal: Able to achieve maximum level of physical functioning Outcome: Partially Met Goal: Able to achieve maximum level of psychosocial functioning Outcome: Partially Met T [facility] 01-10-2024 Note Formatting of this n ote is different from the original. Images from the original note were not included. [facility] Utilization Review Notes EMERGENCY TEMPLATE HISTORY OF PRESENT ILLNESS: Chief Complaint Chest pain History of Present Illness Lalitha Cartwright is a 53 y.o. male patient of [facility] MD with history of lung nodule, HLD, pleural effusion, who presented to [facility] on 01/09/2024 with chest pain. Right sided. Moderate severity. Worse with movement or deep breaths. Present for the past 10 days or so. Went to [facility] ED on 01/03 and found to have a pleural effusion. Sent home with Percocet and Levaquin prescriptions. No fever, chills, leg swelling, calf pain. PROCEDURE: 1. ULTRASOUND-GUIDED right SIDED CHEST TUBE PLACEMENT. 2. MODERATE SEDATION. VITAL SIGNS: 01/10/24 1045 -- 104 Abnormal 19 Abnormal 122/75 95 Nasal cannula 5 01/10/24 07:26:28 98 (36.7) 108 Abnormal 18 114/73 95 -- -- 01/10/24 07:09:17 98.4 (36.9) 109 Abnormal 18 118/70 92 -- -- 01/10/24 05:51:11 98.9 (37.2) 105 Abnormal 17 112/68 96 -- -- 01/10/24 0055 -- -- 17 -- -- -- -- 01/10/24 00:39:12 99.1 (37.3) 103 Abnormal -- 117/65 97 -- -- 01/10/24 0025 -- -- -- -- -- -- -- Comment rows: OBSERV: REPORT GIVEN TO FLOOR, RUNNER PAGED FOR TRANSPORT. at 01/10/24 0025 01/09/24 2330 -- 102 Abnormal 37 Abnormal 127/74 94 -- -- 01/09/242199 -- 104 Abnormal 32 Abnormal 142/86 Abnormal 93 -- -- 01/09/242035 -- -- -- -- 94 Nasal cannula 3 01/09/242029 -- 108 Abnormal 31 Abnormal 125/78 95 -- -- 01/09/241946 -- -- -- -- -- Nasal cannula 5 01/09/241944 -- 109 Abnormal 23 Abnormal 103/73 93 -- -- 01/09/241921 99 (37.2) 122 Abnormal 15 118/58 Abnormal 91 None (Room air) -- EKG: Rhythm: sinus rhythm and sinus tachycardia BPM: 112 ST Segments: ST segments normal WEIGHT: 114.8 kg LABS: (Abnormal / Relevant): 01/08 0700 - 01/09 0659 01/09 07 - 01/10 0659 Time: 19264 2302 0014 0015 0021 1022 1123 1139 1144 BLOOD GAS QUESTIONS ARTSITE Not sp... ARTSITE FIO2 21 FIO2 BLOOD GAS, ARTERIAL Hemoglobin, Blood Gas 12.0 Hemoglobin, Blood Gas Hematocrit, Calculated 36.8 Hematocrit, Calculated FIO2 21 FIO2 VENOUS BG pH, Venous 7.43 pH, Venous pCO2, [place] 37.0 pCO2, [place] pO2, [place] 44 pO2, [place] HCO3, [place] 24.5 HCO3, [place] Base Excess, [place] 0.4 Base Excess, [place] O2 Sat, [place] 78.6 O2 Sat, [place] MISC HEMOGLOBINS Hematocrit, Calculated 36.8 Hematocrit, Calculated Hemoglobin, Blood Gas 12.0 Hemoglobin, Blood Gas CHEM PROFILE Sodium 131 133 Sodium Potassium 3.8 3.5 Potassium Chloride 96 99 Chloride Bicarbonate 20 21 Bicarbonate Anion Gap 19 17 Anion Gap Glucose 128 109 Glucose BUN 16 13 BUN Creatinine 0.75 0.68 Creatinine eGFR 109 113 eGFR BUN/Creatinine Ratio 21.3 19.1 BUN/Creatinine Ratio Total Protein 6.2 Total Protein Albumin 2.9 Albumin Calcium 9.0 8.5 Calcium Bilirubin, Direct 0.2 Bilirubin, Direct ALK PHOS 131 ALK PHOS AST 69 AST ALT 61 ALT Total Bilirubin 0.5 Total Bilirubin LDH 207 LDH CARDIAC PROFILE Troponin T 8 8 Troponin T Delta Difference Troponin T 0 Delta Difference Troponin T Troponin T Interpretation Normal Troponin T Interpretation Interp Troponin T Delta Change No bio... Interp Troponin T Delta Change NT-Pro BNP 107 NT-Pro BNP OTHER CHEM Lactic Acid 0.8 Lactic Acid CBC WBC 27.10 21.49 WBC RBCs 4.13 3.86 RBCs Hemoglobin 12.0 11.2 Hemoglobin Hematocrit 35.5 33.4 Hematocrit MCV 86.0 86.5 MCV MCH 29.1 29.0 MCH MCHC 33.8 33.5 MCHC RDW 13.9 14.0 RDW Platelets 514 445 Platelets MPV 8.4 8.3 MPV DIFFERENTIAL Neutrophils 83.4 84.8 Neutrophils Lymphocytes 7.3 5.9 Lymphocytes Monocytes 4.2 5.9 Monocytes Eosinophils 0.8 1.7 Eosinophils Basophils 0.4 0.0 Basophils IG Percent 3.90 IG Percent Lymph Atypical 1.7 Lymph Atypical Neutrophils Abs 22.56 18.22 Neutrophils Abs Lymphocytes Abs 1.99 1.63 Lymphocytes Abs Monocytes Abs 1.13 1.27 Monocytes Abs Eosinophils Abs 0.23 0.37 Eosinophils Abs Basophils Abs 0.12 0.00 Basophils Abs IG Absolute 1.07 IG Absolute Nucleated RBC 0.0 0.0 Nucleated RBC Nucleated RBC Abs 0.00 0.00 Nucleated RBC Abs RBC Morphology See Co... RBC Morphology PROTIME W/ INR Protime 14.6 Protime INR 1.1 INR D-DIMER D-Dimer 8.66 D-Dimer DIABETES Hemoglobin A1C 6.1 Hemoglobin A1C Estimated Average Glucose 128 Estimated Average Glucose PROTEIN ELP Total Protein 6.2 Total Protein COVID-19 MOLECULAR COVID-19/INFLUENZA A,B MOLECULAR COVID-19/INFLUENZA A,B MOLECULAR SARS-CoV-2 Not De... SARS-CoV-2 CHEMISTRY, FLUID LDH BODY FLUID LDH BODY FLUID PROTEIN, BODY FLUID PROTEIN, BODY FLUID HEMATOLOGY/CELLS, FLUID Color, Fluid Yellow Color, Fluid Appearance, Fluid Cloudy Appearance, Fluid RBCs, Fluid 2,066 RBCs, Fluid WBC/Nuc Cells, Fluid 5,904 WBC/Nuc Cells, Fluid Neutrophils, Fluid 98 Neutrophils, Fluid Lymphocytes, Fluid 1 Lymphocytes, Fluid Monocytes, Fluid 1 Monocytes, Fluid IMAGING: (Abnormal / Relevant): XR CHEST AP/PA AND LAT 01/09/2024 7:46 pm 1. Prominent effusion as discussed on the right. Recommend follow-up to resolution. 2. The left lung is clear. CT PULMONARY ARTERIES 1. No obvious acute mediastinal process or pulmonary embolism. 2. Mild mediastinal and right hilar lymphadenopathy. 3. Moderate to prominent effusion on the right with areas of loculation along the lateral aspect and major fissure. 4. Small stable nodule in the lateral aspect of the left lower lobe. ECHOCARDIOGRAM COMPLETE W CONTRAST Summary 1. Left ventricular chamber dimension is normal. 2. Left ventricular systolic function is normal with an ejection fraction by Biplane Method of Discs of 60 %. 3. The left ventricular diastolic function is normal. 4. Right ventricular size and systolic function are normal. 5. Mobile atrial septum, positive agitated saline contrast study for interatrial shunt with normal breathing and Valsalva maneuver, likely patent foramen ovale... ED TX: 01/09/20242214 EDT sodium chloride (PF) (NS) 0.9 % contrast line flush 10 mL 10 mL Intravenous Given Prabhjot Casarez, TECHNOLOGIST -- 01/09/20242214 EDT sodium chloride (PF) (NS) 0.9 % contrast line flush 80 mL 80 mL Intravenous Given Prabhjot Casarez TECHNOLOGIST -- 01/09/2024 2214 EDT iopamidoL (ISOVUE-370) 370 mg iodine /mL (76 %) injection 75 mL 75 mL Intravenous Contrast Administered Prabhjot Casarez TECHNOLOGIST Lot Number: [id number] 01/09/2024 2345 EDT sodium chloride 0.9% (NS) -- Intravenous Canceled Entry Sweetie Huerta RN do not run per Dr. Bowen. 01/09/2024 2300 EDT sodium chloride 0.9% (NS) 0 mL/hr Intravenous Stopped Karol Lama RN -- 01/09/2024 2345 EDT sodium chloride 0.9% (NS) bolus 1,000 mL -- Intravenous Canceled Entry Sweetie Huerta RN Do not run per Dr. Camarena 01/10/2024 0030 EDT senna-docusate (SENNA-S) 8.6-50 mg per tablet 1 tablet 1 tablet Oral Not Given Sweetie Huerta RN -- DX: Loculated pleural effusion, right: Sepsis Acute hypoxemic respiratory failure Hyponatremia Metabolic Acidosis ASSESSMENT / PLAN: Lalitha Cartwright is a 53 y.[facility]. [facility] with [facility] of lung nodule, HLD, pleural effusion, who presented to [facility] on 01/09/2024 with chest pain. Loculated pleural effusion, right: Sepsis Present on admission: yes Etiology: Suspected empyema SIRS criteria: Heart rate greater than 90, Respiratory rate greater than 20 or PACO2 less than 32mmHg, WBC greater than 12,000, less than 4,000, or greater than 10% bands Evidence of end organ damage: none Initial lactic acid: Ordered Repeat lactic acid: Necessity dependent upon initial value Current antibiotic regimen: CTX and metronidazole Culture data: Blood cultures Vasopressors/steroids: none Initial sepsis checklist: Lactate ordered [x] Blood cultures obtained [x] Antibiotics initiated [x] IV fluids per sepsis protocol [] IR consult Acute hypoxemic respiratory failure: CTA pulmonary arteries: No obvious acute mediastinal process or pulmonary embolism. Mild mediastinal and right hilar lymphadenopathy. Moderate to prominent effusion on the right with areas of loculation along the lateral aspect and major fissure. Small stable nodule in the lateral aspect of the left lower lobe. Low flow oxygen protocols; wean as tolerated Hyponatremia: NS bolus and infusion Recheck in AM Metabolic Acidosis: Bicarb 20 by BMP on admission Check VBG and lactic acid HLD: Atorvastatin Cigarette nicotine dependence: Nicotine patch PRN Residence prior to admission: house or apartment Was patient transferred from outlying hospital or ED no Quality Measures DVT Prophylaxis: lovenox Gr[place] Catheter: absent Medication Reconciliation: Verified Admitted with these risk variables:Acute Respiratory Failure, Electrolyte Disturbance: Hyponatremia, and Acidosis. Please see assessment and plan for further details. MEDS / ORDERS: Current Scheduled Medications Expand Hide (From admission, onward) Start Ordered Stop 01/11/24 0800 metroNIDAZOLE (FLAGYL) tablet 500 mg 500 mg, Oral, 3 times daily with meals 01/10/24 1850 -- 01/10/24 0900 sertraline (ZOLOFT) tablet 150 mg 150 mg, Oral, Daily 01/09/242340 -- 01/10/24 0900 enoxaparin (LOVENOX) syringe 40 mg 40 mg, Subcutaneous, Daily 01/09/242340 -- 01/10/24 0100 cefTRIAXone (ROCEPHIN) IVPB 2 g (premix) 2,000 mg, Intravenous, 100 mL/hr, Every 24 hours 01/09/242343 -- 01/10/24 0030 rOPINIRole (REQUIP) tablet 2 mg 2 mg, Oral, At bedtime 01/09/242340 -- 01/10/24 003 atorvastatin (LIPITOR) tablet 40 mg 40 mg, Oral, Nightly 01/09/242340 -- 01/10/24 0030 senna-docusate (SENNA-S) 8.6-50 mg per tablet 1 tablet 1 tablet, Oral, 2 times daily 01/09/242341 Regular diet Chest tube to continuous suction Ambulate patient 2 times daily with assistance Vital signs q 4 hours for 24 hours then q 8 hours Activity as tolerated Baseline oxygen trial q shift Saline lock iv Consult to pulmonology Consult to iv team O2 per protocol DISPO: TBD [facility] 01-10-2024 Consult note Formatting of th is note is different from the original. CRITICAL CARE CONSULT 01/10/2024 Patient: Lalitha Cartwright Date of : 1970 Site: [facility] Referring Provider: Refer to consult order in electronic medical record Provider: Francisco Vega MD ASSESSMENT/PLAN: Lalitha Cartwright 53 y.o. male with history of smoking 30 pack years, hypercholesterolemia and obesity with a BMI of 34 who presents to the hospital with 2-week history of shortness of breath and cough Chest CT was done and it shows a loculated effusion involving the major fissure The nurse practitioner computing systems mechanic deploy chest tube and pulmonary is consulted for administration of tPA dornase. Patient was seen at the bedside with the nurse practitioner Ultrasound the thorax was done and it showed dense pleural effusion on the right hemithorax with slight trabeculation Therefore tPA dornase was administered at the bedside the tube was draining existing chest tube was connected to wall suction and approximately 1-1/2 L of purulent pleural effusion were drained We will follow this patient with ultrasound tomorrow in order to assess how much fluid was left in the thorax In the meantime continue antibiotics ordered by another team which include ceftriaxone and Flagyl which are appropriate However will change the Flagyl to p.o. since is equally effective and less expensive Pulmonary will continue to follow thank you for consultation Francisco Vega MD PhD Board certified in pulmonary critical care Please note that this note was generated using a voice recognition system which may at times change words leading to an incomprehensible statement. Therefore, [place] doubts exist[place] [phone] Pending Lab and Radiology Results Order Current Status Body Fluid Aerobic Culture In process Body Fluid Anaerobic Culture In process Nongyn Cytology In process Blood Culture #1 Preliminary result Blood Culture #2 Preliminary result Past Medical History: Diagnosis Date Lung nodule 2019 Past Surgical History: Procedure Laterality Date CATARACT EXTRACTION W/ INTRAOCULAR LENS IMPLANT Bilateral LEG SURGERY 10/03/2016 NEK SURGERY 09/2016 Family History Problem Relation Age of Onset Bladder Cancer Father Breast cancer Maternal Grandmother Bone cancer Maternal Grandmother Prostate cancer Maternal Grandfather Heart attack Maternal Grandfather Stomach cancer Paternal Grandfather Social History Tobacco Use Smoking Status Every Day Packs/day: 1.00 Years: 20.00 Additional pack years: 0.00 Total pack years: 20.00 Types: Cigarettes Smokeless Tobacco Current Types: Chew Allergies: Patient has no known allergies. Current Facility-Administered Medications Medication Dose Route Frequency Provider Last Rate Last Admin acetaminophen (TYLENOL) tablet 650 mg 650 mg Oral Q4H PRN Moses Bowen MD 650 mg at 01/10/24 1753 aluminum-magnesium hydroxide-simethicone (MAALOX PLUS) 200-200-20 mg/5 mL suspension 30 mL 30 mL Oral Q4H PRN Moses Bowen MD atorvastatin (LIPITOR) tablet 40 mg 40 mg Oral Nightly Moses Bowen MD 40 mg at 01/10/24 0156 bisacodyL (DULCOLAX) suppository 10 mg 10 mg Rectal Daily PRN Moses Bowen MD cefTRIAXone (ROCEPHIN) IVPB 2 g (premix) 2,000 mg Intravenous Q24H Moses Bowen MD Stopped at 01/10/24 0329 enoxaparin (LOVENOX) syringe 40 mg 40 mg Subcutaneous Daily Moses Bowen MD 40 mg at 01/10/24 0908 ibuprofen (ADVIL,MOTRIN) tablet 600 mg 600 mg Oral Q6H PRN Moses Bowen MD magnesium hydroxide (MOM) 400 mg/5 mL suspension 2,400 mg 30 mL Oral Daily PRN Moses Bowen MD melatonin Tab 5 mg 5 mg Oral Nightly PRN Moses Bowen MD metroNIDAZOLE (FLAGYL) IVPB 500 mg 500 mg Intravenous Q8H Moses Bowen MD 200 mL/hr at 01/10/24 1713 500 mg at 01/10/24 1713 morphine (MSIR) tablet 7.5-15 mg 7.5-15 mg Oral Q4H PRN Moses Bowen MD morphine injection 2-4 mg 2-4 mg Intravenous Q3H PRN Moses Bowen MD 2 mg at 01/10/24 1830 naloxone (NARCAN) injection 0.1 mg 0.1 mg Intravenous PRN Moses Bowen MD And naloxone (NARCAN) injection 0.4 mg 0.4 mg Intravenous PRN Moses Bowen MD nicotine (NICODERM CQ) 14 mg/24 hr 1 patch 1 patch Transdermal Daily PRN Moses Bowen MD ondansetron (ZOFRAN-ODT) disintegrating tablet 4 mg 4 mg Oral Q6H PRN Moses Bowen MD Or ondansetron (ZOFRAN) injection 4 mg 4 mg Intravenous Q6H PRN Moses Bowen MD perflutren lipid microspheres (DEFINITY) 0.143 mg/mL solution 0-10 mL of mixture 0-10 mL of mixture Intravenous Once in imaging Arthur Howe MD 2 mL of mixture at 01/10/24 1005 rOPINIRole (REQUIP) tablet 2 mg 2 mg Oral at bedtime Moses Bowen MD 2 mg at 01/10/24 0156 senna (SENOKOT) tablet 8.6 mg 1 tablet Oral BID PRN Moses Bowen MD senna-docusate (SENNA-S) 8.6-50 mg per tablet 1 tablet 1 tablet Oral BID Moses Bowen MD sertraline (ZOLOFT) tablet 150 mg 150 mg Oral Daily Moses Bowen MD 150 mg at 01/10/24 0908 sodium chloride (PF) (NS) flush 5 mL 5 mL Intravenous PRN Renato Carlos MD And sodium chloride 0.9% (NS) 0-150 mL/hr Intravenous PRN Renato Carlos MD traZODone (DESYREL) tablet 50 mg 50 mg Oral Nightly PRN Moses Bowen MD OBJECTIVE: Physical Examination: BP 107/74 (BP Location: Left arm, Patient Position: Lying) Pulse 99 Temp 98.4 F (36.9 C) (Oral) Resp 18 Ht 6' Wt 114.8 kg (253 lb) SpO2 93% BMI 34.31 kg/m Temp: [98 F (36.7 C)-101.6 F (38.7 C)] 98.4 F (36.9 C) Heart Rate: [98-122] 99 Resp: [15-37] 18 BP: (103-142)/(58-86) 107/74 SpO2 Readings from Last 1 Encounters: 01/10/24 93% Intake/Output Summary (Last 24 hours) at 01/10/2024 1838 Last data filed at 01/10/2024 1045 Gross per 24 hour Intake 263.77 ml Output -- Net 263.77 ml Vital Signs Reviewed. Review of systems was performed patient had no additional symptoms at Further discussion Physical exam patient was a young man appearing his chronological age laying in bed comfortably The head was normocephalic and nontraumatic Neck was supple The heart sounds were rhythmic The breath sounds were diminished on the right hemithorax The abdomen was benign Neuroexam was intact [facility] 01-10-2024 Consult note Formatting of th is note is different from the original. CRITICAL CARE CONSULT 01/10/2024 Patient: Lalitha Cartwright Date of : 1970 Site: [facility] Referring Provider: Refer to consult order in electronic medical record Provider: Francisco Vega MD ASSESSMENT/PLAN: Lalitha Cartwright 53 y.o. male with history of smoking 30 pack years, hypercholesterolemia and obesity with a BMI of 34 who presents to the hospital with 2-week history of shortness of breath and cough Chest CT was done and it shows a loculated effusion involving the major fissure The nurse practitioner computing systems mechanic deploy chest tube and pulmonary is consulted for administration of tPA dornase. Patient was seen at the bedside with the nurse practitioner Ultrasound the thorax was done and it showed dense pleural effusion on the right hemithorax with slight trabeculation Therefore tPA dornase was administered at the bedside the tube was draining existing chest tube was connected to wall suction and approximately 1-1/2 L of purulent pleural effusion were drained We will follow this patient with ultrasound tomorrow in order to assess how much fluid was left in the thorax In the meantime continue antibiotics ordered by another team which include ceftriaxone and Flagyl which are appropriate However will change the Flagyl to p.o. since is equally effective and less expensive Pulmonary will continue to follow thank you for consultation Francisco Vega MD PhD Board certified in pulmonary critical care Please note that this note was generated using a voice recognition system which may at times change words leading to an incomprehensible statement. [place] [phone] Pending Lab and Radiology Results Order Current Status Body Fluid Aerobic Culture In process Body Fluid Anaerobic Culture In process Nongyn Cytology In process Blood Culture #1 Preliminary result Blood Culture #2 Preliminary result Past Medical History: Diagnosis Date Lung nodule 2019 Past Surgical History: Procedure Laterality Date CATARACT EXTRACTION W/ INTRAOCULAR LENS IMPLANT Bilateral LEG SURGERY 10/03/2016 NEK SURGERY 09/2016 Family History Problem Relation Age of Onset Bladder Cancer Father Breast cancer Maternal Grandmother Bone cancer Maternal Grandmother Prostate cancer Maternal Grandfather Heart attack Maternal Grandfather Stomach cancer Paternal Grandfather Social History Tobacco Use Smoking Status Every Day Packs/day: 1.00 Years: 20.00 Additional pack years: 0.00 Total pack years: 20.00 Types: Cigarettes Smokeless Tobacco Current Types: Chew Allergies: Patient has no known allergies. Current Facility-Administered Medications Medication Dose Route Frequency Provider Last Rate Last Admin acetaminophen (TYLENOL) tablet 650 mg 650 mg Oral Q4H PRN Moses Bowen MD 650 mg at 01/10/24 1753 aluminum-magnesium hydroxide-simethicone (MAALOX PLUS) 200-200-20 mg/5 mL suspension 30 mL 30 mL Oral Q4H PRN Moses Bowen MD atorvastatin (LIPITOR) tablet 40 mg 40 mg Oral Nightly Moses Bowen MD 40 mg at 01/10/24 0156 bisacodyL (DULCOLAX) suppository 10 mg 10 mg Rectal Daily PRN Moses Bowen MD cefTRIAXone (ROCEPHIN) IVPB 2 g (premix) 2,000 mg Intravenous Q24H Moses Bowen MD Stopped at 01/10/24 0329 enoxaparin (LOVENOX) syringe 40 mg 40 mg Subcutaneous Daily Moses Bowen MD 40 mg at 01/10/24 0908 ibuprofen (ADVIL,MOTRIN) tablet 600 mg 600 mg Oral Q6H PRN Moses Bowen MD magnesium hydroxide (MOM) 400 mg/5 mL suspension 2,400 mg 30 mL Oral Daily PRN Moses Bowen MD melatonin Tab 5 mg 5 mg Oral Nightly PRN Moses Bowen MD metroNIDAZOLE (FLAGYL) IVPB 500 mg 500 mg Intravenous Q8H Moses Bowen MD 200 mL/hr at 01/10/24 1713 500 mg at 01/10/24 1713 morphine (MSIR) tablet 7.5-15 mg 7.5-15 mg Oral Q4H PRN Moses Bowen MD morphine injection 2-4 mg 2-4 mg Intravenous Q3H PRN Moses Bowen MD 2 mg at 01/10/24 1830 naloxone (NARCAN) injection 0.1 mg 0.1 mg Intravenous PRN Moses Bowen MD And naloxone (NARCAN) injection 0.4 mg 0.4 mg Intravenous PRN Moses Bowen MD nicotine (NICODERM CQ) 14 mg/24 hr 1 patch 1 patch Transdermal Daily PRN Moses Bowen MD ondansetron (ZOFRAN-ODT) disintegrating tablet 4 mg 4 mg Oral Q6H PRN Moses Bowen MD Or ondansetron (ZOFRAN) injection 4 mg 4 mg Intravenous Q6H PRN Moses Bowen MD perflutren lipid microspheres (DEFINITY) 0.143 mg/mL solution 0-10 mL of mixture 0-10 mL of mixture Intravenous Once in imaging Arthur Howe MD 2 mL of mixture at 01/10/24 1005 rOPINIRole (REQUIP) tablet 2 mg 2 mg Oral at bedtime Moses Bowen MD 2 mg at 01/10/24 0156 senna (SENOKOT) tablet 8.6 mg 1 tablet Oral BID PRN Moses Bowen MD senna-docusate (SENNA-S) 8.6-50 mg per tablet 1 tablet 1 tablet Oral BID Moses Bowen MD sertraline (ZOLOFT) tablet 150 mg 150 mg Oral Daily Moses Bowen MD 150 mg at 01/10/24 0908 sodium chloride (PF) (NS) flush 5 mL 5 mL Intravenous PRN Renato Carlos MD And sodium chloride 0.9% (NS) 0-150 mL/hr Intravenous PRN Renato Carlos MD traZODone (DESYREL) tablet 50 mg 50 mg Oral Nightly PRN Gerald, Moses Davis MD OBJECTIVE: Physical Examination: BP 107/74 (BP Location: Left arm, Patient Position: Lying) Pulse 99 Temp 98.4 F (36.9 C) (Oral) Resp 18 Ht 6' Wt 114.8 kg (253 lb) SpO2 93% BMI 34.31 kg/m Temp: [98 F (36.7 C)-101.6 F (38.7 C)] 98.4 F (36.9 C) Heart Rate: [98-122] 99 Resp: [15-37] 18 BP: (103-142)/(58-86) 107/74 SpO2 Readings from Last 1 Encounters: 01/10/24 93% Intake/Output Summary (Last 24 hours) at 01/10/2024 1838 Last data filed at 01/10/2024 1045 Gross per 24 hour Intake 263.77 ml Output -- Net 263.77 ml Vital Signs Reviewed. Review of systems was performed patient had no additional symptoms at Further discussion Physical exam patient was a young man appearing his chronological age laying in bed comfortably The head was normocephalic and nontraumatic Neck was supple The heart sounds were rhythmic The breath sounds were diminished on the right hemithorax The abdomen was benign Neuroexam was intact Associated Order(s): IP CONSULT TO PULMONOLOGY PULMONOLOGY CONSULT 01/10/2024 Patient: Lalitha Cartwright Date of : 1970 Site: [facility] Referring Provider: Refer to consult order in electronic medical record Provider: Ender Cramer CNP ASSESSMENT/PLAN: Lalitha Cartwright 53 y.o. male current smoker with a 30 pack year history and a history of LLL and RUL lung lesions (currently under surveillance by Dr. Eleazar Bone, and suspected to be inflammatory/infectious in nature), HLD, and pleural effusion presented to [facility] with shortness of breath which began approximately two weeks prior to this admission. The patient was evaluated on 01/04/2024 at where CTA imaging indicated a small to moderate right pleural effusion with mediastinal lymphadenopathy which was treated with Levaquin and Percocet. 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 CTPA imaging indicated a moderate sized R pleural effusion with areas of loculation along the lateral aspect and major fissure. On 01/09 the patient underwent an IR guided thoracentesis. We were consulted for empyema. Empyema CT imaging indicated a moderate sized pleural effusion with areas of loculation along the lateral aspect and major fissure, which is also appreciated on sagittal scan. S/p thoracentesis and chest tube placement. Pleural fluid studies exudative per lights criteria. Will plan for intrapleural lytics for 3 days. Continue antibiotic. Maintain SpO2>92%. Pulm Hygiene. Will follow up with POCUS evaluation and follow up CT for resolution. WBC 21.49 Hgb 11.2 D-Dimer 8.66 No new Assessment & Plan notes have been filed under this hospital service since the last note was generated. Service: Pulmonology SUBJECTIVE: Chief Complaint/Reason for Visit: Shortness of breath. History of Present Illness: Lalitha Cartwright is a 53 y.o. male current smoker with a 30 pack year history and a history of LLL and RUL lung lesions (currently under surveillance by Dr. Eleazar Bone, and suspected to be inflammatory/infectious in nature), HLD, and pleural effusion presented to [facility] with shortness of breath which began approximately two weeks prior to this admission. The patient was evaluated on 01/04/2024 at where CTA imaging indicated a small to moderate right pleural effusion with mediastinal lymphadenopathy which was treated with Levaquin and Percocet. 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 CTPA imaging indicated a moderate sized R pleural effusion with areas of loculation along the lateral aspect and major fissure. On 01/09 the patient underwent an IR guided thoracentesis. We were consulted for empyema. Pending Lab and Radiology Results Order Current Status Body Fluid Aerobic Culture In process Body Fluid Anaerobic Culture In process Nongyn Cytology In process VR Chest Tube Right In process Blood Culture #1 Preliminary result Blood Culture #2 Preliminary result Interpretation of Testing: I personally reviewed the Chest X-ray and CT chest and agree with the interpretation(s) with the following comments. Reads as above. Review of Systems: Constitutional:No fever, no weight loss Eyes:No diplopia CV:No chest pain. No ankle swelling GI:No abdominal pain.No abdominal distention :No dysuria Neuro:No headache Integumentary:No skin rash All other systems reviewed and negative other than HPI Past Medical History: Diagnosis Date Lung nodule 2019 Past Surgical History: Procedure Laterality Date CATARACT EXTRACTION W/ INTRAOCULAR LENS IMPLANT Bilateral LEG SURGERY 10/03/2016 NEK SURGERY 09/2016 Family History Problem Relation Age of Onset Bladder Cancer Father Breast cancer Maternal Grandmother Bone cancer Maternal Grandmother Prostate cancer Maternal Grandfather Heart attack Maternal Grandfather Stomach cancer Paternal Grandfather Social History Tobacco Use Smoking Status Every Day Packs/day: 1.00 Years: 20.00 Additional pack years: 0.00 Total pack years: 20.00 Types: Cigarettes Smokeless Tobacco Current Types: Chew Additional History Comments: None Allergies: Patient has no known allergies. Current HOME Medications: Outpatient Medications Marked as Taking for the 01/09/24 encounter (Hospital Encounter): atorvastatin (LIPITOR) 40 MG tablet, Take 1 Unspecified by mouth daily . rOPINIRole (REQUIP) 0.5 MG tablet, Take 4 (four) tablets (2 mg total) by mouth at bedtime TAKE 1 TABLET BY MOUTH EVERYDAY AT BEDTIME . sertraline (ZOLOFT) 100 MG tablet, Take 1.5 (one and a half) tablets (150 mg total) by mouth daily TAKE 1.5 TABLETS DAILY . Current HOSPITAL Medications: acetaminophen (TYLENOL) tablet 650 mg, 650 mg, Oral, Q4H PRN alteplase (INTRAPLEURAL) 10 mg/30 mL injection, 10 mg, Intrapleural, Once aluminum-magnesium hydroxide-simethicone (MAALOX PLUS) 200-200-20 mg/5 mL suspension 30 mL, 30 mL, Oral, Q4H PRN atorvastatin (LIPITOR) tablet 40 mg, 40 mg, Oral, Nightly bisacodyL (DULCOLAX) suppository 10 mg, 10 mg, Rectal, Daily PRN cefTRIAXone (ROCEPHIN) IVPB 2 g (premix), 2,000 mg, Intravenous, Q24H dornase (PULMOZYME) 5 mg/30 ml intrapleural injection, 5 mg, Intrapleural, Once enoxaparin (LOVENOX) syringe 40 mg, 40 mg, Subcutaneous, Daily ibuprofen (ADVIL,MOTRIN) tablet 600 mg, 600 mg, Oral, Q6H PRN magnesium hydroxide (MOM) 400 mg/5 mL suspension 2,400 mg, 30 mL, Oral, Daily PRN melatonin Tab 5 mg, 5 mg, Oral, Nightly PRN metroNIDAZOLE (FLAGYL) IVPB 500 mg, 500 mg, Intravenous, Q8H morphine (MSIR) tablet 7.5-15 mg, 7.5-15 mg, Oral, Q4H PRN morphine injection 2-4 mg, 2-4 mg, Intravenous, Q3H PRN naloxone (NARCAN) injection 0.1 mg, 0.1 mg, Intravenous, PRN AND Notify physician, , , Until Discontinued AND naloxone (NARCAN) injection 0.4 mg, 0.4 mg, Intravenous, PRN nicotine (NICODERM CQ) 14 mg/24 hr 1 patch, 1 patch, Transdermal, Daily PRN ondansetron (ZOFRAN-ODT) disintegrating tablet 4 mg, 4 mg, Oral, Q6H PRN OR ondansetron (ZOFRAN) injection 4 mg, 4 mg, Intravenous, Q6H PRN perflutren lipid microspheres (DEFINITY) 0.143 mg/mL solution 0-10 mL of mixture, 0-10 mL of mixture, Intravenous, Once in imaging rOPINIRole (REQUIP) tablet 2 mg, 2 mg, Oral, at bedtime senna (SENOKOT) tablet 8.6 mg, 1 tablet, Oral, BID PRN senna-docusate (SENNA-S) 8.6-50 mg per tablet 1 tablet, 1 tablet, Oral, BID sertraline (ZOLOFT) tablet 150 mg, 150 mg, Oral, Daily [COMPLETED] Insert peripheral IV, , , Once AND Saline lock IV, , , Once AND sodium chloride (PF) (NS) flush 5 mL, 5 mL, Intravenous, PRN AND sodium chloride 0.9% (NS), 0-150 mL/hr, Intravenous, PRN traZODone (DESYREL) tablet 50 mg, 50 mg, Oral, Nightly PRN Current Facility-Administered Medications Medication Dose Route Frequency Provider Last Rate Last Admin acetaminophen (TYLENOL) tablet 650 mg 650 mg Oral Q4H PRN Moses Bowen MD 650 mg at 01/10/24 1144 alteplase (INTRAPLEURAL) 10 mg/30 mL injection 10 mg Intrapleural Once Ender Cramer CNP aluminum-magnesium hydroxide-simethicone (MAALOX PLUS) 200-200-20 mg/5 mL suspension 30 mL 30 mL Oral Q4H PRN Moses Bowen MD atorvastatin (LIPITOR) tablet 40 mg 40 mg Oral Nightly Moses Bowen MD 40 mg at 01/10/24 0156 bisacodyL (DULCOLAX) suppository 10 mg 10 mg Rectal Daily PRN Moses Bowen MD cefTRIAXone (ROCEPHIN) IVPB 2 g (premix) 2,000 mg Intravenous Q24H Moses Bowen MD Stopped at 01/10/24 0329 dornase (PULMOZYME) 5 mg/30 ml intrapleural injection 5 mg Intrapleural Once Ender Cramer CNP enoxaparin (LOVENOX) syringe 40 mg 40 mg Subcutaneous Daily Moses Bowen MD 40 mg at 01/10/24 0908 ibuprofen (ADVIL,MOTRIN) tablet 600 mg 600 mg Oral Q6H PRN Moses Bowen MD magnesium hydroxide (MOM) 400 mg/5 mL suspension 2,400 mg 30 mL Oral Daily PRN Moses Bowen MD melatonin Tab 5 mg 5 mg Oral Nightly PRN Moses Bowen MD metroNIDAZOLE (FLAGYL) IVPB 500 mg 500 mg Intravenous Q8H Moses Bowen MD Stopped at 01/10/24 1011 morphine (MSIR) tablet 7.5-15 mg 7.5-15 mg Oral Q4H PRN Moses Bowen MD morphine injection 2-4 mg 2-4 mg Intravenous Q3H PRN Moses Bowen MD naloxone (NARCAN) injection 0.1 mg 0.1 mg Intravenous PRN Moses Bowen MD And naloxone (NARCAN) injection 0.4 mg 0.4 mg Intravenous PRN Moses Bowen MD nicotine (NICODERM CQ) 14 mg/24 hr 1 patch 1 patch Transdermal Daily PRN Moses Bowen MD ondansetron (ZOFRAN-ODT) disintegrating tablet 4 mg 4 mg Oral Q6H PRN Moses Bowen MD Or ondansetron (ZOFRAN) injection 4 mg 4 mg Intravenous Q6H PRN Moses Bowen MD perflutren lipid microspheres (DEFINITY) 0.143 mg/mL solution 0-10 mL of mixture 0-10 mL of mixture Intravenous Once in imaging Arthur Howe MD 2 mL of mixture at 01/10/24 1005 rOPINIRole (REQUIP) tablet 2 mg 2 mg Oral at bedtime Moses Bowen MD 2 mg at 01/10/24 0156 senna (SENOKOT) tablet 8.6 mg 1 tablet Oral BID PRN Moses Bowen MD senna-docusate (SENNA-S) 8.6-50 mg per tablet 1 tablet 1 tablet Oral BID Moses Bowen MD sertraline (ZOLOFT) tablet 150 mg 150 mg Oral Daily Moses Bowen MD 150 mg at 01/10/24 0908 sodium chloride (PF) (NS) flush 5 mL 5 mL Intravenous PRN Renato Carlos MD And sodium chloride 0.9% (NS) 0-150 mL/hr Intravenous PRN Renato Carlos MD traZODone (DESYREL) tablet 50 mg 50 mg Oral Nightly PRN Moses Bowen MD OBJECTIVE: Physical Examination: BP 107/74 (BP Location: Left arm, Patient Position: Lying) Pulse 99 Temp 98.4 F (36.9 C) (Oral) Resp 17 Ht 6' Wt 114.8 kg (253 lb) SpO2 93% BMI 34.31 kg/m Temp: [98 F (36.7 C)-101.6 F (38.7 C)] 98.4 F (36.9 C) Heart Rate: [98-122] 99 Resp: [15-37] 17 BP: (103-142)/(58-86) 107/74 SpO2 Readings from Last 1 Encounters: 01/10/24 93% Intake/Output Summary (Last 24 hours) at 01/10/2024 1333 Last data filed at 01/10/2024 1045 Gross per 24 hour Intake 263.77 ml Output -- Net 263.77 ml Vital Signs Reviewed. Gen: Alert and oriented x 3, in mild distress due to breathing HEENT: Head: Normocephalic, no lesions, without obvious abnormality. Pharynx: Dental Hygiene adequate. Normal buccal mucosa. Normal pharynx. Neck: nontender, full range of motion, no mass, no focal lymphadenopathy Cardio: regular rate and rhythm, no murmur, brisk capillary refill Resp: distant breath sounds bilaterally, no wheezes or crackles Abd: soft, nontender, nondistended, no hepatosplenomegaly, no mass, normal bowel sounds MSK: Moves all four extremities spontaneously. Neuro: Grossly normal without focal findings Skin: no rashes, no jaundice Labs and Imaging: [x] Medications reviewed. [x] Labs reviewed. Pertinent findings noted: WBC [x] Radiology reviewed. Pertinent findings noted: CT chest [] Pathology reviewed. Pertinent findings noted: Family Update/ Code Status: Full Laboratory and Additional Data Reviewed: Reviewed 01/10/24 1:33 PM: Laboratory, Microbiology, Radiology, Cardiology, Medications, and Transcriptions Associated Order(s): IP CONSULT TO DIETITIAN Nutrition Care Initial Assessment Admitted with RT pleural effusion Reason for visit: Physician Consult for nutrition needs Nutrition Diagnosis: recent poor PO x2 weeks, improving related to loss of appetite as evidenced by patient. Nutrition Intervention: Meal rounds; Meal and Snacks; took 50% of lunch(01/09) Nutrition Prescription: Diet: regular Oral nutrition supplement: regular Nutrition Goals: Follow WT for fluid+-(120.2kg on 01/08 to 114.8kg on 01/09) Start Date:01/10/2024 Expected End Date:01/16/2024 Nutrition Education: consider home daily WT for fluid+- Assessment: Pertinent clinical information: admitted with RT pleural effusion Past Medical History: Diagnosis Date Lung nodule 2019 Height: 6' Current weight: 114.8 kg (253 lb) BMI Body mass index is 34.31 kg/m . Weight hx: Wt Readings from Last 5 Encounters: 01/10/24 114.8 kg (253 lb) 11/07/23 115.9 kg (255 lb 9.6 oz) 04/04/23 117.9 kg (260 lb) 10/18/22 115.2 kg (253 lb 14.4 oz) 10/19/21 109.4 kg (241 lb 1.6 oz) Current diet order: regular Recent intake: 60%. Current intake Likely does not meet estimated needs. Patient/family comments: selecting menu Difficulty Chewing/Swallowing: No Skin Integrity: Intact GI Function: WNL Physical Appearance: no signs or symptoms of malnutrition Nutrition Focus Physical Exam Type: Visual Labs: Recent Labs 01/10/24 0014 NA 133* K 3.5 BICARB 21 CL 99 GLUCOSE 109* BUN 13 CREATININE 0.68 Scheduled Meds: alteplase (INTRAPLEURAL) 10 mg/30 mL injection 10 mg Intrapleural Once atorvastatin 40 mg Oral Nightly cefTRIAXone (ROCEPHIN) IVPB 2,000 mg Intravenous Q24H dornase (PULMOZYME) 5 mg/30 ml intrapleural injection 5 mg Intrapleural Once enoxaparin (LOVENOX) injection 40 mg Subcutaneous Daily metroNIDAZOLE 500 mg Intravenous Q8H rOPINIRole 2 mg Oral at bedtime senna-docusate 1 tablet Oral BID sertraline 150 mg Oral Daily Continuous Infusions: sodium chloride 0.9 % Estimated Energy Needs Total Energy Estimated Needs: 2250kcal Method for Estimating Needs: [id number] Total Protein Estimated Needs: 90-100gm Method for Estimating Needs: 1.0gm/kg adj Ed Court, , RDN, LD Dietitian Office Associated Order(s): IP CONSULT TO INTERVENTIONAL RADIOLOGY Images from the original note were not included. Vascular & Interventional Radiology Provided By [facility] (Diagnostic Radiology, Interventional and Neurointerventional Radiology and Vascular Medicine) Interventional Radiology Department @ : [phone] 16/04 VIR physician contact: [phone]) Weekday VIR VESNA contact @ [facility]: [phone] [facility]: [phone] [email or web address] ASSOCIATE PROFESSOR OF RADIOLOGY DIRECTORY The consult was reviewed. The patient's chart was reviewed. The patient's H&P was reviewed. Lalitha Cartwright is a 53 y.[facility]. [facility] of [facility]ule, HLD, pleural effusion, who presented to [facility] on 01/09/2024 with chest pain. Loculated pleural effusion, right: Sepsis Present on admission: yes Etiology: Suspected empyema SIRS criteria: Heart rate greater than 90, Respiratory rate greater than 20 or PACO2 less than 32mmHg, WBC greater than 12,000, less than 4,000, or greater than 10% bands CT CHEST IMPRESSION: 1. No obvious acute mediastinal process or pulmonary embolism. 2. Mild mediastinal and right hilar lymphadenopathy. 3. Moderate to prominent effusion on the right with areas of loculation along the lateral aspect and major fissure. 4. Small stable nodule in the lateral aspect of the left lower lobe. [facility] consulted for a chest tube vs thoracentesis. [facility] would recommend a chest tube. Plan is to do the procedure today as [facility] schedule permits. INR is stable. Patient did eat today and we will not sedate. The patient will be scheduled for the requested right chest tube procedure. Procedure date and time TBD by the [facility] control desk @ [phone], once pertinent labs and anticoagulant medications have been reviewed, per guidelines below. Please refer to the procedure note section for preliminary procedure details as well as the imaging section for the final procedure report. Pertinent image (if applicable): Pertinent labs are as follows: Results from last 7 days Lab Units 01/09/241926 INR 1.1 No results found for: PTT Lab Results Component Value Date PLT 445 (H) 01/10/2024 Lab Results Component Value Date BUN 13 01/10/2024 Lab Results Component Value Date CREATININE 0.68 01/10/2024 Patient's allergies are as follows: Allergies as of 01/09/2024 (No Known Allergies) [facility]-procedure lab value guideline (pending P&T review 09/2020): Table 1. LOW Bleeding Risk Laboratory Guidelines Low Bleeding Risk Procedures Target Laboratory Values3 Bone Marrow Biopsy [Platelet Count - N/A] Catheter exchanges (gastrostomy, biliary, nephrostomy, abscess, including gastrostomy/gastrojejunostomy conversions) CVC tunneled >/= 8 Fr* Diagnostic venography and select venous interventions: pelvis and extremities Dialysis shunt interventions IVC filter placement and removal Non-tunneled chest tube placement for pleural effusion Non-tunneled venous access and removal (including PICC placement) and Tunneled venous access </= 7 Fr Paracentesis Peripheral nerve blocks, joint, and musculoskeletal injections Sacroiliac joint injection and sacral lateral branch blocks Superficial abscess drainage or biopsy (palpable lesion, lymph node, soft tissue, breast, thyroid) Thoracentesis Trans jugular liver biopsy Trigger point injections including piriformis Tunneled drainage catheter placement* PT/INR < 2.0 - 3.0 Platelets > 20,000/mcL (Consider transfusing platelets if <20,000/mcL) If patient with Chronic Liver Disease (based on expert opinion): PT/INR < 3.0 (Consider Vitamin K infusion if INR >3.0) Platelets > 20,000/mcL (Transfuse platelets if <20,000/mcL in patients with a large spleen) Fibrinogen > 100mg/dL (Consider cryoprecipitate if <100mg/dL) *If on Direct Oral Anticoagulant (DOAC), follow HIGH Bleeding Risk recommendations in Table 2 and Table 3 Table 2. HIGH Bleeding Risk Laboratory Guidelines: HIGH Bleeding Risk Procedures Target Laboratory Values3 Ablations: solid organs, bone, soft tissue, lung Arterial diagnostic interventions: aortic, pelvic, mesenteric, peripheral Biliary interventions (including cholecystostomy tube placement) Catheter directed thrombolysis/thrombectomy- DVT, PE, portal vein (Highly case dependent) Deep abscess drainage (e.g., lung parenchyma, abdominal, pelvic, retroperitoneal) Deep non organ biopsies (e.g., spine, soft tissue in intra-abdominal, retroperitoneal, pelvic compartments) Gastrostomy/gastrojejunostomy placement IVC filter removal complex Lumbar puncture Lymphangiography Portal vein interventions Solid organ biopsies Spine procedures with risk of spinal or epidural hematoma (e.g., kyphoplasty, vertebroplasty, epidural injections, facet blocks) Trans jugular intrahepatic portosystemic shunt Port placement/removal (Buried) Urinary tract interventions (including nephrostomy tube placement, ureteral dilation, stone removal) Venous interventions: intrathoracic and [employer] intervention PT/INR < 1.5 - 1.8 (if arterial access, femoral: INR < 1.8, radial: INR < 2.2) Platelets > 50,000/mcL (Consider transfusing platelets if <50,000/mcL) If patient with Chronic Liver Disease (based on expert opinion): PT/INR < 2.5 (Give Vitamin K 10mg infusion if INR >2.5) Platelets > 30,000/mcL (Transfuse platelets if <30,000/mcL in patients with a large spleen) Fibrinogen > 100mg/dL (Consider cryoprecipitate if <100mg/dL) [facility]-procedure anticoagulant/antiplatelet guideline (pending P&T review 09/2020): Medication LOW Bleeding Risk^ HIGH Bleeding Risk^ Reinitiation Abciximab (ReoPro ) Hold 24 hrs before procedure Hold 24 hrs before procedure Patient undergoing PCI or within immediate periprocedural period from cardiac intervention; use multidisciplinary, shared decision-making Apixaban (Eliquis ) Do not hold CrCl > 50mL/min: Hold 4 doses CrCl < 30-50mL/min: Hold 6 doses 24 hrs Aspirin OR Aspirin/Dipyridamole (Aggrenox ) Holding strategy for aspirin requires patient-specific approach; for high risk or complex cardiovascular cases, multidisciplinary, shared decision-making is suggested Do not hold Hold for 3-5 days (assumes multidisciplinary evaluation and agreement to interrupt therapy) Resume the day after procedure Argatroban (Acova ) Do not hold Hold 2-4 hrs: check aPTT 4-6 hrs Betrixaban (Bevyxxa ) Do not hold Hold for 3 doses 24 hrs Bivalirudin (Angiomax ) Do not hold Hold 2-4 hrs: check aPTT 4-6 hrs Cangrelor (Kengreal ) Defer procedure until therapy completed; if emergent, multidisciplinary discussion with Cardiology is recommended Defer procedure until therapy completed; if emergent, multidisciplinary discussion with Cardiology is recommended Patient undergoing PCI or within immediate periprocedural period from cardiac intervention; Use multidisciplinary, shared-decision making Cilostazol (Pletal ) Do not hold Do not hold N/A Clopidogrel (Plavix ) Do not hold Hold for 5 days before procedure 75mg Dose: 6 hrs after procedure Loading Dose (300-600mg): 24 hrs after procedure Dabigatran (Pradaxa ) Do not hold CrCl > 50mL/min: Hold 4 doses CrCl < 30-50mL/min: Hold 6-8 doses Consider checking thrombin time with impaired renal function 24 hrs Edoxaban (Savaysa ) Do not hold Hold for 2 doses 24 hrs Eptifibatide (Integrilin ) Hold 4-8 hrs before procedure Hold 4-8 hrs before procedure Patient undergoing PCI or within immediate periprocedural period from cardiac intervention; Use multidisciplinary, shared decision-making Fondaparinux (Arixtra ) Do not hold CrCl > 50mL/min: Hold 2-3 Days CrCl < 50mL/min: Hold 3-5 days 24 hrs LMWH: Enoxaparin (Lovenox ), Dalteparin (Fragmin ) Do not hold Check anti-Xa level if renal function impaired Prophylactic Enoxaparin: Hold 1 dose Therapeutic Enoxaparin: Hold 2 doses or 24 hrs Dalteparin: Hold 1 dose 12 hrs NSAIDS (short-, intermediate-, and long-acting) Do not hold No recommendations N/A Prasugrel (Effient ) Do not hold Hold for 7 days before procedure Resume the day after the procedure Rivaroxaban (Xarelto ) Do not hold CrCl > 50mL/min: Hold 2 doses CrCl 30-50mL/min: Hold 2 doses CrCl < 15-30mL/min: Hold 3 doses 24 hrs Ticagrelor (Brilinta ) Do not hold Hold for 5 days before procedure Resume the day after the procedure Tirofiban (Aggrastat ) Hold 4-8 hrs before procedure Hold 4-8 hrs before procedure Patient undergoing PCI or within immediate periprocedural period from cardiac intervention; Use multidisciplinary, shared decision-making Unfractionated Heparin Do not hold IV Heparin: Hold 4-6 hrs before procedure; check aPTT or anti-Xa level SubQ Heparin: Hold 6 hrs before procedure 6-8 hrs Warfarin (Coumadin ) Target INR < 3 Hold 5 days until INR < 1.8 Low Bleeding Risk: N/A or same day for bridged patients High Bleeding Risk: Resume day after procedure; Consider bridging after procedure for high thrombosis risk cases; Use multidisciplinary, shared-decision making to balance bleeding vs. thrombotic risks. documented in this encounter [facility] 01-10-2024 Note PROCEDURE: 1. ULTRASOUND-GUIDED right SIDED CHEST TUBE PLACEMENT. 2. MODERATE SEDATION. HISTORY: Loculated pleural effusion ROD POINTER(S): Yanet Jackson PA-C and Amina Cerrato M.D. MEDICATIONS: Intravenous moderate sedation with continuous cardiorespiratory monitoring for 0 minutes utilizing 0 mg of Versed IV and 75 mcg fentanyl IV was provided general supervision by the interventional radiologist. TECHNICAL REPORT: The procedure with its recognized benefits and risks were explained to the patient and/or family and written consent was obtained. The patient was brought to the Interventional Radiology suite and placed in the supine position. A time-out/pause and confirm was performed. The right lateral thorax was prepped and draped in a sterile fashion. Following cutaneous anesthesia with 1% Lidocaine and with ultrasound guidance, the pleural fluid was accessed with an 18 gauge Chiba needle. Fluid was aspirated. A wire was then advanced into the pleural space and following fascial dilatation, a 14 Russian 41 cm chest tube Thal-Quick was placed. The catheter was secured to the skin with 2 -0 Ethilon suture. A sample of fluid was submitted for microbiology and other requested analysis. The drain was connected to a pleural vac drainage. The patient tolerated the procedure well without evidence of any complications. Hand hygiene was performed and all elements of maximal sterile barrier technique were followed, including the sterile ultrasound probe cover and sterile ultrasound gel, when utilized. FINDINGS: Ultrasound confirms the presence of a 14 sided pleural effusion. [facility] 01-10-2024 Consult note Associated Order (s): IP CONSULT TO PULMONOLOGY PULMONOLOGY CONSULT 01/10/2024 Patient: Lalitha Cartwright Date of : 1970 Site: [facility] Referring Provider: Refer to consult order in electronic medical record Provider: Ender Cramer CNP ASSESSMENT/PLAN: Lalitha Cartwright 53 y.o. male current smoker with a 30 pack year history and a history of LLL and RUL lung lesions (currently under surveillance by Dr. Eleazar Bone, and suspected to be inflammatory/infectious in nature), HLD, and pleural effusion presented to [facility] with shortness of breath which began approximately two weeks prior to this admission. The patient was evaluated on 01/04/2024 at where CTA imaging indicated a small to moderate right pleural effusion with mediastinal lymphadenopathy which was treated with Levaquin and Percocet. 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 CTPA imaging indicated a moderate sized R pleural effusion with areas of loculation along the lateral aspect and major fissure. On 01/09 the patient underwent an IR guided thoracentesis. We were consulted for empyema. Empyema CT imaging indicated a moderate sized pleural effusion with areas of loculation along the lateral aspect and major fissure, which is also appreciated on sagittal scan. S/p thoracentesis and chest tube placement. Pleural fluid studies exudative per lights criteria. Will plan for intrapleural lytics for 3 days. Continue antibiotic. Maintain SpO2>92%. Pulm Hygiene. Will follow up with POCUS evaluation and follow up CT for resolution. WBC 21.49 Hgb 11.2 D-Dimer 8.66 No new Assessment & Plan notes have been filed under this hospital service since the last note was generated. Service: Pulmonology SUBJECTIVE: Chief Complaint/Reason for Visit: Shortness of breath. History of Present Illness: Lalitha Cartwright is a 53 y.o. male current smoker with a 30 pack year history and a history of LLL and RUL lung lesions (currently under surveillance by Dr. Eleazar oBne, and suspected to be inflammatory/infectious in nature), HLD, and pleural effusion presented to [facility] with shortness of breath which began approximately two weeks prior to this admission. The patient was evaluated on 01/04/2024 at where CTA imaging indicated a small to moderate right pleural effusion with mediastinal lymphadenopathy which was treated with Levaquin and Percocet. 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 CTPA imaging indicated a moderate sized R pleural effusion with areas of loculation along the lateral aspect and major fissure. On 01/09 the patient underwent an IR guided thoracentesis. We were consulted for empyema. Pending Lab and Radiology Results Order Current Status Body Fluid Aerobic Culture In process Body Fluid Anaerobic Culture In process Nongyn Cytology In process VR Chest Tube Right In process Blood Culture #1 Preliminary result Blood Culture #2 Preliminary result Interpretation of Testing: I personally reviewed the Chest X-ray and CT chest and agree with the interpretation(s) with the following comments. Reads as above. Review of Systems: Constitutional:No fever, no weight loss Eyes:No diplopia CV:No chest pain. No ankle swelling GI:No abdominal pain.No abdominal distention :No dysuria Neuro:No headache Integumentary:No skin rash All other systems reviewed and negative other than HPI Past Medical History: Diagnosis Date Lung nodule 2019 Past Surgical History: Procedure Laterality Date CATARACT EXTRACTION W/ INTRAOCULAR LENS IMPLANT Bilateral LEG SURGERY 10/03/2016 NEK SURGERY 09/2016 Family History Problem Relation Age of Onset Bladder Cancer Father Breast cancer Maternal Grandmother Bone cancer Maternal Grandmother Prostate cancer Maternal Grandfather Heart attack Maternal Grandfather Stomach cancer Paternal Grandfather Social History Tobacco Use Smoking Status Every Day Packs/day: 1.00 Years: 20.00 Additional pack years: 0.00 Total pack years: 20.00 Types: Cigarettes Smokeless Tobacco Current Types: Chew Additional History Comments: None Allergies: Patient has no known allergies. Current HOME Medications: Outpatient Medications Marked as Taking for the 01/09/24 encounter (Hospital Encounter): atorvastatin (LIPITOR) 40 MG tablet, Take 1 Unspecified by mouth daily . rOPINIRole (REQUIP) 0.5 MG tablet, Take 4 (four) tablets (2 mg total) by mouth at bedtime TAKE 1 TABLET BY MOUTH EVERYDAY AT BEDTIME . sertraline (ZOLOFT) 100 MG tablet, Take 1.5 (one and a half) tablets (150 mg total) by mouth daily TAKE 1.5 TABLETS DAILY . Current HOSPITAL Medications: acetaminophen (TYLENOL) tablet 650 mg, 650 mg, Oral, Q4H PRN alteplase (INTRAPLEURAL) 10 mg/30 mL injection, 10 mg, Intrapleural, Once aluminum-magnesium hydroxide-simethicone (MAALOX PLUS) 200-200-20 mg/5 mL suspension 30 mL, 30 mL, Oral, Q4H PRN atorvastatin (LIPITOR) tablet 40 mg, 40 mg, Oral, Nightly bisacodyL (DULCOLAX) suppository 10 mg, 10 mg, Rectal, Daily PRN cefTRIAXone (ROCEPHIN) IVPB 2 g (premix), 2,000 mg, Intravenous, Q24H dornase (PULMOZYME) 5 mg/30 ml intrapleural injection, 5 mg, Intrapleural, Once enoxaparin (LOVENOX) syringe 40 mg, 40 mg, Subcutaneous, Daily ibuprofen (ADVIL,MOTRIN) tablet 600 mg, 600 mg, Oral, Q6H PRN magnesium hydroxide (MOM) 400 mg/5 mL suspension 2,400 mg, 30 mL, Oral, Daily PRN melatonin Tab 5 mg, 5 mg, Oral, Nightly PRN metroNIDAZOLE (FLAGYL) IVPB 500 mg, 500 mg, Intravenous, Q8H morphine (MSIR) tablet 7.5-15 mg, 7.5-15 mg, Oral, Q4H PRN morphine injection 2-4 mg, 2-4 mg, Intravenous, Q3H PRN naloxone (NARCAN) injection 0.1 mg, 0.1 mg, Intravenous, PRN AND Notify physician, , , Until Discontinued AND naloxone (NARCAN) injection 0.4 mg, 0.4 mg, Intravenous, PRN nicotine (NICODERM CQ) 14 mg/24 hr 1 patch, 1 patch, Transdermal, Daily PRN ondansetron (ZOFRAN-ODT) disintegrating tablet 4 mg, 4 mg, Oral, Q6H PRN OR ondansetron (ZOFRAN) injection 4 mg, 4 mg, Intravenous, Q6H PRN perflutren lipid microspheres (DEFINITY) 0.143 mg/mL solution 0-10 mL of mixture, 0-10 mL of mixture, Intravenous, Once in imaging rOPINIRole (REQUIP) tablet 2 mg, 2 mg, Oral, at bedtime senna (SENOKOT) tablet 8.6 mg, 1 tablet, Oral, BID PRN senna-docusate (SENNA-S) 8.6-50 mg per tablet 1 tablet, 1 tablet, Oral, BID sertraline (ZOLOFT) tablet 150 mg, 150 mg, Oral, Daily [COMPLETED] Insert peripheral IV, , , Once AND Saline lock IV, , , Once AND sodium chloride (PF) (NS) flush 5 mL, 5 mL, Intravenous, PRN AND sodium chloride 0.9% (NS), 0-150 mL/hr, Intravenous, PRN traZODone (DESYREL) tablet 50 mg, 50 mg, Oral, Nightly PRN Current Facility-Administered Medications Medication Dose Route Frequency Provider Last Rate Last Admin acetaminophen (TYLENOL) tablet 650 mg 650 mg Oral Q4H PRN Moses Bowen MD 650 mg at 01/10/24 1144 alteplase (INTRAPLEURAL) 10 mg/30 mL injection 10 mg Intrapleural Once Ender Cramer CNP aluminum-magnesium hydroxide-simethicone (MAALOX PLUS) 200-200-20 mg/5 mL suspension 30 mL 30 mL Oral Q4H PRN Moses Bowen MD atorvastatin (LIPITOR) tablet 40 mg 40 mg Oral Nightly Moses Bowen MD 40 mg at 01/10/24 0156 bisacodyL (DULCOLAX) suppository 10 mg 10 mg Rectal Daily PRN Moses Bowen MD cefTRIAXone (ROCEPHIN) IVPB 2 g (premix) 2,000 mg Intravenous Q24H Moses Bowen MD Stopped at 01/10/24 0329 dornase (PULMOZYME) 5 mg/30 ml intrapleural injection 5 mg Intrapleural Once Ender Cramer CNP enoxaparin (LOVENOX) syringe 40 mg 40 mg Subcutaneous Daily Moses Bowen MD 40 mg at 01/10/24 0908 ibuprofen (ADVIL,MOTRIN) tablet 600 mg 600 mg Oral Q6H PRN Moses Bowen MD magnesium hydroxide (MOM) 400 mg/5 mL suspension 2,400 mg 30 mL Oral Daily PRN Moses Bowen MD melatonin Tab 5 mg 5 mg Oral Nightly PRN Moses Bowen MD metroNIDAZOLE (FLAGYL) IVPB 500 mg 500 mg Intravenous Q8H Moses Bowen MD Stopped at 01/10/24 1011 morphine (MSIR) tablet 7.5-15 mg 7.5-15 mg Oral Q4H PRN Moses Bowen MD morphine injection 2-4 mg 2-4 mg Intravenous Q3H PRN Moses Bowen MD naloxone (NARCAN) injection 0.1 mg 0.1 mg Intravenous PRN Moses Bowen MD And naloxone (NARCAN) injection 0.4 mg 0.4 mg Intravenous PRN Moses Bowen MD nicotine (NICODERM CQ) 14 mg/24 hr 1 patch 1 patch Transdermal Daily PRN Moses Bowen MD ondansetron (ZOFRAN-ODT) disintegrating tablet 4 mg 4 mg Oral Q6H PRN Moses Bowen MD Or ondansetron (ZOFRAN) injection 4 mg 4 mg Intravenous Q6H PRN Moses Bowen MD perflutren lipid microspheres (DEFINITY) 0.143 mg/mL solution 0-10 mL of mixture 0-10 mL of mixture Intravenous Once in imaging Arthur Howe MD 2 mL of mixture at 01/10/24 1005 rOPINIRole (REQUIP) tablet 2 mg 2 mg Oral at bedtime Moses Bowen MD 2 mg at 01/10/24 0156 senna (SENOKOT) tablet 8.6 mg 1 tablet Oral BID PRN Moses Bowen MD senna-docusate (SENNA-S) 8.6-50 mg per tablet 1 tablet 1 tablet Oral BID Moses Bowen MD sertraline (ZOLOFT) tablet 150 mg 150 mg Oral Daily Moses Bowen MD 150 mg at 01/10/24 0908 sodium chloride (PF) (NS) flush 5 mL 5 mL Intravenous PRN Renato Carlos MD And sodium chloride 0.9% (NS) 0-150 mL/hr Intravenous PRN Renato Carlos MD traZODone (DESYREL) tablet 50 mg 50 mg Oral Nightly PRN Moses Bowen MD OBJECTIVE: Physical Examination: BP 107/74 (BP Location: Left arm, Patient Position: Lying) Pulse 99 Temp 98.4 F (36.9 C) (Oral) Resp 17 Ht 6' Wt 114.8 kg (253 lb) SpO2 93% BMI 34.31 kg/m Temp: [98 F (36.7 C)-101.6 F (38.7 C)] 98.4 F (36.9 C) Heart Rate: [98-122] 99 Resp: [15-37] 17 BP: (103-142)/(58-86) 107/74 SpO2 Readings from Last 1 Encounters: 01/10/24 93% Intake/Output Summary (Last 24 hours) at 01/10/2024 1333 Last data filed at 01/10/2024 1045 Gross per 24 hour Intake 263.77 ml Output -- Net 263.77 ml Vital Signs Reviewed. Gen: Alert and oriented x 3, in mild distress due to breathing HEENT: Head: Normocephalic, no lesions, without obvious abnormality. Pharynx: Dental Hygiene adequate. Normal buccal mucosa. Normal pharynx. Neck: nontender, full range of motion, no mass, no focal lymphadenopathy Cardio: regular rate and rhythm, no murmur, brisk capillary refill Resp: distant breath sounds bilaterally, no wheezes or crackles Abd: soft, nontender, nondistended, no hepatosplenomegaly, no mass, normal bowel sounds MSK: Moves all four extremities spontaneously. Neuro: Grossly normal without focal findings Skin: no rashes, no jaundice Labs and Imaging: [x] Medications reviewed. [x] Labs reviewed. Pertinent findings noted: WBC [x] Radiology reviewed. Pertinent findings noted: CT chest [] Pathology reviewed. Pertinent findings noted: Family Update/ Code Status: Full Laboratory and Additional Data Reviewed: Reviewed 01/10/24 1:33 PM: Laboratory, Microbiology, Radiology, Cardiology, Medications, and Transcriptions [facility] 01-10-2024 Consult note Associated Order (s): IP CONSULT TO DIETITIAN Nutrition Care Initial Assessment Admitted with RT pleural effusion Reason for visit: Physician Consult for nutrition needs Nutrition Diagnosis: recent poor PO x2 weeks, improving related to loss of appetite as evidenced by patient. Nutrition Intervention: Meal rounds; Meal and Snacks; took 50% of lunch(01/09) Nutrition Prescription: Diet: regular Oral nutrition supplement: regular Nutrition Goals: Follow WT for fluid+-(120.2kg on 01/08 to 114.8kg on 01/09) Start Date:01/10/2024 Expected End Date:01/16/2024 Nutrition Education: consider home daily WT for fluid+- Assessment: Pertinent clinical information: admitted with RT pleural effusion Past Medical History: Diagnosis Date Lung nodule 2019 Height: 6' Current weight: 114.8 kg (253 lb) BMI Body mass index is 34.31 kg/m . Weight hx: Wt Readings from Last 5 Encounters: 01/10/24 114.8 kg (253 lb) 11/07/23 115.9 kg (255 lb 9.6 oz) 04/04/23 117.9 kg (260 lb) 10/18/22 115.2 kg (253 lb 14.4 oz) 10/19/21 109.4 kg (241 lb 1.6 oz) Current diet order: regular Recent intake: 60%. Current intake Likely does not meet estimated needs. Patient/family comments: selecting menu Difficulty Chewing/Swallowing: No Skin Integrity: Intact GI Function: WNL Physical Appearance: no signs or symptoms of malnutrition Nutrition Focus Physical Exam Type: Visual Labs: Recent Labs 01/10/24 0014 NA 133* K 3.5 BICARB 21 CL 99 GLUCOSE 109* BUN 13 CREATININE 0.68 Scheduled Meds: alteplase (INTRAPLEURAL) 10 mg/30 mL injection 10 mg Intrapleural Once atorvastatin 40 mg Oral Nightly cefTRIAXone (ROCEPHIN) IVPB 2,000 mg Intravenous Q24H dornase (PULMOZYME) 5 mg/30 ml intrapleural injection 5 mg Intrapleural Once enoxaparin (LOVENOX) injection 40 mg Subcutaneous Daily metroNIDAZOLE 500 mg Intravenous Q8H rOPINIRole 2 mg Oral at bedtime senna-docusate 1 tablet Oral BID sertraline 150 mg Oral Daily Continuous Infusions: sodium chloride 0.9 % Estimated Energy Needs Total Energy Estimated Needs: 2250kcal Method for Estimating Needs: [id number] Total Protein Estimated Needs: 90-100gm Method for Estimating Needs: 1.0gm/kg adj Ed MS Court, RDN, LD Dietitian Office [facility] 01-10-2024 Procedure note Vascular & Interventional Radiology Provided By [facility] (Diagnostic Radiology, Interventional and Neurointerventional Radiology and Vascular Medicine) Interventional Radiology Department @ : [phone] 16/04 VIR physician contact: ([phone]) Weekday VIR VESNA contact @ : [phone] [facility]: [phone] [email or web address] [facility] ASSOCIATE PROFESSOR OF RADIOLOGY DIRECTORY PROCEDURE: Ultrasound and fluoroscopic guided placement of a right chest tube. PLAN: The chest tube will be connected to Pleurovac with wall suction Record drainage volume Date: 01/10/2024 Physician: Yanet Jackson PA-C and Amina Cerrato M.D. Sedation Plan: Moderate ASA Classification: ASA 2 - Patient with mild systemic disease with no functional limitations Mallampati Classification: Class II: Partial uvula and soft palate are visualized [place] Protocol: Pre-Procedural verification: Correct patient, correct site and correct procedure confirmed. H&P or interval update complete and in medical record. Informed consent form completed and signed. Radiology images, labs and pathology reviewed with appropriate identifiers (when applicable). Site Marking: N/A Time Out: PERFORMED Technique: The site was prepped. Local anesthesia was utilized. With ultrasound guidance, the right pleural space was accessed. With fluoroscopic guidance, a 14 Fr pigtail catheter was placed with tip within the pleural space. The catheter was secured with suture and connected to Pleurovac. The patient tolerated the procedure well without complication. Complications: None Yanet Robertson PA-C Full report to follow [facility] 01-10-2024 Procedure note Vascular & Interventional Radiology Provided By [facility] (Diagnostic Radiology, Interventional and Neurointerventional Radiology and Vascular Medicine) Interventional Radiology Department @ : [phone] 16/04 VIR physician contact: [phone]) Weekday VIR VESNA contact @ : [phone] [facility]: [phone] [email or web address] [facility] ASSOC[facility] PROFESSOR OF RADIOLOGY DIRECTORY PROCEDURE: Ultrasound and fluoroscopic guided placement of a right chest tube. PLAN: The chest tube will be connected to Pleurovac with wall suction Record drainage volume Date: 01/10/2024 Physician: Yanet Jackson PA-C and Amina Cerrato M.D. Sedation Plan: Moderate ASA Classification: ASA 2 - Patient with mild systemic disease with no functional limitations Mallampati Classification: Class II: Partial uvula and soft palate are visualized [place] Protocol: Pre-Procedural verification: Correct patient, correct site and correct procedure confirmed. H&P or interval update complete and in medical record. Informed consent form completed and signed. Radiology images, labs and pathology reviewed with appropriate identifiers (when applicable). Site Marking: N/A Time Out: PERFORMED Technique: The site was prepped. Local anesthesia was utilized. With ultrasound guidance, the right pleural space was accessed. With fluoroscopic guidance, a 14 Fr pigtail catheter was placed with tip within the pleural space. The catheter was secured with suture and connected to Pleurovac. The patient tolerated the procedure well without complication. Complications: None Yanet Robertson PA-C Full report to follow documented in this encounter [facility] 01-10-2024 History and physical note Vascular & Interventional Radiology Provided By [facility] (Diagnostic Radiology, Interventional and Neurointerventional Radiology and Vascular Medicine) Interventional Radiology Department @ : [phone] 16/04 VIR physician contact: [phone]) Weekday VIR VESNA contact @ : [phone] [facility]: [phone] [email or web address] [facility] ASSOCIATE PROFESSOR OF RADIOLOGY DIRECTORY PRE PROCEDURE INTERVAL HISTORY AND PHYSICAL Procedure: chest tube, right Indication: Lalitha Cartwright is a 53 year old male who came to the ER with chest pain. He was found to have a large, loculated right pleural effusion. VIR consulted for a chest tube. Allergies: Patient has no known allergies. Review of Symptoms: General: denies excessive fatigue, weight loss Cardiopulmonary: denies SOB, chest pain, palpitations Abdomen: denies abdominal pain, melena, hematochezia : denies dysuria, hematuria Derm: denies rash or lesion Neuro: denies headache, visual or speech changes Exam: CV: Pulse is regular Lungs: No respiratory distress. No accessory muscle use. No audible wheeze. Neuro: Alert to person and place. PACU Vitals 01/10/24 1120 BP: 130/76 Pulse: (!) 100 Resp: (!) 23 Temp: SpO2: 95% Mallampati Airway Classification: Class 2. Faucial pillars, soft palate visible Laboratory: Lab Results Component Value Date WBC 21.49 (H) 01/10/2024 HGB 12.0 (L) 01/10/2024 HCT 36.8 (L) 01/10/2024 MCV 86.5 01/10/2024 PLT 445 (H) 01/10/2024 Lab Results Component Value Date GLUCOSE 109 (H) 01/10/2024 CALCIUM 8.5 01/10/2024 NA 133 (L) 01/10/2024 K 3.5 01/10/2024 CL 99 01/10/2024 BUN 13 01/10/2024 CREATININE 0.68 01/10/2024 . Protime (PT) Date Value Ref Range Status 01/09/2024 14.6 (H) 11.8 - 14.3 seconds Final INR Date Value Ref Range Status 01/09/2024 1.1 0.8 - 1.1 Final Preprocedural ASA: B II (Mild systemic disease) Assessment: The comprehensive, admission History & Physical was reviewed and the patient examined. To proceed with planned procedure. Other: N/A [facility] Work Phone: 01-10-2024 History and physical note Vascular & Interventional Radiology Provided By [facility] (Diagnostic Radiology, Interventional and Neurointerventional Radiology and Vascular Medicine) Interventional Radiology Department @ : [phone] 16/04 VIR physician contact: [phone]) Weekday VIR VESNA contact @ : [phone] [facility]: [phone] [email or web address] [facility] ASSOC[facility]ATE PROFESSOR OF RADIOLOGY DIRECTORY PRE PROCEDURE INTERVAL HISTORY AND PHYSICAL Procedure: chest tube, right Indication: Lalitha Cartwright is a 53 year old male who came to the ER with chest pain. He was found to have a large, loculated right pleural effusion. VIR consulted for a chest tube. Allergies: Patient has no known allergies. Review of Symptoms: General: denies excessive fatigue, weight loss Cardiopulmonary: denies SOB, chest pain, palpitations Abdomen: denies abdominal pain, melena, hematochezia : denies dysuria, hematuria Derm: denies rash or lesion Neuro: denies headache, visual or speech changes Exam: CV: Pulse is regular Lungs: No respiratory distress. No accessory muscle use. No audible wheeze. Neuro: Alert to person and place. PACU Vitals 01/10/24 1120 BP: 130/76 Pulse: (!) 100 Resp: (!) 23 Temp: SpO2: 95% Mallampati Airway Classification: Class 2. Faucial pillars, soft palate visible Laboratory: Lab Results Component Value Date WBC 21.49 (H) 01/10/2024 HGB 12.0 (L) 01/10/2024 HCT 36.8 (L) 01/10/2024 MCV 86.5 01/10/2024 PLT 445 (H) 01/10/2024 Lab Results Component Value Date GLUCOSE 109 (H) 01/10/2024 CALCIUM 8.5 01/10/2024 NA 133 (L) 01/10/2024 K 3.5 01/10/2024 CL 99 01/10/2024 BUN 13 01/10/2024 CREATININE 0.68 01/10/2024 . Protime (PT) Date Value Ref Range Status 01/09/2024 14.6 (H) 11.8 - 14.3 seconds Final INR Date Value Ref Range Status 01/09/2024 1.1 0.8 - 1.1 Final Preprocedural ASA: B II (Mild systemic disease) Assessment: The comprehensive, admission History & Physical was reviewed and the patient examined. To proceed with planned procedure. Other: N/A [facility] HISTORY AND PHYSICAL -- [facility] Patient Name: Lalitha Cartwright : 1970 MR #: [id number] Admit Date: 01/09/2024 Physicians: Haley Ulloa MD (Family); No ref. provider found (Referring) Lalitha Cartwright is a 53 y.o. male patient of Haley Ulloa MD with history of lung nodule, HLD, pleural effusion, who presented to [facility] on 01/09/2024 with chest pain. Loculated pleural effusion, right: Sepsis Present on admission: yes Etiology: Suspected empyema SIRS criteria: Heart rate greater than 90, Respiratory rate greater than 20 or PACO2 less than 32mmHg, WBC greater than 12,000, less than 4,000, or greater than 10% bands Evidence of end organ damage: none Initial lactic acid: Ordered Repeat lactic acid: Necessity dependent upon initial value Current antibiotic regimen: CTX and metronidazole Culture data: Blood cultures Vasopressors/steroids: none Initial sepsis checklist: Lactate ordered [x] Blood cultures obtained [x] Antibiotics initiated [x] IV fluids per sepsis protocol [] IR consult Acute hypoxemic respiratory failure: CTA pulmonary arteries: No obvious acute mediastinal process or pulmonary embolism. Mild mediastinal and right hilar lymphadenopathy. Moderate to prominent effusion on the right with areas of loculation along the lateral aspect and major fissure. Small stable nodule in the lateral aspect of the left lower lobe. Low flow oxygen protocols; wean as tolerated Hyponatremia: NS bolus and infusion Recheck in AM Metabolic Acidosis: Bicarb 20 by BMP on admission Check VBG and lactic acid HLD: Atorvastatin Cigarette nicotine dependence: Nicotine patch PRN Residence prior to admission: house or apartment Was patient transferred from [facility] hospital or ED no Quality Measures DVT Prophylaxis: lovenox Grayson Catheter: absent Medication Reconciliation: Verified Admitted with these risk variables:Acute Respiratory Failure, Electrolyte Disturbance: Hyponatremia, and Acidosis. Please see assessment and plan for further details. Estimated Date of Discharge greater than 2 midnights Code Status Full Code; code status verified on 01/09/2024 with patient (capacity intact) Chief Complaint Chest pain History of Present Illness Lalitha Cartwright is a 53 y.o. male patient of Haley Ulloa MD with history of lung nodule, HLD, pleural effusion, who presented to [facility] on 01/09/2024 with chest pain. Right sided. Moderate severity. Worse with movement or deep breaths. Present for the past 10 days or so. Went to [facility] ED on 01/03 and found to have a pleural effusion. Sent home with Percocet and Levaquin prescriptions. No fever, chills, leg swelling, calf pain. Past Medical History Past Medical History: Diagnosis Date Lung nodule 2019 Past Surgical History Past Surgical History: Procedure Laterality Date CATARACT EXTRACTION W/ INTRAOCULAR LENS IMPLANT Bilateral LEG SURGERY 10/03/2016 NEK SURGERY 09/2016 Family History Family History Problem Relation Age of Onset Bladder Cancer Father Breast cancer Maternal Grandmother Bone cancer Maternal Grandmother Prostate cancer Maternal Grandfather Heart attack Maternal Grandfather Stomach cancer Paternal Grandfather Social History Social History Tobacco Use Smoking Status Every Day Packs/day: 1.00 Years: 20.00 Additional pack years: 0.00 Total pack years: 20.00 Types: Cigarettes Smokeless Tobacco Current Types: Chew Social History Substance and Sexual Activity Alcohol Use Not Currently Social History Substance and Sexual Activity Drug Use Not Currently Allergy Information I have reviewed the patient's allergies. Patient has no known allergies. Home Medications Home medications were reviewed. Review Of Systems All relevant systems have been reviewed and are negative except as noted in HPI or below Physical Examination BP 127/74 Pulse (!) 102 Temp 99 F (37.2 C) (Oral) Resp (!) 37 Ht 6' Wt 120.2 kg (265 lb) SpO2 94% BMI 35.94 kg/m General Appearance: alert; well appearing; in no acute distress HEENT: Head- normocephalic; Eyes- EOMI, sclera anicteric; Throat- mucous membranes moist Cardiovascular: regular rate and rhythm; normal S1, S2; no murmurs, rubs, clicks or gallops; peripheral edema absent Respiratory: diminished breath sound in right base; no wheezes, rales or rhonchi; on nasal cannula Abdomen: soft, non-tender, non-distended Neurological: oriented x 3; normal speech; no focal findings or movement disorder noted Musculoskeletal: no significant deformity or tenderness to palpation Skin: normal coloration Psych: normal mood and affect documented in this encounter [facility] 01-10-2024 Consult note Associated Order (s): IP CONSULT TO INTERVENTIONAL RADIOLOGY Images from the original note were not included. Vascular & Interventional Radiology Provided By [facility] (Diagnostic Radiology, Interventional and Neurointerventional Radiology and Vascular Medicine) Interventional Radiology Department @ : [phone] 16/04 VIR physician contact: [phone] VIR VESNA contact @ [facility]: [phone] [facility]: [phone] [email or web address] ASSOCIATE PROFESSOR OF RADIOLOGY DIRECTORY The consult was reviewed. The patient's chart was reviewed. The patient's H&P was reviewed. Lalitha Cartwright is a 53 y.o. male patient of Haley Ulloa MD with history of lung nodule, HLD, pleural effusion, who presented to [facility] on 01/09/2024 with chest pain. Loculated pleural effusion, right: Sepsis Present on admission: yes Etiology: Suspected empyema SIRS criteria: Heart rate greater than 90, Respiratory rate greater than 20 or PACO2 less than 32mmHg, WBC greater than 12,000, less than 4,000, or greater than 10% bands CT CHEST IMPRESSION: 1. No obvious acute mediastinal process or pulmonary embolism. 2. Mild mediastinal and right hilar lymphadenopathy. 3. Moderate to prominent effusion on the right with areas of loculation along the lateral aspect and major fissure. 4. Small stable nodule in the lateral aspect of the left lower lobe. VIR consulted for a chest tube vs thoracentesis. VIR would recommend a chest tube. Plan is to do the procedure today as VIR schedule permits. INR is stable. Patient did eat today and we will not sedate. The patient will be scheduled for the requested right chest tube procedure. Procedure date and time TBD by the VIR control desk @ [phone], once pertinent labs and anticoagulant medications have been reviewed, per guidelines below. Please refer to the procedure note section for preliminary procedure details as well as the imaging section for the final procedure report. Pertinent image (if applicable): Pertinent labs are as follows: Results from last 7 days Lab Units 01/09/241926 INR 1.1 No results found for: PTT Lab Results Component Value Date PLT 445 (H) 01/10/2024 Lab Results Component Value Date BUN 13 01/10/2024 Lab Results Component Value Date CREATININE 0.68 01/10/2024 Patient's allergies are as follows: Allergies as of 01/09/2024 (No Known Allergies) VIR Xochilt-procedure lab value guideline (pending P&T review 09/2020): Table 1. LOW Bleeding Risk Laboratory Guidelines Low Bleeding Risk Procedures Target Laboratory Values3 Bone Marrow Biopsy [Platelet Count - N/A] Catheter exchanges (gastrostomy, biliary, nephrostomy, abscess, including gastrostomy/gastrojejunostomy conversions) CVC tunneled >/= 8 Fr* Diagnostic venography and select venous interventions: pelvis and extremities Dialysis shunt interventions IVC filter placement and removal Non-tunneled chest tube placement for pleural effusion Non-tunneled venous access and removal (including PICC placement) and Tunneled venous access Paracentesis Peripheral nerve blocks, joint, and musculoskeletal injections Sacroiliac joint injection and sacral lateral branch blocks Superficial abscess drainage or biopsy (palpable lesion, lymph node, soft tissue, breast, thyroid) Thoracentesis Trans jugular liver biopsy Trigger point injections including piriformis Tunneled drainage catheter placement* PT/INR < 2.0 - 3.0 Platelets > 20,000/mcL (Consider transfusing platelets if <20,000/mcL) If patient with Chronic Liver Disease (based on expert opinion): PT/INR < 3.0 (Consider Vitamin K infusion if INR >3.0) Platelets > 20,000/mcL (Transfuse platelets if <20,000/mcL in patients with a large spleen) Fibrinogen > 100mg/dL (Consider cryoprecipitate if <100mg/dL) *If on Direct Oral Anticoagulant (DOAC), follow HIGH Bleeding Risk recommendations in Table 2 and Table 3 Table 2. HIGH Bleeding Risk Laboratory Guidelines: HIGH Bleeding Risk Procedures Target Laboratory Values3 Ablations: solid organs, bone, soft tissue, lung Arterial diagnostic interventions: aortic, pelvic, mesenteric, peripheral Biliary interventions (including cholecystostomy tube placement) Catheter directed thrombolysis/thrombectomy- DVT, PE, portal vein (Highly case dependent) Deep abscess drainage (e.g., lung parenchyma, abdominal, pelvic, retroperitoneal) Deep non organ biopsies (e.g., spine, soft tissue in intra-abdominal, retroperitoneal, pelvic compartments) Gastrostomy/gastrojejunostomy placement IVC filter removal complex Lumbar puncture Lymphangiography Portal vein interventions Solid organ biopsies Spine procedures with risk of spinal or epidural hematoma (e.g., kyphoplasty, vertebroplasty, epidural injections, facet blocks) Trans jugular intrahepatic portosystemic shunt Port placement/removal (Buried) Urinary tract interventions (including nephrostomy tube placement, ureteral dilation, stone removal) Venous interventions: intrathoracic and TRUCK [employer]ENT[employer]NAGER intervention PT/INR < 1.5 - 1.8 (if arterial access, femoral: INR < 1.8, radial: INR < 2.2) Platelets > 50,000/mcL (Consider transfusing platelets if <50,000/mcL) If patient with Chronic Liver Disease (based on expert opinion): PT/INR < 2.5 (Give Vitamin K 10mg infusion if INR >2.5) Platelets > 30,000/mcL (Transfuse platelets if <30,000/mcL in patients with a large spleen) Fibrinogen > 100mg/dL (Consider cryoprecipitate if <100mg/dL) VIR Xochilt-procedure anticoagulant/antiplatelet guideline (pending P&T review 09/2020): Medication LOW Bleeding Risk^ HIGH Bleeding Risk^ Reinitiation Abciximab (ReoPro ) Hold 24 hrs before procedure Hold 24 hrs before procedure Patient undergoing PCI or within immediate periprocedural period from cardiac intervention; use multidisciplinary, shared decision-making Apixaban (Eliquis ) Do not hold CrCl > 50mL/min: Hold 4 doses CrCl < 30-50mL/min: Hold 6 doses 24 hrs Aspirin OR Aspirin/Dipyridamole (Aggrenox ) Holding strategy for aspirin requires patient-specific approach; for high risk or complex cardiovascular cases, multidisciplinary, shared decision-making is suggested Do not hold Hold for 3-5 days (assumes multidisciplinary evaluation and agreement to interrupt therapy) Resume the day after procedure Argatroban (Acova ) Do not hold Hold 2-4 hrs: check aPTT 4-6 hrs Betrixaban (Bevyxxa ) Do not hold Hold for 3 doses 24 hrs Bivalirudin (Angiomax ) Do not hold Hold 2-4 hrs: check aPTT 4-6 hrs Cangrelor (Kengreal ) Defer procedure until therapy completed; if emergent, multidisciplinary discussion with Cardiology is recommended Defer procedure until therapy completed; if emergent, multidisciplinary discussion with Cardiology is recommended Patient undergoing PCI or within immediate periprocedural period from cardiac intervention; Use multidisciplinary, shared-decision making Cilostazol (Pletal ) Do not hold Do not hold N/A Clopidogrel (Plavix ) Do not hold Hold for 5 days before procedure 75mg Dose: 6 hrs after procedure Loading Dose (300-600mg): 24 hrs after procedure Dabigatran (Pradaxa ) Do not hold CrCl > 50mL/min: Hold 4 doses CrCl < 30-50mL/min: Hold 6-8 doses Consider checking thrombin time with impaired renal function 24 hrs Edoxaban (Savaysa ) Do not hold Hold for 2 doses 24 hrs Eptifibatide (Integrilin ) Hold 4-8 hrs before procedure Hold 4-8 hrs before procedure Patient undergoing PCI or within immediate periprocedural period from cardiac intervention; Use multidisciplinary, shared decision-making Fondaparinux (Arixtra ) Do not hold CrCl > 50mL/min: Hold 2-3 Days CrCl < 50mL/min: Hold 3-5 days 24 hrs LMWH: Enoxaparin (Lovenox ), Dalteparin (Fragmin ) Do not hold Check anti-Xa level if renal function impaired Prophylactic Enoxaparin: Hold 1 dose Therapeutic Enoxaparin: Hold 2 doses or 24 hrs Dalteparin: Hold 1 dose 12 hrs NSAIDS (short-, intermediate-, and long-acting) Do not hold No recommendations N/A Prasugrel (Effient ) Do not hold Hold for 7 days before procedure Resume the day after the procedure Rivaroxaban (Xarelto ) Do not hold CrCl > 50mL/min: Hold 2 doses CrCl 30-50mL/min: Hold 2 doses CrCl < 15-30mL/min: Hold 3 doses 24 hrs Ticagrelor (Brilinta ) Do not hold Hold for 5 days before procedure Resume the day after the procedure Tirofiban (Aggrastat ) Hold 4-8 hrs before procedure Hold 4-8 hrs before procedure Patient undergoing PCI or within immediate periprocedural period from cardiac intervention; Use multidisciplinary, shared decision-making Unfractionated Heparin Do not hold IV Heparin: Hold 4-6 hrs before procedure; check aPTT or anti-Xa level SubQ Heparin: Hold 6 hrs before procedure 6-8 hrs Warfarin (Coumadin ) Target INR < 3 Hold 5 days until INR < 1.8 Low Bleeding Risk: N/A or same day for bridged patients High Bleeding Risk: Resume day after procedure; Consider bridging after procedure for high thrombosis risk cases; Use multidisciplinary, shared-decision making to balance bleeding vs. thrombotic risks. [facility] 01-10-2024 Note PROCEDURE: 1. ULTRASOUND-GUIDED right SIDED CHEST TUBE PLACEMENT. 2. MODERATE SEDATION. HISTORY: Loculated pleural effusion ROD POINTER(S): Yanet Jackson PA-C and Amina Cerrato M.D. MEDICATIONS: Intravenous moderate sedation with continuous cardiorespiratory monitoring for 0 minutes utilizing 0 mg of Versed IV and 75 mcg fentanyl IV was provided general supervision by the interventional radiologist. TECHNICAL REPORT: The procedure with its recognized benefits and risks were explained to the patient and/or family and written consent was obtained. The patient was brought to the Interventional Radiology suite and placed in the supine position. A time-out/pause and confirm was performed. The right lateral thorax was prepped and draped in a sterile fashion. Following cutaneous anesthesia with 1% Lidocaine and with ultrasound guidance, the pleural fluid was accessed with an 18 gauge Chiba needle. Fluid was aspirated. A wire was then advanced into the pleural space and following fascial dilatation, a 14 Russian 41 cm chest tube Thal-Quick was placed. The catheter was secured to the skin with 2 -0 Ethilon suture. A sample of fluid was submitted for microbiology and other requested analysis. The drain was connected to a pleural vac drainage. The patient tolerated the procedure well without evidence of any complications. Hand hygiene was performed and all elements of maximal sterile barrier technique were followed, including the sterile ultrasound probe cover and sterile ultrasound gel, when utilized. FINDINGS: Ultrasound confirms the presence of a 14 sided pleural effusion. IMPRESSION: Successful ultrasound-guided placement of a right sided 14 Fr. chest tube. Workstation ID: [id number] Dictated by: YANET JACKSON on SunJan 10, 2024 2:26:15 PM EDT Transcribed by: YANET JACKSON on Taylor Jan 10, 2024 2:26:15 PM EDT Finalized by: AMINA CERRATO on Taylor Jan 10, 2024 4:23:35 PM EDT [facility] 01-09-2024 History and physical note [facility] HISTORY AND PHYSICAL -- [facility] Patient Name: Lalitha Cartwright : 1970 MR #: [id number] Admit Date: 01/09/2024 Physicians: Haley Ulloa MD (Family); No ref. provider found (Referring) Lalitha Cartwright is a 53 y.o. male patient of Haley Ulloa MD with history of lung nodule, HLD, pleural effusion, who presented to [facility] on 01/09/2024 with chest pain. Loculated pleural effusion, right: Sepsis Present on admission: yes Etiology: Suspected empyema SIRS criteria: Heart rate greater than 90, Respiratory rate greater than 20 or PACO2 less than 32mmHg, WBC greater than 12,000, less than 4,000, or greater than 10% bands Evidence of end organ damage: none Initial lactic acid: Ordered Repeat lactic acid: Necessity dependent upon initial value Current antibiotic regimen: CTX and metronidazole Culture data: Blood cultures Vasopressors/steroids: none Initial sepsis checklist: Lactate ordered [x] Blood cultures obtained [x] Antibiotics initiated [x] IV fluids per sepsis protocol [] IR consult Acute hypoxemic respiratory failure: CTA pulmonary arteries: No obvious acute mediastinal process or pulmonary embolism. Mild mediastinal and right hilar lymphadenopathy. Moderate to prominent effusion on the right with areas of loculation along the lateral aspect and major fissure. Small stable nodule in the lateral aspect of the left lower lobe. Low flow oxygen protocols; wean as tolerated Hyponatremia: NS bolus and infusion Recheck in AM Metabolic Acidosis: Bicarb 20 by BMP on admission Check VBG and lactic acid HLD: Atorvastatin Cigarette nicotine dependence: Nicotine patch PRN Residence prior to admission: house or apartment Was patient transferred from [facility] hospital or ED no Quality Measures DVT Prophylaxis: lovenox Grayson Catheter: absent Medication Reconciliation: Verified Admitted with these risk variables:Acute Respiratory Failure, Electrolyte Disturbance: Hyponatremia, and Acidosis. Please see assessment and plan for further details. Estimated Date of Discharge greater than 2 midnights Code Status Full Code; code status verified on 01/09/2024 with patient (capacity intact) Chief Complaint Chest pain History of Present Illness Lalitha Cartwright is a 53 y.o. male patient of [facility], Haley Coley MD with history of lung nodule, HLD, pleural effusion, who presented to [facility] on 01/09/2024 with chest pain. Right sided. Moderate severity. Worse with movement or deep breaths. Present for the past 10 days or so. Went to [facility] ED on 01/03 and found to have a pleural effusion. Sent home with Percocet and Levaquin prescriptions. No fever, chills, leg swelling, calf pain. Past Medical History Past Medical History: Diagnosis Date Lung nodule 2019 Past Surgical History Past Surgical History: Procedure Laterality Date CATARACT EXTRACTION W/ INTRAOCULAR LENS IMPLANT Bilateral LEG SURGERY 10/03/2016 NEK SURGERY 09/2016 Family History Family History Problem Relation Age of Onset Bladder Cancer Father Breast cancer Maternal Grandmother Bone cancer Maternal Grandmother Prostate cancer Maternal Grandfather Heart attack Maternal Grandfather Stomach cancer Paternal Grandfather Social History Social History Tobacco Use Smoking Status Every Day Packs/day: 1.00 Years: 20.00 Additional pack years: 0.00 Total pack years: 20.00 Types: Cigarettes Smokeless Tobacco Current Types: Chew Social History Substance and Sexual Activity Alcohol Use Not Currently Social History Substance and Sexual Activity Drug Use Not Currently Allergy Information I have reviewed the patient's allergies. Patient has no known allergies. Home Medications Home medications were reviewed. Review Of Systems All relevant systems have been reviewed and are negative except as noted in HPI or below Physical Examination BP 127/74 Pulse (!) 102 Temp 99 F (37.2 C) (Oral) Resp (!) 37 Ht 6' Wt 120.2 kg (265 lb) SpO2 94% BMI 35.94 kg/m General Appearance: alert; well appearing; in no acute distress HEENT: Head- normocephalic; Eyes- EOMI, sclera anicteric; Throat- mucous membranes moist Cardiovascular: regular rate and rhythm; normal S1, S2; no murmurs, rubs, clicks or gallops; peripheral edema absent Respiratory: diminished breath sound in right base; no wheezes, rales or rhonchi; on nasal cannula Abdomen: soft, non-tender, non-distended Neurological: oriented x 3; normal speech; no focal findings or movement disorder noted Musculoskeletal: no significant deformity or tenderness to palpation Skin: normal coloration Psych: normal mood and affect [facility] 01-09-2024 Physician Emergency department Note Associated Order(s): ECG 12 Lead; Critical Care [facility] EMERGENCY DEPARTMENT - Emergency Medicine Attending Note: NAME: Lalitha Cartwright 53 y.o. CSN: [id number] PCP: Haley Ulloa MD History: Chief Complaint: Shortness of Breath HPI: The history was obtained from the patient. Lalitha is a 53 y.o. male who presents with a chief complaint of Shortness of Breath. Shortness of Breath Associated symptoms: cough Associated symptoms: no abdominal pain, no chest pain, no fever, no headaches, no vomiting and no wheezing This is a 53-year-old male, presented for evaluation of shortness of breath. He reports that shortness of breath has been ongoing for many weeks. He reports that he finally saw a doctor for this last week, who told him that he has pleural effusions. Additionally, some of his numbers were very high. Patient reports no shortness of breath just continues to get worse, and he feels like he is having more trouble breathing. ROS: Review of Systems Constitutional: Negative for activity change, appetite change, fatigue and fever. HENT: Negative for congestion and rhinorrhea. Eyes: Negative for photophobia, pain, redness and visual disturbance. Respiratory: Positive for cough and shortness of breath. Negative for apnea, chest tightness and wheezing. Cardiovascular: Negative for chest pain and palpitations. Gastrointestinal: Negative for abdominal pain, constipation, diarrhea, nausea and vomiting. Genitourinary: Negative for difficulty urinating and hematuria. Musculoskeletal: Negative for arthralgias and myalgias. Skin: Negative for color change. Allergic/Immunologic: Negative for environmental allergies and food allergies. Neurological: Negative for dizziness, syncope, light-headedness, numbness and headaches. Psychiatric/Behavioral: Negative for behavioral problems and confusion. Positives and pertinent negatives as per HPI. All other systems were reviewed and are negative. Physical Exam: Patient Vitals for the past 24 hrs: BP Temp Temp src Pulse Resp SpO2 Height Weight 01/09/24 2200 (!) 142/86 -- -- (!) 104 (!) 32 93 % -- -- 01/09/242035 -- -- -- -- -- 94 % -- -- 01/09/242029 125/78 -- -- (!) 108 (!) 31 95 % -- -- 01/09/241944 103/73 -- -- (!) 109 (!) 23 93 % -- -- 01/09/241921 (!) 118/58 99 F (37.2 C) Oral (!) 122 15 91 % 6' 120.2 kg (265 lb) Physical Exam Constitutional: General: He is not in acute distress. Appearance: He is ill-appearing (Patient is ill-appearing, but in no acute distress.). He is not diaphoretic. HENT: Head: Normocephalic and atraumatic. Right Ear: External ear normal. Left Ear: External ear normal. Eyes: General: No scleral icterus. Neck: Vascular: No JVD. Trachea: No tracheal deviation. Cardiovascular: Rate and Rhythm: Normal rate and regular rhythm. Pulses: Normal pulses. Heart sounds: Normal heart sounds. No murmur heard. No friction rub. No gallop. Pulmonary: Effort: Pulmonary effort is normal. No respiratory distress. Comments: Mild bilateral crackles noted to the lung bases. Musculoskeletal: General: No deformity. Normal range of motion. Right lower leg: No tenderness. Edema present. Left lower leg: No tenderness. Edema present. Skin: General: Skin is warm and dry. Neurological: General: No focal deficit present. Mental Status: He is alert and oriented to person, place, and time. Psychiatric: Mood and Affect: Mood normal. Behavior: Behavior normal. Laboratory & Radiological Imaging (if done): Labs Reviewed BASIC METABOLIC PANEL - Abnormal; Notable for the following components: Result Value Sodium 131 (*) Chloride 96 (*) Bicarbonate 20 (*) Glucose 128 (*) BUN/Creatinine Ratio 21.3 (*) All other components within normal limits Narrative: [facility] has implemented the eGFR calculation approach that does not have a coefficient for race that conforms to the NKF-ASN Task Force Recommendations. PT/INR - Abnormal; Notable for the following components: Protime (PT) 14.6 (*) All other components within normal limits Narrative: During the induction phase of oral anticoagulation, the INR may not reflect the anticoagulation status of the patient. Therapeutic ranges for INR's are: Most clinical situations: INR 2.0-3.0 Mechanical Prosthetic Valve: INR 2.5-3.5 Critical: INR >5.0 D-DIMER, QUANTITATIVE - Abnormal; Notable for the following components: D-Dimer 8.66 (*) All other components within normal limits Narrative: A D-dimer concentration of <0.5 micrograms per milliliter FEU is considered a low probability for pulmonary embolus (PE) and deep venous thrombosis (DVT). Results of this test should always be interpreted in conjunction with the patient's medical history,clinical presentation, and other findings. Clinical diagnosis should not be based on the results of the D-dimer alone. CBC WITH AUTO DIFFERENTIAL - Abnormal; Notable for the following components: WBC 27.10 (*) RBC 4.13 (*) Hemoglobin 12.0 (*) Hematocrit 35.5 (*) Platelets 514 (*) MPV 8.4 (*) Neutrophils Abs 22.56 (*) Monocytes Abs 1.13 (*) IG Absolute 1.07 (*) All other components within normal limits COVID-19/INFLUENZA A,B MOLECULAR - Normal NT PRO BNP - Normal Narrative: Pride Study Cut-offs Rule In: < /= 50 Years >450 pg/mL 51 Years - 75 Years >900 pg/mL 76 Years - 99 Years >1800 pg/mL Rule Out: All patients <300 pg/mL CBC AND DIFFERENTIAL Narrative: The following orders were created for panel order CBC w/ Diff. Procedure Abnormality Status --------- ------ CBC Auto Differential[[id number]] Abnormal Final result Please view results for these tests on the individual orders. TROPONIN TROPONIN CT Pulmonary Arteries Final Result 1. No obvious acute mediastinal process or pulmonary embolism. 2. Mild mediastinal and right hilar lymphadenopathy. 3. Moderate to prominent effusion on the right with areas of loculation along the lateral aspect and major fissure. 4. Small stable nodule in the lateral aspect of the left lower lobe. Workstation ID: [id number] Chest AP/PA and LAT Final Result 1. Prominent effusion as discussed on the right. Recommend follow-up to resolution. 2. The left lung is clear. Workstation ID: [id number] Procedures: ECG 12 Lead Date/Time: 01/09/2024 7:47 PM Performed by: Renato Carlos MD Authorized by: Renato Carlos MD Interpreted by ED attending physician Rhythm: sinus rhythm and sinus tachycardia BPM: 112 ST Segments: ST segments normal Clinical impression: abnormal ECG and sinus tachycardia Critical Care Performed by: Renato Carlos MD Authorized by: Renato Carlos MD Total critical care time: 35 minutes Critical care time was exclusive of separately billable procedures and treating other patients. Critical care was necessary to treat or prevent imminent or life-threatening deterioration of the following conditions: respiratory failure. Critical care was time spent personally by me on the following activities: development of treatment plan with patient or surrogate, discussions with consultants, evaluation of patient's response to treatment, examination of patient, obtaining history from patient or surrogate, ordering and performing treatments and interventions, ordering and review of laboratory studies, ordering and review of radiographic studies, pulse oximetry, re-evaluation of patient's condition and review of old charts. ED Course / Medical Decision Makin-year-old male, presenting for evaluation of shortness of breath. Patient reports he was diagnosed with a pleural effusion at outside hospital. Workup here today is consistent with a pleural effusion, however, appears to have a loculated pleural effusion on the right. White blood cell count showing a elevation 27.1. D-dimer is also elevated, however, CT PE study does not show any acute pulmonary emboli. Patient is acutely hypoxic, and needs supplemental oxygen, however, does well with this. Discussed case with [facility] hospitalist, and they want to ensure that there is someone who can do a VATS procedure that this patient will possibly need. Discussed with both general surgery and cardiac surgery here locally, and neither of them are able to perform a VATS procedure. I next spoke with Dr. Nava, vascular and interventional radiologist on-call for [facility], which also covers her hospital during the day, to discuss the case with him. He states that this should be something that can be done locally, and his group who will be back here in the morning would be happy to consult when they arrive in the morning. We discussed the results of the work up in the emergency department. Patient and family are agreeable to the plan of care, including for admission. I spoke with the [facility] Doc Boiler Coverer/Unassigned Medicine Service, Dr. Bowen, and the patient will be accepted onto their inpatient service. ED MIPS (if empty, not applicable): Coding Elements: Medical Decision Making Clinical Impression: 1. Acute respiratory failure with hypoxia (HCC) 2. Loculated pleural effusion Disposition: hospitalize to Med/Surg with telemetry Renato Carlos M.D. Attending Physician [facility] EMERGENCY DEPARTMENT 01/09/2024 Portions of this note may have been dictated utilizing voice recognition software. Unfortunately this leads to occasional typographical errors. If questions arise please do not hesitate to contact my office for clarification. Data from EMR: PMHx: Past Medical History: Diagnosis Date Lung nodule 2019 PMSx: Past Surgical History: Procedure Laterality Date CATARACT EXTRACTION W/ INTRAOCULAR LENS IMPLANT Bilateral LEG SURGERY 10/03/2016 NEK SURGERY 09/2016 FAM. Hx: Family History Problem Relation Age of Onset Bladder Cancer Father Breast cancer Maternal Grandmother Bone cancer Maternal Grandmother Prostate cancer Maternal Grandfather Heart attack Maternal Grandfather Stomach cancer Paternal Grandfather SOC. Hx: Social History Socioeconomic History Marital status: Tobacco Use Smoking status: Every Day Packs/day: 1.00 Years: 20.00 Additional pack years: 0.00 Total pack years: 20.00 Types: Cigarettes Smokeless tobacco: Current Types: Chew Vaping Use Vaping Use: Never used Substance and Sexual Activity Alcohol use: Not Currently Drug use: Not Currently Sexual activity: Yes Partners: Female MEDs: Previous Medications Medication Sig acetaminophen (TYLENOL) 325 MG tablet Take 2 (two) tablets (650 mg total) by mouth every 6 (six) hours as needed Per pt . atorvastatin (LIPITOR) 40 MG tablet Take 1 Unspecified by mouth daily . ibuprofen (ADVIL,MOTRIN) 200 MG tablet Take 2 (two) tablets (400 mg total) by mouth every 6 (six) hours as needed Per pt - as needed . rOPINIRole (REQUIP) 0.5 MG tablet Take 4 (four) tablets (2 mg total) by mouth at bedtime TAKE 1 TABLET BY MOUTH EVERYDAY AT BEDTIME . sertraline (ZOLOFT) 100 MG tablet Take 1 (one) tablet (100 mg total) by mouth daily TAKE 1.5 TABLETS DAILY . ALL: No Known Allergies (Please note that portions of this note have been completed with a voice recognition software. Efforts were made to correct any errors, but occasionally words are mis-transcribed.) Renato Carlos MD 01/09/24 1296 [facility] 01-09-2024 Emergency department Note Associated Order(s): ECG 12 Lead; Critical Care [facility] EMERGENCY DEPARTMENT - Emergency Medicine Attending Note: NAME: Lalitha Cartwright 53 y.o. CSN: [id number] PCP: Haley Ulloa MD History: Chief Complaint: Shortness of Breath HPI: The history was obtained from the patient. Lalitha is a 53 y.o. male who presents with a chief complaint of Shortness of Breath. Shortness of Breath Associated symptoms: cough Associated symptoms: no abdominal pain, no chest pain, no fever, no headaches, no vomiting and no wheezing This is a 53-year-old male, presented for evaluation of shortness of breath. He reports that shortness of breath has been ongoing for many weeks. He reports that he finally saw a doctor for this last week, who told him that he has pleural effusions. Additionally, some of his numbers were very high. Patient reports no shortness of breath just continues to get worse, and he feels like he is having more trouble breathing. ROS: Review of Systems Constitutional: Negative for activity change, appetite change, fatigue and fever. HENT: Negative for congestion and rhinorrhea. Eyes: Negative for photophobia, pain, redness and visual disturbance. Respiratory: Positive for cough and shortness of breath. Negative for apnea, chest tightness and wheezing. Cardiovascular: Negative for chest pain and palpitations. Gastrointestinal: Negative for abdominal pain, constipation, diarrhea, nausea and vomiting. Genitourinary: Negative for difficulty urinating and hematuria. Musculoskeletal: Negative for arthralgias and myalgias. Skin: Negative for color change. Allergic/Immunologic: Negative for environmental allergies and food allergies. Neurological: Negative for dizziness, syncope, light-headedness, numbness and headaches. Psychiatric/Behavioral: Negative for behavioral problems and confusion. Positives and pertinent negatives as per HPI. All other systems were reviewed and are negative. Physical Exam: Patient Vitals for the past 24 hrs: BP Temp Temp src Pulse Resp SpO2 Height Weight 01/09/24 2200 (!) 142/86 -- -- (!) 104 (!) 32 93 % -- -- 01/09/242035 -- -- -- -- -- 94 % -- -- 01/09/242029 125/78 -- -- (!) 108 (!) 31 95 % -- -- 01/09/24 194 103/73 -- -- (!) 109 (!) 23 93 % -- -- 01/09/241921 (!) 118/58 99 F (37.2 C) Oral (!) 122 15 91 % 6' 120.2 kg (265 lb) Physical Exam Constitutional: General: He is not in acute distress. Appearance: He is ill-appearing (Patient is ill-appearing, but in no acute distress.). He is not diaphoretic. HENT: Head: Normocephalic and atraumatic. Right Ear: External ear normal. Left Ear: External ear normal. Eyes: General: No scleral icterus. Neck: Vascular: No JVD. Trachea: No tracheal deviation. Cardiovascular: Rate and Rhythm: Normal rate and regular rhythm. Pulses: Normal pulses. Heart sounds: Normal heart sounds. No murmur heard. No friction rub. No gallop. Pulmonary: Effort: Pulmonary effort is normal. No respiratory distress. Comments: Mild bilateral crackles noted to the lung bases. Musculoskeletal: General: No deformity. Normal range of motion. Right lower leg: No tenderness. Edema present. Left lower leg: No tenderness. Edema present. Skin: General: Skin is warm and dry. Neurological: General: No focal deficit present. Mental Status: He is alert and oriented to person, place, and time. Psychiatric: Mood and Affect: Mood normal. Behavior: Behavior normal. Laboratory & Radiological Imaging (if done): Labs Reviewed BASIC METABOLIC PANEL - Abnormal; Notable for the following components: Result Value Sodium 131 (*) Chloride 96 (*) Bicarbonate 20 (*) Glucose 128 (*) BUN/Creatinine Ratio 21.3 (*) All other components within normal limits Narrative: [facility] has implemented the eGFR calculation approach that does not have a coefficient for race that conforms to the NKF-ASN Task Force Recommendations. PT/INR - Abnormal; Notable for the following components: Protime (PT) 14.6 (*) All other components within normal limits Narrative: During the induction phase of oral anticoagulation, the INR may not reflect the anticoagulation status of the patient. Therapeutic ranges for INR's are: Most clinical situations: INR 2.0-3.0 Mechanical Prosthetic Valve: INR 2.5-3.5 Critical: INR >5.0 D-DIMER, QUANTITATIVE - Abnormal; Notable for the following components: D-Dimer 8.66 (*) All other components within normal limits Narrative: A D-dimer concentration of <0.5 micrograms per milliliter FEU is considered a low probability for pulmonary embolus (PE) and deep venous thrombosis (DVT). Results of this test should always be interpreted in conjunction with the patient's medical history,clinical presentation, and other findings. Clinical diagnosis should not be based on the results of the D-dimer alone. CBC WITH AUTO DIFFERENTIAL - Abnormal; Notable for the following components: WBC 27.10 (*) RBC 4.13 (*) Hemoglobin 12.0 (*) Hematocrit 35.5 (*) Platelets 514 (*) MPV 8.4 (*) Neutrophils Abs 22.56 (*) Monocytes Abs 1.13 (*) IG Absolute 1.07 (*) All other components within normal limits COVID-19/INFLUENZA A,B MOLECULAR - Normal NT PRO BNP - Normal Narrative: Pride Study Cut-offs Rule In: < /= 50 Years >450 pg/mL 51 Years - 75 Years >900 pg/mL 76 Years - 99 Years >1800 pg/mL Rule Out: All patients <300 pg/mL CBC AND DIFFERENTIAL Narrative: The following orders were created for panel order CBC w/ Diff. Procedure Abnormality Status --------- ------ CBC Auto Differential[[id number]] Abnormal Final result Please view results for these tests on the individual orders. TROPONIN TROPONIN CT Pulmonary Arteries Final Result 1. No obvious acute mediastinal process or pulmonary embolism. 2. Mild mediastinal and right hilar lymphadenopathy. 3. Moderate to prominent effusion on the right with areas of loculation along the lateral aspect and major fissure. 4. Small stable nodule in the lateral aspect of the left lower lobe. Workstation ID: [id number] Chest AP/PA and LAT Final Result 1. Prominent effusion as discussed on the right. Recommend follow-up to resolution. 2. The left lung is clear. Workstation ID: [id number] Procedures: ECG 12 Lead Date/Time: 01/09/2024 7:47 PM Performed by: Renato Carlos MD Authorized by: Renato Carlos MD Interpreted by ED attending physician Rhythm: sinus rhythm and sinus tachycardia BPM: 112 ST Segments: ST segments normal Clinical impression: abnormal ECG and sinus tachycardia Critical Care Performed by: Renato Carlos MD Authorized by: Renato Carlos MD Total critical care time: 35 minutes Critical care time was exclusive of separately billable procedures and treating other patients. Critical care was necessary to treat or prevent imminent or life-threatening deterioration of the following conditions: respiratory failure. Critical care was time spent personally by me on the following activities: development of treatment plan with patient or surrogate, discussions with consultants, evaluation of patient's response to treatment, examination of patient, obtaining history from patient or surrogate, ordering and performing treatments and interventions, ordering and review of laboratory studies, ordering and review of radiographic studies, pulse oximetry, re-evaluation of patient's condition and review of old charts. ED Course / Medical Decision Makin-year-old male, presenting for evaluation of shortness of breath. Patient reports he was diagnosed with a pleural effusion at outside hospital. Workup here today is consistent with a pleural effusion, however, appears to have a loculated pleural effusion on the right. White blood cell count showing a elevation 27.1. D-dimer is also elevated, however, CT PE study does not show any acute pulmonary emboli. Patient is acutely hypoxic, and needs supplemental oxygen, however, does well with this. Discussed case with [facility] hospitalist, and they want to ensure that there is someone who can do a VATS procedure that this patient will possibly need. Discussed with both general surgery and cardiac surgery here locally, and neither of them are able to perform a VATS procedure. I next spoke with Dr. Nava, vascular and interventional radiologist on-call for [facility], which also covers her hospital during the day, to discuss the case with him. He states that this should be something that can be done locally, and his group who will be back here in the morning would be happy to consult when they arrive in the morning. We discussed the results of the work up in the emergency department. Patient and family are agreeable to the plan of care, including for admission. I spoke with the [facility] Doc Boiler Coverer/Unassigned Medicine Service, Dr. Bowen, and the patient will be accepted onto their inpatient service. ED MIPS (if empty, not applicable): Coding Elements: Medical Decision Making Clinical Impression: 1. Acute respiratory failure with hypoxia (HCC) 2. Loculated pleural effusion Disposition: hospitalize to Med/Surg with telemetry Renato Carlos M.D. Attending Physician [facility] EMERGENCY DEPARTMENT 01/09/2024 Portions of this note may have been dictated utilizing voice recognition software. Unfortunately this leads to occasional typographical errors. If questions arise please do not hesitate to contact my office for clarification. Data from EMR: PMHx: Past Medical History: Diagnosis Date Lung nodule 2019 PMSx: Past Surgical History: Procedure Laterality Date CATARACT EXTRACTION W/ INTRAOCULAR LENS IMPLANT Bilateral LEG SURGERY 10/03/2016 NEK SURGERY 09/2016 FAM. Hx: Family History Problem Relation Age of Onset Bladder Cancer Father Breast cancer Maternal Grandmother Bone cancer Maternal Grandmother Prostate cancer Maternal Grandfather Heart attack Maternal Grandfather Stomach cancer Paternal Grandfather SOC. Hx: Social History Socioeconomic History Marital status: Tobacco Use Smoking status: Every Day Packs/day: 1.00 Years: 20.00 Additional pack years: 0.00 Total pack years: 20.00 Types: Cigarettes Smokeless tobacco: Current Types: Chew Vaping Use Vaping Use: Never used Substance and Sexual Activity Alcohol use: Not Currently Drug use: Not Currently Sexual activity: Yes Partners: Female MEDs: Previous Medications Medication Sig acetaminophen (TYLENOL) 325 MG tablet Take 2 (two) tablets (650 mg total) by mouth every 6 (six) hours as needed Per pt . atorvastatin (LIPITOR) 40 MG tablet Take 1 Unspecified by mouth daily . ibuprofen (ADVIL,MOTRIN) 200 MG tablet Take 2 (two) tablets (400 mg total) by mouth every 6 (six) hours as needed Per pt - as needed . rOPINIRole (REQUIP) 0.5 MG tablet Take 4 (four) tablets (2 mg total) by mouth at bedtime TAKE 1 TABLET BY MOUTH EVERYDAY AT BEDTIME . sertraline (ZOLOFT) 100 MG tablet Take 1 (one) tablet (100 mg total) by mouth daily TAKE 1.5 TABLETS DAILY . ALL: No Known Allergies (Please note that portions of this note have been completed with a voice recognition software. Efforts were made to correct any errors, but occasionally words are mis-transcribed.) Renato Carlos MD 01/09/24 [id number] Pt arrives to ED for SOB. Pt states he has been SOB for several weeks. Pt was seen at for same 5 days ago. Pt arrives in no distress. Breathing even and unlabored. GCS 15. documented in this encounter [facility] 01-09-2024 Emergency department Triage note Pt arrives to ED for SOB. Pt states he has been SOB for several weeks. Pt was seen at for same 5 days ago. Pt arrives in no distress. Breathing even and unlabored. GCS 15. [facility] 01-04-2024 Hospital Discharge instructions Isis Oneill MD - 01/04/2024 7:34 PM EDT [facility] FOR INFECTION PERCOCET FOR PAIN CALL YOUR LUNG DOCTOR AT [facility] SUNDAY FOR FOLLOW UP The following attachments cannot be sent through Care Everywhere.Chest Pain Discharge Instructions (Guinean)Pleural effusion (Guinean)Interstitial lung disease (Guinean)documented in this encounter [facility] Work Phone: 01-04-2024 Emergency department Note Chief Complaint: CHEST PAIN This is a 53-year-old male who has had right-sided chest pain for at least the last 5 to 6 days he relates it to trying to pull a 0 turn mower out of a mud hole where it was stuck. But the pains been intermittent somewhat worse with deep inspiration he denies any cough or congestion has had a decreased appetite it radiates up into his shoulder also denies any direct trauma to the affected area. He has no history of cardiac disease has had no previous abdominal surgeries. Review of Systems Constitutional: Positive for appetite change. Negative for chills and fever. HENT: Negative. Eyes: Negative. Respiratory: He has pleuritic chest pain with deep inspiration on the right side Cardiovascular: Positive for chest pain. Negative for palpitations and leg swelling. Gastrointestinal: Negative for abdominal pain, nausea and vomiting. Genitourinary: Negative for dysuria and flank pain. Musculoskeletal: Positive for arthralgias and myalgias. Negative for neck pain and neck stiffness. Skin: Negative for rash. Neurological: Negative for dizziness and headaches. Hematological: Negative. Psychiatric/Behavioral: Negative. All other systems reviewed and are negative. Physical Exam Constitutional: General: He is not in acute distress. Appearance: Normal appearance. He is obese. He is not ill-appearing or toxic-appearing. Comments: Seems to have some mild discomfort but is not toxic or an extremis at this time HENT: Head: Normocephalic and atraumatic. Right Ear: Tympanic membrane normal. Left Ear: Tympanic membrane normal. Nose: Nose normal. Mouth/Throat: Mouth: Mucous membranes are moist. Pharynx: Oropharynx is clear. Eyes: Extraocular Movements: Extraocular movements intact. Conjunctiva/sclera: Conjunctivae normal. Pupils: Pupils are equal, round, and reactive to light. Cardiovascular: Rate and Rhythm: Tachycardia present. Pulses: Normal pulses. Heart sounds: No murmur heard. Pulmonary: Effort: Pulmonary effort is normal. No respiratory distress. Breath sounds: Normal breath sounds. Chest: Chest wall: Tenderness present. Abdominal: General: Bowel sounds are normal. There is no distension. Palpations: Abdomen is soft. There is no mass. Tenderness: There is abdominal tenderness. There is no right CVA tenderness or left CVA tenderness. Comments: Mild right upper quadrant tenderness Musculoskeletal: General: No swelling, tenderness, deformity or signs of injury. Cervical back: No rigidity or tenderness. Comments: She has full motion of the right shoulder without tenderness there is no lower extremity injury or trauma at this time Skin: General: Skin is warm and dry. Capillary Refill: Capillary refill takes less than 2 seconds. Coloration: Skin is not jaundiced. Findings: No erythema or rash. Neurological: General: No focal deficit present. Mental Status: He is alert and oriented to person, place, and time. Psychiatric: Mood and Affect: Mood normal. Behavior: Behavior normal. Labs Reviewed URINALYSIS WITH REFLEX CULTURE AND MICROSCOPIC Narrative: The following orders were created for panel order Urinalysis with Reflex Culture and Microscopic. Procedure Abnormality Status --------- ------ Urinalysis with Reflex C...[[id number]] Extra Urine Myers Tube[[id number]] Please view results for these tests on the individual orders. CBC WITH AUTO DIFFERENTIAL BASIC METABOLIC PANEL LIPASE HEPATIC FUNCTION PANEL TROPONIN I, HIGH SENSITIVITY D-DIMER, VTE EXCLUSION B-TYPE NATRIURETIC PEPTIDE PROTIME-INR APTT URINALYSIS WITH REFLEX CULTURE AND MICROSCOPIC EXTRA URINE MYERS TUBE XR ribs right 2 views w chest pa or ap (Results Pending) Procedures Medical Decision Making Diagnosis included cardiac chest pain pleurisy rib fracture pulmonary embolism pneumonia pneumothorax gallbladder disease. X-ray of the right ribs were ordered a chest x-ray as well as cardiac workup GI workup and D-dimer BMP were also ordered. Patient was ordered normal saline 1 L bolus Zofran 4 mg intravenously as well as morphine sulfate 4 mg intravenously. BMP was normal troponin was negative Bolick panel was essentially normal lipase was 12 his D-dimer was elevated at 2000 INR is 1.3 count 16.7 with a normal hemoglobin hematocrit chest x-ray shows no fractures or ribs however CT angio showed a small to moderate right pleural effusion with mediastinal lymphadenopathy with consideration for diagnostic thoracentesis. Patient states he is already under the care of a customs compliance analyst at [facility] for his lymphadenopathy in his chest. Given the white count of elevation of 16.7 there is a possibility this could be related to a pneumonitis he was given Rocephin 2 g IV here in the emergency department he also received morphine sulfate 4 mg IV x 2 and Toradol 30 mg intravenously he will be started on Levaquin and Percocet as an outpatient as a follow-up with his customs compliance analyst this week for possible thoracentesis if necessary at this time patient is aware that there are is a possibility that this could be a carcinoma also and they are aware of these findings. Amount and/or Complexity of Data Reviewed ECG/medicine tests: independent interpretation performed. Details: Of lead EKG showed sinus tach at 114/min there is no acute ST segment ovation depressions or arrhythmias otherwise as interpreted by myself the emergency physician Diagnoses as of 01/04/241935 Pleural effusion on right Right-sided chest pain Pneumonitis Isis Oneill MD 01/04/241937 documented in this encounter [facility] Work Phone: 01-04-2024 Physician Emergency department Note Chief Complaint: CHEST PAIN This is a 53-year-old male who has had right-sided chest pain for at least the last 5 to 6 days he relates it to trying to pull a 0 turn mower out of a mud hole where it was stuck. But the pains been intermittent somewhat worse with deep inspiration he denies any cough or congestion has had a decreased appetite it radiates up into his shoulder also denies any direct trauma to the affected area. He has no history of cardiac disease has had no previous abdominal surgeries. Review of Systems Constitutional: Positive for appetite change. Negative for chills and fever. HENT: Negative. Eyes: Negative. Respiratory: He has pleuritic chest pain with deep inspiration on the right side Cardiovascular: Positive for chest pain. Negative for palpitations and leg swelling. Gastrointestinal: Negative for abdominal pain, nausea and vomiting. Genitourinary: Negative for dysuria and flank pain. Musculoskeletal: Positive for arthralgias and myalgias. Negative for neck pain and neck stiffness. Skin: Negative for rash. Neurological: Negative for dizziness and headaches. Hematological: Negative. Psychiatric/Behavioral: Negative. All other systems reviewed and are negative. Physical Exam Constitutional: General: He is not in acute distress. Appearance: Normal appearance. He is obese. He is not ill-appearing or toxic-appearing. Comments: Seems to have some mild discomfort but is not toxic or an extremis at this time HENT: Head: Normocephalic and atraumatic. Right Ear: Tympanic membrane normal. Left Ear: Tympanic membrane normal. Nose: Nose normal. Mouth/Throat: Mouth: Mucous membranes are moist. Pharynx: Oropharynx is clear. Eyes: Extraocular Movements: Extraocular movements intact. Conjunctiva/sclera: Conjunctivae normal. Pupils: Pupils are equal, round, and reactive to light. Cardiovascular: Rate and Rhythm: Tachycardia present. Pulses: Normal pulses. Heart sounds: No murmur heard. Pulmonary: Effort: Pulmonary effort is normal. No respiratory distress. Breath sounds: Normal breath sounds. Chest: Chest wall: Tenderness present. Abdominal: General: Bowel sounds are normal. There is no distension. Palpations: Abdomen is soft. There is no mass. Tenderness: There is abdominal tenderness. There is no right CVA tenderness or left CVA tenderness. Comments: Mild right upper quadrant tenderness Musculoskeletal: General: No swelling, tenderness, deformity or signs of injury. Cervical back: No rigidity or tenderness. Comments: She has full motion of the right shoulder without tenderness there is no lower extremity injury or trauma at this time Skin: General: Skin is warm and dry. Capillary Refill: Capillary refill takes less than 2 seconds. Coloration: Skin is not jaundiced. Findings: No erythema or rash. Neurological: General: No focal deficit present. Mental Status: He is alert and oriented to person, place, and time. Psychiatric: Mood and Affect: Mood normal. Behavior: Behavior normal. Labs Reviewed URINALYSIS WITH REFLEX CULTURE AND MICROSCOPIC Narrative: The following orders were created for panel order Urinalysis with Reflex Culture and Microscopic. Procedure Abnormality Status --------- ------ Urinalysis with Reflex C...[[id number]] Extra Urine Myers Tube[[id number]] Please view results for these tests on the individual orders. CBC WITH AUTO DIFFERENTIAL BASIC METABOLIC PANEL LIPASE HEPATIC FUNCTION PANEL TROPONIN I, HIGH SENSITIVITY D-DIMER, VTE EXCLUSION B-TYPE NATRIURETIC PEPTIDE PROTIME-INR APTT URINALYSIS WITH REFLEX CULTURE AND MICROSCOPIC EXTRA URINE MYERS TUBE XR ribs right 2 views w chest pa or ap (Results Pending) Procedures Medical Decision Making Diagnosis included cardiac chest pain pleurisy rib fracture pulmonary embolism pneumonia pneumothorax gallbladder disease. X-ray of the right ribs were ordered a chest x-ray as well as cardiac workup GI workup and D-dimer BMP were also ordered. Patient was ordered normal saline 1 L bolus Zofran 4 mg intravenously as well as morphine sulfate 4 mg intravenously. BMP was normal troponin was negative Bolick panel was essentially normal lipase was 12 his D-dimer was elevated at 2000 INR is 1.3 count 16.7 with a normal hemoglobin hematocrit chest x-ray shows no fractures or ribs however CT angio showed a small to moderate right pleural effusion with mediastinal lymphadenopathy with consideration for diagnostic thoracentesis. Patient states he is already under the care of a customs compliance analyst at [facility] for his lymphadenopathy in his chest. Given the white count of elevation of 16.7 there is a possibility this could be related to a pneumonitis he was given Rocephin 2 g IV here in the emergency department he also received morphine sulfate 4 mg IV x 2 and Toradol 30 mg intravenously he will be started on Levaquin and Percocet as an outpatient as a follow-up with his customs compliance analyst this week for possible thoracentesis if necessary at this time patient is aware that there are is a possibility that this could be a carcinoma also and they are aware of these findings. Amount and/or Complexity of Data Reviewed ECG/medicine tests: independent interpretation performed. Details: Of lead EKG showed sinus tach at 114/min there is no acute ST segment ovation depressions or arrhythmias otherwise as interpreted by myself the emergency physician Diagnoses as of 01/04/241935 Pleural effusion on right Right-sided chest pain Pneumonitis Isis Oneill MD 01/04/241937 [facility] Work Phone: 01-02-2024 Note HNO ID: [id number] Author: SAMANTHA AGUILAR MD Service: ? Author Type: Physician Type: Progress Notes Filed: 01/02/2024 08:50 Note Text: ASSESSMENT/PLAN: 1. After-cataract obscuring vision, left - ICD9: 366.53, ICD10: H26.492 (primary diagnosis) - YAG CAPSULOTOMY OS (LEFT EYE) TODAY -Patient to use IVIZIA in both eyes 3 times a day Patient to follow up with Dr. Bruce in 1 week for Intraocular pressure check 2. Pseudophakia of both eyes - ICD9: V43.1, ICD10: Z96.1 -Intraocular lens well centered 3. Anxiety - ICD9: 300.00, ICD10: F41.9 4. Hypercholesteremia - ICD9: 272.0, ICD10: E78.00 -Continue to monitor with primary care physician I have confirmed and edited as necessary the relevant HPI, ophthalmic history, ROS, and the neuro exam findings as obtained by others. I have seen and examined Lalitha Cartwright. I have discussed the case and the management of this patient's care with the Resident/Fellow, if applicable. I also have reviewed and agree with the assessment and plan as stated above and agree with all of its relevant components. [facility] 01-02-2024 Instructions Samantha Aguilar MD - 01/02/2024 8:48 AM EDT Start: IVIZIA solution: Use 1 drop in both eyes 3 times a day. Follow up with Dr. Bruce in 1 week for Intraocular pressure check If you have any questions please contact our office at [phone]. After office hours or on the weekend, please call Dr. Aguilar on his cell phone at [phone]. documented in this encounter [facility] 01-02-2024 History of Present illness Narrative ASSESSMENT/PLAN: 1. After-cataract obscuring vision, left - ICD9: 366.53, ICD10: H26.492 (primary diagnosis) - YAG CAPSULOTOMY OS (LEFT EYE) TODAY -Patient to use IVIZIA in both eyes 3 times a day Patient to follow up with Dr. Bruce in 1 week for Intraocular pressure check 2. Pseudophakia of both eyes - ICD9: V43.1, ICD10: Z96.1 -Intraocular lens well centered 3. Anxiety - ICD9: 300.00, ICD10: F41.9 4. Hypercholesteremia - ICD9: 272.0, ICD10: E78.00 -Continue to monitor with primary care physician I have confirmed and edited as necessary the relevant HPI, ophthalmic history, ROS, and the neuro exam findings as obtained by others. I have seen and examined Lalitha Cartwright. I have discussed the case and the management of this patient's care with the Resident/Fellow, if applicable. I also have reviewed and agree with the assessment and plan as stated above and agree with all of its relevant components. documented in this encounter [facility] 11-07-2023 History of Present illness Narrative PROGRESS NOTE Assessment and Plan: Mr. Cartwright is a 52-year-old smoker who presents for 6-month follow-up of a right upper lobe somewhat subtle appearing lung lesion. This does have suspicious features to it. It appeared after a previous left lower lobe lung lesion resolved. Following its sudden appearance however, it does not appear to have changed in size or appearance. This continues to be true on the most recent scan. I suspect this represents an area of scar or prior infection. I will plan to continue to follow this however. Since it has not changed in over a 1 year period of time, I will extend the interval of surveillance to once a year. I will see him back at this time with a repeat chest CT as part of his ongoing follow-up for this somewhat subtle appearing right upper lobe lung lesion. He was in agreement with the plan outlined above. Subjective: Lalitha Cartwright is a 52 y.o. male with history of originally a left lower lobe lung lesion, and more recently a right upper lobe lesion for which he is undergoing continued radiographic surveillance. He states he continues to smoke 1ppd. Declined offer of smoking cessation programs offered by [facility] He is aware of importance of smoking cessation, and that he can request assistance at anytime. He denies cough or congestion. SOB with exertion. No chest pain or palpitations. He presents today with his for support. Past Medical History: Diagnosis Date Lung nodule 2019 Past Surgical History: Procedure Laterality Date CATARACT EXTRACTION W/ INTRAOCULAR LENS IMPLANT Bilateral LEG SURGERY 10/03/2016 NEK SURGERY 09/2016 Allergies: Patient has no known allergies. Review of Systems Constitutional: Negative for fever, chills, weight loss, and malaise/fatigue. Cardiovascular: Negative for chest pain, palpitations, orthopnea and claudication. Respiratory: Negative for cough, sputum production, shortness of breath, or hemoptysis Gastrointestinal: Negative for constipation or blood in stool, nausea, or vomiting, or loss of appetite. Neurological: Negative for dizziness, tingling, focal weakness, loss of consciousness, or headaches. Physical Exam PACU Vitals 11/07/23 1322 BP: 110/73 Pulse: (!) 109 Temp: 98.1 F (36.7 C) SpO2: 92% PainSc: 0-No pain GENERAL: Alert. Oriented x3 and appropriate. Pleasant. HEART: regular rate and rhythm. No murmurs, rubs or gallops. LUNGS: Breathing non-labored. Lungs: Clear to auscultation bilaterally with good air movement noted. LYMPH NODES: No cervical or supraclavicular lymphadenopathy is noted. Imaging: IMPRESSION (CT Chest): Stable noncalcified nodules within the chest ranging in size from 0.3 cm to 0.6 cm. There are no pathologically enlarged lymph nodes. Based on the Fleischner Society criteria, a low-dose CT examination of the chest in 12 months is recommended. Stable mild bilateral adrenal hypertrophy and stable 1.1 cm left adrenal adenoma. Ricardo Bone MD [facility] [address], [address] [place], [place] [address] [email or web address] documented in this encounter [facility] 10-02-2023 Note Formatting of this n ote might be different from the original. 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 EBL: 25ml Specimen: Soft tissue mass on right side of perineum Case Type: Clean Disposition: PACU / Stable Indication: Patient is a 52 y.o. male with a large pedunculated soft tissue mass on right side of perineum with some necrosis of the distal tip. Risks and benefits of excision were discussed and the patient was agreeable to proceed with surgery. Description: The patient was brought to the operating room and placed in lithotomy position. Sedation was provided. The patient's groin was prepped with betadine solution and draped. An ellipse was drawn around the base of the pedunculated soft tissue mass, 6cm in length. Local anesthetic was injected and an elliptical incision was made around the base of this mass. Electrocautery was used to truncate the mass. There was a small vessel feeding the stalk of this mass and this was tied off with 3-0 Vicryl. The mass was removed and passed off the surgical field as specimen. It measured about 6cm in length and 4cm diameter at the tip of the pedunculated portion which was ulcerated. Hemostasis was obtained. Deep dermal 3-0 Vicryl sutures were placed and the skin incision was closed with running subcuticular 4-0 Vicryl and skin glue. The patient tolerated the procedure well and transferred to PACU in stable condition. Don Stringer MD 10/02/2023 [facility] Work Phone: 10-02-2023 Miscellaneous Notes Operative Report Patient: Lalitha Cartwright : 1970 Date of Operation: 10/02/23 Pre-Operative Diagnosis: Soft tissue mass on right side of perineum Post-Operative Diagnosis: Soft tissue mass on right side of perineum Procedure: Excision of soft tissue mass on right side of perineum Surgeon: Don Stringer MD Wheelchair Van Operator First Responder: Anesthesia: MAC Findings: Pedunculated soft tissue mass on right side of perineum / crease of proximal right thigh measuring 4cm diameter at distal tip, 6cm in length. EBL: 25ml Specimen: Soft tissue mass on right side of perineum Case Type: Clean Disposition: PACU / Stable Indication: Patient is a 52 y.o. male with a large pedunculated soft tissue mass on right side of perineum with some necrosis of the distal tip. Risks and benefits of excision were discussed and the patient was agreeable to proceed with surgery. Description: The patient was brought to the operating room and placed in lithotomy position. Sedation was provided. The patient's groin was prepped with betadine solution and draped. An ellipse was drawn around the base of the pedunculated soft tissue mass, 6cm in length. Local anesthetic was injected and an elliptical incision was made around the base of this mass. Electrocautery was used to truncate the mass. There was a small vessel feeding the stalk of this mass and this was tied off with 3-0 Vicryl. The mass was removed and passed off the surgical field as specimen. It measured about 6cm in length and 4cm diameter at the tip of the pedunculated portion which was ulcerated. Hemostasis was obtained. Deep dermal 3-0 Vicryl sutures were placed and the skin incision was closed with running subcuticular 4-0 Vicryl and skin glue. The patient tolerated the procedure well and transferred to PACU in stable condition. Don Stringer MD 10/02/2023 No outpatient medications have been marked as taking for the 10/02/23 encounter (Hospital Encounter). 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 old male with a soft tissue mass on the right side of his groin/perineum. This is large and pedunculated. A portion of it is necrotic where I suspect that it is outgrowing its blood supply. We attempted to order an MRI for further evaluation, but this was denied by his insurance company. We therefore biopsied the mass. This was somewhat inconclusive, but no malignant cells were seen. It showed fibroadipose tissue with neutrophil infiltration. He has no other changes in his overall health. It is not painful, aside from some mild pulling discomfort at the base. It actually looks saw cleaner today and less necrotic than when I saw him previously. There is not a necrotic odor to it today. Medical History: Soft tissue mass in right groin Hyperlipidemia Sleep apnea Prediabetes PTSD Depression/Anxiety Right eye issues (astigmatism, amblyopia, pseudophakia) Surgical History: No previous abdominal surgery Home Medications: Prior to Admission medications Medication Sig Start Date End Date Taking? Authorizing Provider atorvastatin (Lipitor) 40 mg tablet Take 1 tablet (40 mg) by mouth once daily. 05/08/23 Haley Ulloa MD gabapentin (Neurontin) 300 mg capsule Take 1 capsule (300 mg) by mouth once daily at bedtime. Historical Provider, rOPINIRole (Requip) 2 mg tablet TAKE 1 TABLET BY MOUTH EVERYDAY AT BEDTIME 02/20/23 Haley Ulloa MD sertraline (Zoloft) 100 mg tablet Take 1.5 tablets (150 mg) by mouth once daily. 08/24/23 Haley Ulloa MD sertraline (Zoloft) 100 mg tablet TAKE 1 & 1/2 TABLET BY MOUTH EVERY DAY 02/20/23 08/24/23 Haley Ulloa MD Allergies: has No Known Allergies. Family History: Family History Family History Problem Relation Name Age of Onset No Known Problems Mother Other (bladder cancer) Father Urinary Social History: smoker. No alcohol or drug use. ROS: Constitutional: no fever, sweats, and chills Cardiovascular: No chest pain Respiratory: No cough or shortness of breath Gastrointestinal: No abdominal pain Genitourinary: no dysuria Musculoskeletal: no weakness or swelling Integumentary: + Pedunculated skin lesion in perineum to the right of midline Neurological: no confusion Endocrine: no heat or cold intolerance Heme/Lymph: no easy bruising or bleeding Objective: BP 126/80 Pulse 84 Ht 1.829 m (6') Wt 120 kg (264 lb 12.8 oz) BMI 35.91 kg/m Physical Exam: Constitutional: No acute distress, conversant, pleasant, accompanied by his Neurologic: alert and oriented Psych: appropriate affect Ears, Nose, Mouth and Throat: mucus membranes moist Pulmonary: No labored breathing Cardiovascular: Regular rate and rhythm Abdomen: Non-distended Musculoskeletal: Moves all extremities, no edema Skin: Large pedunculated skin lesion in the perineum to the right of midline. It is not tender. The tip of it is an open wound with some granulation tissue. The wound actually looks much saw cleaner than it has in the past. There is no firmness to either the tip of this pedunculated lesion or the stock. He is obese with BMI 36 and the base of this stock would be in an area of friction with his thighs. Procedure: Punch biopsy of pedunculated skin lesion in perineum Description: Patient was brought to the procedure room and placed in supine position. Gauze was placed underneath the pedunculated skin lesion in the perineum. The skin of this lesion was prepped with Betadine solution. It was anesthetized using 1% lidocaine injection. A 4 mm punch biopsy was obtained. This included the edge of where normal appearing skin met the more necrotic portion. Hemostasis was obtained with cautery and a pressure dressing. The patient tolerated the procedure well. Labs: Punch biopsy of pedunculated skin lesion in the perineum was reviewed. This showed ulcerated fibroadipose tissue with neutrophils. The specimen consists entirely of ulcerated subcutaneous fibroadipose tissue with no epidermis or dermis seen. There are septal and lobular perivascular and interstitial neutrophils. The findings are nonspecific and likely trauma related. If clinically indicated, additional biopsies from the clinically reported pedunculated lesion are recommended. Imaging: No pertinent imaging available for review. MRI was denied by his insurance company. Assessment and Plan: Lalitha Cartwright is a 52 y.o. old male with a large pedunculated mass in his perineum to the right of midline. It is a little unclear what this is. He would like it excised. We have biopsied it and it was inconclusive, but did not show any malignant cells. I rebiopsied it today. If it still does not have any concern for malignancy based on that biopsy, we will proceed with excision in the operating room. We discussed the risks of that procedure including bleeding, infection, poor wound healing or dehiscence, and potential need for additional procedures or treatment pending pathology. He was agreeable to proceed. He is scheduled for excision of soft tissue mass of perineum on 10/02/23. Update: Repeat punch biopsy of the pedunculated lesion in the right side of his groin was again nonspecific, but did not show malignancy. Will therefore proceed with surgical excision. Don Stringer MD 10/02/23 10:57 AM [facility] Work Phone: 10-02-2023 History and physical note General Surgery Follow-up Visit Patient: Lalitha Cartwright : 1970 Date of Visit: 08/30/23 Chief Complaint: Soft tissue mass in perineum History of Present Illness: Lalitha Cartwright is a 52 y.o. old male with a soft tissue mass on the right side of his groin/perineum. This is large and pedunculated. A portion of it is necrotic where I suspect that it is outgrowing its blood supply. We attempted to order an MRI for further evaluation, but this was denied by his insurance company. We therefore biopsied the mass. This was somewhat inconclusive, but no malignant cells were seen. It showed fibroadipose tissue with neutrophil infiltration. He has no other changes in his overall health. It is not painful, aside from some mild pulling discomfort at the base. It actually looks saw cleaner today and less necrotic than when I saw him previously. There is not a necrotic odor to it today. Medical History: Soft tissue mass in right groin Hyperlipidemia Sleep apnea Prediabetes PTSD Depression/Anxiety Right eye issues (astigmatism, amblyopia, pseudophakia) Surgical History: No previous abdominal surgery Home Medications: Prior to Admission medications Medication Sig Start Date End Date Taking? Authorizing Provider atorvastatin (Lipitor) 40 mg tablet Take 1 tablet (40 mg) by mouth once daily. 05/08/23 Haley Ulloa MD gabapentin (Neurontin) 300 mg capsule Take 1 capsule (300 mg) by mouth once daily at bedtime. Historical Provider, rOPINIRole (Requip) 2 mg tablet TAKE 1 TABLET BY MOUTH EVERYDAY AT BEDTIME 02/20/23 Haley Ulloa MD sertraline (Zoloft) 100 mg tablet Take 1.5 tablets (150 mg) by mouth once daily. 08/24/23 Haley Ulloa MD sertraline (Zoloft) 100 mg tablet TAKE 1 & 1/2 TABLET BY MOUTH EVERY DAY 02/20/23 08/24/23 Haley Ulloa MD Allergies: has No Known Allergies. Family History: Family History Family History Problem Relation Name Age of Onset No Known Problems Mother Other (bladder cancer) Father Urinary Social History: smoker. No alcohol or drug use. ROS: Constitutional: no fever, sweats, and chills Cardiovascular: No chest pain Respiratory: No cough or shortness of breath Gastrointestinal: No abdominal pain Genitourinary: no dysuria Musculoskeletal: no weakness or swelling Integumentary: + Pedunculated skin lesion in perineum to the right of midline Neurological: no confusion Endocrine: no heat or cold intolerance Heme/Lymph: no easy bruising or bleeding Objective: BP 126/80 Pulse 84 Ht 1.829 m (6') Wt 120 kg (264 lb 12.8 oz) BMI 35.91 kg/m Physical Exam: Constitutional: No acute distress, conversant, pleasant, accompanied by his Neurologic: alert and oriented Psych: appropriate affect Ears, Nose, Mouth and Throat: mucus membranes moist Pulmonary: No labored breathing Cardiovascular: Regular rate and rhythm Abdomen: Non-distended Musculoskeletal: Moves all extremities, no edema Skin: Large pedunculated skin lesion in the perineum to the right of midline. It is not tender. The tip of it is an open wound with some granulation tissue. The wound actually looks much saw cleaner than it has in the past. There is no firmness to either the tip of this pedunculated lesion or the stock. He is obese with BMI 36 and the base of this stock would be in an area of friction with his thighs. Procedure: Punch biopsy of pedunculated skin lesion in perineum Description: Patient was brought to the procedure room and placed in supine position. Gauze was placed underneath the pedunculated skin lesion in the perineum. The skin of this lesion was prepped with Betadine solution. It was anesthetized using 1% lidocaine injection. A 4 mm punch biopsy was obtained. This included the edge of where normal appearing skin met the more necrotic portion. Hemostasis was obtained with cautery and a pressure dressing. The patient tolerated the procedure well. Labs: Punch biopsy of pedunculated skin lesion in the perineum was reviewed. This showed ulcerated fibroadipose tissue with neutrophils. The specimen consists entirely of ulcerated subcutaneous fibroadipose tissue with no epidermis or dermis seen. There are septal and lobular perivascular and interstitial neutrophils. The findings are nonspecific and likely trauma related. If clinically indicated, additional biopsies from the clinically reported pedunculated lesion are recommended. Imaging: No pertinent imaging available for review. MRI was denied by his insurance company. Assessment and Plan: Lalitha Cartwright is a 52 y.o. old male with a large pedunculated mass in his perineum to the right of midline. It is a little unclear what this is. He would like it excised. We have biopsied it and it was inconclusive, but did not show any malignant cells. I rebiopsied it today. If it still does not have any concern for malignancy based on that biopsy, we will proceed with excision in the operating room. We discussed the risks of that procedure including bleeding, infection, poor wound healing or dehiscence, and potential need for additional procedures or treatment pending pathology. He was agreeable to proceed. He is scheduled for excision of soft tissue mass of perineum on 10/02/23. Update: Repeat punch biopsy of the pedunculated lesion in the right side of his groin was again nonspecific, but did not show malignancy. Will therefore proceed with surgical excision. Don Stringer MD 10/02/23 10:57 AM documented in this encounter [facility] Work Phone: 09-26-2023 Note Formatting of this n ote is different from the original. No outpatient medications have been marked as taking for the 10/02/23 encounter (Hospital Encounter). 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 old male with a soft tissue mass on the right side of his groin/perineum. This is large and pedunculated. A portion of it is necrotic where I suspect that it is outgrowing its blood supply. We attempted to order an MRI for further evaluation, but this was denied by his insurance company. We therefore biopsied the mass. This was somewhat inconclusive, but no malignant cells were seen. It showed fibroadipose tissue with neutrophil infiltration. He has no other changes in his overall health. It is not painful, aside from some mild pulling discomfort at the base. It actually looks saw cleaner today and less necrotic than when I saw him previously. There is not a necrotic odor to it today. Medical History: Soft tissue mass in right groin Hyperlipidemia Sleep apnea Prediabetes PTSD Depression/Anxiety Right eye issues (astigmatism, amblyopia, pseudophakia) Surgical History: No previous abdominal surgery Home Medications: Prior to Admission medications Medication Sig Start Date End Date Taking? Authorizing Provider atorvastatin (Lipitor) 40 mg tablet Take 1 tablet (40 mg) by mouth once daily. 05/08/23 Haley Ulloa MD gabapentin (Neurontin) 300 mg capsule Take 1 capsule (300 mg) by mouth once daily at bedtime. Historical Provider, rOPINIRole (Requip) 2 mg tablet TAKE 1 TABLET BY MOUTH EVERYDAY AT BEDTIME 02/20/23 Haley Ulloa MD sertraline (Zoloft) 100 mg tablet Take 1.5 tablets (150 mg) by mouth once daily. 08/24/23 Haley Ulloa MD sertraline (Zoloft) 100 mg tablet TAKE 1 & 1/2 TABLET BY MOUTH EVERY DAY 02/20/23 08/24/23 Haley Ulloa MD Allergies: has No Known Allergies. Family History: Family History Problem Relation Name Age of Onset No Known Problems Mother Other (bladder cancer) Father Urinary Social History: smoker. No alcohol or drug use. ROS: Constitutional: no fever, sweats, and chills Cardiovascular: No chest pain Respiratory: No cough or shortness of breath Gastrointestinal: No abdominal pain Genitourinary: no dysuria Musculoskeletal: no weakness or swelling Integumentary: + Pedunculated skin lesion in perineum to the right of midline Neurological: no confusion Endocrine: no heat or cold intolerance Heme/Lymph: no easy bruising or bleeding Objective: BP 126/80 Pulse 84 Ht 1.829 m (6') Wt 120 kg (264 lb 12.8 oz) BMI 35.91 kg/m Physical Exam: Constitutional: No acute distress, conversant, pleasant, accompanied by his Neurologic: alert and oriented Psych: appropriate affect Ears, Nose, Mouth and Throat: mucus membranes moist Pulmonary: No labored breathing Cardiovascular: Regular rate and rhythm Abdomen: Non-distended Musculoskeletal: Moves all extremities, no edema Skin: Large pedunculated skin lesion in the perineum to the right of midline. It is not tender. The tip of it is an open wound with some granulation tissue. The wound actually looks much saw cleaner than it has in the past. There is no firmness to either the tip of this pedunculated lesion or the stock. He is obese with BMI 36 and the base of this stock would be in an area of friction with his thighs. Procedure: Punch biopsy of pedunculated skin lesion in perineum Description: Patient was brought to the procedure room and placed in supine position. Gauze was placed underneath the pedunculated skin lesion in the perineum. The skin of this lesion was prepped with Betadine solution. It was anesthetized using 1% lidocaine injection. A 4 mm punch biopsy was obtained. This included the edge of where normal appearing skin met the more necrotic portion. Hemostasis was obtained with cautery and a pressure dressing. The patient tolerated the procedure well. Labs: Punch biopsy of pedunculated skin lesion in the perineum was reviewed. This showed ulcerated fibroadipose tissue with neutrophils. The specimen consists entirely of ulcerated subcutaneous fibroadipose tissue with no epidermis or dermis seen. There are septal and lobular perivascular and interstitial neutrophils. The findings are nonspecific and likely trauma related. If clinically indicated, additional biopsies from the clinically reported pedunculated lesion are recommended. Imaging: No pertinent imaging available for review. MRI was denied by his insurance company. Assessment and Plan: Lalitha Cartwright is a 52 y.o. old male with a large pedunculated mass in his perineum to the right of midline. It is a little unclear what this is. He would like it excised. We have biopsied it and it was inconclusive, but did not show any malignant cells. I rebiopsied it today. If it still does not have any concern for malignancy based on that biopsy, we will proceed with excision in the operating room. We discussed the risks of that procedure including bleeding, infection, poor wound healing or dehiscence, and potential need for additional procedures or treatment pending pathology. He was agreeable to proceed. He is scheduled for excision of soft tissue mass of perineum on 10/02/23. Don Stringer MD 08/30/2023 documented in this encounter [facility] Work Phone: 08-24-2023 History of Present illness Narrative Subjective Patient ID: Lalitha Cartwright is a 52 y.o. male who presents for 6 month follow up Labs completed. HPI Review of Systems Objective There were no vitals taken for this visit. Physical Exam Assessment/Plan Subjective Lalitha Cartwright is a 52 y.o. male who presents for No chief complaint on file.. Here for routine f/u depression, prediabetes, CAM (on CPAP - not using consistently), RLS, high chol, lung nodule (Dr Bone). He is currently being seen by surgery for evaluation of a perineal soft tissue mass. Objective Visit Vitals BP 112/86 (BP Location: Left arm, Patient Position: Sitting, BP Cuff Size: Adult) Pulse 102 Physical Exam Vitals reviewed. Constitutional: General: He is not in acute distress. Cardiovascular: Rate and Rhythm: Normal rate and regular rhythm. Heart sounds: No murmur heard. Pulmonary: Effort: Pulmonary effort is normal. No respiratory distress. Breath sounds: Normal breath sounds. Skin: General: Skin is warm and dry. Neurological: General: No focal deficit present. Mental Status: He is alert. Mental status is at baseline. Latest Reference Range & Units 08/24/23 06:07 GLUCOSE 74 - 99 mg/dL 104 (H) SODIUM 136 - 145 mmol/L 138 POTASSIUM 3.5 - 5.3 mmol/L 4.4 CHLORIDE 98 - 107 mmol/L 105 Bicarbonate 21 - 32 mmol/L 24 Anion Gap 10 - 20 mmol/L 13 Blood Urea Nitrogen 6 - 23 mg/dL 21 Creatinine 0.50 - 1.30 mg/dL 0.77 EGFR >60 mL/min/1.73m*2 >90 Calcium 8.6 - 10.3 mg/dL 9.1 Albumin 3.4 - 5.0 g/dL 4.3 Alkaline Phosphatase 33 - 120 U/L 90 ALT 10 - 52 U/L 24 AST 9 - 39 U/L 19 Bilirubin Total 0.0 - 1.2 mg/dL 0.4 HDL CHOLESTEROL mg/dL 31.0 Cholesterol/HDL Ratio 4.6 LDL Calculated <=99 mg/dL 68 VLDL 0 - 40 mg/dL 43 (H) TRIGLYCERIDES 0 - 149 mg/dL 213 (H) Non HDL Cholesterol 0 - 149 mg/dL 111 Total Protein 6.4 - 8.2 g/dL 7.5 CHOLESTEROL 0 - 199 mg/dL 142 Vitamin B12 211 - 911 pg/mL 379 Hemoglobin A1C see below % 6.0 (H) Thyroid Stimulating Hormone 0.44 - 3.98 mIU/L 2.17 Estimated Average Glucose Not Established mg/dL 126 PSA <=4.00 ng/mL 0.37 WBC 4.4 - 11.3 x10*3/uL 13.1 (H) nRBC 0.0 - 0.0 /100 WBCs 0.0 RBC 4.50 - 5.90 x10*6/uL 5.04 HEMOGLOBIN 13.5 - 17.5 g/dL 14.2 HEMATOCRIT 41.0 - 52.0 % 46.0 MCV 80 - 100 fL 91 MCH 26.0 - 34.0 pg 28.2 MCHC 32.0 - 36.0 g/dL 30.9 (L) RED CELL DISTRIBUTION WIDTH 11.5 - 14.5 % 13.2 Platelets 150 - 450 x10*3/uL 385 Neutrophils % 40.0 - 80.0 % 69.4 Immature Granulocytes %, Automated 0.0 - 0.9 % 0.5 Lymphocytes % 13.0 - 44.0 % 22.2 Monocytes % 2.0 - 10.0 % 4.6 Eosinophils % 0.0 - 6.0 % 2.8 Basophils % 0.0 - 2.0 % 0.5 Neutrophils Absolute 1.20 - 7.70 x10*3/uL 9.07 (H) Immature Granulocytes Absolute, Automated 0.00 - 0.70 x10*3/uL 0.07 Lymphocytes Absolute 1.20 - 4.80 x10*3/uL 2.90 Monocytes Absolute 0.10 - 1.00 x10*3/uL 0.60 Eosinophils Absolute 0.00 - 0.70 x10*3/uL 0.37 Basophils Absolute 0.00 - 0.10 x10*3/uL 0.06 (H): Data is abnormally high (L): Data is abnormally low Assessment/Plan Problem List Items Addressed This Visit Depression Relevant Orders CBC and Auto Differential Comprehensive Metabolic Panel Hemoglobin A1C Lipid Panel TSH with reflex to Free T4 if abnormal Vitamin B12 Elevated serum cholesterol Relevant Orders CBC and Auto Differential Comprehensive Metabolic Panel Hemoglobin A1C Lipid Panel TSH with reflex to Free T4 if abnormal Vitamin B12 Obstructive sleep apnea Prediabetes Relevant Orders CBC and Auto Differential Comprehensive Metabolic Panel Hemoglobin A1C Lipid Panel TSH with reflex to Free T4 if abnormal Vitamin B12 Restless leg syndrome Relevant Orders CBC and Auto Differential Comprehensive Metabolic Panel Hemoglobin A1C Lipid Panel TSH with reflex to Free T4 if abnormal Vitamin B12 Lung nodule Other Visit Diagnoses Depression, unspecified Relevant Medications sertraline (Zoloft) 100 mg tablet Other Relevant Orders CBC and Auto Differential Comprehensive Metabolic Panel Hemoglobin A1C Lipid Panel TSH with reflex to Free T4 if abnormal Vitamin B12 Haley Ulloa MD documented in this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 palpitations and leg swelling. Gastrointestinal: Negative for diarrhea, nausea and vomiting. Musculoskeletal: Negative for back pain, gait problem and joint swelling. Skin: Negative for wound. Neurological: Positive for numbness. Negative for weakness. Psychiatric/Behavioral: The patient is not nervous/anxious. Physical Exam -Patient is alert and oriented to person place and time. Linear and appropriate humor and thought process. Vascular: DP PT pulses are palpable 2-4. CFT is fair no edema. Derm: No open wounds no ulcers no rashes no deep nodules. No rash no erythema. Cyst no signs of infection. Neuro: Protective sensations intact with 6 out of 6 sites with a Rome Shahid monofilament. Babinski's is normal. Does have perceived tingling burning with compression Musculoskeletal: Muscle strength is 5 out of 5 for all plantar flexors dorsiflexors inverters and everters. Can easily wiggle toes without any clicking or catching. Ankle midtarsal subtalar full and pain-free. Clinically gait and station exam is nonantalgic no obvious dropfoot present. Nails are within normal limits. 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 -Did discuss the etiology. -We will start him on a trial dose of oral gabapentin 300 mg nightly 30 days 30 tabs 0 refills. Labs reviewed including A1c. Low medical complexity decision making based on the chronicity of greater than 1 year. -Follow-up in 1 month review gabapentin documented in this encounter [facility] 12-10-2020 History of Past i llness Narrative Problem Noted Date Diagnosed Date Resolved Date Status post cataract extract ion and insertion of intraocular lens of left eye 12/10/2020 01/02/20 24 Combined forms of age-relate d cataract of left eye 11/27/2020 12/10/2020 documented as of this encounter (statuses as of 01/02/2024) [facility]03-06-2021 History of Past illness Narrative* Problem Noted Date Resolved Date Combined forms of age-related cataract of left e ye 11/27/2020 12/10/2020 documented as of this encounter (statuses as of 01/16/2022) [facility] Diagnosis Diabetic polyneuropathy associated with type 2 diabetes mellitus (HCC)- Primary documented in this encounter [facility] note* Diagnosis Diabetic polyneuropathy associated with type 2 diabetes mellitus (HCC)- Primary documented in this encounter [facility] note* Diagnosis Diabetic polyneuropathy associated with type 2 diabetes mellitus (HCC)- Primary documented in this encounter [facility] note* Diagnosis Lung nodule- Primary Other diseases of lung, not elsewhere classified documented in this encounter [facility] note* Diagnosis After-cataract obscuring vision, right- Primary Pseudophakia of both eyes Lens replaced by other means documented in this encounter [facility] note* Diagnosis Diabetic polyneuropathy associated with type 2 diabetes mellitus (HCC)- Primary documented in this encounter [facility] note* Diagnosis Lung nodule- Primary Other diseases of lung, not elsewhere classified documented in this encounter [facility] note* Diagnosis Elevated serum cholesterol- Primary Persistent depressive disorder Obstructive sleep apnea Obstructive sleep apnea (adult) (pediatric) Prediabetes Other abnormal glucose Restless leg syndrome Restless legs syndrome (RLS) Lung nodule Other diseases of lung, not elsewhere classified Screening for colon cancer Special screening for malignant neoplasms, colon documented in this encounter [facility] Work Phone: Evaluation note* Diagnosis Soft tissue mass- Primary Disorders of soft tissue, unspecified documented in this encounter [facility] Work Phone: Evaluation note* Diagnosis Elevated serum cholesterol Persistent depressive disorder Obstructive sleep apnea Obstructive sleep apnea (adult) (pediatric) Prediabetes Other abnormal glucose Restless leg syndrome Restless legs syndrome (RLS) Lung nodule Other diseases of lung, not elsewhere classified Depression, unspecified documented in this encounter [facility] Work Phone: Evaluation note* Diagnosis Soft tissue mass [M79.89]- Primary Disorders of soft tissue, unspecified Soft tissue mass- Primary Disorders of soft tissue, unspecified documented in this encounter [facility] Work Phone: Evaluation note* Diagnosis Soft tissue mass- Primary Disorders of soft tissue, unspecified documented in this encounter [facility] Work Phone: Evaluation note* Diagnosis Lung nodule- Primary Other diseases of lung, not elsewhere classified [facility] Diagnosis After-cataract obscuring vision, left- Primary Pseudophakia of both eyes Lens replaced by other means Anxiety Anxiety state, unspecified Hypercholesteremia Pure hypercholesterolemia documented in this encounter [facility] note* Diagnosis Pleural effusion on right- Primary Unspecified pleural effusion Right-sided chest pain Pneumonitis Pneumonia, organism unspecified documented in this encounter [facility] Work Phone: Evaluation note* Diagnosis Empyema lung (HCC)- Primary Empyema without mention of fistula [facility] Diagnosis Loculated pleural effusion- Primary Acute respiratory failure with hypoxia (HCC) Loculated pleural effusion [facility] Diagnosis Pleural effusion- Primary Unspecified pleural effusion Lung nodule Other diseases of lung, not elsewhere classified documented in this encounter [facility] Work Phone: Evaluation note* Diagnosis Hyperlipidemia, unspecified hyperlipidemia type- Primary Elevated serum cholesterol Obstructive sleep apnea Obstructive sleep apnea (adult) (pediatric) Prediabetes Other abnormal glucose Class 1 obesity with serious comorbidity and body mass index (BMI) of 34.0 to 34.9 in adult, unspecified obesity type Restless leg syndrome Restless legs syndrome (RLS) Persistent depressive disorder documented in this encounter [facility] Work Phone: Evaluation note* Diagnosis Lung nodule- Primary Other diseases of lung, not elsewhere classified [facility] Diagnosis Screening for colon cancer- Primary Special screening for malignant neoplasms, colon Obstructive sleep apnea Obstructive sleep apnea (adult) (pediatric) Prediabetes Other abnormal glucose Hyperlipidemia, unspecified hyperlipidemia type Class 1 obesity with serious comorbidity and body mass index (BMI) of 34.0 to 34.9 in adult, unspecified obesity type Restless leg syndrome Restless legs syndrome (RLS) Persistent depressive disorder Immunization due documented in this encounter [facility] Work Phone: Evaluation note* Diagnosis Screening for colon cancer Special screening for malignant neoplasms, colon documented in this encounter [facility] Work Phone: Evaluation note* Diagnosis Right ear pain- Primary Unspecified otalgia documented in this encounter [facility] Work Phone: Evaluation note* Diagnosis Pain in upper jaw- Primary Right ear pain Unspecified otalgia documented in this encounter [facility] Work Phone: Evaluation note* Diagnosis Screening PSA (prostate specific antigen)- Primary Special screening for malignant neoplasm of prostate Prediabetes Other abnormal glucose Hyperlipidemia, unspecified hyperlipidemia type Obstructive sleep apnea Obstructive sleep apnea (adult) (pediatric) Persistent depressive disorder Neck pain Cervicalgia documented in this encounter [facility] Work Phone: [phone] note* Diagnosis Cervical radiculitis- Primary Brachial neuritis or radiculitis nos Neck pain Cervicalgia Arthrodesis status documented in this encounter [facility] Work Phone: [phone] note* Diagnosis Neck pain Cervicalgia Cervical radiculitis Brachial neuritis or radiculitis nos Arthrodesis status documented in this encounter [facility] Work Phone: [phone] note* Diagnosis Cervical radiculitis- Primary Brachial neuritis or radiculitis nos documented in this encounter [facility] Work Phone: [phone] note* Diagnosis Abnormal finding on MRI of brain documented in this encounter [facility] Work Phone: [phone] note* Diagnosis Lung nodule- Primary Other diseases of lung, not elsewhere classified Screening for lung cancer [facility] Diagnosis Lacunar infarction (Multi)- Primary Unspecified cerebral artery occlusion with cerebral infarction CAM (obstructive sleep apnea) Obstructive sleep apnea (adult) (pediatric) Atrial fibrillation, unspecified type (Multi) Neuropathy Mononeuritis of unspecified site Paresthesia Disturbance of skin sensation Cervical stenosis of spine Spinal stenosis in cervical region documented in this encounter [facility] Work Phone: [phone] note* Diagnosis Lacunar infarction (Multi) Unspecified cerebral artery occlusion with cerebral infarction documented in this encounter [facility] Work Phone: [phone] note* Diagnosis Lacunar infarction (Multi) Unspecified cerebral artery occlusion with cerebral infarction documented in this encounter [facility] Work Phone: [phone] note* Diagnosis Lacunar infarction (Multi) Unspecified cerebral artery occlusion with cerebral infarction Atrial fibrillation, unspecified type (Multi) documented in this encounter [facility] Work Phone: [phone] note* Diagnosis Neck pain- Primary Cervicalgia Cervical radiculitis Brachial neuritis or radiculitis nos documented in this encounter [facility] Work Phone: History of Present illness NarrativeHere for routine f/u depression, prediabetes, CAM (on CPAP), RLS, high chol, 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 Overall he states he is doing ok. He continues to have some issues with RLS. We had increased the dose of his ropinirole last visit and he thinks that was helpful but he still has nights that he struggles with it. 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 He states that his legs still bother him a bit, he is on gabapentin for the feet as well, he finds the compression socks to be the most helpful.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 He is due for labs, will get them soon.[facility] DO Work Phone: Hospital Discharge instructions* Attachments The following attachments cannot be sent through Care Everywhere. * Ear Pain ED ([place]) [facility] Work [facility]: Instructions* Name Dates Details Instructions not documented [facility] Work Phone: Instructions* Name Dates Details Instructions not documented [facility] DO Work Phone: Instructions* Attachments The following attachments cannot be sent through Care Everywhere. * Neck Stretches ([place]an) * Neck Pain Exercises ([place]) [facility] Work Phone: Remwpu for referral (narrative)* Consultation (Routine) - Authorized Specialty Diagnoses / Procedures Referred By Contac t Referred To Contact Primary Care Diagnoses Elevated serum cholesterol Persistent depressive disorder Obstructive sleep apnea Prediabetes Restless leg syndrome Lung nodule Procedures Follow Up In Primary Care Haley Ulloa MD [address] [facility] [place] [address] Referral ID Status Reason Start Date Expiration Date V isits Requested Visits Authorized [id number] Authorized 02/02/2023 08/01/2023 1 1 * Endoscopy (Routine) - Authorized Specialty Diagnoses / Procedures Referred By Libby t Referred To Contact Gastroenterology Diagnoses Screening for colon cancer Procedures Colonoscopy Haley Ulloa MD [address] [place] [address] Referral ID Status Reason Start Date Expiration Date V isits Requested Visits Authorized [id number] Authorized 02/02/2023 08/01/2023 1 1 [facility] Work Phone: Reason for referral (narrative)* Consultation (Routine) - Authorized Specialty Diagnoses / Procedures Referred By Contac t Referred To Contact Primary Care Procedures Follow Up In Primary Care - Established Haley Ulloa MD [address] [place] [address] Referral ID Status Reason Start Date Expiration Date V isits Requested Visits Authorized [id number] Authorized 08/24/2023 08/23/2024 1 1 [facility] Work Phone: reason for referral (narrative)* Consultation (Routine) - Authorized Specialty Diagnoses / Procedures Referred By Libby t Referred To Contact Primary Care Diagnoses Obstructive sleep apnea Prediabetes Hyperlipidemia, unspecified hyperlipidemia type Class 1 obesity with serious comorbidity and body mass index (BMI) of 34.0 to 34.9 in adult, unspecified obesity type Restless leg syndrome Persistent depressive disorder Procedures Follow Up In Primary Care - Established Haley Ulloa MD [address] [facility] [place] [address] Referral ID Status Reason Start Date Expiration Date V isits Requested Visits Authorized [id number] Authorized 02/29/2024 02/28/2025 1 1 [facility] Work Phone: reason for referral (narrative)* Consultation (Routine) - Authorized Specialty Diagnoses / Procedures Referred By Libby t Referred To Contact Primary Care Procedures Follow Up In Primary Care - Established Haley Ulloa MD [address] [place] [address] Referral ID Status Reason Start Date Expiration Date V isits Requested Visits Authorized [id number] Authorized 07/04/2024 07/04/2025 1 1 * Endoscopy (Routine) - Pending Review Specialty Diagnoses / Procedures Referred By Libby t Referred To Contact Gastroenterology Diagnoses Screening for colon cancer Procedures Colonoscopy Screening; Average Risk Patient WY COLONOSCOPY FLX DX W/COLLJ SPEC WHEN PFRMD WY COLON CA SCRN NOT HI RSK IND WY COLORECTAL SCRN; HI RISK IND WY COLONOSCOPY W/BIOPSY SINGLE/MULTIPLE WY COLSC FLX W/RMVL OF TUMOR POLYP LESION SNARE TQ WY COLSC FLX W/REMOVAL LESION BY HOT BX FORCEPS Haley Ulloa MD [address] [id number] Don Stringer MD [address] [facility], [facility] [address] [phone] Referral ID Status Reason Start Date Expiration Date V isits Requested Visits Authorized [id number] Pending Review 07/04/2024 07/04/2025 1 1 [facility] Work Phone: reason for visit Narrative* Consultation (Routine) - Closed Specialty Diagnoses / Procedures Referred By Contac t Referred To Contact Primary Care Diagnoses Elevated serum cholesterol Persistent depressive disorder Obstructive sleep apnea Prediabetes Restless leg syndrome Lung nodule Procedures Follow Up In Primary Care Haley Ulloa MD [address] [facility] [place] [address] Referral ID Status Reason Start Date Expiration Date Visits Re quested Visits Authorized [id number] Closed 02/02/2023 08/01/2023 1 1 [facility] Work Phone: reason for visit Narrative* Consultation (Routine) - Authorized Specialty Diagnoses / Procedures Referred By Libby t Referred To Contact Primary Care Procedures Follow Up In Primary Care - Established Haley Ulloa MD [address] [place] [address] Referral ID Status Reason Start Date Expiration Date V isits Requested Visits Authorized [id number] Authorized 08/24/2023 08/23/2024 1 1 [facility] Work Phone: reason for visit Narrative* Consultation (Routine) - Authorized Specialty Diagnoses / Procedures Referred By Contac t Referred To Contact Primary Care Diagnoses Obstructive sleep apnea Prediabetes Hyperlipidemia, unspecified hyperlipidemia type Class 1 obesity with serious comorbidity and body mass index (BMI) of 34.0 to 34.9 in adult, unspecified obesity type Restless leg syndrome Persistent depressive disorder Procedures Follow Up In Primary Care - Established Haley Ulloa MD [address] [facility] [address] [place] [address] Referral ID Status Reason Start Date Expiration Date V isits Requested Visits Authorized [id number] Authorized 02/29/2024 02/28/2025 1 1 [facility] Work Phone: Reiezb for visit Narrative* Endoscopy (Routine) - Pending Review Specialty Diagnoses / Procedures Referred By Contac t Referred To Contact Gastroenterology Diagnoses Screening for colon cancer Procedures Colonoscopy Screening; Average Risk Patient WY COLONOSCOPY FLX DX W/COLLJ SPEC WHEN PFRMD WY COLON CA SCRN NOT HI RSK IND WY COLORECTAL SCRN; HI RISK IND WY COLONOSCOPY W/BIOPSY SINGLE/MULTIPLE WY COLSC FLX W/RMVL OF TUMOR POLYP LESION SNARE TQ WY COLSC FLX W/REMOVAL LESION BY HOT BX FORCEPS Haley Ulloa MD [address] [facility] [address] [place] [address] Phone: tel: fax: Don Stringer MD [address] [facility], [facility] [address] [place] [address] Phone: tel: fax: Referral ID Status Reason Start Date Expiration Date V isits Requested Visits Authorized [id number] Pending Review 07/04/2024 07/04/2025 1 1 [facility] Work Phone: Refffd for visit Narrative* Imaging (Routine) - Authorized Specialty Diagnoses / Procedures Referred By Contac t Referred To Contact Radiology Diagnoses Neck pain Cervical radiculitis Arthrodesis status Procedures XR cervical spine 2-3 views Gina Rogers PA-C [address] [place] [address] Phone: tel: fax: Referral ID Status Reason Start Date Expiration Date Visits Requested Visits Authorized [id number] Authorized Perform Procedure 01/08/2025 01/08/2026 1 1 [facility] Work Phone: reason for visit Narrative* Imaging (Routine) - Authorized Specialty Diagnoses / Procedures Referred By Contac t Referred To Contact Radiology Diagnoses Neck pain Cervical radiculitis Arthrodesis status Procedures MR cervical spine wo IV contrast Gina Rogers PA-C [address] [place] [address] Phone: tel: fax: [facility] [address] [place] [address] Phone: tel: fax: Referral ID Status Reason Start Date Expiration Date Visits Requested Visits Authorized [id number] Authorized Perform Procedure 01/08/2025 01/08/2026 1 1 [facility] Work Phone: Revwrd for visit Narrative* Imaging (Routine) - Authorized Specialty Diagnoses / Procedures Referred By Contac t Referred To Contact Radiology Diagnoses Abnormal finding on MRI of brain Procedures MR brain w and wo IV contrast Haley Ulloa MD [address] [address] Phone: tel: fax: Referral ID Status Reason Start Date Expiration Date Visits Requested Visits Authorized [id number] Authorized Perform Procedure 01/27/2025 01/27/2026 1 1 [facility] Work Phone: Rensjn for visit Narrative* CV Imaging (Routine) - Authorized Specialty Diagnoses / Procedures Referred By Contac t Referred To Contact Cardiology Diagnoses Lacunar infarction (Multi) Procedures Transthoracic Echo Complete WY ECHO TTHRC R-T 2D W/WOM-MODE COMPL SPEC&COLR D Maryjane Alexis, GERIATRICIAN-SOLUTION ENGINEER [address] [address] Phone: tel: fax: Referral ID Status Reason Start Date Expiration Date Visits Requested Visits Authorized [id number] Authorized Perform Procedure 04/27/2025 04/27/2026 1 1 [facility] Work Phone: reason for visit Narrative* Imaging (Routine) - Authorized Specialty Diagnoses / Procedures Referred By Contac t Referred To Contact Radiology Diagnoses Lacunar infarction (Multi) Procedures MR angio neck w and wo IV contrast Maryjane Alexis APRN-SOLUTION ENGINEER [address] [place] [address] Phone: tel: fax: Referral ID Status Reason Start Date Expiration Date Visits Requested Visits Authorized [id number] Authorized Perform Procedure 04/27/2025 04/27/2026 1 1 [facility] Work Phone: Reason for visit Narrative* Cardiac Stress Testing (Routine) - Authorized Specialty Diagnoses / Procedures Referred By Libby short Referred To Contact Cardiology Diagnoses Lacunar infarction (Multi) Atrial fibrillation, unspecified type (Multi) Procedures Holter or Event Book Repairer Maryjane Alexis APRN-SOLUTION ENGINEER [address] [place] [address] Phone: tel: fax: Referral ID Status Reason Start Date Expiration Date V isits Requested Visits Authorized [id number] Authorized 04/27/2025 04/27/2026 1 1 [facility] Work Phone: Reason for visit Narrative* Imaging (Routine) - Authorized Specialty Diagnoses / Procedures Referred By Libby short Referred To Contact Radiology Diagnoses Lacunar infarction (Multi) Procedures MR angio head wo IV contrast Maryjane Alexis GERIATRICIAN-SOLUTION ENGINEER [address] [place] [address] Phone: tel: fax: Referral ID Status Reason Start Date Expiration Date Visits Requested Visits Authorized [id number] Authorized Perform Procedure 04/27/2025 04/27/2026 1 1 [facility] Work Phone: Summary Purpose Family History No Family History Records Found Father Name Dates Details Family history of malignant neoplasm of urinary bladder(V16.52, Z80.52) Status:Active Father Name Dates Details Family history of malignant neoplasm of urinary bladder(V16.52, Z80.52) Status:Active Father Name Dates Details Family history of malignant neoplasm of urinary bladder(V16.52, Z80.52) Status:Active Unknown Family Member Name Dates Details Family history of malignant neoplasm of urinary bladder: Father(V16.52, Z80.52) Status:Active Unknown Family Member Name Dates Details Family history of malignant neoplasm of urinary bladder: Father(V16.52, Z80.52) Status:Active Unknown Family Member Name Dates Details Family history of malignant neoplasm of urinary bladder: Father(V16.52, Z80.52) Status:Active Unknown Family Member Name Dates Details Family history of malignant neoplasm of urinary bladder: Father(V16.52, Z80.52) Status:Active Advance Directives No Advanced Directives Records FoundDocuments on File Type Date Recorded 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 Advance Directives and Living Will Documents on File Type Date Recorded 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 Advance Directives and Livin g Will 10/01/2020 8:10 AM Documents on File Type Date Recorded 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 Advance Directives and Livin g Will 10/01/2020 8:10 AM Documents on File Type Date Recorded 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 Advance Directives and Livin g Will 10/07/2021 8:38 AM Documents on File Type Date Recorded 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 Advance Directive(s) 05/08/2019 6:07 PM Advance Directive(s) 06/03/2018 4:42 PM Latest Code Status on File Code Status Date Activated Date Inactivated Comments Full Code 10/02/2023 9:48 AM Question Answer Comments Plan of Care: Code Status Discussion Not Compl eted Decision Maker: Provider Rationale: Patient condition do es not warrant discussion Date Activated Date Inactivated Comments 10/02/2023 9:48 AM Question Answer Comments Plan of Care: Code Status Discussion Not Compl eted Decision Maker: Provider Rationale: Patient condition does not warra nt discussion Date Activated Date Inactivated Comments 10/02/2023 9:48 AM Question Answer Comments Plan of Care: Code Status Discussion Not Compl eted Decision Maker: Provider Rationale: Patient condition does not warra nt discussion Date Activated Date Inactivated Comments 01/09/2024 11:41 PM Date Activated Date Inactivated Comments 01/09/2024 11:41 PM 01/14/2024 7:49 PM Date Activated Date Inactivated Comments 01/09/2024 11:41 PM 01/14/2024 7:49 PM History of Present Illness * Ricardo Bone MD - 03/31/2020 1:28 PM EDT [facility] [address] [place] [phone] Name: Lalitha Cartwright : 1970 Date: 03/31/20 Provider: Ricardo Bone MD Chief Complaint: Chief Complaint Patient presents with LUNG NODULE NEW CONSULT DR ULLOA Chief Complaint: Lalitha Cartwright is a 49 y.o. male being seen on 03/31/20 for LUNG NODULE (NEW CONSULT DR ULLOA ) . Assessment and Plan: I reviewed with Mr. Cartwright and his his chest CT from February 13, 2020. This does show a quite small, somewhat peripherally located lung lesion. He also has multiple smaller, punctate lesions present bilaterally. Overall, this has the appearance suggestive of histoplasmosis. More broadly, I suspect that this is an inflammatory or infectious process. Although the nodules overall may not resolve radiographically, as long as they do not show further enlargement or growth progression, no intervention will be necessary. I reviewed this with him. At this size, a 7 mm lung nodule is really below what can be reliably or successfully biopsied. I have recommended we repeat his chest CT in 6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 INFORMATION This notice accompanies a disclosure of information concerning a client made to you with the consent of such client. Scheduled Active and Recently Administ ered Medications (unrecognized section and content) Medication Order 09/30/2023 10/01/2023 10/02/2023 acetaminophen (Tylenol) tablet 975 mg (COMPLETED) 975 mg, oral, Once, On Sun10/02/23 at 1045, For 1 dose, Preprocedure, Administer with small amount of water preoperatively., If ordered PRN for pain, nurse is permitted to administer this medication for higher pain scores based on patient preference? Yes 1048 (Given - Provid er: Miladis [place] RN) ceFAZolin in dextrose (iso-os) (Ancef) IVPB 2 g (COMPLETED) 2 g, intravenous, Administer over 30 Minutes, Once, On Sun10/02/23 at 1000, For 1 dose, Preprocedure, Administer within 60 minutes prior to incision. premix bag, Dosing of this medication varies based on severity of illness. Does this patient have sepsis or concern for sepsis (probable or documented infection plus systemic manifestations of infection)? No, Suspected Indication (Select all that apply): Surgical Prophylaxis 1050 (New Bag - Prov ider: Miladis [place] RN)1120 (Due: Stopped - Provider: Miladis [place] RN) celecoxib (CeleBREX) capsule 400 mg (COMPLETED) 400 mg, oral, Once, On Sun10/02/23 at 1045, For 1 dose, Preprocedure, Administer with small amount of water preoperatively. Capsules may be opened and sprinkled on a spoonful of cold or room temperature applesauce. 1049 (Given - Provid er: Mliadis [place] RN) gabapentin (Neurontin) capsule 600 mg (COMPLETED) 600 mg, oral, Once, On Sun10/02/23 at 1045, For 1 dose, Preprocedure, Administer with small amount of water preoperatively. Per orthopedic protocol. Capsules may be opened and sprinkled on food (eg, applesauce, orange juice, pudding 1048 (Given - Provid er: Miladis [place] RN) lidocaine PF (Xylocaine) 10 mg/mL (1 %) injection 1 mg 1 mg (0.1 mL), subcutaneous, Once, On Sun10/02/23 at 1100, For 1 dose, Recovery (only), To be used for IV insertion ONLY 1100 (Due) Continuous Medication Order 09/30/2023 10/01/2023 10/02/2023 lactated Ringer's infusion 75 mL/hr, intravenous, Continuous, Starting on Sun10/02/23 at 1045, Preprocedure 1050 (New Bag - Prov ider: Miladis [place] RN)1112 (Continued by Anesthesia - Provider: Mundo Dai MD) lactated Ringer's infusion 100 mL/hr, intravenous, Continuous, Starting on Sun10/02/23 at 1100, Recovery (only) 1100 (Due) PRN Medication Order 09/30/2023 10/01/2023 10/02/2023 BUPivacaine HCl (Marcaine) 0.25 % (2.5 mg/mL) injection (CANCELED) As needed, Starting on Sun10/02/23 at 1147, Intraprocedure 1147 (Given - Provid er: Don Stringer MD) HYDROmorphone (Dilaudid) injection 0.5 mg 0.5 mg, intravenous, Every 5 min PRN, pain severe (7-10), first line, Starting on Sun10/02/23 at 1059, Recovery (only), Max total of 4 mg regardless of dose. lidocaine PF (Xylocaine) 10 mg/mL (1 %) injection (CANCELED) As needed, Starting on Sun10/02/23 at 1147, Intraprocedure 1147 (Given - Provid er: Don Stringer MD) ondansetron (Zofran) injection 4 mg 4 mg, intravenous, Once as needed, nausea/vomiting, first line, Starting on Sun10/02/23 at 1059, For 1 dose, Recovery (only), When administering via IV Push, administer over 3-5 minutes. oxyCODONE (Roxicodone) immediate release tablet 10 mg 10 mg, oral, Every 4 hours PRN, pain severe (7-10), second line, Starting on Sun10/02/23 at 1059, Recovery (only), When able to take oral medications., If ordered PRN for pain, nurse is permitted to administer this medication for higher pain scores based on patient preference? Yes oxygen (O2) therapy inhalation, Continuous PRN - O2/gases, other, Starting on Sun10/02/23 at 1059, Recovery (only), Device: Nasal Cannula, Rate in liters per minute: Other, Custom Value: 1-6 LPM, Keep O2 Sat Above: 92% Scheduled Medication Order 01/02/2024 01/03/2024 01/04/2024 cefTRIAXone (Rocephin) 2 g in dextrose 5% in water (D5W) 50 mL (COMPLETED) 2 g, intravenous, at 100 mL/hr, Administer over 30 Minutes, Once, On Sun01/04/24 at 1935, For 1 dose, premix bag, Suspected Indication (Select all that apply): Pneumonia, Type of Therapy: Empiric 2009 (New Bag - Prov ider: Belinda Daniels RN)2042 (Stopped - Provider: Belinda Daniels RN) iohexol (OMNIPaque) 350 mg iodine/mL solution 69 mL (COMPLETED) 69 mL, intravenous, Once in imaging, Starting on Sun01/04/24 at 1827, For 1 dose 1818 (Given - Provid er: Jon Champion) ketorolac (Toradol) injection 30 mg (COMPLETED) 30 mg, intravenous, Once, On Sun01/04/24 at 1935, For 1 dose 2006 (Given - Provid er: Belinda Daniels RN) morphine injection 4 mg (COMPLETED) 4 mg, intravenous, Once, On Sun01/04/24 at 1715, For 1 dose 1734 (Given - Provid er: Steven Velásquez RN) morphine injection 4 mg (COMPLETED) 4 mg, intravenous, Once, On Sun01/04/24 at 1935, For 1 dose 2007 (Given - Provid er: Belinda Daniels RN) ondansetron (Zofran) injection 4 mg (COMPLETED) 4 mg, intravenous, Once, On Sun01/04/24 at 1715, For 1 dose, When administering via IV Push, administer over 3-5 minutes. 1734 (Given - Provid er: Steven Velásquez RN) sodium chloride 0.9 % bolus 1,000 mL (COMPLETED) 1,000 mL, intravenous, at 1,000 mL/hr, Administer over 1 Hours, Once, On Sun01/04/24 at 1715, For 1 dose 1734 (New Bag - Prov ider: Steven Velásquez RN)1834 (Stopped - Provider: Keyona Moulton, RN) Continuous Medication Order 01/02/2024 01/03/2024 01/04/2024 sodium chloride 0.9% infusion 125 mL/hr, intravenous, Continuous, Starting on Sun01/04/24 at 1715 1840 (New Bag - Prov ider: Keyona Moulton, RN)2043 (Stopped - Provider: Belinda Daniels RN) Scheduled Medication Order 01/12/2024 01/13/2024 01/14/2024 alteplase (INTRAPLEURAL) 10 mg/30 mL injection (COMPLETED) 10 mg, Intrapleural, Once, On Sun01/12/24 at 2215, For 1 dose, For INTRAPLEURAL USE ONLY by PHYSICIAN., Select type of SYRINGE for preparation of intrapleural administration: Prepare in Luer Lock syringe 2310 (Given by Other - Provider: Clement Kebede RN - Comment: Given by Dr Francisco Vega) alteplase (INTRAPLEURAL) 10 mg/30 mL injection (COMPLETED) 10 mg, Intrapleural, Once, On Sun01/13/24 at 1430, For 1 dose, For INTRAPLEURAL USE ONLY by PHYSICIAN., Select type of SYRINGE for preparation of intrapleural administration: Prepare in Luer Lock syringe 1430 (Given by Other - Provider: Shilpi Guzman RN - Comment: Given by Dr Vega) atorvastatin (LIPITOR) tablet 40 mg 40 mg, Oral, Nightly, First dose on Taylor 01/10/24 at 0030 2009 (Given - Provider: Clement Kebede RN) 2126 (Given - Provider: Anjali Berman LPN) cefTRIAXone (ROCEPHIN) IVPB 2 g (premix) 2,000 mg, Intravenous, at 100 mL/hr, Every 24 hours, First dose on Taylor 01/10/24 at 0100, Indication: Other: (specify), Indication: Empyema 0002 (New Bag - Provider: Myesha Watt RN)0032 (Stopped - Provider: Clement Kebede RN) 0146 (New Bag - Provider: Clement Kebede RN)0216 (Stopped - Provider: Clement Kebede RN) 0132 (New Bag - Provider: Anjali Berman LPN)0202 (Stopped - Provider: Anjali Berman LPN) dornase (PULMOZYME) 5 mg/30 ml intrapleural injection (COMPLETED) 5 mg, Intrapleural, Once, On 01/12/24 at 2230, For 1 dose, FOR INTRAPLEURAL USE ONLY BY PHYSICIAN, Select type of SYRINGE for preparation of intrapleural administration: Prepare in [place]er Lock syringe 2230 (Given by Other - Provider: Clement Kebede RN - Comment: Given by Dr Francisco Vega) dornase (PULMOZYME) 5 mg/30 ml intrapleural injection (COMPLETED) 5 mg, Intrapleural, Once, On 01/13/24 at 1430, For 1 dose, FOR INTRAPLEURAL USE ONLY BY PHYSICIAN, Select type of SYRINGE for preparation of intrapleural administration: Prepare in [place]er Lock syringe 1430 (Given by Other - Provider: Shilpi Guzman RN - Comment: Given by Dr Vega) enoxaparin (LOVENOX) syringe 40 mg 40 mg, Subcutaneous, Daily, First dose on Taylor 01/10/24 at 0900, Administer in abdomen unless otherwise directed by prescriber. Notify physician if patient refuses., Indication: VTE Prophylaxis 0847 (Given - Provider: Shilpi Guzman RN) 0819 (Given - Provider: Shilpi Guzman RN) 0801 (Given - Provider: Leonor Isaac RN) metroNIDAZOLE (FLAGYL) tablet 500 mg 500 mg, Oral, 3 times daily with meals, First dose on Sun01/11/24 at 0800, Indication: Other: (specify), Indication: Empyema 0847 (Given - Provider: Shilpi Guzman RN)1248 (Given - Provider: Shilpi Guzman RN)1746 (Given - Provider: Shilpi Guzman RN) 0819 (Given - Provider: Shilpi Guzman RN)1237 (Given - Provider: Shilpi Guzman RN)1736 (Given - Provider: Shilpi Guzman, RN) 0800 (Given - Provider: Leonor Isaac RN)1356 (Given - Provider: Leonor Isaac RN)1700 (Due) rOPINIRole (REQUIP) tablet 2 mg 2 mg, Oral, At bedtime, First dose on [place] 01/10/24 at 0030 2009 (Given - Provider: Clement Kebede RN) 2126 (Given - Provider: Anjali Berman LPN) senna-docusate (SENNA-S) 8.6-50 mg per tablet 1 tablet 1 tablet, Oral, 2 times daily, First dose on [place] 01/10/24 at 0030, NOT for abdominal surgery patients. Hold for loose stools. Do Not Crush or Chew if administering orally due to bitter taste. May be crushed if given via tube. 0847 (Given - Provider: Shilpi Guzman RN)2009 (Given - Provider: Clement Kebede RN) 0819 (Given - Provider: Shilpi Guzman RN)2099 (Not Given - Provider: Anjali Berman LPN - Reason: Patient/family refused) 0900 (Not Given - Provider: Leonor Isaac RN - Reason: Patient/family refused) sertraline (ZOLOFT) tablet 150 mg 150 mg, Oral, Daily, First dose on [place] 01/10/24 at 0900 0847 (Given - Provider: Shilpi Guzman RN) 0819 (Given - Provider: Shilpi Guzman RN) 0800 (Given - Provider: Leonor Isaac RN) PRN Medication Order 01/12/2024 01/13/2024 01/14/2024 acetaminophen (TYLENOL) tablet 650 mg 650 mg, Oral, Every 4 hours PRN, mild pain, fever 100.4 F or greater, headaches, Starting on Sun01/09/24 at 2341 aluminum-magnesium hydroxide-simethicone (MAALOX PLUS) 200-200-20 mg/5 mL suspension 30 mL 30 mL, Oral, Every 4 hours PRN, indigestion, Starting on Sun01/09/24 at 2341 bisacodyL (DULCOLAX) suppository 10 mg 10 mg, Rectal, Daily PRN, constipation, Starting on Sun01/09/24 at 2341, Try oral medications first for constipation. Try rectal medication if oral meds are ineffective, not tolerated, or not ordered. ibuprofen (ADVIL,MOTRIN) tablet 600 mg 600 mg, Oral, Every 6 hours PRN, fever 100.4 F or greater, headaches, mild pain, Starting on Sun01/09/24 at 2341, Give with Food Do Not Crush or Chew if administering orally due to bitter taste. May be crushed if given via tube. magnesium hydroxide (MOM) 400 mg/5 mL suspension 2,400 mg 2,400 mg (30 mL), Oral, Daily PRN, constipation, Starting on Sun01/09/24 at 2341, If no bowel movement in 24 hours after Sennosides (SENNA) administration. melatonin Tab 5 mg 5 mg, Oral, Nightly PRN, Sleep, Starting on Sun01/09/24 at 2341, If still awake in 1 hour proceed to trazodone (Desyrel) morphine (MSIR) tablet 7.5-15 mg 7.5-15 mg, Oral, Every 4 hours PRN (may repeat), moderate to severe pain, Starting on Sun01/09/24 at 2341, Initiate with 7.5 mg oral every 4 hours prn moderate to severe pain. For unrelieved pain, may repeat 7.5 mg within 60 minutes of initial dose. If pain is RELIEVED after repeat dose, change to 15 mg every 4 hours prn moderate to severe pain. If pain is UNrelieved after repeat dose, or patient requires dose reduction, call physician. 0004 (Given - Provider: Myesha Watt RN) morphine injection 2-4 mg 2-4 mg, Intravenous, Every 3 hours PRN (may repeat), moderate to severe pain, Starting on Sun01/09/24 at 2341, Initiate with 2 mg IV every 3 hours prn moderate to severe pain. For unrelieved pain, may repeat 2 mg within 30 minutes of initial dose. If pain is RELIEVED after repeat dose, change to 4 mg every 3 hours prn moderate to severe pain. If pain is UNrelieved after repeat dose, or patient requires dose reduction, call physician. May use IV for breakthrough pain or if unable to tolerate enteral routes. naloxone (NARCAN) injection 0.1 mg(Linked Group 1) 0.1 mg, Intravenous, As needed, opioid reversal, For respiratory rate less than or equal to 8 per minute., Starting on Sun01/09/24 at 2341, Mix nalOXone (NARCAN) 0.4 mg (1mL) with 9 mL of Normal Saline to total 10 mL. Administer 0.1 mg (2.5mL) IV Push every 2 minutes until respiratory rate is 10 or greater. naloxone (NARCAN) injection 0.4 mg(Linked Group 1) 0.4 mg, Intravenous, As needed, opioid reversal, patient is pulseless, breathless, and unresponsive, Starting on Sun01/09/24 at 2341, Call a code first, then administer naloxone dose undiluted IV Push over 30 seconds. nicotine (NICODERM CQ) 14 mg/24 hr 1 patch 1 patch, Transdermal, Administer over 24 Hours, Daily PRN, nicotine dependence, Starting on Sun01/09/24 at 2353, U/P Listed Hazardous Drug. Waste Must Be Disposed in [employer] Waste Container ondansetron (ZOFRAN) injection 4 mg(Linked Group 2) 4 mg, Intravenous, Every 6 hours PRN, nausea, vomiting, Starting on Sun01/09/24 at 2340, Use oral route first, if tolerated. ondansetron (ZOFRAN-ODT) disintegrating tablet 4 mg(Linked Group 2) 4 mg, Oral, Every 6 hours PRN, nausea, vomiting, Starting on Sun01/09/24 at 2340, Use oral route first, if tolerated. Formulation requires tablet remain in sealed package until immediately prior to dose being administered. senna (SENOKOT) tablet 8.6 mg 8.6 mg (1 tablet), Oral, 2 times daily PRN, constipation, Starting on Sun01/09/24 at 2341 sodium chloride (PF) (NS) flush 5 mL(Linked Group 3) 5 mL, Intravenous, As needed, line care, Starting on Sun01/09/24 at 1931 sodium chloride 0.9% (NS)(Linked Group 3) 0-150 mL/hr, Intravenous, As needed, To flush line after IV infusions when no maintenance IV ordered or a compatibility issue. Infuse 20ml at the same rate as the secondary infusion, Starting on Sun01/09/24 at 1931, Run as Primary IV. NOT intended for KVO. 0131 (New Bag - Provider: Anjali S Cullen, UNARMED SECURITY OFFICER)0132 (Paused - Provider: Anjali Berman LPN)0202 (Restarted - Provider: Anjali Berman LPN)0301 (Rate/Dose Change - Provider: Anjali Bermna LPN)0324 (Stopped - Provider: Anjali Berman LPN) traZODone (DESYREL) tablet 50 mg 50 mg, Oral, Nightly PRN, sleep, Starting on Sun01/09/24 at 2341, To be administered 1 hour after melatonin if still awake. May repeat x 1 dose in 30 minutes if still awake. Linked Groups Order Group 1: naloxone (NARCAN) injection 0.1 mgJump to med 0.1 mg, Intravenous, As needed, opioid reversal, For respiratory rate less than or equal to 8 per minute., Starting on Sun01/09/24 at 2341, Mix nalOXone (NARCAN) 0.4 mg (1mL) with 9 mL of Normal Saline to total 10 mL. Administer 0.1 mg (2.5mL) IV Push every 2 minutes until respiratory rate is 10 or greater. And Notify physician (CANCELED) STAT, Until discontinued, Starting on Sun01/09/24 at 2342, Until Specified, Respiratory rate less than: 8, For respiratory rate less than or equal to 8, notify physician and/or appropriate staff for additional orders. And naloxone (NARCAN) injection 0.4 mgJump to med 0.4 mg, Intravenous, As needed, opioid reversal, patient is pulseless, breathless, and unresponsive, Starting on Sun01/09/24 at 2341, Call a code first, then administer naloxone dose undiluted IV Push over 30 seconds. Group 2: ondansetron (ZOFRAN-ODT) disintegrating tablet 4 mgJump to med 4 mg, Oral, Every 6 hours PRN, nausea, vomiting, Starting on Sun01/09/24 at 2340, Use oral route first, if tolerated. Formulation requires tablet remain in sealed package until immediately prior to dose being administered. Or ondansetron (ZOFRAN) injection 4 mgJump to med 4 mg, Intravenous, Every 6 hours PRN, nausea, vomiting, Starting on Sun01/09/24 at 2340, Use oral route first, if tolerated. Group 3: Insert peripheral IV (COMPLETED) CALI, Once, On Sun01/09/24 at 193, For 1 occurrence And Saline lock IV (CANCELED) CALI, Once, On Sun01/09/24 at 1931, For 1 occurrence And sodium chloride (PF) (NS) flush 5 mLJump to med 5 mL, Intravenous, As needed, line care, Starting on Sun01/09/24 at 193 And sodium chloride 0.9% (NS)Jump to med 0-150 mL/hr, Intravenous, As needed, To flush line after IV infusions when no maintenance IV ordered or a compatibility issue. Infuse 20ml at the same rate as the secondary infusion, Starting on Sun01/09/24 at 1930, Run as Primary IV. NOT intended for KVO. Inactive Administered Medications - up to 3 most recent administrations Administered Medications (un recognized section and content) Medication Order MAR Action Action Date Dose Rate Site fluorescein-benoxinate 0.3-0.4 % 1 Drop (FLURESS) 1 Drop, BOTH EYES, DIRECTED, Starting on Sun01/02/24 at 0830, Until Sun01/02/24 at 2028, Administer for applanation tonometry. In the event of a Fluress shortage, administer [place]-Fluor 1 drop into both eyes as directed for applanation tonometry Given 01/02/2024 8:30 AM EDT 1 Drop PHENYLephrine 2.5 % 1 Drop (AK-DILATE, MERISSA-SYNEPHRINE) 1 Drop, BOTH EYES, DIRECTED, Starting on Sun01/02/24 at 0830, Until Sun01/02/24 at 2028, Administer for dilation PROTECT FROM LIGHT Given 01/02/2024 8:30 AM EDT 1 Drop proparacaine 0.5 % 1 Drop (ALCAINE) 1 Drop, BOTH EYES, DIRECTED, Starting on Sun01/02/24 at 0830, Until Sun01/02/24 at 2028, Administer for pneumo tonometry, tonopen tonometry, or pachymetry. In the event of a proparacaine shortage, administer tetracaine 0.5% ophthalmic drops 1 drop in the left eye as directed for pneumo tonometry, tonopen tonometry, or pachymetry Given 01/02/2024 8:30 AM EDT 1 Drop tropicamide 1 % 1 Drop (MYDRIACYL) 1 Drop, BOTH EYES, DIRECTED, Starting on Sun01/02/24 at 0830, Until Sun01/02/24 at 2028, Administer for dilation Given 01/02/2024 8:30 AM EDT 1 Drop FOR RECORDS PERTAINING TO PATIENTS WHO ARE OR HAVE BEEN ENROLLED IN A CHEMICAL DEPENDENCY/SUBSTANCEABUSE PROGRAM, SOME INFORMATION MAY BE OMITTED. This clinical summary was aggregated from multiple sources. Caution should be exercised in using it in the provision of clinical care. This summary normalizes information from multiple sources, and as a consequence, information in this document may materially change the coding, format and clinical context of patient data. In addition, data may be omitted in some cases. CLINICAL DECISIONS SHOULD BE BASED ON THE PRIMARY CLINICAL RECORDS. [facility] [employer] provides no warranty or guarantee of the accuracy or completeness of information in this document.
--- NOTE | 2025-06-10 12:31 | NEURO ---
NCS and/or EMG Patient Report Ordering Doctor: Maryjane Zamudio NP DATE OF SERVICE: 06/10/25 Zachery presents with complaints of burning in both feet. Electrodiagnostic findings: Peroneal motor nerve demonstrates normal distal latency, amplitude and conduction velocity bilaterally. Tibial motor response within normal limits bilaterally. Normal tibial and peroneal F?waves. H?reflex borderline prolonged bilaterally. Sensory sponsors are within normal limits. Needle EMG testing was performed in the lower limbs. All muscles tested showed no evidence of denervation with normal motor unit action potentials. Diagnostic impression: This is a normal electrodiagnostic study of the lower limbs. There is no electrodiagnostic evidence for peripheral neuropathy or lumbosacral radiculopathy. If symptoms persist consider nerve biopsy to evaluate for small fiber neuropathy Multi Select Codes Neurology Neurology Interp Codes: 12735-01 Musc test done w/n test comp (interp) (2) and 00598-28 Nrv cndj test 11-12 studies (interp)
== END | disposition home or self-care (01) ==
LOC: PSN 06:53
PROVIDERS: PCP Family Medicine; Referring Provider Nurse Practitioner Family; Visit Provider Nurse Practitioner Family
DX: G62.9 Polyneuropathy, unspecified (principal)
CPT/HCPCS: 95886; 95912